=== PATIENT | female | born 1955 | race Caucasian/White ===

== ENCOUNTER → 2017-10-26 | Outpatient (CLI) | payer OTHER, SELFPAY | PROVIDERS: Visit Provider Nurse Practitioner Family | DX: Z79.899 Other long term (current) drug therapy (principal) | CPT/HCPCS: 80305 ==

== ENCOUNTER 2017-11-18 09:13 | Emergency (ER) | payer OTHER, SELFPAY ==
[2017-11-18 09:28] VITALS: BP 139/74; PULSE 79; RESP 20; TEMP 37.1; O2SAT 97; BMI 32.1
--- NOTE | 2017-11-18 10:10 | HMH.EDUTC ---
[facility] [place] Clinical Impression: Influenza B Disposition: Home, Self-Care Condition on Discharge: Good Instructions: Influenza Additional Instructions: * Too late to start tamiflu. Most effective when started within 48 hours of symptoms onset. * Lots of rest * Increase fluids, water, gatorade, powerade, pedialyte if /toddler/child * Monitor Temp. Tylenol every 4 hours as needed no more then 5 times a day or 4000mg in 24 hours and/or ibuprofen every 6 hours as needed no more then 3200mg in 24 hours (as long as your primary care doctor has told you that it is ok to take both) for fever/aches/pain. ER if fever no less than 101 despite tylenol and Ibuprofen * You (or your child) are contagious until no fever, aches, chills x 24 hours without medication for symptoms. * * Per hospital policy, Your throat swab was sent for culture. Those results are typically sent to your primary care. Be sure to follow up in 2-3 days if no improvement so they can review those results and treat if necessary. If you don't have primary care, I recommend you get one but in the mean time, you will have to return to a walk in clinic. Follow up IMMEDIATELY for new or worsening symptoms, improvement followed by suddenly feeling worse OR no noticeable improvement over the next 48-72 hours. 911 for difficulty breathing Referrals: Ciro De Jesus APRN [Primary Care Provider] - (IMMEDIATELY for new or worsening symptoms, improvement followed by suddenly feeling worse OR no noticeable improvement over the next 48-72 hours. 911 for difficulty breathing ) Time of Disposition: 10:24 Medical Decision Making Vital Signs: 11/18/17 09:28 Temperature 98.8 F Temperature Source Temporal Artery Scan Pulse Rate [Right] 79 Respiratory Rate 20 Blood Pressure [Right Arm] 139/74 Blood Pressure Mean [Right Arm] 95 Blood Pressure Source [Right Arm] Automatic Cuff Blood Pressure Position [Right Arm] Sitting 02 Sat by Pulse Oximetry 97 Oxygen Delivery Method Room Air Orders (Tests/Meds): Strep negative Flu A neg Flu B positive - Devyn Inquiry Pt receiving controlled substance: No [facility] [place] HPI - General Stated complaint: cough,congested,sore throat Time Seen by Provider: 11/18/17 10:00 Mode of Arrival: Ambulatory Source of Information: Patient Limitations: No Limitations Description of Symptoms (Recalled from Triage Doc. by RN): SORE THROAT, EAR ACHES, BODY ACHES X4 DAYS HEENT Symptoms (Recalled from RN notes): Yes Resp Symptoms (Recalled from RN notes): No Skin Symptoms (Recalled from RN notes): No MS Symptoms (Recalled from RN notes): No Functional Status (Recalled from RN notes): N - History of Present Illness Provider Complaint: c/o cough x3-4 days associated w/ nasal congestion. Bodyaches day 1. Resolved. Nausea day 2, resolved not I eat whatever I want . Son w/ same symptoms. Dx flu B. Sales And Marketing Director gave her zpack for symptoms but after 2-3 days, no improvement. - Related Data Home Medications Medication Instructions Recorded Confirmed aspirin 81 mg tablet,delayed 81 mg PO QDAY 11/11/17 release bisoprolol fumarate 10 mg tablet 10 mg PO QDAY 11/11/17 cholecalciferol (vitamin D3) 1,000 1,000 unit PO ONCE 11/11/17 unit capsule conjugated estrogens 0.625 mg 0.625 mg PO QDAY 11/11/17 tablet diazepam 5 mg tablet 5 mg PO TID 11/11/17 esomeprazole magnesium 40 mg 40 mg PO QDAY cap 11/11/17 capsule,delayed release isosorbide mononitrate ER 30 mg 30 mg PO QAM 11/11/17 tablet,extended release 24 hr levothyroxine 112 mcg capsule 112 mcg PO QDAY cap 11/11/17 lisinopril 5 mg tablet 5 mg PO QDAY 11/11/17 montelukast 10 mg tablet 10 mg PO QHS 11/11/17 simvastatin 20 mg tablet 20 mg PO QAM 11/11/17 atorvastatin 10 mg tablet 10 mg PO QDAY 11/15/17 Previous Rx's Medication Instructions Recorded azithromycin 1 gram oral packet 1 g PO QDAY #1 packet 11/16/17 Allergies Allergy/AdvReac Type Severity R
--- NOTE | 2017-11-18 10:17 | ED_ITS ---
[facility] Impression: Influenza B Disposition: Home, Self-Care Condition on Discharge: Good Instructions: Influenza Additional Instructions: * Too late to start tamiflu. Most effective when started within 48 hours of symptoms onset. * Lots of rest * Increase fluids, water, gatorade, powerade, pedialyte if infant/toddler/child * Monitor Temp. Tylenol every 4 hours as needed no more then 5 times a day or 4000mg in 24 hours and/or ibuprofen every 6 hours as needed no more then 3200mg in 24 hours (as long as your primary care doctor has told you that it is ok to take both) for fever/aches/pain. ER if fever no less than 101 despite tylenol and Ibuprofen * You (or your child) are contagious until no fever, aches, chills x 24 hours without medication for symptoms. * * Per hospital policy, Your throat swab was sent for culture. Those results are typically sent to your primary care. Be sure to follow up in 2-3 days if no improvement so they can review those results and treat if necessary. If you don' t have primary care, I recommend you get one but in the mean time, you will have to return to a walk in clinic. Follow up IMMEDIATELY for new or worsening symptoms, improvement followed by suddenly feeling worse OR no noticeable improvement over the next 48-72 hours. 911 for difficulty breathing Referrals: Ciro De Jesus APRN [Primary Care Provider] - (IMMEDIATELY for new or worsening symptoms, improvement followed by suddenly feeling worse OR no noticeable improvement over the next 48-72 hours. 911 for difficulty breathing * ) Time of Disposition: 10:24 Medical Decision Making Vital Signs: 11/18/17 09:28 Temperature 98.8 F Temperature Source Temporal Artery Scan Pulse Rate [Right] 79 Respiratory Rate 20 Blood Pressure [Right Arm] 139/74 Blood Pressure Mean [Right Arm] 95 Blood Pressure Source [Right Arm] Automatic Cuff Blood Pressure Position [Right Arm] Sitting 02 Sat by Pulse Oximetry 97 Oxygen Delivery Method Room Air Orders (Tests/Meds): Strep negative Flu A neg Flu B positive - Devyn Inquiry Pt receiving controlled substance: No [facility] [place] - General Stated complaint: cough,congested,sore throat Time Seen by Provider: 11/18/17 10:00 Mode of Arrival: Ambulatory Source of Information: Patient Limitations: No Limitations Description of Symptoms (Recalled from Triage Doc. by RN): SORE THROAT, EAR ACHES, BODY ACHES X4 DAYS HEENT Symptoms (Recalled from RN notes): Yes Resp Symptoms (Recalled from RN notes): No Skin Symptoms (Recalled from RN notes): No MS Symptoms (Recalled from RN notes): No Functional Status (Recalled from RN notes): N - History of Present Illness Provider Complaint: c/o cough x3-4 days associated w/ nasal congestion. Bodyaches day 1. Resolved. Nausea day 2, resolved not I eat whatever I want . Son w/ same symptoms. Dx flu B. 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 - Related Data Home Medications Medication Instructions Recorded Confirmed aspirin 81 mg tablet,delayed 81 mg PO QDAY 11/11/17 release bisoprolol fumarate 10 mg tablet 10 mg PO QDAY 11/11/17 cholecalciferol (vitamin D3) 1,000 1,000 unit PO ONCE 11/11/17 unit capsule conjugated estrogens 0.625 mg 0.625 mg PO QDAY 11/11/17 tablet diazepam 5 mg tablet 5 mg PO TID 11/11/17 esomeprazole magnesium 40 mg 40 mg PO QDAY cap
[2017-11-18 10:39] LABS: UTC Influenza A Antigen Negative (Negative); UTC Influenza B Antigen Positive (Negative); UTC Strep Screen (Rapid) Negative (Negative)
== END 2017-11-18 10:33 | disposition home or self-care (01) ==
PROVIDERS: Emergency Provider Nurse Practitioner Family; PCP Nurse Practitioner Family
DX: J10.1 Influenza due to other identified influenza virus with other respiratory manifestations (principal); J45.909 Unspecified asthma, uncomplicated; I10 Essential (primary) hypertension; E03.9 Hypothyroidism, unspecified; Z79.818 Long term (current) use of other agents affecting estrogen receptors and estrogen levels; Z79.899 Other long term (current) drug therapy; Z79.82 Long term (current) use of aspirin
CPT/HCPCS: 87804; 87880; 99202

== ENCOUNTER → 2017-12-07 09:30 | Outpatient (CLI) | payer OTHER, SELFPAY ==
[2017-12-07 09:33] LABS: Adenovirus F 40/41, stool Not Detected (NotDetected); Astrovirus Not Detected (NotDetected); Campylobacter Not Detected (NotDetected); Clostridium Difficile A/B, PCR Not Detected (NotDetected); Cryptosporidium Not Detected (NotDetected); Cyclospora Cayetanesis Not Detected (NotDetected); Entamoeba histolytica Not Detected (NotDetected); Enteroaggregative E coli Not Detected (NotDetected); Enteropathogenic E coli Not Detected (NotDetected); Enterotoxigenic E coli Not Detected (NotDetected); Giardia lamblia Not Detected (NotDetected); Norovirus Not Detected (NotDetected); Plesimonas Shigalloides, PCR Not Detected (NotDetected); Rotavirus A Not Detected (NotDetected); Salmonella, PCR Not Detected (NotDetected); Sapovirus Not Detected (NotDetected); Shiga-like toxin E coli Not Detected (NotDetected); Shigella Enterovasive E coli Not Detected (NotDetected); Vibrio Cholerae Not Detected (NotDetected); Vibrio, PCR Not Detected (NotDetected); Yersinia Entercolitica, PCR Not Detected (NotDetected)
== END ==
PROVIDERS: PCP Nurse Practitioner Family; Visit Provider Surgery
DX: R19.7 Diarrhea, unspecified (principal); R10.9 Unspecified abdominal pain
CPT/HCPCS: 87507

== ENCOUNTER → 2017-12-09 08:19 | Outpatient (CLI) | payer OTHER, SELFPAY ==
[2017-12-09 08:47] LABS: Blood Urea Nitrogen 14 mg/dL (7-18); Creatinine,Serum 0.67 mg/dL (0.55-1.02); Estimated Glomerular Filt Rate 89 ml/min (>60); GFR (African American) 108 ML/MIN (>60)
--- NOTE | 2017-12-09 08:50 | CT_ITS ---
CT abdomen pelvis w con CLINICAL INDICATION: Lower pelvic pain, diarrhea ORDERING PHYSICIAN: Ariel George MD PATIENT AGE: 62 years COMPARISON: None TECHNIQUE: Axial images obtained with sagittal and coronal reformats. PROCEDURE: Oral Contrast: Redicat IV Contrast: 75 mL's of Isovue-370 . FINDINGS: Lung bases are clear. Mild diffuse fatty liver. No focal liver lesion. Prior cholecystectomy with mild dilatation of the common hepatic duct which may be physiologic response from the previous cholecystectomy. The spleen, adrenal glands, and pancreas are unremarkable. 2 mm nonobstructing calculus is present in the lower pole the right kidney. There is mild prominence of the renal pelves bilaterally. No obstructing ureteral calculi evident. There is a small umbilical hernia containing fat with a tiny infra periumbilical hernia also containing fat. The fat within the umbilical hernia has a somewhat lobular contour. Prior hysterectomy. No evidence of appendicitis. There is no evidence of diverticulitis. No intestinal obstruction or free air. No pelvic mass or focal inflammatory change. No abnormal fluid collection within the pelvis. No acute bony anomalies or aortic aneurysm. IMPRESSION: 1. No acute intra-abdominal or pelvic findings. 2. Nonobstructing right nephrolithiasis. 3. Small umbilical and infraumbilical hernia containing fat.
--- NOTE | 2017-12-09 10:26 | HMH.ITSHM ---
ISOSORS MONO LEVOTHYROXINE LISINOPRIL ASPIRIN D3 MONTELUKAST BISOPROLOL PREMARIN NEXIUM
== END ==
PROVIDERS: PCP Nurse Practitioner Family; Visit Provider Surgery
DX: R10.30 Lower abdominal pain, unspecified (principal)
CPT/HCPCS: 36415; 74177; 82565; 84520; Q9967

== ENCOUNTER → 2017-12-23 15:20 | Outpatient (CLI) | payer OTHER, SELFPAY ==
[2017-12-23 19:22] LABS: Amphetamine/Metha Screen,Urine Negative ng/mL (<1000); Barbiturates Screen,Urine Negative ng/mL (<200); Benzodiazepines Screen,Urine Positive ng/mL (200); Cannabinoid Screen,Urine Negative ng/mL (<50); Cocaine Screen,Urine Negative ng/g (<300); Methadone Screen,Urine Negative ng/mL (<300); Opiate Screen,Urine Negative ng/mL (<300); Phencyclidine Screen,Urine Negative ng/mL (<25)
== END ==
PROVIDERS: Visit Provider Nurse Practitioner Family
DX: Z79.899 Other long term (current) drug therapy (principal)
CPT/HCPCS: 80305

== ENCOUNTER 2018-01-03 09:02 | Day surgery (SDC) | payer OTHER, SELFPAY ==
[2018-01-03 10:18] VITALS: BP 129/76; PULSE 73; RESP 18; TEMP 36.4; O2SAT 94; BMI 32.5
== END 2018-01-03 10:45 | disposition home or self-care (01) ==
LOC: OUTP 09:03
PROVIDERS: PCP Nurse Practitioner Family; Visit Provider Ophthalmology
PROC: (CPT 66821; principal; 2018-01-03 09:00)
DX: H26.492 Other secondary cataract, left eye (principal)
CPT/HCPCS: 66821

== ENCOUNTER → 2018-01-13 08:16 | Outpatient (CLI) | payer OTHER, SELFPAY | PROVIDERS: PCP Emergency Medicine; Visit Provider Internal Medicine Cardiovascular Disease | DX: R06.83 Snoring (principal); R53.83 Other fatigue; R06.00 Dyspnea, unspecified; R00.2 Palpitations | CPT/HCPCS: 93225; 93226 ==

== ENCOUNTER → 2018-01-17 10:34 | Outpatient (CLI) | payer OTHER, SELFPAY ==
--- NOTE | 2018-01-17 | CA_ITS ---
PROCEDURE: 2-D M-mode and color Doppler study INDICATIONS FOR THE TEST: Chest pain COPD+ Heart Murmur+ Tobacco Smoking Palpitations+ Fatigue+ Syncope Edema+ Hypertension+Diabetes Mellitus Rheumatic Fever SOB+WILKINSON+Obesity+Hyperlipidemia+ Family History HD Additional History cad, angina PATIENT INFORMATION HEIGHT: 66 WEIGHT: 171 GENDER: Female B/P: 112/59 2-D/M-MODE INTERPRETATION: 2-D MEASUREMENTS OBSERVED VALUES IN CMS Right Ventricular Dimension (RVDd) 1.5 Interventricular Septum (Thickness)(IVsd) 1.2 Left Ventricular Internal Dimensions(LVIDd) 4.1 Left Ventricular Posterior Wall (Thickness)(LVPWd) 0.9 Aortic Root 2.8 Aortic Cusp Separation 2.1 Left Atrial Dimensions (LAD) 3.6 2D 1. Left atrium is mildly enlarged, left ventricle is normal size, there is mild concentric left ventricular hypertrophy, visually estimated ejection fraction 55% with no obvious regional wall motion abnormality. 2. The right atrium and right ventricle are normal size and contractility. 3. The aortic valve is minimally thickened and fibrosed. 4. The mitral and tricuspid valve leaflets are minimally thickened. 5. The pulmonic valve is poorly visualized. 6. No significant pericardial effusion noted. DOPPLER INTERROGATION: Doppler interrogation of the aortic, mitral and tricuspid valvular presence of mild mitral and tricuspid regurgitation, tricuspid and jet velocity is insufficient for calculation of the right ventricular systolic pressure, grade 1 diastolic dysfunction seen with tissue Doppler evidence of raised left atrial pressure. CONCLUSION: 1. Mildly enlarged left atrium, normal left ventricular size, mild concentric left ventricular hypertrophy, visually estimated ejection fraction 55% with no obvious regional wall motion abnormality, grade 1 diastolic dysfunction seen with tissue Doppler evidence of raised left atrial pressure. 2. Mild mitral and tricuspid regurgitation 3. No significant pericardial effusion noted.
== END ==
PROVIDERS: PCP Emergency Medicine; Visit Provider Internal Medicine Cardiovascular Disease
DX: R06.02 Shortness of breath (principal); E78.4 Other hyperlipidemia; R53.83 Other fatigue; I10 Essential (primary) hypertension; I25.10 Atherosclerotic heart disease of native coronary artery without angina pectoris; R60.9 Edema, unspecified
CPT/HCPCS: 93306

== ENCOUNTER → 2018-02-02 09:21 | Outpatient (CLI) | payer OTHER, SELFPAY | PROVIDERS: PCP Nurse Practitioner Family; Visit Provider Internal Medicine Cardiovascular Disease | DX: R40.0 Somnolence (principal); G47.9 Sleep disorder, unspecified; R00.2 Palpitations; R00.1 Bradycardia, unspecified; R06.83 Snoring; I20.9 Angina pectoris, unspecified; I25.10 Atherosclerotic heart disease of native coronary artery without angina pectoris; R53.83 Other fatigue; R06.02 Shortness of breath; E78.4 Other hyperlipidemia; I10 Essential (primary) hypertension; R60.9 Edema, unspecified | CPT/HCPCS: 95806 ==

== ENCOUNTER → 2018-02-10 09:49 | Outpatient (CLI) | payer OTHER, SELFPAY ==
--- NOTE | 2018-02-10 09:52 | MM_ITS ---
MM Dig screening mamm BI w/CAD CAD Screening COMPARISON: Digital mammograms 01/27/2017 and 01/20/2016 INDICATION: There is no personal or family history of breast cancer. There is been previous biopsy right breast for benign disease. TECHNIQUE: Standard CC and MLO images were obtained. R2 CAD reviewed. FINDINGS: Scattered fibroglandular densities are seen throughout both breasts and the findings are bilateral and symmetrical. There are couple of benign-appearing calcifications in each breast and there is faint arterial calcification in each breast. There is no suspicious lesion and there are no suspicious microcalcifications. IMPRESSION: Fibrofatty parenchyma with no suspicious lesion seen BI-RADS Category: 2 Benign Finding(s) RECOMMENDED FOLLOW-UP: 1YR - 1 YEAR FOLLOW-UP (A letter has been sent to the patient regarding results of the study.)
== END ==
PROVIDERS: PCP Nurse Practitioner Family; Visit Provider Nurse Practitioner Family
DX: Z12.31 Encounter for screening mammogram for malignant neoplasm of breast (principal)
CPT/HCPCS: 77067

== ENCOUNTER → 2018-02-17 15:22 | Outpatient (CLI) | payer OTHER, SELFPAY ==
[2018-02-17 18:44] LABS: Amphetamine/Metha Screen,Urine Negative ng/mL (<1000); Barbiturates Screen,Urine Negative ng/mL (<200); Benzodiazepines Screen,Urine Positive ng/mL (200); Cannabinoid Screen,Urine Negative ng/mL (<50); Cocaine Screen,Urine Negative ng/g (<300); Methadone Screen,Urine Negative ng/mL (<300); Opiate Screen,Urine Negative ng/mL (<300); Phencyclidine Screen,Urine Negative ng/mL (<25)
== END ==
PROVIDERS: Visit Provider Nurse Practitioner Family
DX: Z79.899 Other long term (current) drug therapy (principal)
CPT/HCPCS: 80305

== ENCOUNTER → 2018-04-14 15:18 | Outpatient (CLI) | payer OTHER, SELFPAY ==
[2018-04-14 19:23] LABS: Amphetamine/Metha Screen,Urine Negative ng/mL (<1000); Barbiturates Screen,Urine Negative ng/mL (<200); Benzodiazepines Screen,Urine Positive ng/mL (200); Cannabinoid Screen,Urine Negative ng/mL (<50); Cocaine Screen,Urine Negative ng/g (<300); Methadone Screen,Urine Negative ng/mL (<300); Opiate Screen,Urine Negative ng/mL (<300); Phencyclidine Screen,Urine Negative ng/mL (<25)
== END ==
PROVIDERS: Visit Provider Nurse Practitioner Family
DX: Z79.899 Other long term (current) drug therapy (principal)
CPT/HCPCS: 80305

== ENCOUNTER → 2018-04-17 09:57 | Outpatient (CLI) | payer OTHER, SELFPAY ==
--- NOTE | 2018-04-17 09:57 | US_ITS ---
US Arterial Ankle Brachial Ind History: ITS.REASON: claudication, bilateral leg pain, rest pain, pain with exercise ORDERING PHYSICIAN: Sky Yeager MD PATIENT AGE: 63 years TECHNIQUE: Segmental pressures obtained of both right and left leg. These are compared to brachial blood pressure to yield index at each level sampled including summary JOE. The data sheets from the procedure are available in PACS FINDINGS Rest study only performed today No prior studies available for comparison. Blood pressures reported are in millimeters mercury. RIGHT LEG JOE = 1.1. RIGHT LEG TBI=.9 Brachial BP: 135 Thigh BP: 141 Calf BP: 145 Ankle PT: 149 Ankle DP : 138 Digit =127 LEFT LEG JOE = 1.1 LEFT LEG TBI= .9 Brachial BPD: 132 Thigh BP: 127 Calf BP: 129 Ankle PT:150 Ankle DP: 135 Digit = 120 Pulses and waveforms: Normal IMPRESSION: The ABIs as reported above are within normal limits. Waveforms and pulses are also unremarkable.
== END ==
PROVIDERS: PCP Nurse Practitioner Family; Visit Provider Internal Medicine Cardiovascular Disease
DX: M79.604 Pain in right leg (principal); M79.605 Pain in left leg; I73.9 Peripheral vascular disease, unspecified
CPT/HCPCS: 93922

== ENCOUNTER → 2018-05-12 14:37 | Outpatient (CLI) | payer OTHER, SELFPAY ==
[2018-05-12 17:10] LABS: Basophils % 0.6 % (0.1-2.0); Eosinophils # 0.2 K/mm3 (0.0-0.4); Eosinophils % 2.9 % (0.1-12.0); Hematocrit 42.4 % (37.0-47.0); Lymphocytes # 2.2 K/mm3 (0.7-4.5); Lymphocytes % 32.6 K/mm3 (10-50); Mean Corpuscular HGB Conc 33.1 g/dL (31.8-35.4); Mean Corpuscular Hemoglobin 30.8 pg (27.0-31.2); Mean Corpuscular Volume 93.1 fl (81-99); Mean Platelet Volume 8.6 fl (7.4-10.4); Monocytes # 0.3 K/mm3 (0.1-1.0); Monocytes % 5.1 % (1.7-9.3); Neutrophils # 3.9 K/mm3 (1.8-7.8); Neutrophils % 58.8 % (37.0-80.0); Platelet Count 227 K/mm3 (142-424); Red Blood Count 4.56 M/mm3 (4.20-5.40); Red Cell Distribution Width 13.5 % (11.5-17.5); White Blood Count 6.7 K/mm3 (4.8-10.8)
[2018-05-12 18:43] LABS: Alanine Aminotransferase 32 U/L (12-78); Albumin Level 3.6 gm/dL (3.4-5.0); Albumin/Globulin Ratio 1.2 (1.1-1.8); Alkaline Phosphatase 59 U/L (46-116); Anion Gap 10.5 mEq/L (5-15); Aspartate Amino Transferase 33 U/L (15-37); Bilirubin,Total 0.6 mg/dL (0.2-1.0); Blood Urea Nitrogen 13 mg/dL (7-18); Calcium 8.7 mg/dL (8.5-10.1); Carbon Dioxide 28 mmol/L (21.0-32.0); Chloride 103 mmol/L (98-107); Creatinine,Serum 0.59 mg/dL (0.55-1.02); Estimated Glomerular Filt Rate 103 ml/min (>60); GFR (African American) 125 ML/MIN (>60); Glucose 85 mg/dL (74-106); Potassium 3.5 mmoL/L (3.5-5.1); Sodium 138 mmol/L (136-145); Total Protein,Serum 6.6 gm/dL (6.4-8.2)
== END ==
PROVIDERS: Visit Provider Nurse Practitioner Family
DX: R25.2 Cramp and spasm (principal); F41.9 Anxiety disorder, unspecified
CPT/HCPCS: 80053; 85025

== ENCOUNTER → 2018-05-25 14:43 | Outpatient (CLI) | payer OTHER, SELFPAY ==
--- NOTE | 2018-05-25 14:44 | XR_ITS ---
XR foot wt bearing LT 3V HISTORY: ITS.REASON: soft tissue mass ORDERING PHYSICIAN: Radha Greenfield DPM PATIENT AGE: 63 years COMPARISON: Right foot same date FINDINGS: No fracture or dislocation. No lytic or blastic change. There is normal mineralization.. The joint spaces are well-preserved. No significant degenerative/arthritic changes. No erosive changes evident. The prominent spur of the calcaneus at insertion of plantar tendon. There is no abnormal soft tissue swelling noted. IMPRESSION: Negative, no acute finding
--- NOTE | 2018-05-25 14:44 | XR_ITS ---
XR foot wt bearing RT 3V HISTORY: ITS.REASON: soft tissue mass ORDERING PHYSICIAN: Radha Greenfield DPM PATIENT AGE: 63 years COMPARISON: Left foot same date FINDINGS: No fracture or dislocation. No lytic or blastic change. There is normal mineralization.. The joint spaces are well-preserved. No significant degenerative/arthritic changes. No erosive changes evident. There is a prominent spur of the calcaneus at insertion of plantar tendon. There Is no abnormal signal soft tissue swelling. IMPRESSION: Negative, no acute finding
== END ==
PROVIDERS: Visit Provider Podiatrist
DX: M19.071 Primary osteoarthritis, right ankle and foot (principal); M19.072 Primary osteoarthritis, left ankle and foot; M67.471 Ganglion, right ankle and foot; M67.472 Ganglion, left ankle and foot
CPT/HCPCS: 73630

== ENCOUNTER → 2018-06-08 14:36 | Outpatient (REF) | payer OTHER, SELFPAY ==
[2018-06-08 19:28] LABS: Amphetamine/Metha Screen,Urine Negative ng/mL (<1000); Barbiturates Screen,Urine Negative ng/mL (<200); Benzodiazepines Screen,Urine Positive ng/mL (<200); Cannabinoid Screen,Urine Negative ng/mL (<50); Cocaine Screen,Urine Negative ng/mL (<300); Methadone Screen,Urine Negative ng/mL (<300); Opiate Screen,Urine Negative ng/mL (<300); Phencyclidine Screen,Urine Negative ng/mL (<25)
== END ==
LOC: LAB 14:36
PROVIDERS: Visit Provider Nurse Practitioner Family
DX: Z79.899 Other long term (current) drug therapy (principal)
CPT/HCPCS: 80305

== ENCOUNTER → 2018-08-03 09:07 | Outpatient (REF) | payer OTHER, SELFPAY ==
[2018-08-03 14:19] LABS: Amphetamine/Metha Screen,Urine Negative ng/mL (<1000); Barbiturates Screen,Urine Negative ng/mL (<200); Benzodiazepines Screen,Urine Positive ng/mL (<200); Cannabinoid Screen,Urine Negative ng/mL (<50); Cocaine Screen,Urine Negative ng/mL (<300); Methadone Screen,Urine Negative ng/mL (<300); Opiate Screen,Urine Negative ng/mL (<300); Phencyclidine Screen,Urine Negative ng/mL (<25)
== END ==
LOC: LAB 09:07
PROVIDERS: Visit Provider Nurse Practitioner Family
DX: Z79.899 Other long term (current) drug therapy (principal)
CPT/HCPCS: 80305

== ENCOUNTER → 2018-08-31 13:29 | Outpatient (REF) | payer OTHER, SELFPAY ==
[2018-08-31 14:21] LABS: Basophils % 0.5 % (0.1-2.0); Eosinophils # 0.2 K/mm3 (0.0-0.4); Eosinophils % 2.9 % (0.1-12.0); Hematocrit 41.6 % (37.0-47.0); Hemoglobin 14.1 g/dL (12.2-16.2); Lymphocytes # 1.8 K/mm3 (0.7-4.5); Lymphocytes % 25.7 K/mm3 (10-50); Mean Corpuscular HGB Conc 33.9 g/dL (31.8-35.4); Mean Corpuscular Hemoglobin 31.9 pg (27.0-31.2); Mean Corpuscular Volume 94.3 fl (81-99); Mean Platelet Volume 8.7 fl (7.4-10.4); Monocytes # 0.3 K/mm3 (0.1-1.0); Monocytes % 4.9 % (1.7-9.3); Neutrophils # 4.6 K/mm3 (1.8-7.8); Neutrophils % 66.1 % (37.0-80.0); Platelet Count 215 K/mm3 (142-424); Red Cell Distribution Width 13.7 % (11.5-17.5)
[2018-08-31 15:06] LABS: Alanine Aminotransferase 28 U/L (12-78); Albumin Level 3.5 gm/dL (3.4-5.0); Albumin/Globulin Ratio 1.1 (1.1-1.8); Alkaline Phosphatase 71 U/L (46-116); Anion Gap 13.3 mEq/L (5-15); Aspartate Amino Transferase 22 U/L (15-37); Bilirubin,Total 0.5 mg/dL (0.2-1.0); Blood Urea Nitrogen 13 mg/dL (7-18); Carbon Dioxide 29 mmol/L (21.0-32.0); Chloride 103 mmol/L (98-107); Chol/HDL Ratio 2.5 (1-3.5); Cholesterol 161 mg/dL (140-200); Creatinine,Serum 0.69 mg/dL (0.55-1.02); Estimated Glomerular Filt Rate 86 ml/min (>60); GFR (African American) 104 ML/MIN (>60); Globulin 3.2 gm/dl (1.3-3.2); Glucose 111 mg/dL (74-106); HDL Cholesterol 64 mg/dL (29-89); LDL Cholesterol 77 mg/dL (0-130); Potassium 4.3 mmoL/L (3.5-5.1); Sodium 141 mmol/L (136-145); T4 (Thyroxine) 12.7 ug/dl (4.7-13.3); Thyroid Stimulating Hormone 3.73 uIU/ml (0.358-3.740); Total Protein,Serum 6.7 gm/dL (6.4-8.2); Triglycerides 99 mg/dL (30-200); VLDL Cholesterol 20 mg/dL (0-40)
[2018-08-31 15:31] LABS: Amphetamine/Metha Screen,Urine Negative ng/mL (<1000); Barbiturates Screen,Urine Negative ng/mL (<200); Benzodiazepines Screen,Urine Positive ng/mL (<200); Cannabinoid Screen,Urine Negative ng/mL (<50); Cocaine Screen,Urine Negative ng/mL (<300); Methadone Screen,Urine Negative ng/mL (<300); Opiate Screen,Urine Negative ng/mL (<300); Phencyclidine Screen,Urine Negative ng/mL (<25)
[2018-09-01 09:21] LABS: Hep A Ab, IgM Negative (Negative); Hepatitis B Core Antibody IgM Negative (Negative); Hepatitis B Surface Antigen Negative (Negative)
[2018-09-01 18:08] LABS: Hepatitis C Antibody <0.1 s/co ratio (0.0-0.9)
== END ==
LOC: LAB 13:29
PROVIDERS: PCP Nurse Practitioner Family; Visit Provider Nurse Practitioner Family
DX: E66.9 Obesity, unspecified (principal); Z20.2 Contact with and (suspected) exposure to infections with a predominantly sexual mode of transmission; Z79.899 Other long term (current) drug therapy; G62.9 Polyneuropathy, unspecified
CPT/HCPCS: 80053; 80061; 80074; 80305; 84436; 84443; 85025

== ENCOUNTER → 2018-09-11 12:51 | Outpatient (CLI) | payer OTHER, SELFPAY ==
[2018-09-11 20:08] LABS: Thyroid Stimulating Hormone 4.73 uIU/ml (0.358-3.740)
== END ==
PROVIDERS: Visit Provider Otolaryngology
DX: E03.9 Hypothyroidism, unspecified (principal)
CPT/HCPCS: 36415; 84439; 84443

== ENCOUNTER → 2018-09-14 08:36 | Outpatient (CLI) | payer OTHER, SELFPAY ==
--- NOTE | 2018-09-14 08:37 | FL_ITS ---
EXAM: Barium swallow/esophagram. INDICATION: ITS.REASON: swallowing difficulty ORDERING PHYSICIAN: Kristian Dumont MD PATIENT AGE: 63 years COMPARISON: None TECHNIQUE: In the upright position the patient was observed to swallow barium in both the AP and lateral view. The cervical esophagus was examined under fluoroscopy with images obtained. The patient was then placed prone in the right anterior oblique position and was observed to swallow barium with Valsalva technique . FLUOROSCOPY TIME: 52 seconds FINDINGS: There was no evidence of aspiration. There was normal peristalsis. No filling defects or mucosal abnormalities. No masses or strictures. There are mildly prominent anterior osteophytes at C5-C6 and C6-C7 which does not appear to significantly indent the posterior esophagus. Mid and distal esophagus have an unremarkable appearance. No evidence of hiatal hernia. IMPRESSION: Negative barium swallow.
== END ==
PROVIDERS: PCP Nurse Practitioner Family; Visit Provider Otolaryngology
DX: R13.10 Dysphagia, unspecified (principal)
CPT/HCPCS: 74220

== ENCOUNTER → 2018-09-21 15:19 | Outpatient (CLI) | payer OTHER, SELFPAY ==
[2018-09-21 18:17] LABS: Amphetamine/Metha Screen,Urine Negative ng/mL (<1000); Barbiturates Screen,Urine Negative ng/mL (<200); Benzodiazepines Screen,Urine Positive ng/mL (<200); Cannabinoid Screen,Urine Negative ng/mL (<50); Cocaine Screen,Urine Negative ng/mL (<300); Methadone Screen,Urine Negative ng/mL (<300); Opiate Screen,Urine Negative ng/mL (<300); Phencyclidine Screen,Urine Negative ng/mL (<25)
== END ==
PROVIDERS: Nurse Practitioner Family; Visit Provider Otolaryngology
DX: Z79.899 Other long term (current) drug therapy (principal)
CPT/HCPCS: 80305

== ENCOUNTER 2018-10-05 15:00 | Outpatient (RCR) | payer OTHER, SELFPAY ==
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
== END 2018-10-05 15:05 | disposition home or self-care (01) ==
LOC: PT 15:00
PROVIDERS: Visit Provider Nurse Practitioner Family
DX: M54.2 Cervicalgia (principal); G89.29 Other chronic pain
CPT/HCPCS: 97010; 97014; 97035; 97110; 97163; G0283

== ENCOUNTER → 2018-10-18 13:29 | Outpatient (CLI) | payer OTHER, SELFPAY ==
[2018-10-18 14:53] LABS: Amphetamine/Metha Screen,Urine Negative ng/mL (<1000); Barbiturates Screen,Urine Negative ng/mL (<200); Benzodiazepines Screen,Urine Negative ng/mL (<200); Cannabinoid Screen,Urine Negative ng/mL (<50); Cocaine Screen,Urine Negative ng/mL (<300); Methadone Screen,Urine Negative ng/mL (<300); Opiate Screen,Urine Negative ng/mL (<300); Phencyclidine Screen,Urine Negative ng/mL (<25)
[2018-10-25 09:18] LABS: Alprazolam Negative (Cutoff=100); Benzodiazepines Negative ng/mL (Cutoff=100); Clonazepam Negative (Cutoff=100); Flurazepam Negative (Cutoff=100); Lorazepam Negative (Cutoff=100); Midazolam Negative (Cutoff=100); Temazepam Negative (Cutoff=100); Triazolam Negative (Cutoff=100)
== END ==
PROVIDERS: Visit Provider Nurse Practitioner Family
DX: Z79.899 Other long term (current) drug therapy (principal)
CPT/HCPCS: 80305; 80346

== ENCOUNTER → 2018-10-19 09:20 | Outpatient (CLI) | payer OTHER, SELFPAY ==
--- NOTE | 2018-10-19 09:22 | XR_ITS ---
XR hand RT min 3V HISTORY: Numbness and tingling in the right hand ITS.REASON: Rt hand Carpal tunnel ORDERING PHYSICIAN: Malika Ralph MD PATIENT AGE: 63 years COMPARISON: None FINDINGS: There are mild osteoarthritic changes at the interphalangeal joint of the thumb with periarticular well-circumscribed areas of calcification. A small periarticular calcific densities present along the ulnar aspect of the PIP joint of the third finger. No acute fracture or dislocation. No bony erosive process. There are mild osteoarthritic changes of the third PIP and DIP joint. IMPRESSION: Mild osteoarthritis/chronic change, no acute finding
== END ==
PROVIDERS: PCP Nurse Practitioner Family; Visit Provider Orthopaedic Surgery
DX: M79.641 Pain in right hand (principal)
CPT/HCPCS: 73130

== ENCOUNTER 2018-10-19 10:21 | Outpatient (RCR) | payer OTHER, SELFPAY | END 2018-10-23 10:00 | disposition home or self-care (01) | LOC: OT 10:21 | PROVIDERS: Visit Provider Orthopaedic Surgery | DX: R20.0 Anesthesia of skin (principal); R20.2 Paresthesia of skin | CPT/HCPCS: 97763 ==

== ENCOUNTER → 2018-11-22 11:30 | Outpatient (CLI) | payer OTHER, SELFPAY ==
[2018-11-22 13:29] LABS: Basophils % 0.4 % (0.1-2.0); Eosinophils # 0.2 K/mm3 (0.0-0.4); Eosinophils % 3.3 % (0.1-12.0); Hematocrit 42.6 % (37.0-47.0); Hemoglobin 14.1 g/dL (12.2-16.2); Lymphocytes # 2.4 K/mm3 (0.7-4.5); Lymphocytes % 34.9 % (10-50); Mean Corpuscular HGB Conc 33.2 g/dL (31.8-35.4); Mean Corpuscular Hemoglobin 31.8 pg (27.0-31.2); Mean Corpuscular Volume 95.9 fl (81-99); Monocytes # 0.3 K/mm3 (0.1-1.0); Monocytes % 4.3 % (1.7-9.3); Neutrophils % 57.2 % (37.0-80.0); Platelet Count 205 K/mm3 (142-424); Red Blood Count 4.44 M/mm3 (4.20-5.40); Red Cell Distribution Width 13.8 % (11.5-17.5); White Blood Count 6.9 K/mm3 (4.8-10.8)
[2018-11-22 13:31] LABS: Anion Gap 14.9 mEq/L (5-15); Blood Urea Nitrogen 20 mg/dL (7-18); Calcium 8.8 mg/dL (8.5-10.1); Carbon Dioxide 29 mmol/L (21.0-32.0); Chloride 101 mmol/L (98-107); Creatinine,Serum 0.68 mg/dL (0.55-1.02); Estimated Glomerular Filt Rate 87 ml/min (>60); Free Thyroxine Index 3.8 ug/dL (5.93-13.13); GFR (African American) 106 ML/MIN (>60); Glucose 102 mg/dL (74-106); Potassium 3.9 mmoL/L (3.5-5.1); Sodium 141 mmol/L (136-145); Thyroid Stimulating Hormone 3.58 uIU/ml (0.358-3.740); Triiodothryronine (T3) Uptake 29 % (31-39)
== END ==
PROVIDERS: Visit Provider Nurse Practitioner Family
DX: I25.10 Atherosclerotic heart disease of native coronary artery without angina pectoris (principal); E78.49 Other hyperlipidemia; R06.02 Shortness of breath; I10 Essential (primary) hypertension; I95.9 Hypotension, unspecified; R00.1 Bradycardia, unspecified; R53.83 Other fatigue
CPT/HCPCS: 36415; 80048; 84436; 84443; 84479; 85025

== ENCOUNTER → 2018-12-11 09:32 | Outpatient (POV) | payer OTHER, SELFPAY | PROVIDERS: Visit Provider Specialist | DX: R20.0 Anesthesia of skin (principal); R20.2 Paresthesia of skin; M79.671 Pain in right foot; M79.672 Pain in left foot | CPT/HCPCS: 95886; 95908 ==

== ENCOUNTER → 2018-12-12 19:51 | Outpatient (CLI) | payer OTHER, SELFPAY | PROVIDERS: PCP Nurse Practitioner Family; Visit Provider Emergency Medicine | DX: G47.33 Obstructive sleep apnea (adult) (pediatric) (principal); I10 Essential (primary) hypertension; R40.0 Somnolence; R06.83 Snoring | CPT/HCPCS: 95810 ==

== ENCOUNTER → 2018-12-14 14:59 | Outpatient (CLI) | payer OTHER, SELFPAY ==
[2018-12-14 19:25] LABS: Amphetamine/Metha Screen,Urine Negative ng/mL (<1000); Barbiturates Screen,Urine Negative ng/mL (<200); Benzodiazepines Screen,Urine Positive ng/mL (<200); Cannabinoid Screen,Urine Negative ng/mL (<50); Cocaine Screen,Urine Negative ng/mL (<300); Methadone Screen,Urine Negative ng/mL (<300); Opiate Screen,Urine Negative ng/mL (<300); Phencyclidine Screen,Urine Negative ng/mL (<25)
== END ==
PROVIDERS: Visit Provider Nurse Practitioner Family
DX: F41.9 Anxiety disorder, unspecified (principal)
CPT/HCPCS: 80305

== ENCOUNTER → 2018-12-21 13:55 | Outpatient (CLI) | payer OTHER, SELFPAY ==
[2018-12-21 14:45] LABS: INR 1.06 (0.9-1.1); Prothrombin Time 10.9 seconds (9.4-11.8)
[2018-12-21 14:56] LABS: Basophils % 0.6 % (0.1-2.0); Eosinophils # 0.2 K/mm3 (0.0-0.4); Eosinophils % 3.4 % (0.1-12.0); Hemoglobin 14.9 g/dL (12.2-16.2); Lymphocytes # 2.4 K/mm3 (0.7-4.5); Lymphocytes % 36.5 % (10-50); Mean Corpuscular HGB Conc 38.3 g/dL (31.8-35.4); Mean Corpuscular Hemoglobin 36.3 pg (27.0-31.2); Mean Corpuscular Volume 94.7 fl (81-99); Mean Platelet Volume 7.6 fl (7.4-10.4); Monocytes # 0.2 K/mm3 (0.1-1.0); Monocytes % 3.8 % (1.7-9.3); Neutrophils # 3.6 K/mm3 (1.8-7.8); Neutrophils % 56.4 % (37.0-80.0); Platelet Count 205 K/mm3 (142-424); Red Blood Count 4.11 M/mm3 (4.20-5.40); Red Cell Distribution Width 14.1 % (11.5-17.5); White Blood Count 6.4 K/mm3 (4.8-10.8)
[2018-12-21 18:16] LABS: Anion Gap 13.1 mEq/L (5-15); Blood Urea Nitrogen 19 mg/dL (7-18); Calcium 9.2 mg/dL (8.5-10.1); Carbon Dioxide 29 mmol/L (21.0-32.0); Chloride 103 mmol/L (98-107); Creatinine,Serum 0.64 mg/dL (0.55-1.02); Estimated Glomerular Filt Rate 94 ml/min (>60); GFR (African American) 113 ML/MIN (>60); Glucose 87 mg/dL (74-106); Potassium 4.1 mmoL/L (3.5-5.1); Sodium 141 mmol/L (136-145)
== END ==
PROVIDERS: PCP Nurse Practitioner Family; Visit Provider Orthopaedic Surgery
DX: G56.01 Carpal tunnel syndrome, right upper limb (principal)
CPT/HCPCS: 36415; 80048; 85025; 85610

== ENCOUNTER → 2018-12-25 12:06 | Outpatient (CLI) | payer OTHER, SELFPAY ==
--- NOTE | 2018-12-25 12:11 | XR_ITS ---
XR chest 2V HISTORY: ITS.REASON: Cough ORDERING PHYSICIAN: Malika Ralph MD PATIENT AGE: 63 years COMPARISON: PA and lateral chest 11/10/2018 FINDINGS: The cardiomediastinal silhouette and pulmonary vascularity are within normal limits. The lungs are clear without infiltrates, suspicious nodules, or pleural effusions. No acute bony abnormalities. IMPRESSION: Negative chest, no acute finding
== END ==
PROVIDERS: PCP Emergency Medicine; Visit Provider Orthopaedic Surgery
DX: G56.01 Carpal tunnel syndrome, right upper limb (principal)
CPT/HCPCS: 71046

== ENCOUNTER → 2019-01-04 10:26 | Outpatient (CLI) | payer OTHER, SELFPAY ==
--- NOTE | 2019-01-04 10:29 | MR_ITS ---
MR lumbar spine wo con, MR 3-d myelogram/MRCP HISTORY: Low back pain X years. ITS.REASON: low back pain ORDERING PHYSICIAN: Ciro De Jesus PATIENT AGE: 63 years Comparison: X-RAY 04/20/17. MRI 03/13/11. TECHNIQUE: Standard multiplanar multiecho sequences are performed without contrast. 3-D MIP and myelographic images are also rendered and reviewed FINDINGS: There is normal alignment. The spinal cord ends at the T12 level. T12-L1, L1-L2, L2-L3, and L3-L4 have an unremarkable appearance. Minimal bulging disc is noted at L4-L5. Minimal bulging disc noted at L5-S1. No neural impingement. There is some mild facet hypertrophic change at L4-L5. No canal stenosis or disc herniation evident. There are type II endplate changes along the inferior aspect of L5. IMPRESSION: 1. No disc herniation or canal stenosis. 2. Minimal bulging disc at L4-L5 and L5-S1 with minimal facet hypertrophic change at L4-5
== END ==
PROVIDERS: PCP Nurse Practitioner Family; Visit Provider Nurse Practitioner Family
DX: M54.5 Low back pain (principal)
CPT/HCPCS: 72148; 76376

== ENCOUNTER → 2019-01-09 15:19 | Outpatient (CLI) | payer OTHER, SELFPAY | PROVIDERS: PCP Nurse Practitioner Family; Visit Provider Obstetrics & Gynecology | DX: Z12.31 Encounter for screening mammogram for malignant neoplasm of breast (principal) ==

== ENCOUNTER → 2019-02-08 13:37 | Outpatient (CLI) | payer OTHER, SELFPAY ==
[2019-02-08 18:04] LABS: Amphetamine/Metha Screen,Urine Negative ng/mL (<1000); Barbiturates Screen,Urine Negative ng/mL (<200); Benzodiazepines Screen,Urine Positive ng/mL (<200); Cannabinoid Screen,Urine Negative ng/mL (<50); Cocaine Screen,Urine Negative ng/mL (<300); Methadone Screen,Urine Negative ng/mL (<300); Opiate Screen,Urine Negative ng/mL (<300); Phencyclidine Screen,Urine Negative ng/mL (<25)
== END ==
PROVIDERS: Visit Provider Nurse Practitioner Family
DX: Z79.899 Other long term (current) drug therapy (principal)
CPT/HCPCS: 80305

== ENCOUNTER → 2019-03-02 14:38 | Outpatient (CLI) | payer OTHER, SELFPAY ==
--- NOTE | 2019-03-02 14:40 | XR_ITS ---
XR DEXA axial skeleton HISTORY: ITS.REASON: screening ORDERING PHYSICIAN: Ervin Hoffman MD PATIENT AGE: 63 years COMPARISON: 01/14/2015 FINDINGS: The BMD measured at the AP Spine L1-L4 is 1.299 g/cm squared with a T score of 1.0. This is considered Normal according to the World Health Organization criteria. Fracture risk is Low. Mean hip density has T score of 3.0. This is normal. The density has increased by 1.1% from the previous exam. Lumbar spine density has increased by 1.6%. IMPRESSION: Normal bone density with low fracture risk. Suggest follow-up exam in February 2021
--- NOTE | 2019-03-02 14:40 | MM_ITS ---
MM Dig screening mamm BI w/CAD ORDERING PHYSICIAN : Ervin Hoffman MD PATIENT AGE: 63 years GENDER: Female COMPARISON: February 2018; January digital bilateral mammogram studies INDICATION: ITS.Routine screening mammogram. Patient taking Premarin. Previous excisional biopsy right breast 2:30 position. Period. Family history. Noncontributory TECHNIQUE: Standard CC and MLO images were obtained. R2 CAD reviewed. FINDINGS: Low-density breast with minimal residual fibroglandular elements throughout most evident towards upper-outer quadrant.. Moderate fatty replacement bilaterally. No areas of significant concern no new findings in either breast. Bilateral follow-up in one year recommended. RIGHT BREAST: Stable mammogram No New findings of significant concern LEFT BREAST:No new findings of significant concern Minor ductal prominence retroareolar region again noted There are a few small scattered calcifications towards upper-outer quadrant left breast but these appear to be stable, benign features and can be followed. Stable intramammary lymph node deep axillary left breast IMPRESSION: Stable mammogram with no significant new findings. Bilateral follow-up in one year recommended. BI-RADS Category: 1 Negative RECOMMENDED FOLLOW-UP: 1YR 1 YEAR FOLLOW-UP (A letter has been sent to the patient regarding results of the study.)
== END ==
PROVIDERS: PCP Nurse Practitioner Family; Visit Provider Obstetrics & Gynecology
DX: Z12.31 Encounter for screening mammogram for malignant neoplasm of breast (principal); Z78.0 Asymptomatic menopausal state; Z13.820 Encounter for screening for osteoporosis
CPT/HCPCS: 77067; 77080

== ENCOUNTER 2019-03-08 13:00 | Outpatient (RCR) | payer OTHER, SELFPAY | END 2019-03-08 13:05 | disposition home or self-care (01) | LOC: OT 13:00 | PROVIDERS: Visit Provider Orthopaedic Surgery | DX: G56.01 Carpal tunnel syndrome, right upper limb (principal) | CPT/HCPCS: 97014; 97035; 97110; 97140; 97165; G0283 ==

== ENCOUNTER → 2019-03-15 14:01 | Outpatient (CLI) | payer OTHER, SELFPAY ==
[2019-03-15 17:33] LABS: Amphetamine/Metha Screen,Urine Negative ng/mL (<1000); Barbiturates Screen,Urine Negative ng/mL (<200); Benzodiazepines Screen,Urine Positive ng/mL (<200); Cannabinoid Screen,Urine Negative ng/mL (<50); Cocaine Screen,Urine Negative ng/mL (<300); Methadone Screen,Urine Negative ng/mL (<300); Opiate Screen,Urine Negative ng/mL (<300); Phencyclidine Screen,Urine Negative ng/mL (<25)
== END ==
PROVIDERS: Visit Provider Nurse Practitioner Family
DX: Z79.899 Other long term (current) drug therapy (principal)
CPT/HCPCS: 80305

== ENCOUNTER → 2019-03-22 09:25 | Outpatient (CLI) | payer OTHER, SELFPAY ==
--- NOTE | 2019-03-22 09:25 | FL_ITS ---
EXAM: Barium swallow/esophagram. INDICATION: ITS.REASON: diff swallowing ORDERING PHYSICIAN: Kristian Dumont MD PATIENT AGE: 63 years COMPARISON: None TECHNIQUE: In the upright position the patient was observed to swallow barium in both the AP and lateral view. The cervical esophagus was examined under fluoroscopy with images obtained. The patient was then placed prone in the right anterior oblique position and was observed to swallow barium with Valsalva technique . FLUOROSCOPY TIME: 40 seconds FINDINGS: There was no evidence of aspiration. There was normal peristalsis. No filling defects or mucosal abnormalities. No masses or strictures. No evidence of hiatal hernia. No esophageal deviation or external compression. IMPRESSION: Negative barium swallow.
== END ==
PROVIDERS: PCP Nurse Practitioner Family; Visit Provider Otolaryngology
DX: R13.10 Dysphagia, unspecified (principal)
CPT/HCPCS: 74220

== ENCOUNTER → 2019-05-09 17:01 | Outpatient (CLI) | payer OTHER, SELFPAY ==
[2019-05-09 18:20] LABS: Amphetamine/Metha Screen,Urine Negative ng/mL (<1000); Barbiturates Screen,Urine Negative ng/mL (<200); Benzodiazepines Screen,Urine Positive ng/mL (<200); Cannabinoid Screen,Urine Negative ng/mL (<50); Cocaine Screen,Urine Negative ng/mL (<300); Methadone Screen,Urine Negative ng/mL (<300); Opiate Screen,Urine Negative ng/mL (<300); Phencyclidine Screen,Urine Negative ng/mL (<25)
== END ==
LOC: LAB 17:02 → LAB.DROPOF 17:20
PROVIDERS: Visit Provider Nurse Practitioner Family
DX: Z79.899 Other long term (current) drug therapy (principal)
CPT/HCPCS: 80305

== ENCOUNTER → 2019-05-25 11:35 | Outpatient (CLI) | payer OTHER, SELFPAY ==
--- NOTE | 2019-05-25 11:55 | XR_ITS ---
XR chest 2V HISTORY: ITS.REASON: dyspnea ORDERING PHYSICIAN: Sky Yeager MD PATIENT AGE: 64 years COMPARISON: PA and lateral chest 11/10/2018 FINDINGS: The cardiomediastinal silhouette and pulmonary vascularity are within normal limits. The lungs are clear without infiltrates, suspicious nodules, or pleural effusions. No acute bony abnormalities. IMPRESSION: Negative chest, no acute finding
[2019-05-25 13:28] LABS: Anion Gap 10.8 mEq/L (5-15); Blood Urea Nitrogen 15 mg/dL (7-18); Carbon Dioxide 30 mmol/L (21.0-32.0); Chloride 105 mmol/L (98-107); Estimated Glomerular Filt Rate 101 ml/min (>60); GFR (African American) 122 ML/MIN (>60); Glucose 85 mg/dL (74-106); Potassium 3.8 mmoL/L (3.5-5.1); Sodium 142 mmol/L (136-145)
== END ==
PROVIDERS: PCP Nurse Practitioner Family; Visit Provider Internal Medicine Cardiovascular Disease
DX: R06.02 Shortness of breath (principal); E78.49 Other hyperlipidemia; I10 Essential (primary) hypertension; I25.10 Atherosclerotic heart disease of native coronary artery without angina pectoris
CPT/HCPCS: 36415; 71046; 80048; 83880

== ENCOUNTER → 2019-06-07 14:29 | Outpatient (CLI) | payer OTHER, SELFPAY ==
[2019-06-07 15:06] LABS: Amphetamine/Metha Screen,Urine Negative ng/mL (<1000); Barbiturates Screen,Urine Negative ng/mL (<200); Benzodiazepines Screen,Urine Positive ng/mL (<200); Cannabinoid Screen,Urine Negative ng/mL (<50); Cocaine Screen,Urine Negative ng/mL (<300); Methadone Screen,Urine Negative ng/mL (<300); Opiate Screen,Urine Negative ng/mL (<300); Phencyclidine Screen,Urine Negative ng/mL (<25)
== END ==
PROVIDERS: Visit Provider Nurse Practitioner Family
DX: Z79.899 Other long term (current) drug therapy (principal)
CPT/HCPCS: 80305

== ENCOUNTER → 2019-07-05 15:12 | Outpatient (CLI) | payer OTHER, SELFPAY ==
[2019-07-05 20:45] LABS: Amphetamine/Metha Screen,Urine Negative ng/mL (<1000); Barbiturates Screen,Urine Negative ng/mL (<200); Benzodiazepines Screen,Urine Negative ng/mL (<200); Cannabinoid Screen,Urine Negative ng/mL (<50); Cocaine Screen,Urine Negative ng/mL (<300); Methadone Screen,Urine Negative ng/mL (<300); Opiate Screen,Urine Negative ng/mL (<300); Phencyclidine Screen,Urine Negative ng/mL (<25)
== END ==
PROVIDERS: Visit Provider Nurse Practitioner Family
DX: Z79.899 Other long term (current) drug therapy (principal)
CPT/HCPCS: 80305

== ENCOUNTER → 2019-07-30 14:43 | Outpatient (CLI) | payer OTHER, SELFPAY ==
[2019-07-30 14:59] LABS: Basophils % 0.4 % (0.1-2.0); Eosinophils # 0.2 K/mm3 (0.0-0.4); Eosinophils % 2.2 % (0.1-12.0); Hematocrit 40.5 % (37.0-47.0); Hemoglobin 13.6 g/dL (12.2-16.2); Lymphocytes # 2.4 K/mm3 (0.7-4.5); Mean Corpuscular HGB Conc 33.4 g/dL (31.8-35.4); Mean Corpuscular Hemoglobin 30.5 pg (27.0-31.2); Mean Corpuscular Volume 91.3 fl (81-99); Mean Platelet Volume 7.1 fl (7.4-10.4); Monocytes # 0.3 K/mm3 (0.1-1.0); Monocytes % 4.8 % (1.7-9.3); Neutrophils # 3.8 K/mm3 (1.8-7.8); Neutrophils % 56.6 % (37.0-80.0); Platelet Count 247 K/mm3 (142-424); Red Blood Count 4.44 M/mm3 (4.20-5.40); Red Cell Distribution Width 13.5 % (11.5-17.5); White Blood Count 6.6 K/mm3 (4.8-10.8)
--- NOTE | 2019-07-30 15:01 | ECG_ITS ---
APPROVED REPORT Exam: Resting ECG HR:65 bpm ECG Measurements Heart Rate 65 AXES FL 162 P 13 QRSd 82 QRS -8 QT 426 T 7 QTc 443 <Conclusion> Normal sinus rhythm Moderate voltage criteria for LVH, may be normal variant Borderline ECG Electronically signed by : Harlan Mckeon, 07/31/2019 13:08:37
== END ==
PROVIDERS: Visit Provider Otolaryngology
DX: Z01.818 Encounter for other preprocedural examination (principal); J39.2 Other diseases of pharynx
CPT/HCPCS: 36415; 85025; 93005

== ENCOUNTER → 2019-09-28 17:13 | Outpatient (CLI) | payer OTHER, SELFPAY ==
[2019-09-28 18:21] LABS: Amphetamine/Metha Screen,Urine Negative ng/mL (<1000); Barbiturates Screen,Urine Negative ng/mL (<200); Benzodiazepines Screen,Urine Negative ng/mL (<200); Cannabinoid Screen,Urine Negative ng/mL (<50); Cocaine Screen,Urine Negative ng/mL (<300); Methadone Screen,Urine Negative ng/mL (<300); Opiate Screen,Urine Negative ng/mL (<300); Phencyclidine Screen,Urine Negative ng/mL (<25)
[2019-10-07 02:16] LABS: Alprazolam Negative (Cutoff=100); Benzodiazepines Negative ng/mL (Cutoff=100); Clonazepam Negative (Cutoff=100); Flurazepam Negative (Cutoff=100); Lorazepam Negative (Cutoff=100); Midazolam Negative (Cutoff=100); Temazepam Negative (Cutoff=100); Triazolam Negative (Cutoff=100)
== END ==
PROVIDERS: Visit Provider Nurse Practitioner Family
DX: Z79.899 Other long term (current) drug therapy (principal); F41.9 Anxiety disorder, unspecified
CPT/HCPCS: 80305; 80346

== ENCOUNTER → 2019-10-10 18:07 | Outpatient (CLI) | payer OTHER, SELFPAY ==
[2019-10-10 20:16] LABS: Amphetamine/Metha Screen,Urine Negative ng/mL (<1000); Barbiturates Screen,Urine Negative ng/mL (<200); Benzodiazepines Screen,Urine Positive ng/mL (<200); Cannabinoid Screen,Urine Negative ng/mL (<50); Cocaine Screen,Urine Negative ng/mL (<300); Methadone Screen,Urine Negative ng/mL (<300); Opiate Screen,Urine Negative ng/mL (<300); Phencyclidine Screen,Urine Negative ng/mL (<25)
== END ==
PROVIDERS: Visit Provider Nurse Practitioner Family
DX: Z79.899 Other long term (current) drug therapy (principal)
CPT/HCPCS: 80305

== ENCOUNTER → 2019-11-02 12:33 | Outpatient (CLI) | payer OTHER, SELFPAY ==
--- NOTE | 2019-11-02 12:39 | XR_ITS ---
PROCEDURE: XR HAND LT MIN 3V CLINICAL INDICATION: Hand/Finger pain COMPARISON: HANDL3 HAND-LT-3 VIEWS from 04/27/2013 [id number] XR hand RT min 3V from 10/19/2018 FINDINGS: Bone density and alignment appear normal. There is narrowed joint spaces at the 1st PIP joint of the 3rd digit with marginal spur and narrowing of the interphalangeal joint at the 1st digit and mild narrowing of the 1st MCP joint. There is moderate narrowing at the 1st carpal/metacarpal joint. There is a 2 millimeter round lucency with sclerotic margins involving the distal subchondral area of the ulna. There is no acute fracture. Soft tissues are unremarkable. IMPRESSION: No acute process. Areas of osteoarthritis as described somewhat worse at the 1st carpal/metacarpal joint. Dictated by: Agusto Vazquez 11/02/2019 13:03 Electronically signed by Agusto Vazquez in [place] 11/02/2019 13:03
== END ==
PROVIDERS: PCP Nurse Practitioner Family; Visit Provider Orthopaedic Surgery
DX: M79.642 Pain in left hand (principal)
CPT/HCPCS: 73130

== ENCOUNTER → 2019-12-20 13:36 | Outpatient (CLI) | payer OTHER, SELFPAY ==
[2019-12-21 08:35] LABS: Hep A Ab, IgM Negative (Negative); Hepatitis B Core Antibody IgM Negative (Negative); Hepatitis B Surface Antigen Negative (Negative)
[2019-12-21 10:51] LABS: Hepatitis C Antibody 0.1 s/co ratio (0.0-0.9)
== END ==
PROVIDERS: Visit Provider Nurse Practitioner Family
DX: Z20.5 Contact with and (suspected) exposure to viral hepatitis (principal)
CPT/HCPCS: 80074

== ENCOUNTER → 2020-02-26 08:58 | Outpatient (CLI) | payer OTHER, SELFPAY | PROVIDERS: PCP Nurse Practitioner Family; Visit Provider Obstetrics & Gynecology | DX: Z12.31 Encounter for screening mammogram for malignant neoplasm of breast (principal) ==

== ENCOUNTER 2020-03-02 13:29 | Emergency (ER) | payer OTHER, SELFPAY ==
[2020-03-02 13:44] VITALS: BP 134/80; PULSE 82; RESP 20; TEMP 36.8; O2SAT 100; BMI 32.1
--- NOTE | 2020-03-02 14:17 | HMH.EDUTC ---
[facility] Disposition Clinical Impression: Need for fxsingvqjv-fnhquaf-cuciovdqu (Tdap) vaccine Dog bite of right hand Qualifiers: Encounter type: initial encounter Qualified Code(s): S61.451A - Open bite of right hand, initial encounter Disposition: Home, Self-Care Condition on Discharge: Good Instructions: Tetanus, Diphtheria, Pertussis (Tdap) Vaccine, DI for Dog Bite Additional Instructions: Keep the wounds clean and dry. Follow up with your regular doctor. Take the antibiotics as directed and apply the topical antibiotics as directed. Make sure you stay in contact with the health department regarding the health of the dog. Watch the wound for signs of worsening infection, such as worsening redness, drainage, swelling, etc. GO TO THE ER FOR ANY WORSENING SYMPTOMS Prescriptions: Amoxicillin/Potassium Clav [Augmentin 875-125 Tablet] 1 tab PO Q12H 10 Days #20 tab Transmission Status: Received by [facility] Mupirocin [Bactroban 2% Ointment 22gm tube] 1 applicatio TP TID 7 Days #1 tube Transmission Status: Received by [facility] Referrals: Ciro De Jesus APRN [Primary Care Provider] - Time of Disposition: 14:23 Medical Decision Making - Medical Records Medical records reviewed: No: I reviewed the patient's medical records. - Devyn Inquiry Pt receiving controlled substance: No Vital Signs: 03/02/20 13:44 03/02/20 14:36 Temperature 98.3 F 98.3 F Temperature Source Oral Pulse Rate 82 Pulse Rate [Right Brachial] 82 Respiratory Rate 20 20 Blood Pressure 134/80 Blood Pressure [Right Arm] 134/80 Blood Pressure Mean [Right Arm] 98 Blood Pressure Source [Right Arm] Automatic Cuff Blood Pressure Position [Right Arm] Sitting 02 Sat by Pulse Oximetry 100 Oxygen Delivery Method Room Air Orders (Tests/Meds): ED MEDICATIONS Discontinued Medications Generic Name Dose Route Start Last Admin Trade Name Freq PRN Reason Stop Dose Admin Tetanus/Reduced Diphtheria/Acell Pertussis 0.5 ml 03/02/20 14:14 03/02/20 14:20 Adacel Tdap 0.5ml Syringe IM 03/02/20 14:15 0.5 ml .ONCE ONE Administration [facility] HPI - General Stated complaint: AO [id number] right thumb dog bite Time Seen by Provider: 03/02/20 14:18 Mode of Arrival: Ambulatory Source of Information: Patient Limitations: No Limitations Description of Symptoms (Recalled from Triage Doc. by RN): C/O DOG BITE TO THUMB HEENT Symptoms (Recalled from RN notes): No Resp Symptoms (Recalled from RN notes): No Skin Symptoms (Recalled from RN notes): Yes MS Symptoms (Recalled from RN notes): No Functional Status (Recalled from RN notes): WNL - History of Present Illness Provider Complaint: She states that yesterday her neighbor's small dog got out. The patient caught the dog to keep it safe from the road. When she caught the dog it bit her on her right hand. She has a small tooth penetration wound on her right thumb. There is also a superficial abrasion at that location. She is unsure when her last tetanus immunization was. - Related Data Home Medications Medication Instructions Recorded Confirmed conjugated estrogens 0.625 mg 0.625 mg PO DAILY 02/27/19 02/05/20 tablet Meloxicam 7.5 mg PO DAILY 08/15/19 02/05/20 beclomethasone dipropionate 80 INHALATION #11 g 09/28/19 02/05/20 mcg/actuation HFA breath activated aerosol levothyroxine 112 mcg tablet 112 mcg PO DAILY tab 02/05/20 02/05/20 losartan 50 mg-hydrochlorothiazide 1 tab PO DAILY tab 02/05/20 02/05/20 12.5 mg tablet omeprazole 40 mg capsule,delayed 40 mg PO DAILY cap 02/05/20 02/05/20 release Previous Rx's Medication Instructions Recorded atorvastatin 20 mg tablet 20 mg PO DAILY #90 tab 12/31/19 aspirin 81 mg tablet,delayed See Rx Instructions .ROUTE 01/07/20 release .COMPLEX #30 tab montelukast 10 mg tablet See Rx Instructions .ROUTE 01/28/20 .COMPLEX #90 tab fluticasone propionate 50 See Rx Instructions .ROUTE
[2020-03-02 14:36] VITALS: BP 134/80; PULSE 82; RESP 20; TEMP 36.8; O2SAT 100
== END 2020-03-02 14:45 | disposition home or self-care (01) ==
PROVIDERS: Emergency Provider Nurse Practitioner Family; PCP Nurse Practitioner Family
DX: S61.451A Open bite of right hand, initial encounter (principal); W54.0XXA Bitten by dog, initial encounter; Y92.89 Other specified places as the place of occurrence of the external cause; Z23 Encounter for immunization; Z79.899 Other long term (current) drug therapy; I10 Essential (primary) hypertension; E78.5 Hyperlipidemia, unspecified; F41.8 Other specified anxiety disorders; I25.10 Atherosclerotic heart disease of native coronary artery without angina pectoris; J44.9 Chronic obstructive pulmonary disease, unspecified; K21.9 Gastro-esophageal reflux disease without esophagitis; E03.9 Hypothyroidism, unspecified; Z88.1 Allergy status to other antibiotic agents; Z88.5 Allergy status to narcotic agent
CPT/HCPCS: 90471; 90715; 99201

== ENCOUNTER → 2020-03-03 10:17 | Outpatient (CLI) | payer OTHER, SELFPAY ==
--- NOTE | 2020-03-03 10:17 | MM_ITS ---
PROCEDURE: MM DIG SCREENING MAMM BI W/CAD Digital Breast Tomosynthesis Included CLINICAL INDICATION: screen There is no personal or family history of breast cancer. There has been a previous biopsy right breast for benign disease. COMPARISON: [facility] DIG MAMM-SCREEN [facility]ARY W/CAD from 01/27/2017 [facility] MM Dig screening mamm BI w/CAD from 02/10/2018 [facility] MM Dig screening mamm BI w/CAD from 03/02/2019 TECHNIQUE: Standard CC and MLO images and 3D Tomosynthesis was obtained. R2 CAD reviewed. FINDINGS: Moderate scattered fibroglandular densities are seen throughout both breasts. There are couple of benign-appearing microcalcifications left breast. There is a single benign-appearing calcification right breast there is no suspicious lesion in either breast and no suspicious microcalcifications. IMPRESSION: Fibrofatty parenchyma with no suspicious BI-RAD Category: 2 Benign Finding(s) FOLLOW-UP: 1YR 1 Year Follow-up (A letter has been sent to the patient regarding results of the study.) Dictated by: Dr. Francisco Guan MD 03/04/2020 11:[address] Francisco Guan MD in [place] 03/04/2020 11:35
== END ==
PROVIDERS: PCP Nurse Practitioner Family; Visit Provider Obstetrics & Gynecology
DX: Z12.31 Encounter for screening mammogram for malignant neoplasm of breast (principal)
CPT/HCPCS: 77063; 77067

== ENCOUNTER → 2020-04-23 15:23 | Outpatient (CLI) | payer MEDICARE, OTHER, SELFPAY ==
--- NOTE | 2020-04-23 15:29 | XR_ITS ---
PROCEDURE: XR CERVICAL SPINE 5V CLINICAL INDICATION: neck pain COMPARISON: CS5 CERVICAL SPINE 4 OR 5 VIEWS from 04/20/2017 FINDINGS: There is reversal of the cervical lordosis. There is 3 mm anterolisthesis of C3 on C4 and C4 on C5 with degenerative disc disease at C5-C6 and C6-C7 and C7-T1. there is mild foraminal narrowing on the right at C3-C4 and on the left at C4-C5 and C5-C6. Facet hypertrophic/arthritic changes are present from C2-C6. IMPRESSION: Reversal of cervical lordosis with cervical spondylosis with degenerative disc disease which may be slightly worse compared to 04/20/2017. Dictated by: Rolando Yuan MD 04/23/2020 17:22 Electronically signed by Rolando Yuan MD in [place] 04/23/2020 17:22
--- NOTE | 2020-04-23 15:29 | XR_ITS ---
PROCEDURE: XR LUMBAR SPINE 2-3V CLINICAL INDICATION: back pain COMPARISON: LS5 LUMBAR SPINE 5 VIEWS from 04/20/2017 FINDINGS: There is some straightening of the normal curvature at the thoracolumbar junction suggesting muscle spasm. Otherwise the lower lumbar spine shows normal curvature and alignment. All lumbar vertebrae appear intact and disc spaces are well maintained throughout. There are mild hypertrophic facet changes at the L4-5 and L5-S1 levels. The SI joints are normal. IMPRESSION: Possible mild muscle spasm along with hypertrophic facet changes lower lumbar spine Dictated by: Dr. Francisco Guan MD 04/24/2020 12:[address] Francisco Guan MD in [place] 04/24/2020 12:02
== END ==
PROVIDERS: PCP Nurse Practitioner Family; Visit Provider Nurse Practitioner Family
DX: M54.5 Low back pain (principal); M54.2 Cervicalgia
CPT/HCPCS: 72050; 72100

== ENCOUNTER → 2020-05-01 14:58 | Outpatient (CLI) | payer MEDICARE, OTHER, SELFPAY ==
--- NOTE | 2020-05-01 15:06 | MR_ITS ---
PROCEDURE: MR CERVICAL SPINE WO CON CLINICAL INDICATION: neck pain COMPARISON: No exams were available for comparison TECHNIQUE: Standard multiplanar multiecho sequences are performed without contrast. 3-D MIP and myelographic images are also rendered and reviewed FINDINGS: There is good alignment of the bony structures. There is loss of the normal midcervical lordosis. There is mild degenerative narrowing of the C5-C6 and they C6-C7 disc spaces. Spinal cord, midbrain, and the cerebellar tonsils are unremarkable. At the C2-3 disc space there is no significant spinal stenosis. At the C3-C4 disc space there is no significant spinal stenosis. At the C4-C5 disc space there is a focal paracentral disc protrusion without significant spinal stenosis. At the C5-C6 disc space there is a focal paracentral disc protrusion producing mild central canal stenosis. At the C6-7 disc space there is a focal paracentral disc protrusion producing mild central canal stenosis. At the C7-T1 disc space there is no significant spinal stenosis. The paracervical structures are unremarkable. IMPRESSION: Mild multilevel spinal stenosis as above. Dictated by: John Wright 05/01/2020 16:36 Electronically signed by John Wright in [place] 05/01/2020 16:36
== END ==
PROVIDERS: PCP Nurse Practitioner Family; Visit Provider Nurse Practitioner Family
DX: M50.30 Other cervical disc degeneration, unspecified cervical region (principal)
CPT/HCPCS: 72141; 76376

== ENCOUNTER 2020-05-09 07:46 | Emergency (ER) | payer MEDICARE, OTHER, SELFPAY ==
[2020-05-09 07:50] VITALS: BP 150/69; PULSE 87; RESP 16; TEMP 36.6; O2SAT 97; BMI 29.1
--- NOTE | 2020-05-09 08:01 | XR_ITS ---
PROCEDURE: XR CHEST 2V CLINICAL HISTORY: cough COMPARISON: CXR2 XR chest AP from 08/28/2018 CXR2V XR chest 2V from 11/10/2018 CXR2V XR chest 2V from 12/25/2018 FINDINGS: The cardiomediastinal silhouette and pulmonary vascularity are within normal limits. The lungs are clear without infiltrates, suspicious nodules, or pleural effusions. No acute bony abnormalities. IMPRESSION: No acute findings. Dictated by: Dr. Francisco Guan MD 05/09/2020 08:[address] Francisco Guan MD in [place] 05/09/2020 08:57
--- NOTE | 2020-05-09 08:07 | HMH.EDGENADL ---
ED Disposition Clinical Impression: Laryngitis Disposition: Home, Self-Care Condition on Discharge: Good Instructions: DI for Laryngitis Additional Instructions: Prednisone as prescribed. Follow-up with your primary care provider next week if not improved. Quarantine yourself until COVID-19 test result known. Prescriptions: predniSONE [Prednisone 20mg Tab] 20 mg PO BID #6 tab Transmission Status: [facility] by [facility] Referrals: Ciro De Jesus APRN [Primary Care Provider] - - Critical Care Critical Care Time: No Attestation: On , the high probability of a clinically significant, sudden or life threatening deterioration of the following system(s) required my full and direct attention, intervention and personal management. The time I documented below is in addition to time spent performing reported procedures but includes the following listed in this critical care notation. Medical Decision Making - Medical Records Medical records reviewed: Yes: I reviewed the patient's medical records. - Devyn Inquiry Pt receiving controlled substance: No Vital Signs: 05/09/20 07:50 05/09/20 08:30 05/09/20 08:35 Temperature 97.8 F 98.1 F Temperature Source Oral Oral Pulse Rate [Right Brachial] 87 80 75 Respiratory Rate 16 16 Blood Pressure [Right Arm] 150/69 H 126/69 123/69 Blood Pressure Mean [Right Arm] 96 88 87 Blood Pressure Source [Right Arm] Automatic Cuff Automatic Cuff Automatic Cuff Blood Pressure Position [Right Arm] Sitting Sitting Supine 02 Sat by Pulse Oximetry 97 95 96 Oxygen Delivery Method Room Air Room Air Room Air Orders (Tests/Meds): ORDERS Category Date Time Status Chest XR 2 view (NOT portable) [XR chest 2V] Stat Exams 05/09/20 08:01 Taken - Radiology Data #1 Image(s): Chest Image Reviewed: Yes I reviewed the patient's radiology image Preliminary Findings: Normal/NAD General Adult HPI - General Chief complaint: Upper Respiratory Infection Stated complaint: chest congestion Time Seen by Provider: 05/09/20 08:08 Mode of Arrival: Ambulatory Limitations: No Limitations Description of Symptoms (Recalled from ER Triage Doc. by RN): Pt advises she has had cough and congestion for the past two days and she went to the health dept and was tested for covid. Advises she will have her results back on Tuesday. Advises she doesn't really feel bad but is just nervous. - History of Present Illness HPI narrative: States she slept with the window open a couple of days ago and woke up with a hoarse voice which has persisted. Denies sore throat. She does have a cough. No fever. Says I am not sick . She says however, that she started taking Z-Sudeep that she had leftover from a prescription from her primary care provider. She is a non-smoker. She says she got a COVID 19 test at the [facility] department on , awaiting results. - Related Data Home Medications Medication Instructions Recorded Confirmed beclomethasone dipropionate 80 INHALATION #11 g 09/28/19 04/23/20 mcg/actuation HFA breath activated aerosol losartan 50 mg-hydrochlorothiazide 1 tab PO DAILY tab 02/05/20 04/23/20 12.5 mg tablet omeprazole 40 mg capsule,delayed 40 mg PO DAILY cap 02/05/20 04/23/20 release cetirizine 10 mg tablet 10 mg PO DAILY tab 03/27/20 04/23/20 montelukast 10 mg tablet 10 mg PO DAILY tab 03/27/20 04/23/20 Previous Rx's Medication Instructions Recorded atorvastatin 20 mg tablet 20 mg PO DAILY #90 tab 12/31/19 aspirin 81 mg tablet,delayed See Rx Instructions .ROUTE 01/07/20 release .COMPLEX #30 tab fluticasone propionate 50 See Rx Instructions .ROUTE 02/06/20 mcg/actuation nasal .COMPLEX #9.9 milliliter spray,suspension bisoprolol fumarate 5 mg tablet 5 mg PO DAILY #90 tab 03/11/20 esomeprazole magnesium 40 mg 40 mg PO DAILY #60 cap 03/27/20 capsule,delayed release conjugated estrogens 0.625 mg 0.625 mg PO DAILY #30 tab 04/08/20 tablet dicl
[2020-05-09 08:30] VITALS: BP 126/69; PULSE 80; O2SAT 95
[2020-05-09 08:35] VITALS: BP 123/69; PULSE 75; RESP 16; TEMP 36.7; O2SAT 96
[2020-05-09 08:36] VITALS: BP 123/69; PULSE 75; RESP 16; TEMP 36.7; O2SAT 16
== END 2020-05-09 08:38 | disposition home or self-care (01) ==
LOC: ER 08:34
PROVIDERS: Emergency Provider Emergency Medicine; PCP Nurse Practitioner Family
DX: J04.0 Acute laryngitis (principal); K21.9 Gastro-esophageal reflux disease without esophagitis; E78.5 Hyperlipidemia, unspecified; I10 Essential (primary) hypertension; J44.9 Chronic obstructive pulmonary disease, unspecified; I25.10 Atherosclerotic heart disease of native coronary artery without angina pectoris; F41.8 Other specified anxiety disorders; Z88.1 Allergy status to other antibiotic agents; Z88.5 Allergy status to narcotic agent; Z79.899 Other long term (current) drug therapy
CPT/HCPCS: 71046; 99282

== ENCOUNTER → 2020-07-25 07:04 | Outpatient (CLI) | payer MEDICARE, OTHER, SELFPAY ==
--- NOTE | 2020-07-25 | CA_ITS ---
APPROVED REPORT Exam: Pharmacologic Technologist: Cristal Howell, Ht: 5 ft 5 in Wt: 174 lbs BSA: 1.86 m2 HR: 72 bpm BP: 126/67 mmHg Rhythm: SINUS RHYTHM Medical History Medical History: HTN, Hyperlipidemia Medications: Omeprazole,,,,, Levothyroxine,,,,, Asa,,,,, Atorvastatin,,,,, Montelukast,,,,, MeLOXICAM,,,,, Losartan/HCTZ,,,,, Diclofenac,,,,, Prednisone,,,,, CitrIZINE,,,,, BisOPROL,,,,, Cardiac Risk Factors: HTN, Hyperlipidemia, FHX of CAD Stress Test Details Test: LEXISCAN HR Resting HR: 82 bpm Max Heart Rate (APMHR): 155 bpm Max HR Achieved: 111 bpm Target HR (85% APMHR): 131 bpm % of APMHR: 71 Recovery HR: 92 bpm BP Resting BP: 126.0/67.0 mmHg Max BP: 134.0/65.0 mmHg Recovery BP: 109.0/62.0 mmHg ECG Resting ECG: SINUS RHYTHM Clinical Exercise duration: 04:00 min Highest Stage Achieved: Stress ECG Conclusion LEXISCAN PROTOCOL COMPLETED. PATIENT C/O SOA DURING PEAK INFUSION. NO CHEST PAIN. POSITIVE FOR SOA DURING PEAK infusion. OCCASIONAL PVC. LESS THAN 1.5MM ST DEPRESSION. IMAGES TO FOLLOW Test Summary REST . . . . . . . Sitting REST 02:27 . . 82 . 126/ 67 . . Stage 1 . . . . . . . Myoview Injected Stage 1 01:00 . . 111 . . . . Stage 2 01:00 . . 103 . 134/ 65 . . Stage 3 01:00 . . 97 . 120/ 55 . . Stage 4 01:00 . . 96 . 113/ 59 . Stop exercise at 04:00 RECOVERY 01:00 . . 91 . 109/ 62 . . RECOVERY 02:00 . . 88 . 112/ 57 . . RECOVERY 03:00 . . 86 . 112/ 57 . . RECOVERY 03:41 . . 87 . 110/ 53 . . Electronically signed by : Sky Yeager, 07/25/2020 11:06:50
--- NOTE | 2020-07-25 07:04 | NM_ITS ---
APPROVED REPORT Exam: Nuclear Stress Test Indication: chest pain..short of breath..fatigue Patient Location: Outpatient Stress Tech: Precious Lynda [place] Tech:STEPHANIE Brownlee RT(R)(N) Ht: 5 ft 1 in Wt: 175 lbs Bra Size: large HR: 72 bpm BP: 126/67 mmHg BSA: 1.78 m2 BMI: 33.0 History: chest pain..short of breath..fatigue Procedure: Patient received a 0.4 mg of intravenous Lexiscan, resting heart rate 72 bpm, resting blood pressure 126/67 mmHg, with Lexiscan maximum heart rate achived was 92 bpm which is Less than 85 % of the maximum predicted heart rate and blood pressure was 109/62 mmHg. With Lexiscan, patient denied any complaint of chest pain. Electrocardiogram Resting electrocardiogram showed sinus rhythm, with Lexiscan there is less than 1.[address] segment depression noted from the baseline EKG. The EKG portion of the Lexiscan is nondiagnostic. Cardiac Stress and Resting SPECT Images: Cardiac Stress and Resting SPECT images were obtained using technetium 99m Myoview 30.9 mCi stress and 10.33 mCi at rest. Gated SPECT for analysis of segmental wall motion and calculation of the ejection fraction also done. Cardiac stress and rest SPECT images show mild defect in the anterior wall which is likely secondary to soft tissue attenuation, no reversible ischemia seen. Computer derived ejection fraction is over 65% with no regional wall motion abnormality, right ventricle is normal size and contractility. Conclusion: 1. The EKG portion of the Lexiscan Myoview is nondiagnostic. 2. No scintigraphic evidence of reversible ischemia seen, computer derived ejection fraction is over 65% with no regional wall motion abnormality, right ventricle is normal size and contractility. 3. Likely normal Lexiscan Myoview study. Electronically signed by : Sky Yeager, 07/25/2020 11:15:24
--- NOTE | 2020-07-25 08:24 | CA_ITS ---
APPROVED REPORT EXAM: Comprehensive 2D, Doppler, and color-flow Echocardiogram Camp Advisor: Pastora Moya RVT Ht: 5 ft 5 in Wt: 174lbs BSA: 1.86 BP: 125/66 mmHg Indications: CP,SOA,EDEMA,PALPS,HLD,HTN,CAD 2D Dimensions LVOT 2.20 cm (M/F) 1.5-2.5 M-Mode Dimensions RVDd 2.85 cm (0.9-2.6) LVDd 3.72 cm (3.5-5.7) LVDs 2.20 cm (3.5-5.7) IVSd 1.02 cm (0.6-1.1) PWd 1.14 cm (0.6-1.1) EF (Teich) 72.50% FS 40.90% EDV (Teich) 58.90 mL ESV (Teich) 16.20 mL LV Diastology E/A Ratio 0.72 Mitral Valve MV A Velocity 84.00 (40-130 cm/s) Left Ventricle Left atrium is mildly enlarged, left ventricle is normal size, mild concentric left ventricular hypertrophy, visually estimated ejection fraction 55% with no regional wall motion abnormality, grade 1 diastolic dysfunction seen without tissue Doppler evidence of raise left atrial pressure. Right Ventricle Right atrium and right ventricle are normal size and contractility. Aortic Valve Aortic valve is minimally thickened and fibrosed, there is no aortic stenosis or aortic insufficiency. Mitral Valve Mitral valve is grossly normal, there is mild mitral regurgitation. Tricuspid Valve Tricuspid valve grossly normal, there is mild tricuspid regurgitation. Tricuspid regurgitation jet velocity is inadequate for calculation of the right ventricular systolic pressure. Pulmonic Valve Pulmonic valve is poorly visualized. Great Vessels Aortic root is normal size. Pericardium No significant pericardial effusion noted. Conclusion 1. Mildly enlarged left atrium, normal left ventricular size, mild concentric left ventricular hypertrophy, visually estimated ejection fraction 55% with no regional wall motion abnormality, grade 1 diastolic dysfunction seen without tissue Doppler evidence of raise left atrial pressure. 2. Mild mitral and tricuspid regurgitation. 3. No significant pericardial effusion noted. Electronically signed by : Sky Yeager, 07/25/2020 14:26:54
--- NOTE | 2020-07-25 10:03 | HMH.ITSHM ---
Current Home Medications as stated by this patient Julisa Donnelly or b2b sales representative. [] gabapentin asa atorvastatin bisoprolol hctz levothyroxin laartan meloxican
== END ==
PROVIDERS: PCP Internal Medicine Adolescent Medicine; Visit Provider Urology
DX: E78.2 Mixed hyperlipidemia (principal); I10 Essential (primary) hypertension; I25.10 Atherosclerotic heart disease of native coronary artery without angina pectoris; R00.2 Palpitations; R06.02 Shortness of breath; R07.9 Chest pain, unspecified; R42 Dizziness and giddiness; R60.9 Edema, unspecified
CPT/HCPCS: 78452; 93017; 93306; A9502; J2785

== ENCOUNTER → 2020-08-26 10:51 | Outpatient (CLI) | payer MEDICARE, OTHER, SELFPAY ==
[2020-08-26 11:40] LABS: Basophils # 0.1 K/mm3 (0-0.2); Basophils % 0.6 % (0.1-2.0); Eosinophils # 0.4 K/mm3 (0.0-0.4); Eosinophils % 4.8 % (0.1-12.0); Hemoglobin 14.9 g/dL (12.2-16.2); Lymphocytes # 2.4 K/mm3 (0.7-4.5); Lymphocytes % 32.7 % (10-50); Mean Corpuscular HGB Conc 33.9 g/dL (31.8-35.4); Mean Corpuscular Hemoglobin 31.9 pg (27.0-31.2); Mean Platelet Volume 8.7 fl (7.4-10.4); Monocytes # 0.4 K/mm3 (0.1-1.0); Monocytes % 5.2 % (1.7-9.3); Neutrophils # 4.2 K/mm3 (1.8-7.8); Neutrophils % 56.7 % (37.0-80.0); Platelet Count 220 K/mm3 (142-424); Red Blood Count 4.69 M/mm3 (4.20-5.40); Red Cell Distribution Width 13.7 % (11.5-17.5); White Blood Count 7.4 K/mm3 (4.8-10.8)
[2020-08-26 12:36] LABS: Chloride 101 mmol/L (98-107); Sodium 139 mmol/L (136-145)
[2020-08-26 12:38] LABS: Blood Urea Nitrogen 19 mg/dl (7-17); Estimated Glomerular Filt Rate 84 ml/min (>60); GFR (African American) 102 ML/MIN (>60)
[2020-08-26 12:39] LABS: Alanine Aminotransferase 35 U/L (12-78); Albumin Level 4.1 g/dl (3.5-5.0); Albumin/Globulin Ratio 1.5 (1.1-1.8); Alkaline Phosphatase 53 U/L (38-126); Aspartate Amino Transferase 43 U/L (14-36); Bilirubin,Total 0.5 mg/dl (0.2-1.3); Calcium 9.2 mg/dl (8.4-10.2); Carbon Dioxide 29 mmol/L (22.0-30.0); Globulin 2.7 g/dL (1.3-3.2); Glucose 110 mg/dl (74-100); Total Protein,Serum 6.8 g/dl (6.3-8.2)
[2020-08-26 14:12] LABS: Coronavirus 19 IgG Antibody Negative (Negative); Coronavirus 19 IgM Antibody Negative (Negative)
== END ==
PROVIDERS: Visit Provider Otolaryngology
DX: Z01.818 Encounter for other preprocedural examination (principal); R13.10 Dysphagia, unspecified
CPT/HCPCS: 36415; 80053; 85025; 86328

== ENCOUNTER 2020-08-28 07:02 | Day surgery (SDC) | payer MEDICARE, OTHER, SELFPAY ==
[2020-08-26 14:35] VITALS: BMI 28.2
[2020-08-28] VITALS (9 sets, daily range): BP systolic 93–136; BP diastolic 52–75; PULSE 64–81; RESP 12–18; TEMP 35.8–36.6; O2SAT 91–97
--- NOTE | 2020-08-28 08:31 | P.PN_ITS ---
[facility] Anesthesia Checklist - Patient Identification Patient Identification: Arm Band, Verbal (Name & ) - Structural Data Admitted From: Home Planned Operative Procedure/s: Microlaryngoscopy and esophagoscopy Consent for Planned Operative Procedure(s) Verified: Yes Verified Documents: Surgical Consent, History and Physical - NPO Status Verified Time NPO: 23:30 - Chart Verification Results Verified: CBC, BMP - Additional verifications Anesthesia Reactions: No Hx Blood Transfusions: No Blood Transfusion Reaction: No - Airway Assessment C-Spine Mobility Assessed: Yes (MP 2, TMD 3) TMJ Mobility Assessed: Yes Dentition: Good Dentition - Neurological Assessment Level of Consciousness: Awake, Alert, Appropriate, Follows Commands Hx Seizures: No Numbness or tingling in extremities: No - Anesthesia Plan Anesthesia Risk discussed: Yes Anesthesia Plan: Verified ASA Class: III Anesthesia Type: General [facility] History I have reviewed the patient's past medical history: Yes Medical History: Reports:: Anxiety, Asthma, Cancer (thyroid), Chronic Obstructive Pulmonary Disease (COPD), Coronary Artery Disease, Depression, Gastroesophageal Reflux Disease(GERD), Hepatitis, Hyperlipidemia, Hypertension, Palpitations Denies:: Diabetes Mellitus Type 1, Diabetes Mellitus Type 2, Internal Pac emaker, Lung Disease, MRSA, Seizures *Have you ever received a pneumonia vaccine?: Yes *Have you received a flu vaccine this season?: Yes Other Medical History: Reports: Arthritis, Hypothyroidism, Sinus Problems, Thyroid Disease. Denies: Blood Transfusion Reaction Comment:: Chronic pain, obesity, YEMI, Hep C (treated) Anesthesia experience/problems:: No prior complications Laterality Cases: Right: Breast Biopsy, Carpal Tunnel Release, Bilateral: Other Other Surgeries: Yes: Cardiac Catheterization, Colonoscopy, Dilation and Curettage, Hysterectomy-Partial, Sinus Surgery, Other. No: Pacemaker Amputation: No Fractures: No - *Social History Last grade of school completed: 9th or 10th Smoking Status: Never smoker Alcohol Intake: never Alcohol Intake Frequency:: other Substance Use Type: denies use *Occupational Status:: unemployed, disabled Housing: house Household Members: spouse *Travel in the last 8 weeks: None - Psychiatric History Pschychiatric History:: Reports:: Anxiety, Depression Family Hx:: Cancer, Coronary Artery Disease, Hypertension
--- NOTE | 2020-08-28 10:31 | P.OP_ITS ---
Date of procedure: 08/28/20 Pre-op Diagnosis:: 1. Hoarseness 2. Right vocal cord polyp 3. Dysphagia 4. Cricopharyngeus muscle spasm Post-op Diagnosis:: same Procedure performed:: 1. Microlaryngoscopy with removal of right anterior vocal cord polyp 2. Esophagoscopy with dilatation Surgeon:: Kristian Dumont MD CUSTOMS EXAMINER:: Raghu Ortiz Anesthesia: GETA Estimated blood loss (mL): 1 Operative findings:: same Operative note:: With the patient under general anesthesia, maintained with an oral endotracheal tube, having been given 100 mg of clindamycin and 12 mg of Decadron the SlimLine, anterior commissure laryngoscope was used to examine the larynx. The left vocal cord was normal. There was a polyp on the anterior part of the right vocal cord. Using the dissecting cup forceps the polyp was removed in entirety. Bleeding was minimal and no more than 1 cc. And stopped with cottonoids soaked in epinephrine. The larynx was then thoroughly irrigated with saline. Using the 16 x 12 x 36 rigid esophagoscope, and multiple dilators, the cricopharyngeus cervical and thoracic portions of the esophagus were examined. There was a very tight cricopharyngeus muscle which was dilated with multiple dilators. There was no bleeding. The patient tolerated the procedure well and was sent to recovery in good general condition. Condition: stable Disposition: PACU Specimens:: 1 Complications:: none
--- NOTE | 2020-08-28 10:36 | P.PN_ITS ---
[facility] Anesthesia Record Part I Intake, IV Amount: 1,200 Estimated blood loss (mL): 0 Urine output (mL): 0 Blood Pressure: 100/55 SaO2: 95 Pulse Rate: 81 Respiratory Rate: 12 Temperature: 97.6 F Patient is:: Awake, Stable Stable to PACU at:: 10:35
--- NOTE | 2020-08-29 14:14 | P.PN_ITS ---
[facility] Anesthesia Record Part II Discharge Time: 11:05 Destination: [facility] PACU nurse assessment reviewed?: Yes Patient Condition:: Good Anesthesia Complications:: None Swallowing reflex intact?: Yes Cyanosis?: No Blood Pressure: 103/62 Pulse Rate: 72 Temperature: 97.8 F Mental Status: Alert & Oriented Pain level:: 0 Nausea and/or vomitting:: None Intake, IV Amount: 1,500
[2020-08-29 14:15] VITALS: BP 103/62; PULSE 72; TEMP 36.6
== END 2020-08-28 11:40 | disposition home or self-care (01) ==
LOC: OR 07:03
PROVIDERS: PCP Internal Medicine Adolescent Medicine; Visit Provider Otolaryngology
PROC: 0CJS8ZZ Inspection of Larynx, Via Natural or Artificial Opening Endoscopic (ICD-10-PCS; CPT 31578; principal; 2020-08-28 09:00)
DX: J38.1 Polyp of vocal cord and larynx (principal); J39.2 Other diseases of pharynx; J44.9 Chronic obstructive pulmonary disease, unspecified; I25.10 Atherosclerotic heart disease of native coronary artery without angina pectoris; I10 Essential (primary) hypertension; E78.5 Hyperlipidemia, unspecified; K21.9 Gastro-esophageal reflux disease without esophagitis; R00.2 Palpitations; Z85.850 Personal history of malignant neoplasm of thyroid; K75.9 Inflammatory liver disease, unspecified; F41.9 Anxiety disorder, unspecified; F32.9 Major depressive disorder, single episode, unspecified
CPT/HCPCS: 31578; 43220; 88305; 96374; J2405

== ENCOUNTER → 2020-10-10 14:22 | Outpatient (CLI) | payer MEDICARE, OTHER, SELFPAY ==
[2020-10-10 16:36] LABS: Blood Urea Nitrogen 20 mg/dl (7-17); Estimated Glomerular Filt Rate 84 ml/min (>60); GFR (African American) 102 ML/MIN (>60)
== END ==
PROVIDERS: Visit Provider Otolaryngology
DX: R13.10 Dysphagia, unspecified (principal)
CPT/HCPCS: 36415; 82565; 84520

== ENCOUNTER 2020-10-12 09:42 | Emergency (ER) | payer MEDICARE, OTHER, SELFPAY ==
[2020-10-12 10:05] VITALS: BP 144/72; PULSE 81; RESP 16; TEMP 37; O2SAT 97; BMI 34.2
--- NOTE | 2020-10-12 10:24 | HMH.EDUTC ---
[facility] Disposition Clinical Impression: Exposure to COVID-19 virus Disposition: Home, Self-Care Condition on Discharge: Good Instructions: Preventing the Spread of Coronavirus Discharge Instructions Additional Instructions: isolate until test results are known neg Referrals: Phill Michael MD [Primary Care Provider] - Time of Disposition: 10:28 Medical Decision Making - Devyn Inquiry Pt receiving controlled substance: No Vital Signs: 10/12/20 10:05 Temperature 98.6 F Temperature Source Oral Pulse Rate [Left Brachial] 81 Respiratory Rate 16 Blood Pressure [Left Arm] 144/72 H Blood Pressure Mean [Left Arm] 96 Blood Pressure Source [Left Arm] Automatic Cuff Blood Pressure Position [Left Arm] Sitting 02 Sat by Pulse Oximetry 97 Oxygen Delivery Method Room Air Orders (Tests/Meds): ORDERS Category Date Time Status Covid-19 Nasal PCR ([facility]) Routine Lab 10/12/20 09:50 Ordered [facility] HPI - General Chief complaint: Urgent [facility] Stated complaint: wants covid test Time Seen by Provider: 10/12/20 10:24 Mode of Arrival: Ambulatory Source of Information: Patient Limitations: No Limitations Description of Symptoms (Recalled from Triage Doc. by RN): PATIENT REQUESTING COVID TEST. DENIES EXPOSURE OR SYMPTOMS HEENT Symptoms (Recalled from RN notes): No Resp Symptoms (Recalled from RN notes): No Skin Symptoms (Recalled from RN notes): No MS Symptoms (Recalled from RN notes): No Functional Status (Recalled from RN notes): WNL - History of Present Illness Provider Complaint: 65 yr old female presnets for covid test. pt had a exposer but denies symptoms. - Related Data Home Medications Medication Instructions Recorded Confirmed beclomethasone dipropionate 80 1 puff INHALATION DAILY #11 g 09/28/19 10/09/20 mcg/actuation HFA breath activated aerosol losartan 50 mg-hydrochlorothiazide 1 tab PO DAILY tab 02/05/20 10/09/20 12.5 mg tablet escitalopram oxalate 10 mg tablet 10 mg PO DAILY tab 08/25/20 10/09/20 Aspirin [Low Dose Aspirin EC] 81 mg PO DAILY 08/26/20 10/09/20 Cetirizine HCl 10 mg PO DAILY 08/26/20 10/09/20 Diclofenac Sodium [Voltaren 2 g TOPICAL QID 08/26/20 10/09/20 Arthritis Pain] Esomeprazole Magnesium 40 mg PO DAILY 08/26/20 10/09/20 Fluticasone Propionate [Flovent 2 puff INHALATION BID 08/26/20 10/09/20 HFA] Levothyroxine Sodium [Synthroid 112 mcg PO DAILY 08/26/20 10/09/20 112mcg (0.112mg) tablet] Montelukast Sodium 10 mg PO DAILY 08/26/20 10/09/20 estradioL [Estradiol] 1 mg PO DAILY 08/26/20 10/09/20 gabapentin 300 mg capsule 100 mg PO BID cap 09/24/20 10/09/20 Previous Rx's Medication Instructions Recorded atorvastatin 20 mg tablet 20 mg PO DAILY #90 tab 12/31/19 bisoprolol fumarate 5 mg tablet 5 mg PO DAILY #90 tab 03/11/20 meloxicam 7.5 mg tablet See Rx Instructions .ROUTE 09/19/20 .COMPLEX #90 tablet Allergies Allergy/AdvReac Type Severity Reaction Status Date / Time cephalexin [From KEFLEX] Allergy Unknown Verified 10/09/20 14:26 morphine [MORPHINE] Allergy Unknown Verified 10/09/20 14:26 oxytetracycline Allergy Unknown Verified 10/09/20 14:26 [From TERRAMYCIN] - Worker's Comp Is this a Worker's Comp case?: No [facility] History - Hepatitis A Screen Drug use history?: No High risk sexual behaviors?: No History of sexually transmitted infection?: No Currently employed?: No Childcare worker?: No Do you have indoor plumbing?: Yes Do you have electricity?: Yes Attestation statement:: This patient has been screened for Hepatitis A risk factors. I have reviewed the patient's past medical history: Yes Medical History: Reports:: Anxiety, Asthma, Cancer, Chronic Obstructive Pulmonary Disease (COPD), Coronary Artery Disease, Depression, Gastroesophageal Reflux Disease(GERD), Hepatitis, Hyperlipidemia, Hypertension, Palpitations Denies:: Diabetes Mellitus Type 1, Diabetes Mellitus Type 2, Internal Pacemaker, Lung Disease, MRSA,
[2020-10-12 10:38] VITALS: BP 144/72; PULSE 81; RESP 16; TEMP 37; O2SAT 97
--- NOTE | 2020-10-12 21:07 | PC.NURSE ---
PATIENT NOTIFIED OF POSITIVE COVID RESULTS
== END 2020-10-12 10:45 | disposition home or self-care (01) ==
PROVIDERS: Emergency Provider Nurse Practitioner Family; PCP Internal Medicine Adolescent Medicine
DX: U07.1 COVID-19 (principal); I25.10 Atherosclerotic heart disease of native coronary artery without angina pectoris; F41.8 Other specified anxiety disorders; K21.9 Gastro-esophageal reflux disease without esophagitis; E78.5 Hyperlipidemia, unspecified; I10 Essential (primary) hypertension; E03.9 Hypothyroidism, unspecified; Z88.1 Allergy status to other antibiotic agents; Z88.5 Allergy status to narcotic agent
CPT/HCPCS: G0463; 99201; U0003

== ENCOUNTER → 2020-10-29 11:58 | Outpatient (CLI) | payer MEDICARE, OTHER, SELFPAY ==
--- NOTE | 2020-10-29 12:17 | CT_ITS ---
PROCEDURE: CT SOFT TISSUE NECK W CON CLINICAL HISTORY: THROAT BLOCKAGE Dysphagia, patient states polyps removed 09/2020, difficulty swallowing since COMPARISON: No exams were available for comparison TECHNIQUE: Oral Contrast: None IV Contrast: 75 ml Isovue 370 Axial images obtained with sagittal and coronal reformats. All CT scans at the facility use one or more dose reduction, viz: automated exposure control, ma/kV adjustment per patient size (including targeted exams where dose is matched to indication, i.e. head), or iterative reconstruction technique. FINDINGS: Scattered small nodes are present in the neck. No dominant adenopathy is apparent. No abnormal fluid collections. The visualized sinuses have an unremarkable appearance. The nasopharynx, oropharynx, and hypopharynx are unremarkable. The epiglottis and uvula unremarkable appearance. There is some calcification noted of the the vocal cords on both sides posteriorly. Lung apices are clear. IMPRESSION: There is some nonspecific calcification of the vocal cords bilaterally posteriorly. Otherwise unremarkable CT neck Dictated by: Rolando Yuan MD 11/02/2020 11:45 Rolando Yuan MD in [place] 11/02/2020 11:45
[2020-10-29 12:24] LABS: Blood Urea Nitrogen 16 mg/dl (7-17); Estimated Glomerular Filt Rate 84 ml/min (>60); GFR (African American) 102 ML/MIN (>60)
== END ==
PROVIDERS: PCP Internal Medicine Adolescent Medicine; Visit Provider Otolaryngology
DX: K22.2 Esophageal obstruction (principal); R13.10 Dysphagia, unspecified; R59.1 Generalized enlarged lymph nodes
CPT/HCPCS: 36415; 70491; 82565; 84520; Q9967

== ENCOUNTER → 2020-12-29 09:28 | Outpatient (CLI) | payer MEDICARE, OTHER, SELFPAY ==
[2020-12-29 10:37] LABS: Coronavirus 19 IgG Antibody Negative (Negative); Coronavirus 19 IgM Antibody Negative (Negative)
== END ==
PROVIDERS: Visit Provider Surgery
DX: Z01.812 Encounter for preprocedural laboratory examination (principal); Z20.822 Contact with and (suspected) exposure to COVID-19; Z12.11 Encounter for screening for malignant neoplasm of colon; Z86.010 Personal history of colon polyps
CPT/HCPCS: 36415; 86328

== ENCOUNTER 2020-12-30 06:31 | Day surgery (SDC) | payer MEDICARE, OTHER, SELFPAY ==
[2020-12-04 12:57] VITALS: BMI 32.2
[2020-12-30 07:12] VITALS: BP 127/77; PULSE 79; RESP 18; TEMP 36.2; O2SAT 97
[2020-12-30 07:31] VITALS: O2SAT 97
--- NOTE | 2020-12-30 08:03 | HMH.ANESCL ---
[facility] Anesthesia Checklist - Patient Identification Patient Identification: Arm Band - Structural Data Admitted From: Home Planned Operative Procedure/s: colonoscopy Consent for Planned Operative Procedure(s) Verified: Yes Verified Documents: Surgical Consent, History and Physical - NPO Status Verified Time NPO: 00:00 - Additional verifications Anesthesia Reactions: No Hx Blood Transfusions: No Blood Transfusion Reaction: No - Airway Assessment C-Spine Mobility Assessed: Yes (mp2) TMJ Mobility Assessed: Yes Dentition: Edentulous - Neurological Assessment Level of Consciousness: Awake, Alert - Anesthesia Plan Anesthesia Risk discussed: Yes Anesthesia Plan: Verified ASA Class: III Anesthesia Type: MAC [facility] History I have reviewed the patient's past medical history: Yes Medical History: Reports:: Anxiety, Asthma, Cancer, Chronic Obstructive Pulmonary Disease (COPD), Coronary Artery Disease, Depression, Gastroesophageal Reflux Disease(GERD), Hepatitis, Hyperlipidemia, Hypertension, Palpitations Denies:: Diabetes Mellitus Type 1, Diabetes Mellitus Type 2, Internal Pacemaker, Lung Disease, MRSA, Seizures *Have you ever received a pneumonia vaccine?: No *Have you received a flu vaccine this season?: Yes Other Medical History: Reports: Arthritis, Hypothyroidism, Sinus Problems, Thyroid Disease. Denies: Blood Transfusion Reaction Anesthesia experience/problems:: nac Laterality Cases: Right: Breast Biopsy, Carpal Tunnel Release, Bilateral: Other Other Surgeries: Yes: Cardiac Catheterization, Colonoscopy, Dilation and Curettage, Hysterectomy-Partial, Sinus Surgery, Other. No: Pacemaker Amputation: No Fractures: No - *Social History Last grade of school completed: 4th or less Smoking Status: Never smoker Alcohol Intake: never Alcohol Intake Frequency:: other Substance Use Type: denies use *Occupational Status:: other Housing: house Household Members: spouse *Travel in the last 8 weeks: None - Psychiatric History Pschychiatric History:: Reports:: Anxiety, Depression Family Hx:: Cancer, Coronary Artery Disease, Hypertension
[2020-12-30 08:38] VITALS: BP 89/53; PULSE 80; RESP 12; TEMP 36.6; O2SAT 95
--- NOTE | 2020-12-30 08:44 | HMH.SCOPE ---
- Procedure: Date: 12/30/20 Patient Date of :: 1955 Procedure Performed:: Total colonoscopy to ileocecal valve with polypectomy x2 by biopsy forceps Indications:: Patient returns for follow-up colonoscopy. Colonoscopy done on 07/11/18 revealed diverticulosis and 5 tubular adenomas and several biopsies which were lymphoid aggregate. Of note, the patient had a normal colonoscopy by Dr. Mondragon in 2014. She does state that she has a family history of polyps. Due to the fact that she had developed at least 5 adenomatous polyps within 3 years from previous normal colonoscopy I had recommended 2-year follow-up colonoscopy after her colonoscopy on 07/11/2018. Performing Provider:: Ariel George MD Referring Provider:: None Sedation:: MAC sedation Procedure:: Patient was taken to endoscopy procedure room. She was positioned in lateral decubitus position. Adequate intravenous sedation was achieved with anesthesia titration of propofol. Variable stiffness Olympus colonoscope was inserted via the anus. Was advanced to the cecum. Ileocecal valve and appendiceal orifice were identified. Colonic preparation was fair and there was fair visualization with thorough irrigation and suctioning as there was adherent liquid sticky stool to the colonic mucosal esquivel. There was a possible subtle diminutive polyp at the appendiceal orifice which was removed with cold biopsy forceps. Colonoscope was withdrawn through the colon with careful surveillance. In the distal transverse colon there appeared to be a tiny diminutive polyp removed in a piecemeal fashion using cold biopsy forceps. In the sigmoid colon there were rare diverticuli. Retroflexion within the rectum revealed no evidence of any pathologic internal hemorrhoids. Colonoscope was withdrawn. Findings:: Suboptimal fair bowel preparation Possible early tiny diminutive polyp x2 Sigmoid diverticulosis Recommendations:: Given the suboptimal preparation along with previous history of multiple adenomatous polyps recommend repeat colonoscopy in 2 years. Complications:: None immediately apparent Estimated blood obtained (mL): 2
[2020-12-30 08:48] VITALS: BP 105/55; PULSE 72; RESP 16; O2SAT 96
[2020-12-30 08:58] VITALS: BP 112/67; PULSE 75; RESP 16; O2SAT 95
[2020-12-30 09:08] VITALS: BP 114/65; PULSE 75; RESP 16; TEMP 36.6; O2SAT 98
== END 2020-12-30 09:20 | disposition home or self-care (01) ==
LOC: OUTP 06:34
PROVIDERS: PCP Internal Medicine Adolescent Medicine; Visit Provider Surgery
PROC: 0DJD8ZZ Inspection of Lower Intestinal Tract, Via Natural or Artificial Opening Endoscopic (ICD-10-PCS; CPT 45380; principal; 2020-12-30 08:00)
DX: Z12.11 Encounter for screening for malignant neoplasm of colon (principal); Z87.19 Personal history of other diseases of the digestive system; K57.30 Diverticulosis of large intestine without perforation or abscess without bleeding; K38.8 Other specified diseases of appendix; I25.10 Atherosclerotic heart disease of native coronary artery without angina pectoris; J44.9 Chronic obstructive pulmonary disease, unspecified; F41.9 Anxiety disorder, unspecified; F32.9 Major depressive disorder, single episode, unspecified; K21.9 Gastro-esophageal reflux disease without esophagitis; I10 Essential (primary) hypertension; E78.5 Hyperlipidemia, unspecified; Z85.9 Personal history of malignant neoplasm, unspecified
CPT/HCPCS: 45380; 88305

== ENCOUNTER → 2021-03-16 10:51 | Outpatient (CLI) | payer MEDICARE, OTHER, SELFPAY ==
[2021-03-16 11:15] LABS: Basophils % 0.4 % (0.1-2.0); Eosinophils # 0.3 K/mm3 (0.0-0.4); Eosinophils % 3.6 % (0.1-12.0); Hematocrit 43.8 % (37.0-47.0); Hemoglobin 15.3 g/dL (12.2-16.2); Lymphocytes # 2.3 K/mm3 (0.7-4.5); Lymphocytes % 30.8 % (10-50); Mean Corpuscular HGB Conc 34.9 g/dL (31.8-35.4); Mean Corpuscular Hemoglobin 32.1 pg (27.0-31.2); Mean Corpuscular Volume 91.8 fl (81-99); Mean Platelet Volume 8.4 fl (7.4-10.4); Monocytes # 0.4 K/mm3 (0.1-1.0); Monocytes % 5.1 % (1.7-9.3); Neutrophils # 4.5 K/mm3 (1.8-7.8); Neutrophils % 60.1 % (37.0-80.0); Platelet Count 216 K/mm3 (142-424); Red Blood Count 4.77 M/mm3 (4.20-5.40); Red Cell Distribution Width 13.5 % (11.5-17.5); White Blood Count 7.5 K/mm3 (4.8-10.8)
[2021-03-16 11:46] LABS: Chloride 102 mmol/L (98-107)
[2021-03-16 11:47] LABS: Potassium 4.2 mmoL/L (3.5-5.1); Sodium 139 mmol/L (136-145)
[2021-03-16 11:49] LABS: Alanine Aminotransferase 41 U/L (12-78); Alkaline Phosphatase 67 U/L (38-126); Aspartate Amino Transferase 46 U/L (14-36); Bilirubin,Total 0.6 mg/dl (0.2-1.3); Blood Urea Nitrogen 14 mg/dl (7-17); Estimated Glomerular Filt Rate 84 ml/min (>60); GFR (African American) 102 ML/MIN (>60)
[2021-03-16 11:50] LABS: Albumin Level 4.4 g/dl (3.5-5.0); Albumin/Globulin Ratio 1.8 (1.1-1.8); Anion Gap 12.2 mEq/L (5-15); Calcium 9.6 mg/dl (8.4-10.2); Carbon Dioxide 29 mmol/L (22.0-30.0); Cholesterol 178 mg/dl (140-200); Globulin 2.5 g/dL (1.3-3.2); Glucose 113 mg/dl (74-100); HDL Cholesterol 59 mg/dl (40-60); Total Protein,Serum 6.9 g/dl (6.3-8.2); Triglycerides 151 mg/dl (30-150); VLDL Cholesterol 30 mg/dL (0-40)
[2021-03-16 12:07] LABS: Direct LDL Cholesterol 88.84 mg/dL (100-129)
[2021-03-16 12:20] LABS: Thyroid Stimulating Hormone 5.48 uIU/mL (0.465-4.68)
== END ==
PROVIDERS: Visit Provider Internal Medicine Adolescent Medicine
DX: I10 Essential (primary) hypertension (principal); E03.9 Hypothyroidism, unspecified
CPT/HCPCS: 36415; 80053; 80061; 84443; 85025

== ENCOUNTER → 2021-06-22 09:00 | Outpatient (CLI) | payer MEDICARE, OTHER, SELFPAY ==
--- NOTE | 2021-06-22 09:07 | XR_ITS ---
PROCEDURE: XR FOOT WT BEARING RT 3V CLINICAL INDICATION: foot pain COMPARISON: CR [id number] XR foot wt bearing LT 3V from 05/25/2018 CR [id number] XR foot wt bearing RT 3V from 05/25/2018 FINDINGS: No acute fracture. Mild osteoarthritic changes are present at the tarsal metatarsal junction. There is mild chronic medial subluxation the 3rd metatarsal on the lateral cuneiform by proximally 3 mm. Calcaneal spur noted. No lytic or blastic change. IMPRESSION: Osteoarthritis tarsal metatarsal junction with mild chronic medial subluxation of the 3rd metatarsal. No change with no acute finding Dictated by: Rolando Yuan MD 06/22/2021 10:14 Rolando Yuan MD in [place] 06/22/2021 10:14
--- NOTE | 2021-06-22 09:07 | XR_ITS ---
PROCEDURE: XR FOOT WT BEARING LT 3V CLINICAL INDICATION: foot pain COMPARISON: CR [id number] XR foot wt bearing LT 3V from 05/25/2018 CR [id number] XR foot wt bearing RT 3V from 05/25/2018 FINDINGS: No fracture or dislocation. No lytic or blastic change. There is normal mineralization. Mild osteoarthritic changes at the tarsal metatarsal junction. Calcaneal spur. Other findings:None. IMPRESSION: Mild osteoarthritis tarsal metatarsal junction. No change with no acute finding Dictated by: Rolando Yuan MD 06/22/2021 10:15 Rolando Yuna MD in [place] 06/22/2021 10:15
== END ==
PROVIDERS: PCP Internal Medicine Adolescent Medicine; Visit Provider Podiatrist
DX: M79.672 Pain in left foot (principal); M79.671 Pain in right foot
CPT/HCPCS: 73630

== ENCOUNTER → 2021-06-30 10:58 | Outpatient (CLI) | payer MEDICARE, OTHER, SELFPAY ==
--- NOTE | 2021-06-30 | CA_ITS ---
APPROVED REPORT Exam: Exercise Treadmill Technologist: Tiffanie Garcia Ht: 5 ft 2 in Wt: 174 lbs BSA: 1.80 m2 HR: 70 bpm BP: 119/71 mmHg Indications: Chest pain Medical History Medications: Isosorbide,,,,, Aspirin,,,,, Gabapentin,,,,, Losartan,,,,, Escitalopram,,,,, HCTZ,,,,, Lipitor,,,,, Estradiol,,,,, Montelukast,,,,, MeLOXICAM,,,,, BisOPROLOL,,,,, Esomeprazole,,,,, Stress Test Details Test: Keyur HR Resting HR: 75 bpm Max Heart Rate (APMHR): 154 bpm Max HR Achieved: 155 bpm Target HR (85% APMHR): 130 bpm % of APMHR: 100 Recovery HR: 96 bpm BP Resting BP: 119.0/71.0 mmHg Max BP: 184.0/80.0 mmHg Recovery BP: 127.0/63.0 mmHg ECG Resting ECG: Normal sinus rhythm Clinical Exercise duration: 07:00 min Highest Stage Achieved: Exercise capacity: 10.1 METs Stress ECG Conclusion Patient exercised 7:00 on Keyur Protocol. Test stopped due to shortness of air, fatigue. Symptoms: Shortness of air, mild chest pressure Arrhythymias/Ectopy: Occasional PVC ST-T Changes: 1.[address] depression inferiorly and 1mm slightly upsloping ST depression laterally. Conclusion: EKG changes positive for ischemia. Myoview images reported separately. Test Summary RECOVERY 01:00 0.0 0.0 129 . . . Stop exercise at 07:00 REST . . . . . . . Standing REST 03:11 0.0 0.0 75 . 119/ 71 . . Stage 1 01:00 10.0 1.7 104 . . . . Stage 1 02:00 10.0 1.7 120 . . . . Stage 1 03:00 10.0 1.7 123 . 175/ 80 . . Stage 2 01:00 12.0 2.5 133 . . . . Stage 2 02:00 12.0 2.5 142 . 184/ 80 . . Stage 2 . . . . . . . Myoview Injected Stage 2 03:00 12.0 2.5 145 . 184/ 80 . . Stage 3 01:00 14.0 3.4 153 . . . Stop exercise at 07:00 RECOVERY 01:00 0.0 0.0 129 . . . . RECOVERY 02:00 0.0 0.0 103 . . . . RECOVERY 03:00 0.0 0.0 93 . 161/ 63 . . RECOVERY 04:00 0.0 0.0 91 . 161/ 63 . . RECOVERY 05:00 0.0 0.0 93 . 127/ 63 . . RECOVERY . . . . . . . chest pressure RECOVERY 05:35 0.0 0.0 93 . 127/ 63 . . Electronically signed by : Sky Yeager MD 06/30/2021 18:51:55
--- NOTE | 2021-06-30 10:58 | NM_ITS ---
APPROVED REPORT Exam: Nuclear Stress Test Indication: chest pain Patient Location: Outpatient Stress Tech: Tiffanie Garcia ME Tech:Cristel MaldonadoOSCART, RT (R)(N) Ht: 5 ft 1 in Wt: 175 lbs Bra Size: 36d HR: 70 bpm BP: 119/71 mmHg BSA: 1.78 m2 BMI: 33.0 Procedure: Patient exercised on Keyur protocol 7 minutes and sec, resting heart rate 70 bpm, resting blood pressure 119/71 mmHg, with exercise maximum heart rate achived was 155 bpm which is 101 % of the maximum predicted heart rate and blood pressure was 184/80 mmHg. Test was stopped due to SOA and Fatigue. Patient has Good exercise capacity, achieved 10.1 METs of workload on treadmill, the blood pressure response to exercise was Adequate. Electrocardiogram Resting electrocardiogram shows sinus rhythm, with exercise there is [address] segment depression noted from the baseline EKG more pronounced in the inferior leads. The EKG portion of the exercise Myoview is positive for ischemia. Cardiac Stress and Resting SPECT Images: Cardiac Stress and Resting SPECT images were obtained using technetium 99m Myoview 31.3 mCi stress and 10.55 mCi at rest. Gated SPECT for analysis of segmental wall motion and calculation of the ejection fraction also done. Prone images were also obtained. Cardiac stress and rest SPECT images show uniform myocardial activity without segmental perfusion abnormality, computer ejection fraction is over 65% with no regional wall motion abnormality, right ventricle is normal size and contractility. Conclusion: 1. The EKG portion of the exercise Myoview is positive for ischemia, patient has good exercise capacity achieved 10.1 METs of workload on treadmill, the blood pressure response to exercise was adequate, test was stopped due to shortness of breath and chest pressure. 2. No scintigraphic evidence of reversible ischemia seen, computer derived ejection fraction is over 65% with no regional wall motion abnormality, right ventricle is normal size and contractility. Electronically signed by : Sky Yeager MD 06/30/2021 19:15:39
--- NOTE | 2021-06-30 13:09 | HMH.ITSHM ---
Current Home Medications as stated by this patient Julisa Donnelly or guest services representative. []MONTELUKAST LOSARTAN LEVOTHYROXINE ISOSORBIDE HCTZ GABAPENTIN ESTRADIOL ESCITALOPRAM DICLOFENAC CETERIZINE BISOPROLOL ATORVASTATIN MELOXICAM FLOVENT ESOMEPRAZOLE ASA
== END ==
PROVIDERS: PCP Internal Medicine Adolescent Medicine; Visit Provider Nurse Practitioner Family
DX: E78.2 Mixed hyperlipidemia (principal); I10 Essential (primary) hypertension; R06.02 Shortness of breath; R07.9 Chest pain, unspecified; R60.9 Edema, unspecified
CPT/HCPCS: 78452; 93017; A9502

== ENCOUNTER → 2021-07-08 11:40 | Outpatient (CLI) | payer MEDICARE, OTHER, SELFPAY | PROVIDERS: Visit Provider Nurse Practitioner Family | DX: Z20.822 Contact with and (suspected) exposure to COVID-19 (principal) | CPT/HCPCS: U0003 ==

== ENCOUNTER 2021-07-13 23:33 | Emergency (ER) | payer MEDICARE, OTHER, SELFPAY ==
[2021-07-13 23:35] VITALS: BP 148/85; PULSE 82; RESP 16; TEMP 36.7; O2SAT 96; BMI 33.0
--- NOTE | 2021-07-13 23:57 | XR_ITS ---
PROCEDURE INFORMATION: Exam: XR Chest Exam date and time: 07/13/2021 11:57 PM Age: 66 years old Clinical indication: Patient HX: Cough and wheezing for over a week. TECHNIQUE: Imaging protocol: XR of the chest. Views: 2 views. COMPARISON: CR XR CHEST 2V 05/09/2020 7:58 AM FINDINGS: Lungs: Unremarkable. No consolidation. Pleural spaces: Unremarkable. No pleural effusion. No pneumothorax. Heart/Mediastinum: Unremarkable. No cardiomegaly. Bones/joints: Unremarkable. IMPRESSION: No acute findings.
[2021-07-14 00:03] LABS: Coronavirus 19, PCR Not Detected (NotDetected); Influenza A, PCR Not Detected (NotDetected); Influenza B, PCR Not Detected (NotDetected)
[2021-07-14 00:09] LABS: Basophils % 0.5 % (0.1-2.0); Eosinophils # 0.1 K/mm3 (0.0-0.4); Eosinophils % 0.8 % (0.1-12.0); Hematocrit 38.9 % (37.0-47.0); Hemoglobin 13.2 g/dL (12.2-16.2); Lymphocytes # 3.3 K/mm3 (0.7-4.5); Lymphocytes % 35.2 % (10-50); Mean Corpuscular Hemoglobin 31.7 pg (27.0-31.2); Mean Corpuscular Volume 93.4 fl (81-99); Mean Platelet Volume 8.8 fl (7.4-10.4); Monocytes # 0.6 K/mm3 (0.1-1.0); Neutrophils # 5.4 K/mm3 (1.8-7.8); Neutrophils % 57.6 % (37.0-80.0); Platelet Count 233 K/mm3 (142-424); Red Blood Count 4.17 M/mm3 (4.20-5.40); Red Cell Distribution Width 13.8 % (11.5-17.5); White Blood Count 9.4 K/mm3 (4.8-10.8)
[2021-07-14 00:16] LABS: Chloride 101 mmol/L (98-107); Potassium 3.4 mmoL/L (3.5-5.1); Sodium 140 mmol/L (136-145)
[2021-07-14 00:20] LABS: Alanine Aminotransferase 66 U/L (12-78); Albumin Level 3.9 g/dl (3.5-5.0); Albumin/Globulin Ratio 1.4 (1.1-1.8); Alkaline Phosphatase 80 U/L (38-126); Anion Gap 10.4 mEq/L (5-15); Aspartate Amino Transferase 45 U/L (14-36); Bilirubin,Total 0.2 mg/dl (0.2-1.3); Blood Urea Nitrogen 20 mg/dl (7-17); Calcium 9.1 mg/dl (8.4-10.2); Carbon Dioxide 32 mmol/L (22.0-30.0); Creatinine Clearance Estimated 69 mL/min (50-200); Estimated Glomerular Filt Rate 72 ml/min (>60); GFR (African American) 87 ML/MIN (>60); Globulin 2.7 g/dL (1.3-3.2); Glucose 107 mg/dl (74-100); Total Protein,Serum 6.6 g/dl (6.3-8.2)
[2021-07-14 00:25] LABS: C-Reactive Protein 0.7 mg/L (0-4)
[2021-07-14 00:46] LABS: Erythrocyte Sedimentation Rate 13 mm/hr (0-30)
[2021-07-14 01:09] LABS: Procalcitonin 0.064 ng/mL (0.0-2.0)
--- NOTE | 2021-07-14 01:11 | HMH.EDSOB ---
ED Disposition Clinical Impression: Asthma with exacerbation Qualifiers: Asthma severity: moderate Asthma persistence: unspecified Qualified Code(s): J45.901 - Unspecified asthma with (acute) exacerbation Disposition: Home, Self-Care Condition on Discharge: Good Instructions: DI for Shortness of Breath Additional Instructions: use meds and see pcp for follow up Referrals: Phill Michael MD [Primary Care Provider] - - Critical Care Critical Care Time: No Attestation: On 07/13/21, the high probability of a clinically significant, sudden or life threatening deterioration of the following system(s) required my full and direct attention, intervention and personal management. The time I documented below is in addition to time spent performing reported procedures but includes the following listed in this critical care notation. Medical Decision Making - Medical Records Medical records reviewed: Yes: I reviewed the patient's medical records. - Devyn Inquiry Pt receiving controlled substance: No Vital Signs: 07/13/21 23:35 Temperature 98.0 F Temperature Source Oral Pulse Rate [Right] 82 Respiratory Rate 16 Blood Pressure [Right Arm] 148/85 H Blood Pressure Mean [Right Arm] 106 02 Sat by Pulse Oximetry 96 - Lab Data Lab results reviewed: Yes: I reviewed the patient's lab results. Lab Results 07/13/21 23:45: SARS-CoV-2 (PCR) Not detected, Influenza A Untype (PCR) Not detected, Influenza Type B (PCR) Not detected 07/14/21 00:00: WBC 9.4, RBC 4.17 L, Hgb 13.2, Hct 38.9, MCV 93.4, MCH 31.7 H, MCHC 34.0, RDW 13.8, Plt Count 233, MPV 8.8, Neut % (Auto) 57.6, Lymph % (Auto) 35.2, Duval % (Auto) 6.0, Eos % (Auto) 0.8, Baso % (Auto) 0.5, Neut # (Auto) 5.4, Lymph # (Auto) 3.3, Duval # (Auto) 0.6, Eos # (Auto) 0.1, Baso # (Auto) 0.0, ESR 13 07/14/21 00:00: Sodium 140, Potassium 3.4 L, Chloride 101, Carbon Dioxide 32 H, Anion Gap 10.4, BUN 20 H, Creatinine 0.80, Estimated Creat Clear 69, Estimated GFR 72, Est GFR ( Amer) 87, Glucose 107 H, Calcium 9.1, Total Bilirubin 0.2, AST 45 H, ALT 66, Alkaline Phosphatase 80, C-Reactive Protein 0.7, Total Protein 6.6, Albumin 3.9, Globulin 2.7, Albumin/Globulin Ratio 1.4, Procalcitonin 0.064 Result diagrams: 07/14/21 00:00 07/14/21 00:00 Orders (Tests/Meds): ED MEDICATIONS Generic Name Dose Route Start Last Admin Trade Name Freq PRN Reason Stop Dose Admin Sodium Chloride 1,000 mls @ 999 mls/hr 07/13/21 23:45 07/14/21 00:08 Sod Chlor 0.9% 1000ml Bag IV 07/14/21 00:45 999 mls/hr .[id number] SANIA Administration Discontinued Medications Generic Name Dose Route Start Last Admin Trade Name Freq PRN Reason Stop Dose Admin Ketorolac Tromethamine 30 mg 07/13/21 23:59 07/14/21 00:11 Ketorolac 30mg/Ml Vial IV 07/14/21 00:00 Not Given ONCE ONE - Radiology Data #1 Image(s): Chest Image Reviewed: Yes I have reviewed radiologist's interpretation Preliminary Findings: Normal/NAD Medical Decision Narrative: stable exam and labs Resp/SOB HPI - General Chief Complaint: Shortness of Breath/Dyspnea Stated Complaint: congestion Time Seen by Provider: 07/14/21 00:00 Mode of Arrival: Ambulatory Source of Information: Patient, Medical Record Limitations: No Limitations Description of Symptoms (Recalled from ER Triage Doc. by RN): pt was seen by pcp on tuesday was given antibotics and steriods. pt has hx of asthma and has nebs at home but hasn't used. pt c/o worseing whheezing - History of Present Illness recent illness with wheezing - no tob - has been using meds as directed MD Complaint: shortness of breath Onset (ago): day(s) Context: recent illness Severity: moderate Known history of: asthma Associated symptoms: denies other symptoms Treatment prior to arrival: none - Related Data Home oxygen amount: none Home Medications Medication Instructions Recorded Confirmed escitalopram oxalate 10 mg tablet 10 mg PO DAILY tab 1
[2021-07-14 01:27] VITALS: BP 134/72; PULSE 80; RESP 16; TEMP 36.7; O2SAT 97
== END 2021-07-14 01:28 | disposition home or self-care (01) ==
PROVIDERS: Emergency Provider Emergency Medicine; PCP Internal Medicine Adolescent Medicine
DX: J45.901 Unspecified asthma with (acute) exacerbation (principal); Z20.822 Contact with and (suspected) exposure to COVID-19; I10 Essential (primary) hypertension; E78.5 Hyperlipidemia, unspecified; F41.8 Other specified anxiety disorders; K21.9 Gastro-esophageal reflux disease without esophagitis; J44.9 Chronic obstructive pulmonary disease, unspecified; E03.9 Hypothyroidism, unspecified; Z79.899 Other long term (current) drug therapy; Z88.5 Allergy status to narcotic agent
CPT/HCPCS: 71046; 80053; 84145; 85025; 85651; 86140; 96365; 99283; U0003

== ENCOUNTER → 2021-08-12 08:55 | Outpatient (CLI) | payer MEDICARE, OTHER, SELFPAY | PROVIDERS: PCP Internal Medicine Adolescent Medicine; Visit Provider Nurse Practitioner Family | DX: G47.30 Sleep apnea, unspecified (principal); G47.20 Circadian rhythm sleep disorder, unspecified type; R06.83 Snoring; I10 Essential (primary) hypertension; Z68.33 Body mass index [BMI] 33.0-33.9, adult | CPT/HCPCS: 95806 ==

== ENCOUNTER → 2021-08-26 18:00 | Outpatient (CLI) | payer MEDICARE, OTHER, SELFPAY | PROVIDERS: Visit Provider Nurse Practitioner Family | DX: Z20.822 Contact with and (suspected) exposure to COVID-19 (principal) | CPT/HCPCS: C9803; U0003; U0005 ==

== ENCOUNTER 2021-09-08 21:46 | Emergency (ER) | payer MEDICARE, OTHER, SELFPAY ==
[2021-09-08 21:48] VITALS: BP 129/65; PULSE 76; RESP 18; TEMP 36.6; O2SAT 98; BMI 33.0
--- NOTE | 2021-09-08 21:53 | HMH.EDUPEXT ---
ED Disposition Clinical Impression: Contusion of wrist, right Qualifiers: Encounter type: initial encounter Qualified Code(s): S60.211A - Contusion of right wrist, initial encounter Disposition: Home, Self-Care Condition on Discharge: Fair Instructions: Contusion, DI for Contusion Additional Instructions: Keep all follow-up appointments as scheduled. Return to the emergency department if you feel worse in any way. Keep the affected area elevated. You may take [id number] ibuprofen and/or Tylenol for the pain. Referrals: Phill Michael MD [Primary Care Provider] - - Critical Care Critical Care Time: No Attestation: On , the high probability of a clinically significant, sudden or life threatening deterioration of the following system(s) required my full and direct attention, intervention and personal management. The time I documented below is in addition to time spent performing reported procedures but includes the following listed in this critical care notation. Medical Decision Making - Medical Records Medical records reviewed: Yes: I reviewed the patient's medical records. - Deyvn Inquiry Pt receiving controlled substance: No Vital Signs: 09/08/21 21:48 Temperature 97.8 F Temperature Source Oral Pulse Rate [Apical] 76 Respiratory Rate 18 Blood Pressure [Right Arm] 129/65 Blood Pressure Mean [Right Arm] 86 Blood Pressure Source [Right Arm] Automatic Cuff Blood Pressure Position [Right Arm] Sitting 02 Sat by Pulse Oximetry 98 Oxygen Delivery Method Room Air - Radiology Data #1 Image(s): Wrist Image Reviewed: Yes I reviewed the patient's radiology image, Yes I have reviewed radiologist's interpretation Preliminary Findings: Normal/NAD (No acute fractures or dislocations seen) Medical Decision Narrative: The patient presents to the emergency department complaining of right-sided wrist pain after having mildly crushed it between a countertop and a window air conditioning unit. She was carrying this unit and it became too heavy for her. This happened at about 8:00 tonight. On physical examination there is no evidence for neurovascular defect. Radiographs of the wrists were reviewed by me and I do not see any dislocation and/or fractures. I feel that the patient can be safely discharged home. The patient already has a follow-up appointment with an orthopedist for chronic wrist issues. I advised the patient to keep that appointment and to take [id number] Tylenol for the pain as needed. Upper Extremity HPI - General Chief Complaint: Extremity Injury, Upper Stated Complaint: AO 09/08 2030 injured R wrist Time Seen by Provider: 09/08/21 21:53 Mode of Arrival: Ambulatory - History of Present Illness HPI narrative: The patient states that she was carrying a portable air conditioner unit when it became too heavy and the patient had to let it down but went a little too fast and mildly crushed her right wrist. Condition a did not fall onto the wrist. Patient states that she already has carpal tunnel syndrome in this wrist. Denies any other injuries. MD complaint: injury to: right, wrist - Related Data Home Medications Medication Instructions Recorded Confirmed escitalopram oxalate 10 mg tablet 10 mg PO DAILY tab 08/25/20 08/26/21 Esomeprazole Magnesium 40 mg PO DAILY 08/26/20 08/26/21 gabapentin 300 mg capsule 300 mg PO BID cap 09/24/20 08/26/21 Meloxicam See Rx Instructions .ROUTE .COMPLEX 12/23/20 08/26/21 levothyroxine 125 mcg tablet 125 mcg PO tab 03/26/21 08/26/21 atorvastatin 20 mg tablet 20 mg PO HS tab 06/09/21 08/26/21 cetirizine 10 mg tablet 10 mg PO DAILY tab 06/09/21 08/26/21 hydrochlorothiazide 12.5 mg capsule 12.5 mg PO DAILY cap 06/09/21 08/26/21 losartan 50 mg tablet 50 mg PO DAILY tab 06/09/21 08/26/21 Previous Rx's Medication Instructions Recorded bisoprolol fumarate 5 mg tablet 5 mg PO DAILY #90 tab 03/11/20 montelukast 10 mg tablet 10 mg PO DAILY
--- NOTE | 2021-09-08 21:56 | XR_ITS ---
PROCEDURE INFORMATION: Exam: XR Right Wrist Exam date and time: 09/08/2021 9:56 PM Age: 66 years old Clinical indication: Injury or trauma; Other: Injured right wrist pulling on portable air conditioning unit. ; Blunt trauma (contusions or hematomas); Prior surgery; Surgery date: 6+ months; Surgery type: Carpel tunnel TECHNIQUE: Imaging protocol: XR Right wrist. Views: 3 or more views. COMPARISON: CR [id number] XR hand RT min 3V 10/19/2018 9:28 AM FINDINGS: Bones/joints: There is moderate osteoarthritis of the right 1st carpometacarpal joint. Moderate osteoarthritis of the right 1st metacarpal phalangeal joint. There is severe osteoarthritis of the right 1st interphalangeal joint. No evidence of acute fracture. Osseous mineralization is normal. Soft tissues: Normal. 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 No evidence of acute fracture or overlying soft tissue swelling.
[2021-09-08 22:25] VITALS: BP 125/65; PULSE 78; RESP 14; TEMP 36.6; O2SAT 98
== END 2021-09-08 22:29 | disposition home or self-care (01) ==
PROVIDERS: Emergency Provider Emergency Medicine; PCP Internal Medicine Adolescent Medicine
DX: S60.211A Contusion of right wrist, initial encounter (principal); W23.0XXA Caught, crushed, jammed, or pinched between moving objects, initial encounter; Y92.019 Unspecified place in single-family (private) house as the place of occurrence of the external cause; J44.9 Chronic obstructive pulmonary disease, unspecified; I25.10 Atherosclerotic heart disease of native coronary artery without angina pectoris; E78.5 Hyperlipidemia, unspecified; E03.9 Hypothyroidism, unspecified; I10 Essential (primary) hypertension; K21.9 Gastro-esophageal reflux disease without esophagitis; F41.8 Other specified anxiety disorders
CPT/HCPCS: 73110; 99282

== ENCOUNTER 2021-09-11 14:15 | Outpatient (RCR) | payer MEDICARE, OTHER, SELFPAY | END 2021-09-11 15:00 | disposition home or self-care (01) | LOC: OT 14:15 | PROVIDERS: Visit Provider Orthopaedic Surgery | DX: M25.531 Pain in right wrist (principal) | CPT/HCPCS: 97763 ==

== ENCOUNTER 2021-09-15 13:36 | Outpatient (RCR) | payer MEDICARE, OTHER, SELFPAY ==
--- NOTE | 2021-09-15 14:28 | HMH.OTOPEV ---
OT Inpatient Evaluation Rehab OT Outpatient Eval Start: 09/15/21 14:05 Freq: Status: Active Protocol: Document 09/15/21 14:09 RADHA (Rec: 09/15/21 14:28 [id number] Electronically Signed By Олег Champagne OT 09/15/21 14:09 Outpatient Therapy Subjective History Subjective History Pt is a 66 year old female who reports to therapy for initial evaluation to right wrist. 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 However, last week she injured her wrist when trying to lift an air conditioner. She felt a pop in her wrist while lifting it and dropped the air conditioner. Since this she has had some swelling and stiffness in the wrist. Pt is right hand dominant. Pt has had Carpal Tunnel Release in the past, but symptoms have returned. Pt demonstrates with decreased AROM/Strength or right wrist. Pt's right corrugator operator helper strength is declined as well. Pt will continue to be seen weekly in order to address deficits. STG Community Relations Manager Strength R hand: 35 lbs LTG Community Relations Manager strength R hand: 40 lbs Chief Complaint Pain,Stiff,Weakness,Decreased Community Relations Manager Strength Symptom Type Ache,Throb,Sharp,Dull,Numbness ,Tingling Symptoms Relieved By Rest/Positioning Symptoms Aggravated By Physical Activity,Lifting Prior Functional Limitations None Current Functional Limitations Reaching,Lifting,Housework Symptom Description Intermittent,Activity Dependent Level of pain today (0-10) 3 Pain scale - at its best (0-10) 0 Pain scale - at its worst (0-10) 10 Wrist/Hand Eval Wrist Range of Motion Right Wrist Extension Active Range of Motion ( 30 degrees degrees) Wrist Flexion Active Range of Motion ( 52 degrees degrees) Wrist Radial Deviation Active Range of 20 degrees Motion (degrees) Wrist Ulnar Deviation Active Range of 26 degrees Motion (degrees) Wrist Manual Muscle Test
== END 2021-09-15 13:40 | disposition home or self-care (01) ==
LOC: OT 13:36
PROVIDERS: PCP Internal Medicine Adolescent Medicine; Visit Provider Specialist
DX: G56.01 Carpal tunnel syndrome, right upper limb (principal); Z86.69 Personal history of other diseases of the nervous system and sense organs
CPT/HCPCS: 97166

== ENCOUNTER → 2021-09-29 19:19 | Outpatient (CLI) | payer MEDICARE, OTHER, SELFPAY | PROVIDERS: Visit Provider Nurse Practitioner Family | DX: Z20.822 Contact with and (suspected) exposure to COVID-19 (principal) | CPT/HCPCS: C9803; U0003; U0005 ==

== ENCOUNTER → 2021-10-14 09:55 | Outpatient (CLI) | payer MEDICARE, OTHER, SELFPAY ==
[2021-10-14 10:24] LABS: Basophils # 0.1 K/mm3 (0-0.2); Basophils % 0.7 % (0.1-2.0); Eosinophils # 0.2 K/mm3 (0.0-0.4); Eosinophils % 2.8 % (0.1-12.0); Hematocrit 40.1 % (37.0-47.0); Hemoglobin 14.6 g/dL (12.2-16.2); Lymphocytes # 1.9 K/mm3 (0.7-4.5); Lymphocytes % 29.6 % (10-50); Mean Corpuscular HGB Conc 36.4 g/dL (31.8-35.4); Mean Corpuscular Hemoglobin 32.7 pg (27.0-31.2); Mean Platelet Volume 8.5 fl (7.4-10.4); Monocytes # 0.3 K/mm3 (0.1-1.0); Monocytes % 5.1 % (1.7-9.3); Neutrophils % 61.8 % (37.0-80.0); Platelet Count 210 K/mm3 (142-424); Red Blood Count 4.46 M/mm3 (4.20-5.40); Red Cell Distribution Width 13.5 % (11.5-17.5); White Blood Count 6.5 K/mm3 (4.8-10.8)
[2021-10-14 11:19] LABS: Alanine Aminotransferase 44 U/L (12-78); Albumin Level 3.9 g/dl (3.5-5.0); Albumin/Globulin Ratio 1.5 (1.1-1.8); Alkaline Phosphatase 62 U/L (38-126); Anion Gap 7.9 mEq/L (5-15); Aspartate Amino Transferase 53 U/L (14-36); Bilirubin,Total 0.7 mg/dl (0.2-1.3); Blood Urea Nitrogen 20 mg/dl (7-17); Calcium 8.7 mg/dl (8.4-10.2); Carbon Dioxide 29 mmol/L (22.0-30.0); Chloride 104 mmol/L (98-107); Cholesterol 151 mg/dl (140-200); Estimated Glomerular Filt Rate 100 ml/min (>60); GFR (African American) 121 ML/MIN (>60); Globulin 2.6 g/dL (1.3-3.2); Glucose 113 mg/dl (74-100); HDL Cholesterol 51 mg/dl (40-60); Potassium 3.9 mmoL/L (3.5-5.1); Sodium 137 mmol/L (136-145); Total Protein,Serum 6.5 g/dl (6.3-8.2); Triglycerides 105 mg/dl (30-150); VLDL Cholesterol 21 mg/dL (0-40)
[2021-10-14 11:30] LABS: Direct LDL Cholesterol 84.53 mg/dL (100-129)
[2021-10-14 11:39] LABS: Free Thyroxine Index 4.6 ug/dL (5.93-13.13); T4 (Thyroxine) 15.3 ug/dl (5.53-11.0); Triiodothryronine (T3) Uptake 30 % (23.5-40.5)
[2021-10-14 11:53] LABS: Thyroid Stimulating Hormone 0.71 uIU/mL (0.465-4.68)
[2021-10-14 12:09] LABS: Vitamin B12 231 pg/mL (239-931)
== END ==
PROVIDERS: Visit Provider Internal Medicine Adolescent Medicine
DX: Z00.00 Encounter for general adult medical examination without abnormal findings (principal); E03.9 Hypothyroidism, unspecified
CPT/HCPCS: 36415; 80053; 80061; 82607; 84436; 84443; 84479; 85025

== ENCOUNTER → 2021-11-12 08:32 | Outpatient (CLI) | payer MEDICARE, OTHER, SELFPAY ==
--- NOTE | 2021-11-12 08:43 | XR_ITS ---
FINAL REPORT CLINICAL HISTORY: BL hand/ wrist pain FINDINGS: RIGHT HAND FINDINGS: 4 views show no evidence of an acute, displaced fracture or dislocation. There is mild DIP and PIP joint space narrowing. There are moderately advanced hypertrophic changes at the first interphalangeal joint. There are mild hypertrophic changes at the basilar joint. There is normal mineralization. There is no bony erosion. The soft tissues are unremarkable. IMPRESSION: No acute bony abnormality. Reviewed, Interpreted and Dictated by Barrera Sethi MD Transcribed by Ebonie Galarza Authenticated by Barrera Sethi MD on 11/12/2021 11:57:04 AM [facility]
--- NOTE | 2021-11-12 08:43 | XR_ITS ---
FINAL REPORT CLINICAL HISTORY: BL hand/ wrist pain FINDINGS: LEFT HAND FINDINGS: 4 views show no evidence of an acute, displaced fracture or dislocation. There is mild DIP and PIP joint space narrowing. There are mild hypertrophic changes at the basilar joint. There is normal mineralization. There is no bony erosion. The soft tissues are unremarkable. IMPRESSION: No acute bony abnormality. Reviewed, Interpreted and Dictated by Barrera Sethi MD Transcribed by Ebonie Galarza Authenticated by Barrera Sethi MD on 11/12/2021 11:55:47 AM [facility]
== END ==
PROVIDERS: PCP Internal Medicine Adolescent Medicine; Visit Provider Orthopaedic Surgery
DX: M25.531 Pain in right wrist (principal); M25.532 Pain in left wrist; M79.641 Pain in right hand; M79.642 Pain in left hand
CPT/HCPCS: 73130

== ENCOUNTER → 2021-11-25 09:43 | Outpatient (CLI) | payer MEDICARE, OTHER, SELFPAY ==
[2021-11-25 10:30] VITALS: PULSE 65; PULSE 70
== END ==
PROVIDERS: PCP Internal Medicine Adolescent Medicine; Visit Provider Internal Medicine Pulmonary Disease
DX: R06.09 Other forms of dyspnea (principal)
CPT/HCPCS: 94060; 94640; 94726; 94729

== ENCOUNTER → 2021-12-17 10:39 | Outpatient (CLI) | payer MEDICARE, OTHER, SELFPAY ==
[2021-12-18 09:01] LABS: Covid-19 Nasal PCR Sendout Lex NOT DETECTED
== END ==
PROVIDERS: Visit Provider Nurse Practitioner
DX: Z20.822 Contact with and (suspected) exposure to COVID-19 (principal)
CPT/HCPCS: C9803; U0004; U0005

== ENCOUNTER → 2021-12-23 15:01 | Outpatient (CLI) | payer MEDICARE, OTHER, SELFPAY ==
[2021-12-23 16:15] LABS: Free T4 (Free Thyroxine) 1.62 ng/dl (0.78-2.19)
[2021-12-23 16:28] LABS: Thyroid Stimulating Hormone 1.61 uIU/mL (0.465-4.68)
== END ==
PROVIDERS: PCP Internal Medicine Adolescent Medicine; Visit Provider Student in an Organized Health Care Education/Training Program
DX: R13.10 Dysphagia, unspecified (principal)
CPT/HCPCS: 36415; 84439; 84443

== ENCOUNTER 2021-12-25 19:14 | Emergency (ER) | payer MEDICARE, OTHER, SELFPAY ==
[2021-12-25 19:15] VITALS: BP 141/53; PULSE 91; RESP 18; TEMP 36.8; O2SAT 97; BMI 32.5
--- NOTE | 2021-12-25 19:38 | HMH.EDUTC ---
[facility] [place] Disposition Clinical Impression: Sinusitis Qualifiers: Sinusitis location: unspecified location Chronicity: unspecified Qualified Code(s): J32.9 - Chronic sinusitis, unspecified Disposition: Home, Self-Care Condition on Discharge: Good Instructions: Sinusitis, DI for Sinusitis Additional Instructions: ? Start antibiotic today. Be sure to complete entire prescription even if feeling better ? Monitor temp. Tylenol every 4 hours as needed and / or ibuprofen every 6 hours as needed ( As long as your primary care physician has told you that it ok to take both. For fever/aches/pains ER if no less than 101 despite Tylenol or Motrin ? Humidifier/vaporizer or hot steamy shower ? Mucinex for your cough and congestion. Be sure to drink lots of water. *Start steroid today. Helps with inflammation therefore, cough and wheezing. Follow directions on the package. Reviewed side effects. Patient reports taking them before. Follow up IMMEDIATELY for new or worsening of symptoms OR no noticeable improvement over the next 48-72 hours. 911 immediately for any life threatening symptoms such as chest pain or difficulty breathing Prescriptions: methylPREDNISolone [Medrol 4mg tab] 4 mg PO DIRECTED #21 tab Transmission Status: Pending to [facility] Azithromycin [Z-Sudeep 250mg Tab] 250 mg PO DIRECTED #6 tab Transmission Status: Pending to [facility] Referrals: Phill Michael MD [Primary Care Provider] - As needed Time of Disposition: 20:04 Medical Decision Making - Devyn Inquiry Pt receiving controlled substance: No Devyn was queried for this patient: No Vital Signs: 12/25/21 19:15 Temperature 98.3 F Temperature Source Oral Pulse Rate [Right Brachial] 91 H Respiratory Rate 18 Blood Pressure [Right Arm] 141/53 H Blood Pressure Mean [Right Arm] 82 Blood Pressure Source [Right Arm] Automatic Cuff Blood Pressure Position [Right Arm] Sitting 02 Sat by Pulse Oximetry 97 Oxygen Delivery Method Room Air - Lab Data Lab Results 12/25/21 19:30: Strep Scn Rapid Clinic Negative Orders (Tests/Meds): ORDERS Category Date Time Status Full Resp Panel w/COVID ([facility]) Routine Lab 12/25/21 19:48 Received Strep Screen Confirmation Stat Micro 12/25/21 19:30 Received Medical Decision Narrative: Patient states that she has taken azithromycin and Medrol in the past without reactions or complications medication discussed with pharmacy [facility] [place] HPI - General Stated complaint: CONGESTION,THROAT Time Seen by Provider: 12/25/21 19:38 Mode of Arrival: Ambulatory Source of Information: Patient Limitations: No Limitations Description of Symptoms (Recalled from Triage Doc. by RN): PATIENT C/O COUGH AND CHEST CONGESTION X 1 WEEK HEENT Symptoms (Recalled from RN notes): No Resp Symptoms (Recalled from RN notes): Yes Skin Symptoms (Recalled from RN notes): No MS Symptoms (Recalled from RN notes): No Functional Status (Recalled from RN notes): WNL - History of Present Illness Provider Complaint: Patient states that she has been having cough, sinus pain and pressure for about 2-3 wks, chest congestion for about a week and pain in her right ear and sore throat States that it has continued to get worse States that today her ear was hurting worse so she came in to get checked States that at times she is having drainage in the back of her throat and at times she is coughing it up - Related Data Home Medications Medication Instructions Recorded Confirmed Esomeprazole Magnesium 40 mg PO DAILY 08/26/20 12/23/21 gabapentin 300 mg capsule 300 mg PO BID cap 09/24/20 12/23/21 Meloxicam See Rx Instructions .ROUTE .COMPLEX 12/23/20 12/23/21 levothyroxine 125 mcg tablet 125 mcg PO tab 03/26/21 12/23/21 cetirizine 10 mg tablet 10 mg PO DAILY tab 06/09/21 12/23/21 hydrochlorothiazide 12.5 mg capsule 12.5 mg PO DAILY cap 06/09/21 12/23/21 losartan 50 mg tablet 50 mg PO DAILY tab 06/09/21 12/23/21 bupropion HCl 150 mg
[2021-12-25 19:40] LABS: UTC Strep Screen (Rapid) Negative (Negative)
[2021-12-25 19:54] LABS: Adenovirus,PCR Not Detected (NotDetected); Bordetella Pertussis Not Detected (NotDetected); Chlamydophila Pneumoniae, PCR Not Detected (NotDetected); Coronavirus 19, PCR Not Detected (NotDetected); Coronavirus 229E Not Detected (NotDetected); Coronavirus NL63 Not Detected (NotDetected); Coronavirus OC43 Not Detected (NotDetected); Coronovirus HKU1,PCR Not Detected (NotDetected); Human Metapneumovirus Not Detected (NotDetected); Influenza A, PCR Not Detected (NotDetected); Influenza AH1, 2009 Not Detected (NotDetected); Influenza AH1, PCR Not Detected (NotDetected); Influenza AH3,PCR Not Detected (NotDetected); Influenza B, PCR Not Detected (NotDetected); Mycoplasma Pneumoniae, PCR Not Detected (NotDetected); Parainfluenza 1, PCR Not Detected (NotDetected); Parainfluenza 2, PCR Not Detected (NotDetected); Parainfluenza 3, PCR Not Detected (NotDetected); Parainfluenza 4, PCR Not Detected (NotDetected); Respiratory Syncytial Virus Not Detected (NotDetected)
[2021-12-25 20:00] VITALS: BP 141/53; PULSE 91; RESP 18; TEMP 36.8; O2SAT 97
[2021-12-25 21:51] LABS: Rhinovirus/Enterovirus Detected (NotDetected)
== END 2021-12-25 20:11 | disposition home or self-care (01) ==
LOC: UTC 20:12
PROVIDERS: Emergency Provider Nurse Practitioner; PCP Internal Medicine Adolescent Medicine
DX: J32.9 Chronic sinusitis, unspecified (principal)
CPT/HCPCS: 87581; 87632; 87798; 87880; 99203; C9803; G0463; U0003; U0005

== ENCOUNTER → 2022-03-17 13:08 | Outpatient (CLI) | payer MEDICARE, OTHER, SELFPAY ==
[2022-03-17 14:23] LABS: Basophils # 0.1 K/mm3 (0-0.2); Eosinophils # 0.2 K/mm3 (0.0-0.4); Eosinophils % 3.1 % (0.1-12.0); Hemoglobin 15.2 g/dL (12.2-16.2); Lymphocytes # 2.2 K/mm3 (0.7-4.5); Lymphocytes % 30.8 % (10-50); Mean Corpuscular HGB Conc 34.7 g/dL (31.8-35.4); Mean Corpuscular Hemoglobin 32.3 pg (27.0-31.2); Mean Corpuscular Volume 93.2 fl (81-99); Mean Platelet Volume 8.8 fl (7.4-10.4); Monocytes # 0.4 K/mm3 (0.1-1.0); Monocytes % 5.4 % (1.7-9.3); Neutrophils # 4.2 K/mm3 (1.8-7.8); Neutrophils % 59.6 % (37.0-80.0); Platelet Count 229 K/mm3 (142-424); Red Blood Count 4.72 M/mm3 (4.20-5.40); Red Cell Distribution Width 13.8 % (11.5-17.5); White Blood Count 7.1 K/mm3 (4.8-10.8)
[2022-03-17 15:00] LABS: Alanine Aminotransferase 40 U/L (12-78); Albumin/Globulin Ratio 1.7 (1.1-1.8); Alkaline Phosphatase 52 U/L (38-126); Amylase 59 U/L (30-110); Aspartate Amino Transferase 43 U/L (14-36); Bilirubin,Total 0.9 mg/dl (0.2-1.3); Blood Urea Nitrogen 23 mg/dl (7-17); Calcium 9.1 mg/dl (8.4-10.2); Carbon Dioxide 32 mmol/L (22.0-30.0); Chloride 100 mmol/L (98-107); Chol/HDL Ratio 2.9 (1-3.5); Cholesterol 159 mg/dl (140-200); Estimated Glomerular Filt Rate 84 ml/min (>60); GFR (African American) 101 ML/MIN (>60); Globulin 2.4 g/dL (1.3-3.2); Glucose 104 mg/dl (74-100); HDL Cholesterol 55 mg/dl (40-60); Lipase 63 U/L (23-300); Sodium 137 mmol/L (136-145); Total Protein,Serum 6.4 g/dl (6.3-8.2); Triglycerides 119 mg/dl (30-150); VLDL Cholesterol 24 mg/dL (0-40)
[2022-03-17 15:11] LABS: Direct LDL Cholesterol 76.52 mg/dL (100-129)
[2022-03-17 15:29] LABS: Thyroid Stimulating Hormone 1.59 uIU/mL (0.465-4.68)
[2022-03-17 15:48] LABS: Vitamin B12 436 pg/mL (239-931)
== END ==
PROVIDERS: Visit Provider Internal Medicine Adolescent Medicine
DX: R10.32 Left lower quadrant pain (principal); R19.04 Left lower quadrant abdominal swelling, mass and lump; E03.9 Hypothyroidism, unspecified; G60.9 Hereditary and idiopathic neuropathy, unspecified
CPT/HCPCS: 36415; 80053; 80061; 82150; 82607; 83690; 84443; 85025

== ENCOUNTER → 2022-03-30 07:35 | Outpatient (CLI) | payer MEDICARE, OTHER, SELFPAY ==
--- NOTE | 2022-03-30 07:38 | CT_ITS ---
FINAL REPORT TECHNIQUE: Thin section axial images were obtained through the abdomen after intravenous and oral contrast. Reconstruction images were obtained from the axial data. Exam was performed using dose reduction techniques. CLINICAL HISTORY: LT LOWER QUAD PAIN,ABD SWELLING FINDINGS: The lung bases are clear. The liver is enlarged with fatty infiltration and is nodular in contour. There is a small hypervascular lesion measuring 12 mm. The gallbladder is surgically absent. The spleen, adrenal glands, and pancreas are unremarkable. There is no hydronephrosis or solid renal mass. Abdominal GI tract is without acute abnormality. There is no abdominal lymphadenopathy or ascites. The appendix is not visualized. There are no secondary signs of appendicitis. The uterus is surgically absent. There is diverticulosis without diverticulitis. Additionally, there are several diverticula of the terminal ileum with no evidence of inflammation. There is no pelvic lymphadenopathy or ascites. No acute osseous abnormalities identified. IMPRESSION: 1. Fatty infiltrated liver with developing cirrhosis. 2. Small hypervascular liver lesion, could be a flash filling hemangioma, neoplasm not excluded. Consider liver protocol MRI. 3. Diverticulosis of the distal small bowel and colon. Reviewed, Interpreted and Dictated by Angelina Alex MD Transcribed by Tamiko Zeng Authenticated by Angelina Alex MD on 03/30/2022 10:44:42 AM [facility]
--- NOTE | 2022-03-30 13:14 | XR_ITS ---
FINAL REPORT CLINICAL HISTORY: pain COMPARISON: June 22, 2021 FINDINGS: RIGHT FOOT 3 weight-bearing views were obtained. There is no acute fracture or dislocation. There is mild degenerative disease of the midfoot which is unchanged. There is no soft tissue abnormality. IMPRESSION: Mild degenerative disease, unchanged. Reviewed, Interpreted and Dictated by Angelina Alex MD Transcribed by Tamiko Zeng Authenticated by Angelina Alex MD on 03/30/2022 01:54:01 PM [facility]
--- NOTE | 2022-03-30 13:14 | XR_ITS ---
FINAL REPORT CLINICAL HISTORY: PAIN COMPARISON: June 22, 2021 FINDINGS: LEFT FOOT 3 weight-bearing views were obtained. There is no acute fracture or dislocation. There is mild degenerative disease of the midfoot which is unchanged. There is no soft tissue abnormality. IMPRESSION: Mild degenerative disease, unchanged. Reviewed, Interpreted and Dictated by Angelina Alex MD Transcribed by Tamiko Zeng Authenticated by Angelina Alex MD on 03/30/2022 01:54:17 PM [facility][1]
== END ==
PROVIDERS: PCP Internal Medicine Adolescent Medicine; Referring Provider Podiatrist; Visit Provider Internal Medicine Adolescent Medicine
DX: M19.071 Primary osteoarthritis, right ankle and foot (principal); M19.072 Primary osteoarthritis, left ankle and foot; R10.32 Left lower quadrant pain; E03.9 Hypothyroidism, unspecified; G60.9 Hereditary and idiopathic neuropathy, unspecified; R19.04 Left lower quadrant abdominal swelling, mass and lump
CPT/HCPCS: 73630; 74177; Q9967

== ENCOUNTER 2022-06-03 11:53 | Emergency (ER) | payer MEDICARE, OTHER, SELFPAY ==
[2022-06-03 12:52] VITALS: BP 141/75; PULSE 101; RESP 18; TEMP 36.8; O2SAT 100; BMI 27.6
--- NOTE | 2022-06-03 13:53 | HMH.EDUTC ---
[facility] Clinical Impression: Viral syndrome, Encounter for laboratory testing for COVID-19 virus Disposition: Home, Self-Care Condition on Discharge: Good Instructions: DI for COVID-19 (Suspected or Confirmed ), Preventing the Spread of Coronavirus Discharge Instructions Additional Instructions: *Monitor Temp, Over the counter Motrin or Tylenol as directed/as needed Tylenol every 4 hours and Motrin every 6 hours (as long as your family doctor has told you that you can take it) for fever or pain. and straight to ER if unable to lower temp less than 101.0 after medication given *Warm salt water gargles may help to soothe the throat *Throat Lozenges *Warm fluids like tea with honey may help to soothe the throat *Sleep elevated *Humidifier/Vaporizer Follow up IMMEDIATELY for new or worsening symptoms or no Noticeable improvement over the next 48-72 hours. 911 for difficulty breathing or swallowing You were tested for today for COVID19 your test result should be back in the next 24-48 hours, you may check your results on the [facility] My Health portal Make sure to take your Vitamins Vit. C Vit D and Zinc if you can take them Referrals: Phill Michael MD [Primary Care Provider] - As needed Time of Disposition: 13:55 Medical Decision Making - Devyn Inquiry Pt receiving controlled substance: No Devyn was queried for this patient: No Vital Signs: 06/03/22 12:52 Temperature 98.2 F Temperature Source Oral Pulse Rate [Radial] 101 H Respiratory Rate 18 Blood Pressure [Right Arm] 141/75 H Blood Pressure Mean [Right Arm] 97 Blood Pressure Source [Right Arm] Automatic Cuff 02 Sat by Pulse Oximetry 100 Oxygen Delivery Method Room Air Orders (Tests/Meds): ORDERS Category Date Time Status Covid-19 Nasal PCR ([facility]) Routine Lab 06/03/22 12:48 Received [facility] [place]PI - General Stated complaint: body aches, h/a Time Seen by Provider: 06/03/22 13:53 Mode of Arrival: Ambulatory Source of Information: Patient Limitations: No Limitations Description of Symptoms (Recalled from Triage Doc. by RN): POSITIVE COVID TEST AT HOME, HEADACE AND CHEST CONGESTION HEENT Symptoms (Recalled from RN notes): Yes Resp Symptoms (Recalled from RN notes): Yes Skin Symptoms (Recalled from RN notes): No MS Symptoms (Recalled from RN notes): No Functional Status (Recalled from RN notes): N/A - History of Present Illness Provider Complaint: Patient states that she had a positive home test States that she has been having body aches and headaches and wanted to come in and get tested for COVID - Related Data Home Medications Medication Instructions Recorded Confirmed Esomeprazole Magnesium 40 mg PO DAILY 08/26/20 03/30/22 Meloxicam See Rx Instructions .ROUTE .COMPLEX 12/23/20 03/30/22 levothyroxine 125 mcg tablet 125 mcg PO tab 03/26/21 03/30/22 cetirizine 10 mg tablet 10 mg PO DAILY tab 06/09/21 03/30/22 hydrochlorothiazide 12.5 mg capsule 12.5 mg PO DAILY cap 06/09/21 03/30/22 losartan 50 mg tablet 50 mg PO DAILY tab 06/09/21 03/30/22 bupropion HCl 150 mg 24 hr tablet, 150 mg PO DAILY tab 12/23/21 03/30/22 extended release escitalopram oxalate 20 mg tablet 20 mg PO DAILY tab 01/18/22 03/30/22 gabapentin 300 mg capsule 300 mg PO QID cap 01/18/22 03/30/22 ipratropium 0.5 mg-albuterol 3 mg ml IH 03/30/22 03/30/22 (2.5 mg base)/3 mL nebulization soln Previous Rx's Medication Instructions Recorded bisoprolol fumarate 5 mg tablet 5 mg PO DAILY #90 tab 03/11/20 montelukast 10 mg tablet 10 mg PO DAILY #30 tab 03/09/21 diclofenac sodium 1 % topical gel 2 g TOPICAL QID #100 g 06/22/21 albuterol sulfate 90 mcg/actuation 1 inh INHALATION Q6H PRN 90 Days 07/06/21 aerosol inhaler #8.5 g aspirin 81 mg tablet,delayed See Rx Instructions .ROUTE 07/17/21 release .COMPLEX #90 tablet atorvastatin 20 mg tablet See Rx Instructions .ROUTE 12/10/21 .COMPLEX #90 tab estradiol 1 mg tablet 1 mg PO DAILY #90 tab 01/13/22 Al
[2022-06-03 14:03] VITALS: BP 141/75; PULSE 101; RESP 18; TEMP 36.8; O2SAT 100
== END 2022-06-03 14:05 | disposition home or self-care (01) ==
PROVIDERS: Emergency Provider Nurse Practitioner; PCP Internal Medicine Adolescent Medicine
DX: U07.1 COVID-19 (principal)
CPT/HCPCS: 99212; C9803; G0463; U0003; U0005

== ENCOUNTER 2022-08-04 12:59 | Emergency (ER) | payer MEDICARE, OTHER, SELFPAY ==
[2022-08-04 13:01] VITALS: BP 133/72; PULSE 72; RESP 18; TEMP 36.6; O2SAT 96; BMI 30.6
--- NOTE | 2022-08-04 13:24 | HMH.EDWNDL ---
Discharge Plan Disposition Patient Disposition: Home, Self-Care Condition: Good Chief Complaint: Wound/Laceration Prescriptions Prescriptions: No Action montelukast 10 mg tablet 10 mg PO DAILY Qty: 30 3RF diclofenac sodium [Voltaren Arthritis Pain] 1 % gel 2 g TOPICAL QID Qty: 100 2RF Rx Instructions: apply to single elbow, wrist or hand; for hand includes palm/fingers/back of hand ipratropium-albuterol 0.5 mg-3 mg(2.5 mg base)/3 mL solution for nebulization IH Label Comments: INHALE THE CONTENTS OF 1 VIAL VIA NEBULIZER FOUR TIMES DAILY NEEDED SHORTNESS OF BREATH AND wheezing gabapentin 300 mg capsule 300 mg PO QID Label Comments: TAKE ONE CAPSULE BY MOUTH THREE TIMES DAILY MAY CAUSE DROWSINESS levothyroxine 125 mcg tablet 125 mcg PO bupropion HCl 150 mg tablet extended release 24 hr 150 mg PO DAILY escitalopram oxalate 20 mg tablet 20 mg PO DAILY albuterol sulfate 90 mcg/actuation HFA aerosol inhaler 1 inh INHALATION Q6H PRN (Reason: shortness of breath or wheezing) 90 Days Qty: 8.5 3RF bisoprolol fumarate 5 mg tablet 5 mg PO DAILY Qty: 90 1RF atorvastatin 20 mg tablet See Rx Instructions .ROUTE .COMPLEX Qty: 90 3RF Dose Instruction: TAKE ONE TABLET BY MOUTH EVERY DAY Rx Instructions: TAKE ONE TABLET BY MOUTH EVERY DAY estradiol 1 mg tablet 1 mg PO DAILY Qty: 90 3RF aspirin 81 mg tablet,delayed release (DR/EC) See Rx Instructions .ROUTE .COMPLEX Qty: 90 3RF Dose Instruction: TAKE ONE TABLET BY MOUTH EVERY DAY Rx Instructions: TAKE ONE TABLET BY MOUTH EVERY DAY esomeprazole magnesium 40 MG capsule,delayed release(DR/EC) 40 mg PO DAILY meloxicam 7.5 MG tablet See Rx Instructions .Route .COMPLEX Rx Instructions: TAKE ONE TABLET BY MOUTH EVERY DAY hydrochlorothiazide 12.5 mg capsule 12.5 mg PO DAILY losartan 50 mg tablet 50 mg PO DAILY cetirizine 10 mg tablet 10 mg PO DAILY Referrals Follow up/Referrals: Phill Michael MD [Primary Care Provider] - See instructions Clinical Impressions Clinical Impression: Laceration Instructions Patient Instructions: DI for Laceration Repair Discharge ED Provider: Rafal Dumont Wound/Laceration [facility] General Chief Complaint: Wound/Laceration Stated Complaint: AO 08/04@home@1250 lac Rt pointer finger Time Seen by Provider: 08/04/22 13:25 Mode of Arrival: Ambulatory Limitations: No Limitations Description of Symptoms (Recalled from ER Triage Doc. 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 History of Present Illness HPI narrative: This is a 67-year-old female presented to the emergency department with a superficial laceration to the palmar aspect of the right index finger. Patient states that she accidentally cut it on a turkey gallagher. It was bleeding quite a bit when it happened which scared her and prompted her to come to the emergency department. At this time she is not having any active bleeding. Tetanus is up-to-date. No pain. Denies any other injuries. Related Data Home Medications Medication Instructions Recorded Confirmed esomeprazole magnesium 40 mg 40 mg PO DAILY GERD 08/26/20 06/29/22 capsule,delayed release meloxicam 7.5 mg tablet See Rx Instructions .Route 12/23/20 06/29/22 .COMPLEX Pain levothyroxine 125 mcg tablet 125 mcg PO 03/26/21 06/29/22 cetirizine 10 mg tablet 10 mg PO DAILY ALLERGIES 06/09/21 06/29/22 hydrochlorothiazide 12.5 mg capsule 12.5 mg PO DAILY BP 06/09/21 06/29/22 losartan 50 mg tablet 50 mg PO DAILY BP 06/09/21 06/29/22 bupropion HCl 150 mg 24 hr tablet, 150 mg PO DAILY 12/23/21 06/29/22 extended release escitalopram oxalate 20 mg tablet 20 mg PO DAILY 01/18/22 06/29/22 gabapentin 300 mg capsule 300 mg PO QID Pain 01/18/22 06/29/22 ipratropium 0.5 mg-albuterol 3 mg ml inhalation 03/30/22 06/29/22 (2.5 mg base)/3 mL nebulization so
[2022-08-04 13:39] VITALS: BP 117/64; PULSE 68; RESP 18; TEMP 36.6; O2SAT 97
== END 2022-08-04 13:46 | disposition home or self-care (01) ==
PROVIDERS: Emergency Provider Emergency Medicine; PCP Internal Medicine Adolescent Medicine
DX: S61.210A Laceration without foreign body of right index finger without damage to nail, initial encounter (principal); Y93.G9 Activity, other involving cooking and grilling; Z79.899 Other long term (current) drug therapy; K21.9 Gastro-esophageal reflux disease without esophagitis; Z88.1 Allergy status to other antibiotic agents; Z88.5 Allergy status to narcotic agent; J45.909 Unspecified asthma, uncomplicated; Z90.710 Acquired absence of both cervix and uterus; F41.9 Anxiety disorder, unspecified; E78.5 Hyperlipidemia, unspecified; I10 Essential (primary) hypertension; I25.10 Atherosclerotic heart disease of native coronary artery without angina pectoris
CPT/HCPCS: 99283

== ENCOUNTER 2022-09-13 20:53 | Emergency (ER) | payer MEDICARE, OTHER, SELFPAY ==
[2022-09-13 20:54] VITALS: BP 117/64; PULSE 71; RESP 16; TEMP 36.5; O2SAT 96; BMI 26.6
--- NOTE | 2022-09-13 21:48 | XR_ITS ---
PROCEDURE INFORMATION: Exam: XR Right Forearm Exam date and time: 09/13/2022 9:47 PM Age: 67 years old Clinical indication: Injury or trauma; Fall; Blunt trauma (contusions or hematomas); Arm, lower; Right TECHNIQUE: Imaging protocol: Radiologic exam of the Right forearm. Views: 2 views. COMPARISON: CR XR HAND RT MIN 3V 11/12/2021 8:50 AM FINDINGS: Bones/joints: Degenerative changes of the and and thumb. No acute fracture or dislocation. Soft tissues: Normal. IMPRESSION: No acute findings.
--- NOTE | 2022-09-13 23:01 | HMH.EDFALL ---
Discharge Plan Disposition Patient Disposition: Home, Self-Care Chief Complaint: Fall Prescriptions Prescriptions: No Action montelukast 10 mg tablet 10 mg PO DAILY Qty: 30 3RF diclofenac sodium [Voltaren Arthritis Pain] 1 % gel 2 g TOPICAL QID Qty: 100 2RF Rx Instructions: apply to single elbow, wrist or hand; for hand includes palm/fingers/back of hand ipratropium-albuterol 0.5 mg-3 mg(2.5 mg base)/3 mL solution for nebulization IH Label Comments: INHALE THE CONTENTS OF 1 VIAL VIA NEBULIZER FOUR TIMES DAILY NEEDED SHORTNESS OF BREATH AND wheezing gabapentin 300 mg capsule 300 mg PO QID Label Comments: TAKE ONE CAPSULE BY MOUTH THREE TIMES DAILY MAY CAUSE DROWSINESS levothyroxine 125 mcg tablet 125 mcg PO bupropion HCl 150 mg tablet extended release 24 hr 150 mg PO DAILY escitalopram oxalate 20 mg tablet 20 mg PO DAILY albuterol sulfate 90 mcg/actuation HFA aerosol inhaler 1 inh INHALATION Q6H PRN (Reason: shortness of breath or wheezing) 90 Days Qty: 8.5 3RF bisoprolol fumarate 5 mg tablet 5 mg PO DAILY Qty: 90 1RF atorvastatin 20 mg tablet See Rx Instructions .ROUTE .COMPLEX Qty: 90 3RF Dose Instruction: TAKE ONE TABLET BY MOUTH EVERY DAY Rx Instructions: TAKE ONE TABLET BY MOUTH EVERY DAY estradiol 1 mg tablet 1 mg PO DAILY Qty: 90 3RF aspirin 81 mg tablet,delayed release (DR/EC) See Rx Instructions .ROUTE .COMPLEX Qty: 90 3RF Dose Instruction: TAKE ONE TABLET BY MOUTH EVERY DAY Rx Instructions: TAKE ONE TABLET BY MOUTH EVERY DAY esomeprazole magnesium 40 MG capsule,delayed release(DR/EC) 40 mg PO DAILY meloxicam 7.5 MG tablet See Rx Instructions .Route .COMPLEX Rx Instructions: TAKE ONE TABLET BY MOUTH EVERY DAY hydrochlorothiazide 12.5 mg capsule 12.5 mg PO DAILY losartan 50 mg tablet 50 mg PO DAILY cetirizine 10 mg tablet 10 mg PO DAILY Referrals Follow up/Referrals: Ciro De Jesus APRN [Primary Care Provider] - See instructions Clinical Impressions Clinical Impression: Forearm contusion Instructions Patient Instructions: DI for Contusion Discharge ED Provider: Angus Ibarra Fall HPI General Chief Complaint: Fall Stated Complaint: [id number]@home fell injured R Elbow Time Seen by Provider: 09/13/22 23:17 Mode of Arrival: Ambulatory Source of Information: Patient Limitations: No Limitations Description of Symptoms (Recalled from ER Triage Doc. by RN): pt states fell over dog and rt forearm landed on deep freezer. pt c/o rt forearm pain History of Present Illness HPI Narrative: fall with rt forearm injury MD complaint: fall Onset (ago): hour(s) Fall from: standing Fall witnessed: yes, by family Place fall occurred: home Loss of consciousness: none Prolonged down time: no Symptoms prior to fall: none Context: tripped/slipped Location of injury - extremities: Right: forearm Severity: moderate Associated symptoms (after fall): denies Related Data Home Medications Medication Instructions Recorded Confirmed esomeprazole magnesium 40 mg 40 mg PO DAILY GERD 08/26/20 09/07/22 capsule,delayed release meloxicam 7.5 mg tablet See Rx Instructions .Route 12/23/20 09/07/22 .COMPLEX Pain levothyroxine 125 mcg tablet 125 mcg PO 03/26/21 09/07/22 cetirizine 10 mg tablet 10 mg PO DAILY ALLERGIES 06/09/21 09/07/22 hydrochlorothiazide 12.5 mg capsule 12.5 mg PO DAILY BP 06/09/21 09/07/22 losartan 50 mg tablet 50 mg PO DAILY BP 06/09/21 09/07/22 bupropion HCl 150 mg 24 hr tablet, 150 mg PO DAILY 12/23/21 09/07/22 extended release escitalopram oxalate 20 mg tablet 20 mg PO DAILY 01/18/22 09/07/22 gabapentin 300 mg capsule 300 mg PO QID Pain 01/18/22 09/07/22 ipratropium 0.5 mg-albuterol 3 mg ml inhalation 03/30/22 09/07/22 (2.5 mg base)/3 mL nebulization soln Previous Rx's Medication Instructions Recorded bisopro
--- NOTE | 2022-09-13 23:17 | PC.NURSE ---
Dr. Ibarra at
[2022-09-13 23:23] VITALS: BP 119/74; PULSE 70; RESP 16; TEMP 36.5; O2SAT 97
== END 2022-09-13 23:24 | disposition home or self-care (01) ==
PROVIDERS: Emergency Provider Emergency Medicine; PCP Nurse Practitioner Family
DX: S50.10XA Contusion of unspecified forearm, initial encounter (principal); W19.XXXA Unspecified fall, initial encounter; Z79.899 Other long term (current) drug therapy; Z88.1 Allergy status to other antibiotic agents; Z88.5 Allergy status to narcotic agent
CPT/HCPCS: 73090; 99283

== ENCOUNTER → 2022-10-18 10:44 | Outpatient (CLI) | payer MEDICARE, OTHER, SELFPAY ==
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
== END ==
PROVIDERS: PCP Nurse Practitioner Family; Visit Provider Physician Assistant
DX: E66.9 Obesity, unspecified (principal); E78.2 Mixed hyperlipidemia; G47.33 Obstructive sleep apnea (adult) (pediatric); I25.10 Atherosclerotic heart disease of native coronary artery without angina pectoris; R01.1 Cardiac murmur, unspecified; R06.02 Shortness of breath; Z68.32 Body mass index [BMI] 32.0-32.9, adult
CPT/HCPCS: 93306

== ENCOUNTER → 2023-02-01 10:49 | Outpatient (CLI) | payer MEDICARE, OTHER, SELFPAY ==
[2023-02-01 12:34] LABS: Free T4 (Free Thyroxine) 1.44 ng/dl (0.78-2.19)
[2023-02-01 12:50] LABS: Thyroid Stimulating Hormone 0.93 uIU/mL (0.465-4.68)
== END ==
PROVIDERS: PCP Nurse Practitioner Family; Visit Provider Student in an Organized Health Care Education/Training Program
DX: E03.9 Hypothyroidism, unspecified (principal); R60.9 Edema, unspecified
CPT/HCPCS: 36415; 84439; 84443

== ENCOUNTER 2023-06-15 10:52 | Emergency (ER) | payer OTHER, MEDICARE, SELFPAY ==
[2023-06-15 10:53] VITALS: BP 129/73; PULSE 100; RESP 18; TEMP 37.2; O2SAT 97; BMI 32.1
--- NOTE | 2023-06-15 11:06 | PC.NURSE ---
DR AMI AT BEDSIDE
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
[2023-06-15 11:25] VITALS: BP 129/73; PULSE 100; RESP 18; TEMP 37.2; O2SAT 97
== END 2023-06-15 11:30 | disposition home or self-care (01) ==
PROVIDERS: Emergency Provider Student in an Organized Health Care Education/Training Program; PCP Nurse Practitioner Family
DX: Z02.89 Encounter for other administrative examinations (principal); R01.1 Cardiac murmur, unspecified; E03.9 Hypothyroidism, unspecified; Z79.82 Long term (current) use of aspirin; V49.40XA Driver injured in collision with unspecified motor vehicles in traffic accident, initial encounter
CPT/HCPCS: 99282

== ENCOUNTER 2023-06-17 17:44 | Emergency (ER) | payer OTHER, MEDICARE, SELFPAY ==
[2023-06-17 17:45] VITALS: BP 123/56; PULSE 73; RESP 17; TEMP 36.7; O2SAT 98; BMI 34.0
[2023-06-17 17:50] VITALS: BP 128/58; PULSE 65; O2SAT 97
[2023-06-17 18:00] VITALS: BP 123/56; PULSE 69; O2SAT 97
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
--- NOTE | 2023-06-17 18:21 | ECG_ITS ---
APPROVED REPORT Exam: Resting ECG HR:65 bpm ECG Measurements Heart Rate 65 AXES ME 171 P 54 QRSd 78 QRS 11 QT 416 T 57 QTc 428 Conclusion SINUS RHYTHM NORMAL ECG UNCONFIRMED REPORT Electronically signed by : Phill Michael MD 06/18/2023 12:42:34
[2023-06-17 19:10] LABS: Troponin I < 0.01 ng/ml (0.00-0.034)
[2023-06-17 19:22] VITALS: BP 123/56; PULSE 72; RESP 16; TEMP 36.6; O2SAT 98
[2023-06-17 19:29] VITALS: BP 130/84; PULSE 81; RESP 20; TEMP 36.6; O2SAT 98
== END 2023-06-17 19:32 | disposition home or self-care (01) ==
PROVIDERS: Emergency Provider Emergency Medicine; PCP Nurse Practitioner Family
DX: G44.329 Chronic post-traumatic headache, not intractable (principal); M54.2 Cervicalgia; R07.2 Precordial pain; R01.1 Cardiac murmur, unspecified; E03.9 Hypothyroidism, unspecified; V49.40XA Driver injured in collision with unspecified motor vehicles in traffic accident, initial encounter
CPT/HCPCS: 70450; 71045; 72125; 84484; 93005; 99285

== ENCOUNTER 2023-07-15 16:16 | Outpatient (RCR) | payer OTHER, MEDICARE, SELFPAY | END 2023-07-15 16:20 | disposition home or self-care (01) | LOC: PT 16:16 | PROVIDERS: PCP Nurse Practitioner Family; Visit Provider Nurse Practitioner Family | DX: R51.9 Headache, unspecified (principal); M54.2 Cervicalgia; T14.90XA Injury, unspecified, initial encounter | CPT/HCPCS: 97010; 97140; 97163 ==

== ENCOUNTER 2023-07-18 11:49 | Outpatient (CLI) | payer MEDICARE, OTHER, SELFPAY ==
[2023-07-18 12:34] LABS: Blood Urea Nitrogen 27 mg/dl (7-17); Estimated Glomerular Filt Rate 71 ml/min (>60); GFR (African American) 86 ML/MIN (>60)
[2023-07-18 13:20] VITALS: BP 140/56; PULSE 72; RESP 18; O2SAT 97
[2023-07-18 14:30] VITALS: BP 139/74; PULSE 69; RESP 18; O2SAT 98
[2023-07-18 15:00] VITALS: BP 123/66; PULSE 74; RESP 18; O2SAT 97
[2023-07-18 15:05] VITALS: BP 133/62; PULSE 72; RESP 18; O2SAT 92
[2023-07-18 15:20] VITALS: BP 127/62; PULSE 54; RESP 18; O2SAT 98
[2023-07-18 15:35] VITALS: BP 122/61; PULSE 63; RESP 18; O2SAT 98
== END 2023-07-18 16:00 | disposition home or self-care (01) ==
LOC: RAD 11:50
PROVIDERS: PCP Nurse Practitioner Family; Visit Provider Internal Medicine
DX: I25.10 Atherosclerotic heart disease of native coronary artery without angina pectoris (principal); Z13.6 Encounter for screening for cardiovascular disorders
CPT/HCPCS: 36415; 75574; 82565; 84520; Q9967

== ENCOUNTER → 2023-08-10 14:14 | Outpatient (CLI) | payer MEDICARE, OTHER, SELFPAY ==
[2023-08-10 15:22] LABS: Anion Gap 11.4 mEq/L (5-15); Blood Urea Nitrogen 27 mg/dl (7-17); Calcium 9.1 mg/dl (8.4-10.2); Carbon Dioxide 29 mmol/L (22.0-30.0); Chloride 105 mmol/L (98-107); Estimated Glomerular Filt Rate 83 ml/min (>60); GFR (African American) 101 ML/MIN (>60); Glucose 100 mg/dl (74-100); Potassium 4.4 mmoL/L (3.5-5.1); Sodium 141 mmol/L (136-145)
== END ==
PROVIDERS: PCP Nurse Practitioner Family; Visit Provider Nurse Practitioner Family
DX: E78.5 Hyperlipidemia, unspecified (principal); I10 Essential (primary) hypertension; I25.10 Atherosclerotic heart disease of native coronary artery without angina pectoris; R06.00 Dyspnea, unspecified; R60.9 Edema, unspecified
CPT/HCPCS: 36415; 80048

== ENCOUNTER 2023-08-19 06:16 | Emergency (ER) | payer MEDICARE, OTHER, SELFPAY ==
[2023-08-19 06:17] VITALS: BP 116/58; PULSE 86; RESP 18; TEMP 36.6; O2SAT 96; BMI 33.5
--- NOTE | 2023-08-19 06:39 | HMH.EDGENADL ---
Discharge Plan Disposition Patient Disposition: Home, Self-Care Prescriptions Prescriptions: New nystatin 100,000 unit/mL suspension 5 ml PO QID 7 Days Qty: 140 0RF Rx Instructions: swish and swallow No Action diclofenac sodium [Voltaren Arthritis Pain] 1 % gel 2 g TOPICAL QID Qty: 100 2RF Rx Instructions: apply to single elbow, wrist or hand; for hand includes palm/fingers/back of hand ipratropium-albuterol 0.5 mg-3 mg(2.5 mg base)/3 mL solution for nebulization IH Patient Comments: INHALE THE CONTENTS OF 1 VIAL VIA NEBULIZER FOUR TIMES DAILY NEEDED SHORTNESS OF BREATH AND wheezing meloxicam 15 mg tablet 15 mg PO Patient Comments: TAKE ONE TABLET BY MOUTH EVERY DAY NEEDED diazepam 5 mg tablet 5 mg PO DAILY PRN Patient Comments: TAKE ONE TABLET BY MOUTH EVERY DAY NEEDED MAY CAUSE DROWSINESS gabapentin 300 mg capsule 300 mg PO QID Patient Comments: TAKE ONE CAPSULE BY MOUTH THREE TIMES DAILY MAY CAUSE DROWSINESS levothyroxine 125 mcg tablet 125 mcg PO escitalopram oxalate 20 mg tablet 20 mg PO DAILY albuterol sulfate 90 mcg/actuation HFA aerosol inhaler 1 inh INHALATION Q6H PRN (Reason: shortness of breath or wheezing) 90 Days Qty: 8.5 3RF atorvastatin 20 mg tablet See Rx Instructions .ROUTE .COMPLEX Qty: 90 3RF Dose Instruction: TAKE ONE TABLET BY MOUTH EVERY DAY Rx Instructions: TAKE ONE TABLET BY MOUTH EVERY DAY bisoprolol fumarate 5 mg tablet 5 mg PO DAILY Qty: 90 3RF losartan 50 mg tablet 50 mg PO DAILY Qty: 90 3RF furosemide [Lasix] 80 mg tablet 80 mg PO DAILY Qty: 30 11RF spironolactone 50 mg tablet 50 mg PO DAILY Qty: 30 11RF omeprazole 40 mg capsule,delayed release(DR/EC) 40 mg PO DAILY Patient Comments: TAKE ONE CAPSULE BY MOUTH EVERY DAY estradiol 1 mg tablet 1 mg PO DAILY Qty: 30 11RF aspirin 81 mg tablet,delayed release (DR/EC) See Rx Instructions .ROUTE .COMPLEX Qty: 90 3RF Dose Instruction: TAKE ONE TABLET BY MOUTH EVERY DAY Rx Instructions: TAKE ONE TABLET BY MOUTH EVERY DAY Referrals Follow up/Referrals: Ciro De Jesus APRN [Primary Care Provider] - See instructions Activity Restrictions/Add. Instructions Additional Instructions/Restrictions: Please take nystatin oral solution as prescribed for the next 7 days treatment of possible candidiasis. Please follow-up with your primary care provider. Please return to the emergency department if you develop any new or worsening symptoms or become concerned for your health. Clinical Impressions Clinical Impression: Lesion of oral mucosa Discharge ED Provider: Luis Herrera General Adult HPI General Chief complaint: PAIN Stated complaint: swollen throat Time Seen by Provider: 08/19/23 06:20 Mode of Arrival: Ambulatory Source of Information: Patient Limitations: No Limitations Description of Symptoms (Recalled from ER Triage Doc. by RN): Pt presents with complaints of a swollen/sore throat for 2 days. States she has white bumps on her throat, she tried nystatin and it isn't any better. Pt denies any SOA at this time History of Present Illness HPI narrative: 68-year-old female, history as reported below presents with 2 days of sore throat and white spots in the back of her throat. She denies any difficulty swallowing, denies difficulty breathing. Reports this is happened once before. She is concerned she of strep throat. Denies any chronic steroid use. Related Data Home Medications Medication Instructions Recorded Confirmed levothyroxine 125 mcg tablet 125 mcg PO 03/26/21 08/10/23 escitalopram oxalate 20 mg tablet 20 mg PO DAILY 01/18/22 08/16/23 gabapentin 300 mg capsule 300 mg PO QID Pain 01/18/22 08/16/23 ipratropium 0.5 mg-albuterol 3 mg ml inhalation 03/30/22 08/16/23 (2.5 mg base)/3 mL nebulization soln diazepam 5 mg tablet 5 mg PO DAILY PRN 1
[2023-08-19 06:40] LABS: Strep Scrn Group A (Rapid) Negative (Negative)
[2023-08-19 06:55] VITALS: BP 116/58; PULSE 86; RESP 18; TEMP 36.6; O2SAT 97
== END 2023-08-19 06:56 | disposition home or self-care (01) ==
PROVIDERS: Emergency Provider Emergency Medicine; PCP Nurse Practitioner Family
DX: K13.70 Unspecified lesions of oral mucosa (principal); R01.1 Cardiac murmur, unspecified; I11.9 Hypertensive heart disease without heart failure; E78.5 Hyperlipidemia, unspecified; E03.9 Hypothyroidism, unspecified; G62.9 Polyneuropathy, unspecified
CPT/HCPCS: 87430; 99283

== ENCOUNTER → 2023-09-12 13:16 | Outpatient (CLI) | payer MEDICARE, OTHER, SELFPAY ==
[2023-09-12 15:38] LABS: Anion Gap 13.8 mEq/L (5-15); Blood Urea Nitrogen 27 mg/dl (7-17); Calcium 8.8 mg/dl (8.4-10.2); Carbon Dioxide 29 mmol/L (22.0-30.0); Chloride 101 mmol/L (98-107); Estimated Glomerular Filt Rate 83 ml/min (>60); GFR (African American) 101 ML/MIN (>60); Glucose 184 mg/dl (74-100); Potassium 3.8 mmoL/L (3.5-5.1); Sodium 140 mmol/L (136-145)
== END ==
PROVIDERS: PCP Nurse Practitioner Family; Visit Provider Nurse Practitioner Family
DX: E78.5 Hyperlipidemia, unspecified (principal); I10 Essential (primary) hypertension; R53.83 Other fatigue; R60.9 Edema, unspecified
CPT/HCPCS: 36415; 80048

== ENCOUNTER 2023-09-28 13:39 | Emergency (ER) | payer MEDICARE, OTHER, SELFPAY ==
[2023-09-28 13:40] VITALS: BP 139/77; PULSE 74; RESP 18; TEMP 36.6; O2SAT 93; BMI 27.9
--- NOTE | 2023-09-28 14:15 | EXP.UTC ---
Discharge Plan Disposition Patient Disposition: Home, Self-Care Condition: Good Prescriptions Prescriptions: New azithromycin [Zithromax] 250 mg tablet 250 mg PO UD DOSE PK Qty: 6 0RF Rx Instructions: Take two (2) tablets today, then one (1) tablet days #2 thru #5 benzonatate [benzonatate] 100 mg capsule 100 mg PO TIDP PRN (Reason: Cough) Qty: 30 0RF methylprednisolone 4 mg Tablets,Dose Pack 4 mg PO DIRECTED Qty: 21 0RF No Action diclofenac sodium [Voltaren Arthritis Pain] 1 % gel 2 g TOPICAL QID Qty: 100 2RF Rx Instructions: apply to single elbow, wrist or hand; for hand includes palm/fingers/back of hand ipratropium-albuterol 0.5 mg-3 mg(2.5 mg base)/3 mL solution for nebulization IH Patient Comments: INHALE THE CONTENTS OF 1 VIAL VIA NEBULIZER FOUR TIMES DAILY NEEDED SHORTNESS OF BREATH AND wheezing meloxicam 15 mg tablet 15 mg PO Patient Comments: TAKE ONE TABLET BY MOUTH EVERY DAY NEEDED diazepam 5 mg tablet 5 mg PO DAILY PRN Patient Comments: TAKE ONE TABLET BY MOUTH EVERY DAY NEEDED MAY CAUSE DROWSINESS gabapentin 300 mg capsule 300 mg PO QID Patient Comments: TAKE ONE CAPSULE BY MOUTH THREE TIMES DAILY MAY CAUSE DROWSINESS levothyroxine 125 mcg tablet 125 mcg PO escitalopram oxalate 20 mg tablet 20 mg PO DAILY albuterol sulfate 90 mcg/actuation HFA aerosol inhaler 1 inh INHALATION Q6H PRN (Reason: shortness of breath or wheezing) 90 Days Qty: 8.5 3RF atorvastatin 20 mg tablet See Rx Instructions .ROUTE .COMPLEX Qty: 90 3RF Dose Instruction: TAKE ONE TABLET BY MOUTH EVERY DAY Rx Instructions: TAKE ONE TABLET BY MOUTH EVERY DAY bisoprolol fumarate 5 mg tablet 5 mg PO DAILY Qty: 90 3RF losartan 50 mg tablet 50 mg PO DAILY Qty: 90 3RF omeprazole 40 mg capsule,delayed release(DR/EC) 40 mg PO DAILY Patient Comments: TAKE ONE CAPSULE BY MOUTH EVERY DAY estradiol 1 mg tablet 1 mg PO DAILY Qty: 30 11RF aspirin 81 mg tablet,delayed release (DR/EC) See Rx Instructions .ROUTE .COMPLEX Qty: 90 3RF Dose Instruction: TAKE ONE TABLET BY MOUTH EVERY DAY Rx Instructions: TAKE ONE TABLET BY MOUTH EVERY DAY furosemide [Lasix] 80 mg tablet 80 mg PO DAILY Qty: 30 11RF spironolactone 50 mg tablet 50 mg PO DAILY Qty: 30 11RF nystatin 100,000 unit/mL suspension 5 ml PO QID 7 Days Qty: 140 0RF Rx Instructions: swish and swallow Referrals Follow up/Referrals: Ciro De Jesus APRN [Primary Care Provider] - See instructions Activity Restrictions/Add. Instructions Additional Instructions/Restrictions: Drink plenty of fluids. Take tylenol or ibuprofen for pain or fever. Take the medications as directed. Follow up with your regular doctor. GO TO THE ER FOR ANY WORSENING SYMPTOMS Don't start the oral steroids until tomorrow, since you had the shot here today. Clinical Impressions Clinical Impression: Sinusitis, Otitis media Instructions Patient Instructions: Sinusitis, DI for Sinusitis Discharge ED Provider: Uche Villalobos [facility] [place] H[place] General Stated complaint: pain in right ear, congestion Time Seen by Provider: 09/28/23 14:15 History of Present Illness Provider Complaint: She states that for the past 3 days she has had worsening left ear pain and sinus congestion. Related Data Home Medications Medication Instructions Recorded Confirmed levothyroxine 125 mcg tablet 125 mcg PO 03/26/21 09/12/23 escitalopram oxalate 20 mg tablet 20 mg PO DAILY 01/18/22 09/12/23 gabapentin 300 mg capsule 300 mg PO QID Pain 01/18/22 09/12/23 ipratropium 0.5 mg-albuterol 3 mg ml inhalation 03/30/22 09/12/23 (2.5 mg base)/3 mL nebulization soln diazepam 5 mg tablet 5 mg PO DAILY PRN 10/14/22 09/12/23 meloxicam 15 mg tablet 15 mg PO 02/01/23 09/12/23 omeprazole 40 mg capsule,delayed 40 mg PO DAILY 08/16
[2023-09-28 15:06] VITALS: BP 139/77; PULSE 74; RESP 18; TEMP 36.6; O2SAT 93
== END 2023-09-28 15:10 | disposition home or self-care (01) ==
PROVIDERS: Emergency Provider Nurse Practitioner Family; PCP Nurse Practitioner Family
DX: J01.90 Acute sinusitis, unspecified (principal); H66.93 Otitis media, unspecified, bilateral; R09.81 Nasal congestion; E78.5 Hyperlipidemia, unspecified; E03.9 Hypothyroidism, unspecified; I10 Essential (primary) hypertension
CPT/HCPCS: 96372; 99212; 99214; G0463

== ENCOUNTER 2023-10-03 13:53 | Emergency (ER) | payer MEDICARE, OTHER, SELFPAY ==
[2023-10-03 14:10] VITALS: BP 151/83; PULSE 63; RESP 18; TEMP 36.8; O2SAT 96; BMI 29.8
--- NOTE | 2023-10-03 14:27 | EXP.UTC ---
Discharge Plan Disposition Patient Disposition: Home, Self-Care Condition: Good Prescriptions Prescriptions: New amoxicillin [amoxicillin] 875 mg tablet 875 mg PO Q12H Qty: 20 0RF benzonatate [benzonatate] 100 mg capsule 100 mg PO TIDP PRN (Reason: Cough) Qty: 30 0RF methylprednisolone 4 mg Tablets,Dose Pack 4 mg PO DIRECTED Qty: 21 0RF No Action diclofenac sodium [Voltaren Arthritis Pain] 1 % gel 2 g TOPICAL QID Qty: 100 2RF Rx Instructions: apply to single elbow, wrist or hand; for hand includes palm/fingers/back of hand ipratropium-albuterol 0.5 mg-3 mg(2.5 mg base)/3 mL solution for nebulization IH Patient Comments: INHALE THE CONTENTS OF 1 VIAL VIA NEBULIZER FOUR TIMES DAILY NEEDED SHORTNESS OF BREATH AND wheezing meloxicam 15 mg tablet 15 mg PO Patient Comments: TAKE ONE TABLET BY MOUTH EVERY DAY NEEDED diazepam 5 mg tablet 5 mg PO DAILY PRN Patient Comments: TAKE ONE TABLET BY MOUTH EVERY DAY NEEDED MAY CAUSE DROWSINESS gabapentin 300 mg capsule 300 mg PO QID Patient Comments: TAKE ONE CAPSULE BY MOUTH THREE TIMES DAILY MAY CAUSE DROWSINESS levothyroxine 125 mcg tablet 125 mcg PO escitalopram oxalate 20 mg tablet 20 mg PO DAILY albuterol sulfate 90 mcg/actuation HFA aerosol inhaler 1 inh INHALATION Q6H PRN (Reason: shortness of breath or wheezing) 90 Days Qty: 8.5 3RF atorvastatin 20 mg tablet See Rx Instructions .ROUTE .COMPLEX Qty: 90 3RF Dose Instruction: TAKE ONE TABLET BY MOUTH EVERY DAY Rx Instructions: TAKE ONE TABLET BY MOUTH EVERY DAY bisoprolol fumarate 5 mg tablet 5 mg PO DAILY Qty: 90 3RF losartan 50 mg tablet 50 mg PO DAILY Qty: 90 3RF omeprazole 40 mg capsule,delayed release(DR/EC) 40 mg PO DAILY Patient Comments: TAKE ONE CAPSULE BY MOUTH EVERY DAY estradiol 1 mg tablet 1 mg PO DAILY Qty: 30 11RF aspirin 81 mg tablet,delayed release (DR/EC) See Rx Instructions .ROUTE .COMPLEX Qty: 90 3RF Dose Instruction: TAKE ONE TABLET BY MOUTH EVERY DAY Rx Instructions: TAKE ONE TABLET BY MOUTH EVERY DAY furosemide [Lasix] 80 mg tablet 80 mg PO DAILY Qty: 30 11RF spironolactone 50 mg tablet 50 mg PO DAILY Qty: 30 11RF nystatin 100,000 unit/mL suspension 5 ml PO QID 7 Days Qty: 140 0RF Rx Instructions: swish and swallow azithromycin [Zithromax] 250 mg tablet 250 mg PO UD DOSE PK Qty: 6 0RF Rx Instructions: Take two (2) tablets today, then one (1) tablet days #2 thru #5 benzonatate [benzonatate] 100 mg capsule 100 mg PO TIDP PRN (Reason: Cough) Qty: 30 0RF methylprednisolone 4 mg Tablets,Dose Pack 4 mg PO DIRECTED Qty: 21 0RF Referrals Follow up/Referrals: Ciro De Jesus APRN [Primary Care Provider] - See instructions Activity Restrictions/Add. Instructions Additional Instructions/Restrictions: Drink plenty of fluids. Take tylenol or ibuprofen for pain or fever. Take the medications as directed. Follow up with your regular doctor. GO TO THE ER FOR ANY WORSENING SYMPTOMS Clinical Impressions Clinical Impression: Acute bronchitis Instructions Patient Instructions: DI for Acute Bronchitis Discharge ED Provider: Uche Villalobos [facility] General Stated complaint: tightness in chest Time Seen by Provider: 10/03/23 14:27 History of Present Illness Provider Complaint: She states that she has had chest congestion and a productive cough for the past 5 days. Related Data Home Medications Medication Instructions Recorded Confirmed levothyroxine 125 mcg tablet 125 mcg PO 03/26/21 09/12/23 escitalopram oxalate 20 mg tablet 20 mg PO DAILY 01/18/22 09/12/23 gabapentin 300 mg capsule 300 mg PO QID Pain 01/18/22 09/12/23 ipratropium 0.5 mg-albuterol 3 mg ml inhalation 03/30/22 09/12/23 (2.5 mg base)/3 mL nebulization soln diazepam 5 mg tablet 5 m
[2023-10-03 15:11] VITALS: BP 151/83; PULSE 63; RESP 18; TEMP 36.8; O2SAT 96
== END 2023-10-03 15:11 | disposition home or self-care (01) ==
PROVIDERS: Emergency Provider Nurse Practitioner Family; PCP Nurse Practitioner Family
DX: J20.9 Acute bronchitis, unspecified (principal); R09.89 Other specified symptoms and signs involving the circulatory and respiratory systems; R05.9 Cough, unspecified; I10 Essential (primary) hypertension; E78.5 Hyperlipidemia, unspecified; E03.9 Hypothyroidism, unspecified
CPT/HCPCS: 87635; 99212; 99214; G0463

== ENCOUNTER 2023-10-30 18:54 | Emergency (ER) | payer MEDICARE, OTHER, SELFPAY ==
[2023-10-30 19:05] VITALS: BP 141/88; PULSE 79; RESP 19; TEMP 36.8; O2SAT 98; BMI 30.4
--- NOTE | 2023-10-30 19:16 | XR_ITS ---
PROCEDURE INFORMATION: Exam: XR Right Hand Exam date and time: 10/30/2023 7:26 PM Age: 68 years old Clinical indication: Pain; Finger(s); Right; Patient HX: Denies injury; Additional info: Spasm in index finger TECHNIQUE: Imaging protocol: Radiologic exam of the right hand. Views: 3 or more views. COMPARISON: CR XR HAND RT MIN 3V 11/12/2021 8:50 AM FINDINGS: Bones/joints: Advanced degenerative changes of the thumb IP joint and scaphotrapezium joint and [id number] degenerative changes of the 3rd DIP joint and MCP joint. No acute bone or joint abnormality. Soft tissues: Normal. IMPRESSION: Degenerative changes.
--- NOTE | 2023-10-30 19:45 | EXP.UTC ---
Discharge Plan Disposition Patient Disposition: Home, Self-Care Condition: Good Prescriptions Prescriptions: No Action diclofenac sodium [Voltaren Arthritis Pain] 1 % gel 2 g TOPICAL QID Qty: 100 2RF Rx Instructions: apply to single elbow, wrist or hand; for hand includes palm/fingers/back of hand ipratropium-albuterol 0.5 mg-3 mg(2.5 mg base)/3 mL solution for nebulization IH Patient Comments: INHALE THE CONTENTS OF 1 VIAL VIA NEBULIZER FOUR TIMES DAILY NEEDED SHORTNESS OF BREATH AND wheezing meloxicam 15 mg tablet 15 mg PO Patient Comments: TAKE ONE TABLET BY MOUTH EVERY DAY NEEDED diazepam 5 mg tablet 5 mg PO DAILY PRN Patient Comments: TAKE ONE TABLET BY MOUTH EVERY DAY NEEDED MAY CAUSE DROWSINESS famotidine 20 mg tablet 40 mg PO DAILY Qty: 60 4RF gabapentin 300 mg capsule 300 mg PO QID Patient Comments: TAKE ONE CAPSULE BY MOUTH THREE TIMES DAILY MAY CAUSE DROWSINESS levothyroxine 125 mcg tablet 125 mcg PO escitalopram oxalate 20 mg tablet 20 mg PO DAILY albuterol sulfate 90 mcg/actuation HFA aerosol inhaler 1 inh INHALATION Q6H PRN (Reason: shortness of breath or wheezing) 90 Days Qty: 8.5 3RF atorvastatin 20 mg tablet See Rx Instructions .ROUTE .COMPLEX Qty: 90 3RF Dose Instruction: TAKE ONE TABLET BY MOUTH EVERY DAY Rx Instructions: TAKE ONE TABLET BY MOUTH EVERY DAY bisoprolol fumarate 5 mg tablet 5 mg PO DAILY Qty: 90 3RF losartan 50 mg tablet 50 mg PO DAILY Qty: 90 3RF omeprazole 40 mg capsule,delayed release(DR/EC) 40 mg PO DAILY Patient Comments: TAKE ONE CAPSULE BY MOUTH EVERY DAY estradiol 1 mg tablet 1 mg PO DAILY Qty: 30 11RF aspirin 81 mg tablet,delayed release (DR/EC) See Rx Instructions .ROUTE .COMPLEX Qty: 90 3RF Dose Instruction: TAKE ONE TABLET BY MOUTH EVERY DAY Rx Instructions: TAKE ONE TABLET BY MOUTH EVERY DAY furosemide [Lasix] 80 mg tablet 80 mg PO DAILY Qty: 30 11RF spironolactone 50 mg tablet 50 mg PO DAILY Qty: 30 11RF nystatin 100,000 unit/mL suspension 5 ml PO QID 7 Days Qty: 140 0RF Rx Instructions: swish and swallow azithromycin [Zithromax] 250 mg tablet 250 mg PO UD DOSE PK Qty: 6 0RF Rx Instructions: Take two (2) tablets today, then one (1) tablet days #2 thru #5 benzonatate [benzonatate] 100 mg capsule 100 mg PO TIDP PRN (Reason: Cough) Qty: 30 0RF methylprednisolone 4 mg Tablets,Dose Pack 4 mg PO DIRECTED Qty: 21 0RF amoxicillin [amoxicillin] 875 mg tablet 875 mg PO Q12H Qty: 20 0RF benzonatate [benzonatate] 100 mg capsule 100 mg PO TIDP PRN (Reason: Cough) Qty: 30 0RF methylprednisolone 4 mg Tablets,Dose Pack 4 mg PO DIRECTED Qty: 21 0RF Referrals Follow up/Referrals: Ciro De Jesus APRN [Primary Care Provider] - See instructions Activity Restrictions/Add. Instructions Additional Instructions/Restrictions: Follow up with your Family Doctor Follow up with your Family Doctor immediately if it happens again Straight to ER if any life threatening symptoms Clinical Impressions Clinical Impression: Finger problem Discharge ED Provider: Eleni Castro [facility] [place] HPI General Stated complaint: RT hand drawing up Mode of Arrival: Ambulatory Source of Information: Patient Limitations: No Limitations Time Seen by Provider: 10/30/23 19:10 Description of Symptoms (Recalled from Triage Doc. by RN): PATIENT STATES SHE WAS PEELING POTATOES THIS EVENING AND HER HAND STARTED DRAWING UP HEENT Symptoms (Recalled from RN notes): No Resp Symptoms (Recalled from RN notes): No Skin Symptoms (Recalled from RN notes): No MS Symptoms (Recalled from RN notes): Yes Functional Status (Recalled from RN notes): WNL History of Present Illness Provider Complaint: Patient states that she was cutting up potatoes earlier making potato salad and she felt l
[2023-10-30 20:01] VITALS: BP 141/88; PULSE 79; RESP 19; TEMP 36.8; O2SAT 98
== END 2023-10-30 20:57 | disposition home or self-care (01) ==
PROVIDERS: Emergency Provider Physician Assistant; PCP Nurse Practitioner Family
DX: R25.2 Cramp and spasm (principal); I10 Essential (primary) hypertension; E78.5 Hyperlipidemia, unspecified; E03.9 Hypothyroidism, unspecified; K21.9 Gastro-esophageal reflux disease without esophagitis
CPT/HCPCS: 73130; 99212; 99214; G0463

== ENCOUNTER 2023-11-30 13:52 | Outpatient (CLI) | payer MEDICARE, OTHER, SELFPAY ==
--- NOTE | 2023-11-30 13:52 | US_ITS ---
FINAL REPORT CLINICAL HISTORY: hypothyroidism COMPARISON: None FINDINGS: THYROID ULTRASOUND: The right lobe of the thyroid gland has been surgically removed. The left lobe of the thyroid measures 3.3 x 1.3 x 1.3 cm in size. The left lobe of the thyroid gland is diffusely heterogeneous, but no focal nodules are identified. IMPRESSION: Right lobe thyroidectomy. Left lobe of the thyroid is diffusely heterogeneous but no focal nodules are identified. Reviewed, Interpreted and Dictated by Barrera Sethi MD Transcribed by Alicia Lora Authenticated and [facility]
== END 2023-11-30 23:59 ==
LOC: RAD 13:52
PROVIDERS: PCP Nurse Practitioner Family; Visit Provider Nurse Practitioner
DX: E03.9 Hypothyroidism, unspecified (principal)
CPT/HCPCS: 76536

== ENCOUNTER 2024-01-15 23:27 | Emergency (ER) | payer MEDICARE, OTHER, SELFPAY ==
[2024-01-15 23:28] VITALS: BP 171/94; PULSE 91; RESP 20; TEMP 36.6; O2SAT 95; BMI 34.0
--- NOTE | 2024-01-15 23:51 | XR_ITS ---
PROCEDURE INFORMATION: Exam: XR Chest Exam date and time: 01/16/2024 12:15 AM Age: 68 years old Clinical indication: Dyspnea; Additional info: Dyspnea on exertion, ble edema TECHNIQUE: Imaging protocol: Radiologic exam of the chest. Views: 1 view. COMPARISON: CR XR CHEST PORTABLE 06/17/2023 6:30 PM FINDINGS: Lungs: Unremarkable. No consolidation. Pleural spaces: Unremarkable. No pleural effusion. No pneumothorax. Heart/Mediastinum: Unremarkable. No cardiomegaly. Bones/joints: Unremarkable. IMPRESSION: Stable chest x-ray with no acute disease.
[2024-01-16 00:02] LABS: Basophils # 0.1 K/mm3 (0-0.2); Basophils % 1.3 % (0.1-2.0); Eosinophils # 0.4 K/mm3 (0.0-0.4); Eosinophils % 5.1 % (0.1-12.0); Hematocrit 43.4 % (37.0-47.0); Hemoglobin 14.7 g/dL (12.2-16.2); Lymphocytes # 2.6 K/mm3 (0.7-4.5); Lymphocytes % 35.9 % (10-50); Mean Corpuscular HGB Conc 33.8 g/dL (31.8-35.4); Mean Corpuscular Hemoglobin 32.3 pg (27.0-31.2); Mean Corpuscular Volume 95.6 fl (81-99); Mean Platelet Volume 8.7 fl (7.4-10.4); Monocytes # 0.4 K/mm3 (0.1-1.0); Monocytes % 5.9 % (1.7-9.3); Neutrophils # 3.7 K/mm3 (1.8-7.8); Neutrophils % 51.8 % (37.0-80.0); Platelet Count 189 K/mm3 (142-424); Red Blood Count 4.54 M/mm3 (4.20-5.40); Red Cell Distribution Width 13.9 % (11.5-17.5); White Blood Count 7.1 K/mm3 (4.8-10.8)
[2024-01-16 00:04] LABS: Chloride 109 mmol/L (98-107); Potassium 3.7 mmoL/L (3.5-5.1); Sodium 140 mmol/L (136-145)
[2024-01-16 00:07] LABS: Alanine Aminotransferase 43 U/L (12-78); Aspartate Amino Transferase 47 U/L (14-36); Blood Urea Nitrogen 20 mg/dl (7-17); Creatinine Clearance Estimated 69 mL/min (50-200); Estimated Glomerular Filt Rate 83 ml/min (>60); GFR (African American) 101 ML/MIN (>60)
[2024-01-16 00:08] LABS: Albumin Level 3.9 g/dl (3.5-5.0); Albumin/Globulin Ratio 1.4 (1.1-1.8); Alkaline Phosphatase 87 U/L (38-126); Anion Gap 4.7 mEq/L (5-15); Bilirubin,Total 0.5 mg/dl (0.2-1.3); Calcium 8.8 mg/dl (8.4-10.2); Carbon Dioxide 30 mmol/L (22.0-30.0); Globulin 2.7 g/dL (1.3-3.2); Glucose 118 mg/dl (74-100); Total Protein,Serum 6.6 g/dl (6.3-8.2)
[2024-01-16 00:16] LABS: NT Pro Brain Natriuretic Pep. 582 pg/mL (0-125)
--- NOTE | 2024-01-16 00:55 | HMH.EDGENADL ---
Discharge Plan Disposition Patient Disposition: Home, Self-Care Condition: Good Prescriptions Prescriptions: No Action diclofenac sodium [Voltaren Arthritis Pain] 1 % gel 2 g TOPICAL QID Qty: 100 2RF Rx Instructions: apply to single elbow, wrist or hand; for hand includes palm/fingers/back of hand ipratropium-albuterol 0.5 mg-3 mg(2.5 mg base)/3 mL solution for nebulization IH Patient Comments: INHALE THE CONTENTS OF 1 VIAL VIA NEBULIZER FOUR TIMES DAILY NEEDED SHORTNESS OF BREATH AND wheezing meloxicam 15 mg tablet 15 mg PO Patient Comments: TAKE ONE TABLET BY MOUTH EVERY DAY NEEDED diazepam 5 mg tablet 5 mg PO DAILY PRN Patient Comments: TAKE ONE TABLET BY MOUTH EVERY DAY NEEDED MAY CAUSE DROWSINESS famotidine 20 mg tablet 40 mg PO DAILY Qty: 60 4RF multivitamin with iron Tablet 1 tab PO DAILY Qty: 30 0RF gabapentin 300 mg capsule 300 mg PO QID Patient Comments: TAKE ONE CAPSULE BY MOUTH THREE TIMES DAILY MAY CAUSE DROWSINESS levothyroxine 125 mcg tablet 125 mcg PO escitalopram oxalate 20 mg tablet 20 mg PO DAILY albuterol sulfate 90 mcg/actuation HFA aerosol inhaler 1 inh INHALATION Q6H PRN (Reason: shortness of breath or wheezing) 90 Days Qty: 8.5 3RF atorvastatin 20 mg tablet See Rx Instructions .ROUTE .COMPLEX Qty: 90 3RF Dose Instruction: TAKE ONE TABLET BY MOUTH EVERY DAY Rx Instructions: TAKE ONE TABLET BY MOUTH EVERY DAY bisoprolol fumarate 5 mg tablet 5 mg PO DAILY Qty: 90 3RF losartan 50 mg tablet 50 mg PO DAILY Qty: 90 3RF omeprazole 40 mg capsule,delayed release(DR/EC) 40 mg PO DAILY Patient Comments: TAKE ONE CAPSULE BY MOUTH EVERY DAY estradiol 1 mg tablet 1 mg PO DAILY Qty: 30 11RF aspirin 81 mg tablet,delayed release (DR/EC) See Rx Instructions .ROUTE .COMPLEX Qty: 90 3RF Dose Instruction: TAKE ONE TABLET BY MOUTH EVERY DAY Rx Instructions: TAKE ONE TABLET BY MOUTH EVERY DAY furosemide [Lasix] 80 mg tablet 80 mg PO DAILY Qty: 30 11RF spironolactone 50 mg tablet 50 mg PO DAILY Qty: 30 11RF Referrals Follow up/Referrals: Ciro De Jesus APRN [Primary Care Provider] - See instructions Activity Restrictions/Add. Instructions Additional Instructions/Restrictions: You were evaluated in the emergency department today. It is important that you follow-up closely with your primary care provider and your area intelligence technician over the next 3 days. Continue taking her fluid pill at home as well as your other medications as prescribed. Keep your legs elevated to help reduce swelling. Return to the emergency department for any new or worsening symptoms. Clinical Impressions Clinical Impression: Bilateral leg edema, Dyspnea on exertion Instructions Patient Instructions: DI for Dependent Edema, DI for Shortness of Breath, DI for Peripheral Edema -- Bilateral Discharge ED Provider: Dasha Baig General Adult HPI General Chief complaint: Shortness of Breath/Dyspnea Stated complaint: swelling in both feet, SOA Time Seen by Provider: 01/15/24 23:38 Mode of Arrival: Ambulatory Source of Information: Patient and Relative Limitations: No Limitations Description of Symptoms (Recalled from ER Triage Doc. by RN): Patient reports increased swelling in her feet and increased shortness of breath for the last 2-3 days. Patient has 1+ bilateral pitting edema at triage with good dorsal pedal and posterior tibial pulses strong. Patient reports that she has not been taking her water pill for a while . History of Present Illness HPI narrative: This patient is a 68-year-old female with a history of chronic bilateral lower extremity edema, CAD, obesity, asthma, hypothyroidism, hypertension, hyperlipidemia, and GERD presenting to the emergency department for evaluation with concern for bilateral leg swelling. Patient states that her neighbor pointed out to her her that both of her feet were swollen, so she decided to come to the ED for evaluation. She notes that she has not been taking her water pill for a while, as she does not like taking it. She has that she is also been feeling dyspnea on exertion chronically, which is acutely worsened over the last 2 to 3 days. No fevers, chills, cough, chest pain, abdominal pain, vomiting, or other concerns. She has otherwise been well. Related Data Home Medications Medication Instructions Recorded Confirmed levothyroxine 125 mcg tablet 125 mcg PO 03/26/21 12/14/23 escitalopram oxalate 20 mg tablet 20 mg PO DAILY 01/18/22 12/14/23 gabapentin 300 mg capsule 300 mg PO QID Pain 01/18/22 12/14/23 ipratropium 0.5 mg-albuterol 3 mg ml inhalation 03/30/22 12/14/23 (2.5 mg base)/3 mL nebulization soln diazepam 5 mg tablet 5 mg PO DAILY PRN 10/14/22 12/14/23 meloxicam 15 mg tablet 15 mg PO 02/01/23 12/14/23 omeprazole 40 mg capsule,delayed 40 mg PO DAILY 08/16/23 12/14/23 release Previous Rx's Medication Instructions Recorded diclofenac sodium 1 % topical gel 2 g topical QID #100 grams 06/22/21 (Voltaren Arthritis Pain) albuterol sulfate 90 mcg/actuation 1 inh inhalation Q6H PRN shortness 07/06/21 aerosol inhaler of breath or wheezing 90 days #8.5 grams aspirin 81 mg tablet,delayed See Rx Instructions .Route 07/09/22 release .COMPLEX #90 tabs atorvastatin 20 mg tablet See Rx Instructions .Route 08/10/23 .COMPLEX #90 tabs bisoprolol fumarate 5 mg tablet 5 mg PO DAILY blood pressure #90 08/10/23 tabs losartan 50 mg tablet 50 mg PO DAILY BP #90 tabs 08/10/23 estradiol 1 mg tablet 1 mg PO DAILY #30 tabs 08/16/23 furosemide 80 mg tablet (Lasix) 80 mg PO DAILY #30 tabs 08/19/23 spironolactone 50 mg tablet 50 mg PO DAILY #30 tabs 08/19/23 famotidine 20 mg tablet 40 mg (2 x 20 mg) PO DAILY #60 tabs 10/12/23 multivitamin with iron 1 tab PO DAILY #30 tabs 12/14/23 Allergies Allergy/AdvReac Type Severity Reaction Status Date / Time cephalexin [From KEFLEX] Allergy Unknown Verified 12/14/23 13:18 morphine [MORPHINE] Allergy Unknown Verified 12/14/23 13:18 oxytetracycline Allergy Unknown Verified 12/14/23 13:18 [From TERRAMYCIN] [facility] Disclaimer: The information contained in this section may have been updated after the patient was seen, as this information can be updated by other users. Medical History Cardiac murmur, unspecified Chest pain Chronic GERD Dry ear canal Edema Headache Hyperlipidemia Hypertensive disorder Hypothyroidism Neuropathy Vasomotor symptoms due to menopause Surgical History History of carpal tunnel release History of hysterectomy Family History Other No significant family history Social History Smoking Status: Never smoker second hand exposure: No alcohol intake: never counseling provided: provider counseling substance use type: denies use current occupational status: other Travel in the last 8 weeks: None household members: spouse housing: house number of children: 2 current occupational exposures/hazards: No caffeine: No ROS Obtained: Yes All systems reviewed & no additional complaints except as documented Physical Exam General General appearance: alert, in no apparent distress and obese Head Head exam: atraumatic and normocephalic Eye Eye exam: Present normal appearance, PERRL and EOMI ENT ENT exam: Present normal exam, normal oropharynx, mucous membranes moist and normal external ear exam Neck Neck exam: Present normal inspection, full ROM and trachea midline; Absent tenderness Chest Chest inspection: Present normal inspection and symmetric chest wall rise; Absent tenderness Respiratory Respiratory exam: Present normal lung sounds bilaterally; Absent respiratory distress, wheezes, stridor or accessory muscle use Cardiovascular Cardiovascular exam: Present regular rate and normal rhythm Abdominal Exam Abdominal exam: Present soft; Absent distention, tenderness or guarding Extremities Exam Extremities exam: Present full ROM, normal capillary refill and edema (1+ bilateral pedal/pretibial edema); Absent tenderness, joint swelling or calf tenderness Back Exam Back exam: Present normal inspection and full ROM; Absent tenderness Neurological Exam Neurological exam: Present alert, oriented X3, CN II-XII intact and normal gait; Absent motor sensory deficit Psychiatric Psychiatric exam: Present normal affect and normal mood Skin Skin exam: Present warm and dry Medical Decision Making Medical Records Medical records reviewed: Yes I reviewed the patient's medical records. Devyn Inquiry Pt receiving controlled substance: No Vital Signs: 01/15/24 23:28 Temperature 97.8 F Temperature Source Oral Pulse Rate [Left Radial] 91 H Respiratory Rate 20 Blood Pressure [Right Arm] 171/94 H Blood Pressure Mean [Right Arm] 119 Blood Pressure Source [Right Arm] Automatic Cuff Blood Pressure Position [Right Arm] Supine 02 Sat by Pulse Oximetry 95 Oxygen Delivery Method Room Air Lab Data Lab results reviewed: Yes I reviewed the patient's lab results. Lab Results 01/15/24 23:40: WBC 7.1, RBC 4.54, Hgb 14.7, Hct 43.4, MCV 95.6, MCH 32.3 H, MCHC 33.8, RDW 13.9, Plt Count 189, MPV 8.7, Neut % (Auto) 51.8, Lymph % (Auto) 35.9, [place] % (Auto) 5.9, Eos % (Auto) 5.1, Baso % (Auto) 1.3, Neut # (Auto) 3.7, Lymph # (Auto) 2.6, [place] # (Auto) 0.4, Eos # (Auto) 0.4, Baso # (Auto) 0.1, Sodium 140, Potassium 3.7, Chloride 109 H, Carbon Dioxide 30, Anion Gap 4.7 L, BUN 20 H, Creatinine 0.70, Estimated Creat Clear 69, Estimated GFR 83, Est GFR ( Amer) 101, Glucose 118 H, Calcium 8.8, Total Bilirubin 0.5, AST 47 H, ALT 43, Alkaline Phosphatase 87, NT-Pro-B Natriuret Pep 582 H, Total Protein 6.6, Albumin 3.9, Globulin 2.7, Albumin/Globulin Ratio 1.4 01/15/24 23:40 01/15/24 23:40 Orders (Tests/Meds): ED MEDICATIONS Discontinued Medications Generic Name Dose Route Start Last Admin Trade Name Freq PRN Reason Stop Dose Admin Furosemide 80 mg 01/16/24 00:53 01/16/24 01:16 Furosemide 40mg/4ml Vial IV 01/16/24 00:54 80 mg ONCE ONE Administration ORDERS Category Date Time Status XR chest portable Stat Exams 01/15/24 23:51 Completed Brain Natriuretic Peptide Stat Lab 01/15/24 23:40 Completed Complete Blood Count Auto Diff Stat Lab 01/15/24 23:40 Completed Comprehensive Metabolic Panel Stat Lab 01/15/24 23:40 Completed ECG Data Tracing #1: I reviewed this ECG and interpreted as documented below: Normal sinus rhythm with a ventricular rate of [address] elevations concerning for ischemia. Normal intervals. ECG initial impression date: 01/16/24 ECG initial impression time: 01:11 Medical Decision Narrative: In summary, this patient is a 68-year-old female presenting to the Emergency Department for evaluation of progressively worsening bilateral lower extremity edema and dyspnea on exertion in the setting of medication noncompliance. She stopped taking her Lasix. Differential diagnoses considered include but are not limited to CHF exacerbation, dependent edema, pulmonary edema, pneumonia, dysrhythmia. Ruling out the most morbid conditions drove assessment. On exam, the patient is well-appearing. She is currently having no symptoms, though she does note the bilateral leg swelling. She only has dyspnea on exertion, which is chronic but has been progressively worsening. No chest pains noted. Vitals are normal on cardiac telemetry with no tachycardia or hypoxia. She has no increased work of breathing on exam. She has very mild pedal edema that is symmetric and bilateral. Workup included CBC, CMP, BNP, chest x-ray, and EKG. EKG obtained is reassuring. Labs demonstrated mildly elevated BNP without other acute concern. Kidney function is good. I independently interpreted x-ray prior to the radiologist read and noted no acute focal consolidation or significant pulmonary edema. Please see their read for final interpretation. On reassessment, the patient is resting, with normal vital signs on cardiac telemetry. I do feel that her symptoms are likely related to stopping her diuresis and medication noncompliance at home. I stressed the importance of compliance with medications. I also advised her to follow-up very closely with her primary care provider and area intelligence technician. She was given 80 mg of IV Lasix here in the emergency department. Given reassuring workup and exam, I do not feel that further inpatient evaluation is indicated at this time. Patient was given strict return precautions, instructions for close MOTOR VEHICLE REPRESENTATIVE follow-up, and she was discharged in stable condition after all questions were answered. Critical Care Critical Care Time Critical Care Time: No
--- NOTE | 2024-01-16 00:58 | ECG_ITS ---
APPROVED REPORT Exam: Resting ECG HR:75 bpm ECG Measurements Heart Rate 75 AXES MA 168 P 21 QRSd 76 QRS 7 QT 393 T 44 QTc 422 Conclusion SINUS RHYTHM Electronically signed by : ALEX SHERMAN, 01/16/2024 07:00:42
[2024-01-16] MEDS: FUROSEMIDE 40MG/4ML VIAL 80 MG IV (01:16)
[2024-01-16 01:47] VITALS: BP 145/81; PULSE 67; RESP 22; TEMP 36.7; O2SAT 95
== END 2024-01-16 01:49 | disposition home or self-care (01) ==
PROVIDERS: Emergency Provider Emergency Medicine; PCP Nurse Practitioner Family
DX: R06.02 Shortness of breath (principal); R22.41 Localized swelling, mass and lump, right lower limb; R22.42 Localized swelling, mass and lump, left lower limb; I25.10 Atherosclerotic heart disease of native coronary artery without angina pectoris; J45.909 Unspecified asthma, uncomplicated; E03.9 Hypothyroidism, unspecified; I10 Essential (primary) hypertension; E78.5 Hyperlipidemia, unspecified; K21.9 Gastro-esophageal reflux disease without esophagitis; R01.1 Cardiac murmur, unspecified; G62.9 Polyneuropathy, unspecified
CPT/HCPCS: 71045; 80053; 83880; 85025; 93005; 96374; 99285

== ENCOUNTER 2024-01-31 09:52 | Outpatient (CLI) | payer MEDICARE, OTHER, SELFPAY ==
--- NOTE | 2024-01-31 09:53 | CA_ITS ---
APPROVED REPORT EXAM: Comprehensive 2D, Doppler, and color-flow Echocardiogram Information Security: BOO Teixeira, RVS Ht: 5 ft 1 in Wt: 187lbs BSA: 1.84 BP: 141/67 mmHg Indications: SOB, Edema, Smoker, HTN, HLD, Aortic valve sclerosis. 2D Dimensions Left Atrium 3.79 cm LA Volume 57.40 mL LA Volume Index 30.50 mL/m2 (M/F) 16-34 M-Mode Dimensions RVDd 2.67 cm (0.9-2.6) LA Diam 4.37 cm (1.9-4.0) LVDd 4.50 cm (3.5-5.7) LVDs 2.67 cm (3.5-5.7) IVSd 0.99 cm (0.6-1.1) PWd 0.88 cm (0.6-1.1) EF (Teich) 71.50% EPSs 0.23 cm FS 40.70% EDV (Teich) 92.40 mL TAPSE 2.34 (<1.7) ESV (Teich) 26.30 mL LV Diastology E Decel Time 137 (160-240 msec) E/A Ratio 1.03 MED A' 9.40 cm/s LAT A' 9.20 cm/s Aortic Valve AMELIA Index 0.77 cm2/m2 AoV Peak Wu. 226.0 (50-130 cm/s) AO Peak GR. 20.40 mmHg AO Mean GR. 10.10 (<5 mmHg) AO VTI 42.2 (18-25 cm) AMELIA (VTI) 1.45 (2.5-4.5 cm2) Mitral Valve MV A Velocity 73.0 (40-130 cm/s) E/A Ratio 1.03 MV Mean Gr. 1.60 (<2mmHg) Pulmonary Valve PV Peak Velocity 87.0 (50-150 cm/s) Tricuspid Valve TR P. Velocity 251.00 cm/s RAP Estimate 10.00 mmHg RVSP 35.20 mmHg Left Ventricle The left ventricle is normal size. The left ventricular systolic function is normal. The left ventricular ejection fraction is within the normal range. There is increased LV wall thickness. There is normal LV segmental wall motion. The left ventricular diastolic function is normal. LVEF is 60%. Right Ventricle The right ventricle is normal size. The right ventricular systolic function is normal. Atria The left atrium size is normal. The right atrium size is normal. The interatrial septum is not well-visualized. Aortic Valve The aortic valve is mildly thickened. Aortic sclerosis is present, but no evidence of aortic stenosis. No aortic regurgitation is present. Mitral Valve The mitral valve is mildly thickened. No evidence of mitral valve stenosis. Trace mitral regurgitation. Tricuspid Valve The tricuspid valve leaflets are thin and pliable. Mild tricuspid regurgitation. RVSP is 25-30 mmHg. Pulmonic Valve The pulmonary valve is normal in structure. Trace pulmonic regurgitation. Great Vessels The aortic root is normal in size. The ascending aorta is normal in size. IVC is normal in size and collapses >50% with inspiration. Pericardium There is no pericardial effusion. Other Information Study Quality: Fair Conclusion Normal biventricular systolic function. Aortic sclerosis, without evidence of aortic stenosis. Mild TR. Electronically signed by : Stella Reynoso MD 02/05/2024 10:35:04
== END 2024-01-31 23:59 ==
LOC: RT 09:53
PROVIDERS: PCP Nurse Practitioner Family; Visit Provider Nurse Practitioner Family
DX: R06.09 Other forms of dyspnea (principal); E78.2 Mixed hyperlipidemia; I50.30 Unspecified diastolic (congestive) heart failure; I11.0 Hypertensive heart disease with heart failure
CPT/HCPCS: 93306

== ENCOUNTER 2024-02-02 09:12 | Outpatient (CLI) | payer MEDICARE, OTHER, SELFPAY ==
[2024-02-02 09:34] LABS: Basophils # 0.1 K/mm3 (0-0.2); Eosinophils # 0.2 K/mm3 (0.0-0.4); Hematocrit 45.3 % (37.0-47.0); Hemoglobin 15.2 g/dL (12.2-16.2); Lymphocytes # 1.7 K/mm3 (0.7-4.5); Lymphocytes % 27.6 % (10-50); Mean Corpuscular HGB Conc 33.6 g/dL (31.8-35.4); Mean Corpuscular Hemoglobin 32.7 pg (27.0-31.2); Mean Corpuscular Volume 97.2 fl (81-99); Mean Platelet Volume 8.3 fl (7.4-10.4); Monocytes # 0.4 K/mm3 (0.1-1.0); Monocytes % 6.7 % (1.7-9.3); Neutrophils # 3.8 K/mm3 (1.8-7.8); Neutrophils % 61.7 % (37.0-80.0); Platelet Count 193 K/mm3 (142-424); Red Blood Count 4.66 M/mm3 (4.20-5.40); Red Cell Distribution Width 13.8 % (11.5-17.5); White Blood Count 6.2 K/mm3 (4.8-10.8)
[2024-02-02 10:27] LABS: Alanine Aminotransferase 46 U/L (12-78); Albumin Level 4.2 g/dl (3.5-5.0); Alkaline Phosphatase 68 U/L (38-126); Anion Gap 8.6 mEq/L (5-15); Aspartate Amino Transferase 55 U/L (14-36); Bilirubin,Direct 0.3 mg/dl (0.0-0.4); Bilirubin,Indirect 0.6 mg/dL (0.0-0.9); Bilirubin,Total 0.9 mg/dl (0.2-1.3); Bilirubin,Unconjugated 0.6 mg/dL (0.0-1.1); Blood Urea Nitrogen 25 mg/dl (7-17); Calcium 9.1 mg/dl (8.4-10.2); Carbon Dioxide 34 mmol/L (22.0-30.0); Chloride 100 mmol/L (98-107); Chol/HDL Ratio 4.3 (1-3.5); Cholesterol 158 mg/dl (140-200); Estimated Glomerular Filt Rate 83 ml/min (>60); GFR (African American) 101 ML/MIN (>60); Glucose 142 mg/dl (74-100); HDL Cholesterol 37 mg/dl (40-60); Magnesium 2.2 mg/dl (1.6-2.3); Potassium 3.6 mmoL/L (3.5-5.1); Sodium 139 mmol/L (136-145); Total Protein,Serum 6.9 g/dl (6.3-8.2); Triglycerides 140 mg/dl (30-150); VLDL Cholesterol 28 mg/dL (0-40)
[2024-02-02 10:38] LABS: Direct LDL Cholesterol 88.48 mg/dL (100-129)
[2024-02-02 10:42] LABS: Free T4 (Free Thyroxine) 1.31 ng/dl (0.78-2.19)
[2024-02-02 10:58] LABS: Thyroid Stimulating Hormone 2.69 uIU/mL (0.465-4.68)
--- NOTE | 2024-02-02 14:02 | XR_ITS ---
FINAL REPORT CLINICAL HISTORY: Acute left foot pain COMPARISON: None FINDINGS: LEFT FOOT Three views of the left foot demonstrate no acute fracture or dislocation. There are mild degenerative changes of the mid and hindfoot. There is a mild calcaneal spur present. The soft tissues are unremarkable. IMPRESSION: No acute bony abnormality. Reviewed, Interpreted and Dictated by Sal Nicholson MD Transcribed by AARON Ambriz Authenticated and [facility]
== END 2024-02-02 23:59 ==
PROVIDERS: PCP Nurse Practitioner Family; Visit Provider Nurse Practitioner Family
DX: M79.672 Pain in left foot (principal); I11.9 Hypertensive heart disease without heart failure; I50.30 Unspecified diastolic (congestive) heart failure; R06.09 Other forms of dyspnea; E78.2 Mixed hyperlipidemia; E66.9 Obesity, unspecified; Z68.34 Body mass index [BMI] 34.0-34.9, adult
CPT/HCPCS: 36415; 73630; 80048; 80061; 80076; 83735; 84439; 84443; 85025

== ENCOUNTER 2024-03-09 13:00 | Outpatient (CLI) | payer MEDICARE, OTHER, SELFPAY ==
[2024-03-09 14:22] LABS: Anion Gap 7.6 mEq/L (5-15); Blood Urea Nitrogen 19 mg/dl (7-17); Calcium 8.8 mg/dl (8.4-10.2); Carbon Dioxide 32 mmol/L (22.0-30.0); Chloride 104 mmol/L (98-107); Estimated Glomerular Filt Rate 99 ml/min (>60); GFR (African American) 120 ML/MIN (>60); Glucose 216 mg/dl (74-100); Potassium 3.6 mmoL/L (3.5-5.1); Sodium 140 mmol/L (136-145)
[2024-03-09 14:32] LABS: NT Pro Brain Natriuretic Pep. 30.1 pg/mL (0-125)
== END 2024-03-09 23:59 | disposition home or self-care (01) ==
LOC: LAB 13:01
PROVIDERS: PCP Nurse Practitioner Family; Visit Provider Nurse Practitioner Family
DX: R60.9 Edema, unspecified (principal); R06.00 Dyspnea, unspecified
CPT/HCPCS: 36415; 80048; 83880

== ENCOUNTER 2024-03-15 13:04 | Outpatient (CLI) | payer MEDICARE, OTHER, SELFPAY ==
--- NOTE | 2024-03-15 | US_ITS ---
FINAL REPORT CLINICAL HISTORY: Left foot pain, obesity, HTN COMPARISON: None FINDINGS: ANKLE-BRACHIAL PRESSURE INDICES Pressure indices are as follows: RIGHT LOWER EXTREMITY: Ankle-brachial pressure index: 1.2 Comments: Normal LEFT LOWER EXTREMITY: Ankle-brachial pressure index: 1.2 Comments: Normal CONCLUSION: No evidence of significant obstructive peripheral vascular disease of the lower extremities Reviewed, Interpreted and Dictated by Ariel Page III, MD Transcribed by Alicia Lora Authenticated and [facility]
--- NOTE | 2024-03-15 | CA_ITS ---
FINAL REPORT TECHNIQUE: Color Doppler, duplex Doppler and compression sonography of the left lower extremity deep venous systems was performed. CLINICAL HISTORY: left foot pain , morbid obesity,HTN COMPARISON: None FINDINGS: There is no evidence of deep venous thrombosis from the level of the groin to the calf. The veins are patent and compressible. IMPRESSION: No evidence of deep venous thrombosis left lower extremity. Reviewed, Interpreted and Dictated by Ariel Page III, MD Transcribed by Alicia Lora Authenticated and [facility]
== END 2024-03-15 23:59 | disposition home or self-care (01) ==
LOC: RT 13:04
PROVIDERS: PCP Nurse Practitioner Family; Visit Provider Nurse Practitioner Family
DX: R60.0 Localized edema (principal); I73.9 Peripheral vascular disease, unspecified
CPT/HCPCS: 93923; 93971

== ENCOUNTER 2024-03-19 09:48 | Outpatient (CLI) | payer MEDICARE, OTHER, SELFPAY ==
[2024-03-19 10:48] LABS: Calcium 8.7 mg/dl (8.4-10.2); Carbon Dioxide 30 mmol/L (22.0-30.0); Glucose 220 mg/dl (74-100); Sodium 137 mmol/L (136-145)
[2024-03-19 10:49] LABS: Anion Gap 11.8 mEq/L (5-15); Blood Urea Nitrogen 19 mg/dl (7-17); Chloride 99 mmol/L (98-107); Estimated Glomerular Filt Rate 71 ml/min (>60); GFR (African American) 86 ML/MIN (>60); Potassium 3.8 mmoL/L (3.5-5.1)
== END 2024-03-19 23:59 | disposition home or self-care (01) ==
LOC: LAB 09:50
PROVIDERS: PCP Nurse Practitioner Family; Visit Provider Nurse Practitioner Family
DX: R06.09 Other forms of dyspnea (principal); I50.33 Acute on chronic diastolic (congestive) heart failure
CPT/HCPCS: 36415; 80048

== ENCOUNTER 2024-03-26 09:46 | Outpatient (CLI) | payer MEDICARE, OTHER, SELFPAY ==
[2024-03-26 10:58] LABS: Anion Gap 15.2 mEq/L (5-15); Blood Urea Nitrogen 20 mg/dl (7-17); Calcium 9.3 mg/dl (8.4-10.2); Carbon Dioxide 26 mmol/L (22.0-30.0); Chloride 99 mmol/L (98-107); Estimated Glomerular Filt Rate 83 ml/min (>60); GFR (African American) 101 ML/MIN (>60); Glucose 230 mg/dl (74-100); Potassium 4.2 mmoL/L (3.5-5.1); Sodium 136 mmol/L (136-145)
== END 2024-03-26 23:59 | disposition home or self-care (01) ==
LOC: LAB 09:47
PROVIDERS: PCP Nurse Practitioner Family; Visit Provider Nurse Practitioner Family
DX: I10 Essential (primary) hypertension (principal)
CPT/HCPCS: 36415; 80048

== ENCOUNTER 2024-04-23 12:09 | Outpatient (CLI) | payer MEDICARE, OTHER, SELFPAY ==
[2024-04-23 13:00] LABS: Anion Gap 11.8 mEq/L (5-15); Blood Urea Nitrogen 21 mg/dl (7-17); Calcium 8.2 mg/dl (8.4-10.2); Carbon Dioxide 30 mmol/L (22.0-30.0); Chloride 104 mmol/L (98-107); Estimated Glomerular Filt Rate 83 ml/min (>60); GFR (African American) 100 ML/MIN (>60); Glucose 121 mg/dl (74-100); Potassium 3.8 mmoL/L (3.5-5.1); Sodium 142 mmol/L (136-145)
== END 2024-04-23 23:59 | disposition home or self-care (01) ==
LOC: LAB 12:10
PROVIDERS: PCP Nurse Practitioner Family; Visit Provider Nurse Practitioner Family
DX: I50.33 Acute on chronic diastolic (congestive) heart failure (principal); E78.2 Mixed hyperlipidemia; R60.9 Edema, unspecified; I11.0 Hypertensive heart disease with heart failure
CPT/HCPCS: 36415; 80048

== ENCOUNTER 2024-04-26 11:42 | Day surgery (SDC) | payer MEDICARE, OTHER, SELFPAY ==
[2024-04-26 12:05] VITALS: BP 139/68; PULSE 85; RESP 18; TEMP 36.4; O2SAT 97; BMI 36.4
--- NOTE | 2024-04-26 13:30 | EXP.ANES.CKL ---
[facility] Disclaimer: The information contained in this section may have been updated after the patient was seen, as this information can be updated by other users. Medical History Dysphagia (HFpEF) heart failure with preserved ejection fraction Chronic GERD Dry ear canal Headache Hypothyroidism Cardiac murmur, unspecified Vasomotor symptoms due to menopause Neuropathy Chest pain Edema Hyperlipidemia Hypertensive disorder Surgical History History of carpal tunnel release History of hysterectomy Family History Son Cancer Leukemia Family/Other Cancer Colon Ca Other No significant family history Social History Smoking Status: Never smoker second hand exposure: No alcohol intake: never counseling provided: provider counseling substance use type: denies use current occupational status: other Travel in the last 8 weeks: None household members: spouse housing: house number of children: 2 current occupational exposures/hazards: No caffeine: Yes do you feel safe at home: Yes victim of physical abuse: No victim of emotional abuse: No victim of sexual abuse: No would you like helpful sources: No [facility] Anesthesia Checklist Patient Identification Patient Identification: Arm Band Structural Data Admitted From: Home Planned Operative Procedure/s: EGD Consent for Planned Operative Procedure(s) Verified: Yes Verified Documents: Surgical Consent and History and Physical NPO Status Verified Time NPO: 00:00 Additional verifications Anesthesia Reactions: No Hx Blood Transfusions: No Blood Transfusion Reaction: No Airway Assessment Mallampati Score:: Class II C-Spine Mobility Assessed: Yes TMJ Mobility Assessed: Yes Dentition: Edentulous Neurological Assessment Level of Consciousness: Awake, Alert and Appropriate Anesthesia Plan Anesthesia Risk discussed: Yes Anesthesia Plan: Verified ASA Class: III Anesthesia Type: MAC
[2024-04-26 13:42] VITALS: O2SAT 97
--- NOTE | 2024-04-26 13:53 | HMH.SCOPE ---
Procedure: Date: 04/26/24 Patient Date of :: 1955 Procedure Performed:: EGD and dilation Indications:: Dysphagia Performing Provider:: Oxana Omalley MD Referring Provider:: Eliza Omalley APRN Sedation:: Propofol Procedure:: The gastroscope was gently passed through the incisoral orifice into the oral cavity and under direct visualization the esophagus was intubated. The endoscope was passed down the esophagus, through the stomach, and into the duodenum. Color, texture, mucosa, and anatomy of the esophagus, stomach, and duodenum were carefully examined with the scope. Findings:: Oropharynx: normal Esophagus: normal EG Junction: Tight distal peptic stenosis noted, slightly larger than diameter of the EGD scope, treated with several passes of the 54F dilator Cardia: normal Fundus: normal Body: normal Antrum: normal Duodenal bulb: normal Duodenum (second and third portion): normal Impression: Distal peptic stricture, dilated Recommendations:: Will benefit from PPI therapy and repeat dilation in the future as clinically indicated. F/U GI Clinic. Complications:: None Estimated blood obtained (mL): 0 Colonoscopy Component Colonoscopy Component Was a colonoscopy performed during today's procedure?: No
[2024-04-26 13:55] VITALS: BP 103/66; PULSE 79; RESP 18; TEMP 36.4; O2SAT 94
[2024-04-26 14:05] VITALS: BP 108/63; PULSE 73; RESP 18; O2SAT 94
[2024-04-26 14:15] VITALS: BP 112/64; PULSE 84; RESP 18; O2SAT 95
[2024-04-26 14:25] VITALS: BP 127/68; PULSE 77; RESP 16; O2SAT 96
== END 2024-04-26 14:06 | disposition home or self-care (01) ==
PROVIDERS: PCP Nurse Practitioner Family; Visit Provider Internal Medicine Gastroenterology
PROC: 0DJ08ZZ Inspection of Upper Intestinal Tract, Via Natural or Artificial Opening Endoscopic (ICD-10-PCS; CPT 43235; principal; 2024-04-26 13:00)
DX: R13.10 Dysphagia, unspecified (principal); K31.2 Hourglass stricture and stenosis of stomach
CPT/HCPCS: 43248

== ENCOUNTER 2024-05-22 14:10 | Outpatient (CLI) | payer MEDICARE, OTHER, SELFPAY ==
[2024-05-22 15:25] LABS: Anion Gap 11.5 mEq/L (5-15); Blood Urea Nitrogen 26 mg/dl (7-17); Calcium 8.8 mg/dl (8.4-10.2); Carbon Dioxide 29 mmol/L (22.0-30.0); Chloride 103 mmol/L (98-107); Estimated Glomerular Filt Rate 83 ml/min (>60); GFR (African American) 100 ML/MIN (>60); Glucose 150 mg/dl (74-100); Potassium 3.5 mmoL/L (3.5-5.1); Sodium 140 mmol/L (136-145)
== END 2024-05-22 23:59 | disposition home or self-care (01) ==
LOC: LAB 14:11
PROVIDERS: PCP Nurse Practitioner Family; Visit Provider Nurse Practitioner Family
DX: I50.33 Acute on chronic diastolic (congestive) heart failure (principal); R06.09 Other forms of dyspnea; R60.0 Localized edema
CPT/HCPCS: 36415; 80048

== ENCOUNTER 2024-06-09 18:09 | Emergency (ER) | payer MEDICARE, OTHER, SELFPAY ==
[2024-06-09 18:25] VITALS: BP 125/70; PULSE 83; RESP 20; TEMP 36.7; O2SAT 96; BMI 35.5
--- NOTE | 2024-06-09 18:40 | ED_ITS ---
Discharge Plan Disposition Patient Disposition: Home, Self-Care Condition: Good Prescriptions Prescriptions: New hydrocortisone 0.5 % cream 1 applic topical BID PRN (Reason: skin irritation) Qty: 28.4 0RF Rx Instructions: apply to area as directed as needed No Action losartan 50 mg tablet 50 mg PO DAILY Patient Comments: TAKE ONE TABLET BY MOUTH EVERY DAY FOR BLOOD PRESSURE atorvastatin 20 mg tablet 20 mg PO DAILY bumetanide 2 mg tablet 2 mg PO DAILY Patient Comments: TAKE ONE TABLET BY MOUTH TWICE DAILY spironolactone 100 mg tablet 100 mg PO DAILY Patient Comments: TAKE ONE TABLET BY MOUTH EVERY DAY gabapentin 400 mg capsule 400 mg PO TID Patient Comments: TAKE ONE CAPSULE BY MOUTH THREE TIMES DAILY bisoprolol fumarate 5 mg tablet 5 mg PO DAILY estradiol 1 mg tablet 1 mg PO DAILY levothyroxine 125 mcg tablet 125 mcg PO DAILY Referrals Follow up/Referrals: Ciro De Jesus APRN [Primary Care Provider] - See instructions Activity Restrictions/Add. Instructions Additional Instructions/Restrictions: Over the counter Motrin if you can take it may help with pain and inflammation for bee sting Over the counter Benadryl may help with itching and irritation of bee sting Topical hydrocortisone may help with swelling and pain Ice packs diminish swelling May take several days for the swelling and itching to go down Follow up with your Family Doctor if no improvement or any worsening of symptoms Return if needed Straight to ER if any life threatening symptoms Clinical Impressions Clinical Impression: Wasp sting Qualifiers: Encounter type: initial encounter Injury intent: undetermined intent Qualified Code(s): T63.464A - Toxic effect of venom of wasps, undetermined, initial encounter Instructions Patient Instructions: DI for Insect Bites and Stings, Ibuprofen, Diphenhydramine Print Language Print Language: Macanese Discharge ED Provider: Julisa Castro [facility] [place] HPI General Stated complaint: Wasp sting Right hand Mode of Arrival: Ambulatory Source of Information: Patient Limitations: No Limitations Time Seen by Provider: 06/09/24 18:40 Description of Symptoms (Recalled from Triage Doc. by RN): PATIENT C/O WASP STING TO RIGHT HAND HEENT Symptoms (Recalled from RN notes): No Resp Symptoms (Recalled from RN notes): No Skin Symptoms (Recalled from RN notes): Yes MS Symptoms (Recalled from RN notes): No Functional Status (Recalled from RN notes): WNL History of Present Illness Provider Complaint: Patient states that she brought her son to the ED due to being stung several times with a wasp and she was getting a wasp from out of his shirt and it stung her on her right hand States that she is not allergic or anything but they told her she needed to get it looked at so she came in to get it checked Denies soa, denies known reaction to stings up to date on tetanus Related Data Home Medications ?Medication ?Instructions ?Recorded ?Confirmed atorvastatin 20 mg tablet 20 mg PO DAILY 06/09/24 06/09/24 bisoprolol fumarate 5 mg tablet 5 mg PO DAILY 06/09/24 06/09/24 bumetanide 2 mg tablet 2 mg PO DAILY 06/09/24 06/09/24 estradiol 1 mg tablet 1 mg PO DAILY 06/09/24 06/09/24 gabapentin 400 mg capsule 400 mg PO TID 06/09/24 06/09/24 levothyroxine 125 mcg tablet 125 mcg PO DAILY 06/09/24 06/09/24 losartan 50 mg tablet 50 mg PO DAILY 06/09/24 06/09/24 spironolactone 100 mg tablet 100 mg PO DAILY 06/09/24 06/09/24 Previous Rx's ?Medication ?Instructions ?Recorded hydrocortisone 0.5 % topical cream 1 applic topical BID PRN skin 06/09/24 irritation #28.4 grams Allergies Allergy/AdvReac Type Severity Reaction Status Date / Time cephalexin [From KEFLEX] Allergy Unknown Verified 05/22/24 13:46 morphine [MORPHINE] Allergy Unknown Verified 05/22/24 13:46 oxytetracycline Allergy Unknown Verified 05/22/24 13:46 [From TERRAMYCIN] Worker's Comp Is this a Worker's Comp case?: No [facility] Disclaimer: The information contained in this section may have been updated after the patient was seen, as this information can be updated by other users. Medical History Dysphagia (HFpEF) heart failure with preserved ejection fraction Chronic GERD Dry ear canal Headache Hypothyroidism Cardiac murmur, unspecified Vasomotor symptoms due to menopause Neuropathy Chest pain Edema Hyperlipidemia Hypertensive disorder Surgical History History of carpal tunnel release History of hysterectomy Family History Son Cancer Leukemia Family/Other Cancer Colon Ca Other No significant family history Social History Smoking Status: Never smoker second hand exposure: No alcohol intake: never counseling provided: provider counseling substance use type: denies use current occupational status: other Travel in the last 8 weeks: None household members: spouse housing: house number of children: 2 current occupational exposures/hazards: No caffeine: Yes do you feel safe at home: Yes victim of physical abuse: No victim of emotional abuse: No victim of sexual abuse: No would you like helpful sources: No ROS Obtained: Yes All systems reviewed & no additional complaints except as documented and Yes Systems reviewed as appropriate & no additional complaints except as documented Constitutional Constitutional: Reports system reviewed and no additional complaints, except as documented and Reports as per HPI ENT Ears, Nose, Mouth, and Throat: Reports system reviewed and no additional complaints, except as documented and Reports as per HPI Cardiovascular Cardiovascular: Reports system reviewed and no additional complaints, except as documented and Reports as per HPI Respiratory Respiratory: Reports system reviewed and no additional complaints, except as documented, Reports as per HPI and Denies shortness of breath Gastrointestinal Gastrointestingal: Reports system reviewed and no additional complaints, except as documented and as per HPI Musculoskeletal Musculoskeletal: Reports system reviewed and no additional complaints, except as documented and Reports as per HPI Integumentary/Breasts Skin/Breast: Reports system reviewed and no additional complaints, except as documented, Reports as per HPI and Reports other (bee sting to right hand between thumb and index finger) Neurologic Neurologic: Reports system reviewed and no additional complaints, except as documented and Reports as per HPI Endocrine Endocrine: Reports system reviewed and no additional complaints, except as documented and Reports as per HPI Physical Exam General General appearance: alert and in no apparent distress ENT ENT exam: Present normal exam, normal oropharynx and mucous membranes moist Expanded ENT Exam Nose exam: Absent sinus tenderness Mouth exam: Present normal external inspection and tongue normal; Absent drooling, lip swelling, tongue elevation or tongue swelling Throat exam: Present normal inspection Respiratory Respiratory exam: Present normal lung sounds bilaterally; Absent respiratory distress or wheezes Cardiovascular Cardiovascular exam: Present regular rate, normal rhythm and normal heart sounds Neurological Exam Neurological exam: Present alert, oriented X3 and normal gait Skin Skin exam: Present other (small red area noted on right hand on skin between thumb and index finger, no streaking noted appears like sting) Medical Decision Making Devyn Inquiry Pt receiving controlled substance: No Devyn was queried for this patient: No Vital Signs: 06/09/24 18:25 Temperature 98.1 F Temperature Source Oral Pulse Rate [Left Brachial] 83 Respiratory Rate 20 Blood Pressure [Left Arm] 125/70 Blood Pressure Mean [Left Arm] 88 Blood Pressure Source [Left Arm] Automatic Cuff Blood Pressure Position [Left Arm] Sitting 02 Sat by Pulse Oximetry 96 Oxygen Delivery Method Room Air Medical Decision Narrative: No worsening of swelling noted to bee sting, still denies soa, denies itching denies hx of allergic reaction to bee stings, patient will be dc'd home and given strict return precautions
[2024-06-09 19:24] VITALS: BP 125/70; PULSE 83; RESP 20; TEMP 36.7; O2SAT 96
== END 2024-06-09 19:26 | disposition home or self-care (01) ==
PROVIDERS: Emergency Provider Nurse Practitioner; PCP Nurse Practitioner Family
DX: T63.461A Toxic effect of venom of wasps, accidental (unintentional), initial encounter (principal)
CPT/HCPCS: 99212; 99214; G0463

== ENCOUNTER 2024-06-16 12:57 | Emergency (ER) | payer MEDICARE, OTHER, SELFPAY ==
[2024-06-16 13:10] VITALS: BP 113/56; PULSE 70; RESP 18; TEMP 36.8; O2SAT 96; BMI 36.6
--- NOTE | 2024-06-16 13:24 | XR_ITS ---
PROCEDURE INFORMATION: Exam: XR Right Foot Exam date and time: 06/16/2024 1:22 PM Age: 69 years old Clinical indication: Pain; Swelling, leg or foot; Right; Additional info: Pain and swelling TECHNIQUE: Imaging protocol: Radiologic exam of the right foot. Views: 3 or more views. COMPARISON: CR XR FOOT WT BEARING RT 3V 03/30/2022 1:17 PM FINDINGS: Bones/joints: There is no evidence of acute fracture.There is no evidence of malalignment or dislocation. Degenerative changes in the tarsometatarsal joints Soft tissues: Soft tissue swelling over the dorsum of the foot IMPRESSION: There is no evidence of acute fracture.There is no evidence of malalignment or dislocation.
--- NOTE | 2024-06-16 13:31 | ED_ITS ---
Discharge Plan Disposition Patient Disposition: Home, Self-Care Condition: Good Prescriptions Prescriptions: New prednisone 20 mg tablet 20 mg PO BID Qty: 10 0RF No Action losartan 50 mg tablet 50 mg PO DAILY Patient Comments: TAKE ONE TABLET BY MOUTH EVERY DAY FOR BLOOD PRESSURE hydrocortisone 0.5 % cream 1 applic TOPICAL BID Patient Comments: APPLY TOPICALLY TO THE AFFECTED AREA(S) TWICE DAILY NEEDED FOR SKIN irritation DIRECTED atorvastatin 20 mg tablet 20 mg PO DAILY Patient Comments: TAKE ONE TABLET BY MOUTH EVERY DAY bumetanide 2 mg tablet 2 mg PO DAILY Patient Comments: TAKE ONE TABLET BY MOUTH TWICE DAILY spironolactone 100 mg tablet 100 mg PO DAILY Patient Comments: TAKE ONE TABLET BY MOUTH EVERY DAY bisoprolol fumarate 5 mg tablet 5 mg PO DAILY Patient Comments: TAKE ONE TABLET BY MOUTH EVERY DAY estradiol 1 mg tablet 1 mg PO DAILY Patient Comments: TAKE ONE TABLET BY MOUTH EVERY DAY levothyroxine 125 mcg tablet 125 mcg PO DAILY Patient Comments: TAKE ONE TABLET BY MOUTH EVERY DAY gabapentin 300 mg capsule 300 mg PO DAILY Patient Comments: TAKE ONE CAPSULE BY MOUTH FOUR TIMES DAILY MAY CAUSE DROWSINESS diazepam 5 mg tablet 5 mg PO DAILY Patient Comments: TAKE ONE TABLET BY MOUTH TWICE DAILY NEEDED Rybelsus 3 mg tablet 3 mg PO DAILY Patient Comments: TAKE ONE TABLET BY MOUTH EVERY DAY Referrals Follow up/Referrals: Ciro De Jesus APRN [Primary Care Provider] - See instructions Activity Restrictions/Add. Instructions Additional Instructions/Restrictions: follow up with podiotry ice elevated if worsen return Clinical Impressions Clinical Impression: Acute arthritis Instructions Patient Instructions: DI for Arthritis Print Language Print Language: [place] Discharge ED Provider: Neal ([facility] [place] General Stated complaint: bone spurs on feet, swelling Mode of Arrival: Ambulatory Source of Information: Patient Limitations: No Limitations Time Seen by Provider: 06/16/24 13:31 Description of Symptoms (Recalled from Triage Doc. by RN): PATIENT C/O SWELLING TO BILATERAL FEET X 2-3 MONTHS HEENT Symptoms (Recalled from RN notes): No Resp Symptoms (Recalled from RN notes): No Skin Symptoms (Recalled from RN notes): No MS Symptoms (Recalled from RN notes): Yes Functional Status (Recalled from RN notes): WNL History of Present Illness Provider Complaint: 69 yr old female presents for nadine foot pain and swelling for 2-3 months. pt states rt worse. on fluid pills and they do not seem to help Related Data Home Medications ?Medication ?Instructions ?Recorded ?Confirmed atorvastatin 20 mg tablet 20 mg PO DAILY 06/16/24 06/16/24 bisoprolol fumarate 5 mg tablet 5 mg PO DAILY 06/16/24 06/16/24 bumetanide 2 mg tablet 2 mg PO DAILY 06/16/24 06/16/24 diazepam 5 mg tablet 5 mg PO DAILY 06/16/24 06/16/24 estradiol 1 mg tablet 1 mg PO DAILY 06/16/24 06/16/24 gabapentin 300 mg capsule 300 mg PO DAILY 06/16/24 06/16/24 hydrocortisone 0.5 % topical cream 1 applic topical BID 06/16/24 06/16/24 levothyroxine 125 mcg tablet 125 mcg PO DAILY 06/16/24 06/16/24 losartan 50 mg tablet 50 mg PO DAILY 06/16/24 06/16/24 semaglutide 3 mg tablet (Rybelsus) 3 mg PO DAILY 06/16/24 06/16/24 spironolactone 100 mg tablet 100 mg PO DAILY 06/16/24 06/16/24 Previous Rx's ?Medication ?Instructions ?Recorded prednisone 20 mg tablet 20 mg PO BID #10 tabs 06/16/24 Allergies Allergy/AdvReac Type Severity Reaction Status Date / Time cephalexin [From KEFLEX] Allergy Unknown Verified 06/12/24 14:18 morphine [MORPHINE] Allergy Unknown Verified 06/12/24 14:18 oxytetracycline Allergy Unknown Verified 06/12/24 14:18 [From TERRAMYCIN] Worker's Comp Is this a Worker's Comp case?: No [facility] Disclaimer: The information contained in this section may have been updated after the patient was seen, as this information can be updated by other users. Medical History , [employer]) Dysphagia (HFpEF) heart failure with preserved ejection fraction Chronic GERD Dry ear canal Headache Hypothyroidism Cardiac murmur, unspecified Vasomotor symptoms due to menopause Neuropathy Chest pain Edema Hyperlipidemia Hypertensive disorder Surgical History , [employer]) History of carpal tunnel release History of hysterectomy Family History Son Cancer Leukemia Family/Other Cancer Colon Ca Other No significant family history Social History , [employer]) Smoking Status: Never smoker second hand exposure: No alcohol intake: never counseling provided: provider counseling substance use type: denies use current occupational status: other Travel in the last 8 weeks: None household members: spouse housing: house number of children: 2 current occupational exposures/hazards: No caffeine: Yes do you feel safe at home: Yes victim of physical abuse: No victim of emotional abuse: No victim of sexual abuse: No would you like helpful sources: No ROS Obtained: Yes All systems reviewed & no additional complaints except as documented Constitutional Constitutional: Reports system reviewed and no additional complaints, except as documented Eyes Eyes: Reports system reviewed and no additional complaints, except as documented ENT Ears, Nose, Mouth, and Throat: Reports system reviewed and no additional complaints, except as documented Cardiovascular Cardiovascular: Reports system reviewed and no additional complaints, except as documented Respiratory Respiratory: Reports system reviewed and no additional complaints, except as documented Gastrointestinal Gastrointestingal: Reports system reviewed and no additional complaints, except as documented Musculoskeletal Musculoskeletal: Reports system reviewed and no additional complaints, except as documented, Reports as per HPI, Reports arthralgias, Reports joint swelling, Reports limited range of motion and Reports stiffness Integumentary/Breasts Skin/Breast: Reports system reviewed and no additional complaints, except as documented Neurologic Neurologic: Reports system reviewed and no additional complaints, except as documented Endocrine Endocrine: Reports system reviewed and no additional complaints, except as documented Hematologic/Lymphatic Henatologic/Lymphatic: Reports system reviewed and no additional complaints, except as documented Allergic/Immunologic Allergic/Immunologic: Reports system reviewed and no additional complaints, except as documented Physical Exam General General appearance: alert and in no apparent distress Head Head exam: atraumatic Eye Eye exam: Present normal appearance and PERRL ENT ENT exam: Present normal exam, normal oropharynx, mucous membranes moist and TM's normal bilaterally Respiratory Respiratory exam: Present normal lung sounds bilaterally Cardiovascular Cardiovascular exam: Present regular rate and normal rhythm Extremities Exam Extremities exam: Present tenderness, normal capillary refill and joint swelling Expanded Lower Extremity Exam Right: Top foot image: 2 1. swelling Neurological Exam Neurological exam: Present alert and oriented X3 Psychiatric Psychiatric exam: Present normal affect Skin Skin exam: Present warm, intact and normal color Medical Decision Making Medical Records Medical records reviewed: Yes I reviewed the patient's medical records. Devyn Inquiry Pt receiving controlled substance: No Devyn was queried for this patient: No Vital Signs: 06/16/24 13:10 Temperature 98.3 F Temperature Source Oral Pulse Rate [Left Brachial] 70 Respiratory Rate 18 Blood Pressure [Left Arm] 113/56 L Blood Pressure Mean [Left Arm] 75 Blood Pressure Source [Left Arm] Automatic Cuff Blood Pressure Position [Left Arm] Sitting 02 Sat by Pulse Oximetry 96 Oxygen Delivery Method Room Air Orders (Tests/Meds): ORDERS Category Date Time Status Foot XR right minimum 3 views [XR foot RT min 3V] Stat Exams 06/16/24 13:24 Ordered Radiology Data #1: Image(s): Foot/Toes Image Reviewed: Yes I reviewed the patient's radiology results Preliminary Findings: Normal/NAD
[2024-06-16 13:52] VITALS: BP 113/56; PULSE 70; RESP 18; TEMP 36.8; O2SAT 96
== END 2024-06-16 13:55 | disposition home or self-care (01) ==
PROVIDERS: Emergency Provider Nurse Practitioner Family; PCP Nurse Practitioner Family
DX: M79.671 Pain in right foot (principal); M79.672 Pain in left foot; R22.41 Localized swelling, mass and lump, right lower limb
CPT/HCPCS: 73630; 99212; 99214; G0463

== ENCOUNTER 2024-10-17 12:37 | Day surgery (SDC) | payer MEDICARE, OTHER, SELFPAY ==
[2024-10-16 12:49] VITALS: BMI 34.7
[2024-10-17] MEDS: LACTATED RINGERS 1000ML 1,000 ML 25 ML IV (13:14)
[2024-10-17 13:18] VITALS: BP 162/80; PULSE 70; RESP 18; TEMP 36.2; O2SAT 97
--- NOTE | 2024-10-17 13:23 | P.PNANES_ITS ---
[facility] Disclaimer: The information contained in this section may have been updated after the patient was seen, as this information can be updated by other users. Medical History Dysphagia (HFpEF) heart failure with preserved ejection fraction Chronic GERD Dry ear canal Headache Hypothyroidism Cardiac murmur, unspecified Vasomotor symptoms due to menopause Neuropathy Chest pain Edema Hyperlipidemia Hypertensive disorder Surgical History History of colonoscopy History of esophagogastroduodenoscopy (EGD) History of carpal tunnel release History of hysterectomy Family History Son Cancer Leukemia Family/Other Cancer Colon Ca Other No significant family history Social History (Updated 10/17/24 @ 13:04 by Rhoda Wagner RN) Smoking Status: Never smoker second hand exposure: No alcohol intake: never counseling provided: provider counseling substance use type: denies use current occupational status: other Travel in the last 8 weeks: None household members: spouse housing: house number of children: 2 current occupational exposures/hazards: No caffeine: Yes do you feel safe at home: Yes victim of physical abuse: No victim of emotional abuse: No victim of sexual abuse: No would you like helpful sources: No [facility] Anesthesia Checklist Patient Identification Patient Identification: Verbal (Name & ) Structural Data Admitted From: Home Planned Operative Procedure/s: egd Consent for Planned Operative Procedure(s) Verified: Yes NPO Status Verified Time NPO: 00:00 Additional verifications Anesthesia Reactions: No Hx Blood Transfusions: No Blood Transfusion Reaction: No Airway Assessment Mallampati Score:: Class II C-Spine Mobility Assessed: Yes TMJ Mobility Assessed: Yes Dentition: Edentulous Neurological Assessment Level of Consciousness: Awake, Alert and Appropriate Anesthesia Plan Anesthesia Risk discussed: Yes Anesthesia Plan: Verified ASA Class: III Anesthesia Type: MAC
--- NOTE | 2024-10-17 13:56 | P.HP_ITS ---
History of Present Illness *Admission Date: 10/17/24 *Reason for visit:: Reflux and dysphagia/choking *History of present illness: Mrs. Donnelly is a 69-year-old female who is here for diagnostic upper endoscopy secondary to reflux and dysphagia with swallowing difficulties and choking. The examination is deemed medically necessary for upper endoscopy. The patient has been seen, interviewed and examined prior to the procedure by both myself and the anesthesia provider. [facility] Disclaimer: The information contained in this section may have been updated after the patient was seen, as this information can be updated by other users. Medical History (Updated 10/17/24 @ 13:58 by Desmond Farah II, MD) Dysphagia (HFpEF) heart failure with preserved ejection fraction Chronic GERD Dry ear canal Headache Hypothyroidism Cardiac murmur, unspecified Vasomotor symptoms due to menopause Neuropathy Chest pain Edema Hyperlipidemia Hypertensive disorder Surgical History History of colonoscopy History of esophagogastroduodenoscopy (EGD) History of carpal tunnel release History of hysterectomy Family History Son Cancer Leukemia Family/Other Cancer Colon Ca Other No significant family history Social History (Updated 10/17/24 @ 13:04 by Rhoda Wagner RN) Smoking Status: Never smoker second hand exposure: No alcohol intake: never counseling provided: provider counseling substance use type: denies use current occupational status: other Travel in the last 8 weeks: None household members: spouse housing: house number of children: 2 current occupational exposures/hazards: No caffeine: No do you feel safe at home: Yes victim of physical abuse: No victim of emotional abuse: No victim of sexual abuse: No would you like helpful sources: No Other Medical History Have you received the Flu Vaccine for this season: No Have you received the Pneumonia Vaccine: No Review of Systems Review of Systems Review of systems (narrative): Negative *Cardiovascular Comments: Negative *Gastrointestinal Comments: Negative *Genitourinary Comments: Negative *Musculoskeletal Comments: Negative *Neurologic Comments: Negative Meds Home Medications and Allergies Home Medications ?Medication ?Instructions ?Recorded ?Confirmed ?Type bisoprolol fumarate 5 mg tablet 5 mg PO DAILY 06/16/24 10/17/24 History bumetanide 2 mg tablet 2 mg PO DAILY 06/16/24 10/17/24 History diazepam 5 mg tablet 5 mg PO DAILY 06/16/24 10/17/24 History gabapentin 300 mg capsule 300 mg PO DAILY 06/16/24 10/17/24 History hydrocortisone 0.5 % topical cream 1 applic topical BID 06/16/24 10/17/24 History levothyroxine 125 mcg tablet 125 mcg PO DAILY 06/16/24 10/17/24 History spironolactone 100 mg tablet 100 mg PO DAILY 06/16/24 10/17/24 History atorvastatin 20 mg tablet 20 mg PO DAILY #90 tabs 08/02/24 10/17/24 Rx estradiol 1 mg tablet See Rx Instructions .Route 08/02/24 10/17/24 Rx .COMPLEX #30 tabs losartan 50 mg tablet 50 mg PO DAILY #90 tabs 08/02/24 10/17/24 Rx aspirin 81 mg tablet 81 mg PO DAILY 10/16/24 10/17/24 History semaglutide 3 mg tablet (Rybelsus) 3 mg PO DAILY 10/17/24 10/17/24 History New Prescriptions to Start Prescriptions: Allergies Allergy/AdvReac Type Severity Reaction Status Date / Time cephalexin (From KEFLEX) Allergy Unknown Hives Verified 10/17/24 13:15 morphine (MORPHINE) Allergy Unknown Headache Verified 10/17/24 13:15 oxytetracycline (From Allergy Unknown Hives Verified 10/17/24 13:15 TERRAMYCIN) Exam Data for Last 24 hours Vital signs and Labs for Last 24 Hours: Temp Pulse Resp BP Pulse Ox O2 Del Method 97.2 F L 70 18 162/80 H 97 Room Air 10/17/24 13:18 10/17/24 13:18 10/17/24 13:18 10/17/24 13:18 10/17/24 13:18 10/17/24 13:18 I & O for Last 24 hours: Intake & Output 10/14/24 10/15/24 10/16/24 10/17/24 23:59 23:59 23:59 23:59 Weight 190 lb *Routine HEENT Exam Head: Present normocephalic Eye: Present EOMI and PERRL ENT: Present mucous membranes moist *Routine Neck Exam Neck: Present supple *Routine Respiratory Exam Respiratory: Present CTA bilaterally *Routine Cardiovascular Exam Cardiovascular: Present RRR *Routine Abdominal Exam Abdominal: Present soft and normoactive bowel sounds; Absent tenderness *Routine Rectal Exam Rectal:: deferred *Routine Genitalia Exam Genitalia:: deferred *Routine Extremities Exam Extremities: Absent cyanosis, clubbing or edema *Routine Skin Exam Skin: Present warm; Absent rash *Routine Neurological Exam Neurological: Present alert and oriented X3 Assessment and Plan *Assessment and plan (1) Dysphagia: Status: Acute Category: Medical Code(s): R13.10 - Dysphagia, unspecified (2) GERD (gastroesophageal reflux disease): Status: Acute Category: Medical Code(s): K21.9 - Gastro-esophageal reflux disease without esophagitis (3) Regurgitation of food: Status: Acute Category: Medical Code(s): R11.10 - Vomiting, unspecified (4) Bloating: Status: Acute Category: Medical Code(s): R14.0 - Abdominal distension (gaseous) Plan A/P: 1. Dysphagia and reflux is the preprocedural diagnosis. The patient will be anesthetized/sedated using MAC sedation. The patient has been seen and examined. Cardiac and lung assessment prior to the examination is stable. Proceed with planned diagnostic upper endoscopy
[2024-10-17 13:59] VITALS: O2SAT 98
--- NOTE | 2024-10-17 14:11 | HMH.PROCNOTE ---
[facility] Procedure Note Date: 10/17/24 Time: 14:24 Procedure Note:: Upper Endoscopy Procedure Report: Esophagogastroduodenoscopy with cold biopsies and TTS balloon dilation Endoscopost: Desmond Farah II, MD Referring Physician: SIRISHA Little Date of Procedure: October 17, 2024 Equipment: Olympus GIF 190 standard upper endoscope Sedation: MAC sedation Indications: Mrs. Donnelly is a 69-year-old female who has had longstanding GERD, heartburn and dysphagia. The patient did have an EGD with Oxana Omalley MD on April 26, 2024. The esophagus was dilated to 18 mm with a bougie dilator. There was apparent peptic stenosis noted. The patient did follow-up with SIRISHA Hickman. She has been on esomeprazole daily. She did see Olga GRIMM on 08/22. She reported ongoing symptoms of dysphagia with choking on both solid foods and some liquids. She does have intermittent hoarseness and globus sensation. She does report some epigastric discomfort and dyspepsia. She can get sick after eating. She does have some chronic constipation. Her last colonoscopy was in [address] Ariel George. She did have 2 adenomatous polyps removed at that time. Procedure: Prior to the procedure, a history and physical exam was performed, and patient's medications and allergies were reviewed. The risks, benefits and alternatives of the sedation and procedure were discussed with the patient. All questions were answered and informed consent was obtained. The patient was brought to the procedure room. Patient identification and proposed procedure were verified by the physician and the nurse. The patient was placed in a left lateral decubitus position and the scope was passed under direct vision. Throughout the procedure, the patient's blood pressure, pulse, and oxygen saturations were monitored continuously. The upper GI endoscopy was accomplished without difficulty. The patient tolerated the procedure well. Findings: The scope was passed directly into the upper esophagus and advanced to the third portion of the duodenum. The post bulbar duodenum and duodenal bulb were normal with normal mucosa and conniventes. The scope was withdrawn through a normal duodenal bulb and pylorus into the stomach. There was moderate to marked bile reflux with moderate linear reactive gastropathy of the antrum and body of the stomach. Biopsies were taken from the antrum. Upon retroflexion there was a very small sliding 1 to 2 cm hiatal hernia. The scope was then withdrawn into the esophagus. There was no evidence of reflux esophagitis or Nunez's. There was a serrated Z-line and biopsies were taken at the GE junction. There was also a distal fibrotic ring/Schatzki's ring that was an original diameter of 10 to 11 mm and this was dilated up to 20 mm with a TTS hydrostatic balloon. There were tertiary contractions and evidence of mild esophageal dysmotility. The entire esophagus was dilated to 20 mm. The remainder of the esophageal mucosa was normal. Impression: 1. Schatzki's ring status post dilation to 20 mm (from original diameter of 10 to 11 mm) 2. Nonerosive GERD with mild to moderate esophageal dysmotility and very small sliding 1 to 2 cm hiatal hernia 3. Bile reflux with moderate linear reactive gastropathy/chemical gastropathy of the antrum and body Plan: I will follow-up the biopsies. 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 We will discuss additional treatment options. I do feel that her bile reflux and symptoms of GERD and dyspepsia are related to and driven by lower intestinal gas pressure gradients/high gas pressure buildup resulting in backflow of bile and peptic fluid from the duodenum into the stomach (duodenal reflux). This gas production (carbon dioxide, hydrogen, methane, etc.) from the lower intestinal tract is the byproduct of colonic bacterial fermentation. This colonic fermentation occurs when there is more carbohydrate (dietary starches, sugars and high residue plant fiber) substrate that does not get digested (in the middle or small intestine) or occurs when there is colonic fecal buildup and colonic bacterial overgrowth. This indeed leads to bloating and the gas pressure buildup with gas pressure gradients that do drive backflow, reflux and dyspepsia.
[2024-10-17 14:25] VITALS: BP 100/62; PULSE 76; RESP 16; TEMP 36.3; O2SAT 93
[2024-10-17 14:35] VITALS: BP 93/54; PULSE 70; RESP 16; O2SAT 93
[2024-10-17 14:45] VITALS: BP 99/61; PULSE 72; RESP 16; O2SAT 94
[2024-10-17 14:52] VITALS: BP 120/67; PULSE 74; RESP 16; O2SAT 95
== END 2024-10-17 14:53 | disposition home or self-care (01) ==
PROVIDERS: PCP Nurse Practitioner Family; Visit Provider Internal Medicine Gastroenterology
PROC: 0DJ08ZZ Inspection of Upper Intestinal Tract, Via Natural or Artificial Opening Endoscopic (ICD-10-PCS; CPT 43235; principal; 2024-10-17 14:00)
DX: R13.10 Dysphagia, unspecified (principal); K21.9 Gastro-esophageal reflux disease without esophagitis; R11.10 Vomiting, unspecified; R14.0 Abdominal distension (gaseous); K22.2 Esophageal obstruction; K22.4 Dyskinesia of esophagus; K44.9 Diaphragmatic hernia without obstruction or gangrene; K31.9 Disease of stomach and duodenum, unspecified
CPT/HCPCS: 43239; 43249; 88305; 88342; C1726; J7120

== ENCOUNTER 2024-10-27 17:45 | Emergency (ER) | payer MEDICARE, OTHER, SELFPAY ==
--- NOTE | 2024-10-27 18:42 | XR_ITS ---
PROCEDURE INFORMATION: Exam: XR Left Foot Exam date and time: 10/27/2024 6:44 PM Age: 69 years old Clinical indication: Injury or trauma; Other: Heater fell onto left foot; Other: Pain; Additional info: Fall TECHNIQUE: Imaging protocol: Radiologic exam of the left foot. Views: 3 or more views. COMPARISON: CR XR FOOT LT MIN 3V 02/02/2024 2:03 PM FINDINGS: Bones/joints: No fracture. Normal alignment. Soft tissues: Normal. IMPRESSION: No acute findings.
[2024-10-27 18:50] VITALS: BP 162/75; PULSE 79; RESP 20; TEMP 37.1; O2SAT 96; BMI 39.6
--- NOTE | 2024-10-27 19:07 | EXP.UTC ---
Discharge Plan Disposition Patient Disposition: Home, Self-Care Condition: Good Prescriptions Prescriptions: No Action atorvastatin 20 mg tablet 20 mg PO DAILY Qty: 90 1RF Patient Comments: TAKE ONE TABLET BY MOUTH EVERY DAY losartan 50 mg tablet 50 mg PO DAILY Qty: 90 1RF Patient Comments: TAKE ONE TABLET BY MOUTH EVERY DAY FOR BLOOD PRESSURE estradiol 1 mg tablet See Rx Instructions .ROUTE .COMPLEX Qty: 30 11RF Dose Instruction: TAKE ONE TABLET BY MOUTH EVERY DAY Rx Instructions: TAKE ONE TABLET BY MOUTH EVERY DAY aspirin 81 mg Tablet 81 mg PO DAILY Rybelsus 3 mg tablet 3 mg PO DAILY Rx Instructions: TAKE ONE TABLET BY MOUTH EVERY DAY hydrocortisone 0.5 % cream 1 applic TOPICAL BID Patient Comments: APPLY TOPICALLY TO THE AFFECTED AREA(S) TWICE DAILY NEEDED FOR SKIN irritation DIRECTED bumetanide 2 mg tablet 2 mg PO DAILY Patient Comments: TAKE ONE TABLET BY MOUTH TWICE DAILY spironolactone 100 mg tablet 100 mg PO DAILY Patient Comments: TAKE ONE TABLET BY MOUTH EVERY DAY bisoprolol fumarate 5 mg tablet 5 mg PO DAILY Patient Comments: TAKE ONE TABLET BY MOUTH EVERY DAY levothyroxine 125 mcg tablet 125 mcg PO DAILY Patient Comments: TAKE ONE TABLET BY MOUTH EVERY DAY gabapentin 300 mg capsule 300 mg PO DAILY Patient Comments: TAKE ONE CAPSULE BY MOUTH FOUR TIMES DAILY MAY CAUSE DROWSINESS diazepam 5 mg tablet 5 mg PO DAILY Patient Comments: TAKE ONE TABLET BY MOUTH TWICE DAILY NEEDED Referrals Follow up/Referrals: Ciro De Jesus APRN [Primary Care Provider] - See instructions Activity Restrictions/Add. Instructions Additional Instructions/Restrictions: Elevate Rest Ice Tylenol Motrin as needed for pain Follow-up with Dr. Greenfield on Tuesday If worsens or no improvement return Keep walking boot in place until followed up with miguel Clinical Impressions Clinical Impression: Acute foot pain, Left foot pain Instructions Patient Instructions: DI for Foot Pain Print Language Print Language: Bulgarian Discharge ED Provider: Neal ([facility])Ciro [facility] [place], [place] HPI General Stated complaint: AO 10/27/24 1445 injury left great toe Mode of Arrival: Ambulatory Source of Information: Patient Limitations: No Limitations Time Seen by Provider: 10/27/24 19:07 Description of Symptoms (Recalled from Triage Doc. by RN): PATIENT C/O SWELLING AND BRUISING TO LEFT FOOT AFTER A HEATER FELL ON IT THIS EVENING HEENT Symptoms (Recalled from RN notes): No Resp Symptoms (Recalled from RN notes): No Skin Symptoms (Recalled from RN notes): No MS Symptoms (Recalled from RN notes): Yes Functional Status (Recalled from RN notes): WNL History of Present Illness Provider Complaint: 69-year-old female presents for swelling and bruising to the left foot after dropping a heater on this evening. Related Data Home Medications ?Medication ?Instructions ?Recorded ?Confirmed bisoprolol fumarate 5 mg tablet 5 mg PO DAILY 06/16/24 10/17/24 bumetanide 2 mg tablet 2 mg PO DAILY 06/16/24 10/17/24 diazepam 5 mg tablet 5 mg PO DAILY 06/16/24 10/17/24 gabapentin 300 mg capsule 300 mg PO DAILY 06/16/24 10/17/24 hydrocortisone 0.5 % topical cream 1 applic topical BID 06/16/24 10/17/24 levothyroxine 125 mcg tablet 125 mcg PO DAILY 06/16/24 10/17/24 spironolactone 100 mg tablet 100 mg PO DAILY 06/16/24 10/17/24 aspirin 81 mg tablet 81 mg PO DAILY 10/16/24 10/17/24 semaglutide 3 mg tablet (Rybelsus) 3 mg PO DAILY 10/17/24 10/17/24 Previous Rx's ?Medication ?Instructions ?Recorded atorvastatin 20 mg tablet 20 mg PO DAILY #90 tabs 08/02/24 estradiol 1 mg tablet See Rx Instructions .Route 08/02/24 .COMPLEX #30 tabs losartan 50 mg tablet 50 mg PO DAILY #90 tabs 08/02/24 Allergies Allergy/AdvReac Type Severity Reaction Status Date / Time cephalexin (From KEFLEX) Allergy Unknown Hives Verified 10/17/24 13:15 morphine (MORPHINE) Allergy Unknown Headache Verified 10/17/24 13:15 oxytetracycline (From Allergy Unknown Hives Verified 10/17/24 13:15 TERRAMYCIN) Worker's Comp Is this a Worker's Comp case?: No [facility] Disclaimer: The information contained in this section may have been updated after the patient was seen, as this information can be updated by other users. Medical History , SEMICONDUCTOR TECHNICIAN) Dysphagia (HFpEF) heart failure with preserved ejection fraction Chronic GERD Dry ear canal Headache Hypothyroidism Cardiac murmur, unspecified Vasomotor symptoms due to menopause Neuropathy Chest pain Edema Hyperlipidemia Hypertensive disorder Surgical History , SEMICONDUCTOR TECHNICIAN) History of colonoscopy History of esophagogastroduodenoscopy (EGD) History of carpal tunnel release History of hysterectomy Family History , SEMICONDUCTOR TECHNICIAN) No significant family history Cancer Son Family/Other Social History , SEMICONDUCTOR TECHNICIAN) Smoking Status: Never smoker second hand exposure: No alcohol intake: never counseling provided: provider counseling substance use type: denies use current occupational status: other Travel in the last 8 weeks: None household members: spouse housing: house number of children: 2 current occupational exposures/hazards: No caffeine: No do you feel safe at home: Yes victim of physical abuse: No victim of emotional abuse: No victim of sexual abuse: No would you like helpful sources: No Have you lived/traveled outside US in past 30 days?: No Contact w/someone who lives/traveled outside US past 30 days?: No Exposure to someone with infectious disease in past 14 days?: No Do you have a fever (greater than 100.4 F or 38 C)?: No Have you tested positive for COVID-19: No Exposed to someone with COVID-19 in past 14 days?: No Do you have a sore throat?: No Do you have a cough?: No Do you have any weakness?: No Do you have any diarrhea?: No Are you experiencing any unusual bleeding?: No Do you have any muscle aches/pain?: No Do you have any abdominal pain?: No Are you experiencing loss of taste or smell?: No ROS Obtained: Yes Systems reviewed as appropriate & no additional complaints except as documented Physical Exam General General appearance: alert and in no apparent distress Eye Eye exam: Present normal appearance ENT ENT exam: Present normal exam Respiratory Respiratory exam: Present normal lung sounds bilaterally Cardiovascular Cardiovascular exam: Present regular rate and normal rhythm Expanded Lower Extremity Exam Left: Top foot image: 1. Bruising and swelling Neurological Exam Neurological exam: Present alert and oriented X3 Skin Skin exam: Present warm and intact Medical Decision Making Medical Records Medical records reviewed: Yes I reviewed the patient's medical records. Screening: Per USPSTF and CDC recommendations, given the prevalence of disease in our region, it is our hospital?s policy to screen for HIV and viral Hepatitis for all patients aged 18 and over and those with ongoing risk factors. Devyn Inquiry Pt receiving controlled substance: No Devyn was queried for this patient: No Vital Signs: 10/27/24 18:50 Temperature 98.8 F Temperature Source Oral Pulse Rate [Left Brachial] 79 Respiratory Rate 20 Blood Pressure [Left Arm] 162/75 H Blood Pressure Mean [Left Arm] 104 Blood Pressure Source [Left Arm] Automatic Cuff Blood Pressure Position [Left Arm] Sitting 02 Sat by Pulse Oximetry 96 Oxygen Delivery Method Room Air Orders (Tests/Meds): ORDERS Category Date Time Status Foot XR left minimum 3 views [XR foot LT min 3V] Stat Exams 10/27/24 18:42 Taken Radiology Data #1: Image(s): Foot/Toes Image Reviewed: Yes I reviewed the patient's radiology results Preliminary Findings: No Fracture Seen (Will place in walking boot until officially read)
[2024-10-27 19:32] VITALS: BP 162/75; PULSE 79; RESP 20; TEMP 37.1; O2SAT 96
== END 2024-10-27 19:38 | disposition home or self-care (01) ==
PROVIDERS: Emergency Provider Nurse Practitioner Family; PCP Nurse Practitioner Family
DX: M79.672 Pain in left foot (principal)
CPT/HCPCS: 73630; 99213; G0381

== ENCOUNTER 2024-11-27 12:53 | Outpatient (CLI) | payer MEDICARE, OTHER, SELFPAY ==
--- NOTE | 2024-11-27 12:57 | XR_ITS ---
PROCEDURE INFORMATION: Exam: XR Left Foot Complete; Alignment Exam date and time: 11/27/2024 1:05 PM Age: 69 years old Clinical indication: Pain; Foot; Left; Additional info: Lt lateral hallux FX TECHNIQUE: Imaging protocol: Radiologic exam of the left foot. Views: 3 or more views. COMPARISON: CR XR FOOT LT MIN 3V 10/27/2024 6:44 PM FINDINGS: Bones/joints: Hindfoot-midfoot articulations normal. Metatarsals and phalanges without an acute process. Subtalar and tibiotalar joint normal. Mild degenerative changes at the first metatarsal phalangeal joint. Mild soft tissue swelling about the joint space medially. Metatarsal phalangeal angle of 28 degrees. Spur formation at the insertion of the plantar aponeurosis. Degenerative changes at the midfoot forefoot articulation most pronounced at the base of the 2nd, 3rd and 4th metatarsals. Soft tissues: See Bones/joints finding. IMPRESSION: 1. Mild degenerative changes at the first metatarsal phalangeal joint. Mild soft tissue swelling about the joint space medially. Moderate valgus deformity. 2. Spur formation at the insertion of the plantar aponeurosis.
== END 2024-11-27 23:59 | disposition home or self-care (01) ==
LOC: RAD 12:54
PROVIDERS: PCP Nurse Practitioner Family; Visit Provider Nurse Practitioner
DX: M79.672 Pain in left foot (principal); S99.922A Unspecified injury of left foot, initial encounter
CPT/HCPCS: 73630

== ENCOUNTER 2024-12-05 09:40 | Outpatient (CLI) | payer MEDICARE, OTHER, SELFPAY ==
[2024-12-05 10:40] VITALS: PULSE 73; PULSE 77
[2024-12-05] MEDS: ALBUTEROL 0.083% 2.5 MG/3 ML NEB IH (10:40)
== END 2024-12-05 23:59 | disposition home or self-care (01) ==
LOC: RT 09:44
PROVIDERS: PCP Nurse Practitioner Family; Visit Provider Physician Assistant
DX: R06.09 Other forms of dyspnea (principal)
CPT/HCPCS: 94060; 94640; 94726; 94729; J7613

== ENCOUNTER 2024-12-17 14:05 | Outpatient (CLI) | payer MEDICARE, OTHER, SELFPAY ==
[2024-12-17 15:57] LABS: Chloride 105 mmol/L (98-107); Potassium 4.2 mmoL/L (3.5-5.1); Sodium 140 mmol/L (136-145)
[2024-12-17 16:00] LABS: Anion Gap 12.2 mEq/L (5-15); Blood Urea Nitrogen 21 mg/dl (7-17); Carbon Dioxide 27 mmol/L (22.0-30.0); Estimated Glomerular Filt Rate 71 ml/min (>60); GFR (African American) 86 ML/MIN (>60)
[2024-12-17 16:01] LABS: Calcium 9.2 mg/dl (8.4-10.2); Glucose 87 mg/dl (74-100)
== END 2024-12-17 23:59 | disposition home or self-care (01) ==
LOC: LAB 14:07
PROVIDERS: PCP Nurse Practitioner Family; Visit Provider Physician Assistant
DX: R60.0 Localized edema (principal); R14.0 Abdominal distension (gaseous); R06.09 Other forms of dyspnea
CPT/HCPCS: 36415; 80048

== ENCOUNTER 2025-02-27 12:59 | Emergency (ER) | payer MEDICARE, OTHER, SELFPAY ==
--- NOTE | 2025-02-27 13:04 | ED_ITS ---
Discharge Plan Disposition Patient Disposition: Home, Self-Care Condition: Good Prescriptions Prescriptions: No Action fluticasone propion-salmeterol [Advair Diskus] 250-50 mcg/dose blister with device 1 inh inhalation BID 90 Days Qty: 180 3RF diclofenac sodium 1 % gel 4 g topical QID PRN (Reason: pain ) Qty: 100 2RF Rx Instructions: apply to single, ankle, foot; for foot includes sole/toes/top of foot dapagliflozin propanediol [Farxiga] 10 mg tablet 10 mg PO DAILY Qty: 30 2RF bumetanide 2 mg tablet 2 mg PO DAILY PRN bisoprolol fumarate 5 mg tablet 2.5 mg PO DAILY Qty: 30 5RF losartan 50 mg tablet 50 mg PO DAILY Qty: 90 1RF Patient Comments: TAKE ONE TABLET BY MOUTH EVERY DAY FOR BLOOD PRESSURE estradiol 1 mg tablet See Rx Instructions .ROUTE .COMPLEX Qty: 30 11RF Dose Instruction: TAKE ONE TABLET BY MOUTH EVERY DAY Rx Instructions: TAKE ONE TABLET BY MOUTH EVERY DAY atorvastatin 20 mg tablet 20 mg PO DAILY Qty: 90 1RF Patient Comments: TAKE ONE TABLET BY MOUTH EVERY DAY spironolactone 100 mg tablet 100 mg PO DAILY Qty: 90 1RF Patient Comments: TAKE ONE TABLET BY MOUTH EVERY DAY aspirin 81 mg Tablet 81 mg PO DAILY Rybelsus 3 mg tablet 3 mg PO DAILY Rx Instructions: TAKE ONE TABLET BY MOUTH EVERY DAY hydrocortisone 0.5 % cream 1 applic TOPICAL BID Patient Comments: APPLY TOPICALLY TO THE AFFECTED AREA(S) TWICE DAILY NEEDED FOR SKIN irritation DIRECTED levothyroxine 125 mcg tablet 125 mcg PO DAILY Patient Comments: TAKE ONE TABLET BY MOUTH EVERY DAY gabapentin 300 mg capsule 300 mg PO DAILY Patient Comments: TAKE ONE CAPSULE BY MOUTH FOUR TIMES DAILY MAY CAUSE DROWSINESS diazepam 5 mg tablet 5 mg PO DAILY Patient Comments: TAKE ONE TABLET BY MOUTH TWICE DAILY NEEDED Referrals Follow up/Referrals: Ciro De Jesus APRN [Primary Care Provider] - See instructions Activity Restrictions/Add. Instructions Additional Instructions/Restrictions: I recommend Tylenol alternating with Motrin and ice for symptomatic and supportive relief. If you have continued new or worsening signs or symptoms follow-up with Dr. Greenfield or return to the ER as needed. Clinical Impressions Clinical Impression: Contusion of foot, left Qualifiers: Encounter type: initial encounter Qualified Code(s): S90.32XA - Contusion of left foot, initial encounter Print Language Print Language: Vietnamese Discharge ED Provider: Juan Antonio Tovar HPI <AARON Lunsford - Last Filed: 02/27/25 14:34> General Chief Complaint: Extremity Injury, Lower Stated Complaint: AO 02/27 1245 left foot bruisng/swelling/pain Time Seen by Provider: 02/27/25 13:04 History of Present Illness HPI narrative: Patient presents for evaluation of left foot injury. Patient was moving a bed frame and accidentally dropped the bed frame across her left toes. She is able to bear weight and is neurovascularly intact distally with full range of motion but is very painful. She denies any other injury. Related Data Home Medications ?Medication ?Instructions ?Recorded ?Confirmed diazepam 5 mg tablet 5 mg PO DAILY 06/16/24 12/13/24 gabapentin 300 mg capsule 300 mg PO DAILY 06/16/24 12/13/24 hydrocortisone 0.5 % topical cream 1 applic topical BID 06/16/24 12/13/24 levothyroxine 125 mcg tablet 125 mcg PO DAILY 06/16/24 12/13/24 aspirin 81 mg tablet 81 mg PO DAILY 10/16/24 12/13/24 semaglutide 3 mg tablet (Rybelsus) 3 mg PO DAILY 10/17/24 12/13/24 bumetanide 2 mg tablet 2 mg PO DAILY PRN 12/10/24 12/13/24 Previous Rx's ?Medication ?Instructions ?Recorded estradiol 1 mg tablet See Rx Instructions .Route 08/02/24 .COMPLEX #30 tabs losartan 50 mg tablet 50 mg PO DAILY #90 tabs 08/02/24 diclofenac sodium 1 % topical gel 4 g topical QID PRN pain #100 11/27/24 grams bisoprolol fumarate 5 mg tablet 2.5 mg (1/2 x 5 mg) PO DAILY #30 12/10/24 tabs dapagliflozin propanediol 10 mg 10 mg PO DAILY #30 tabs 12/10/24 tablet (Farxiga) fluticasone 250 mcg-salmeterol 50 1 inh inhalation BID 90 days #180 12/13/24 mcg/dose blistr powdr for ea inhalation (Advair Diskus) atorvastatin 20 mg tablet 20 mg PO DAILY #90 tabs 01/30/25 spironolactone 100 mg tablet 100 mg PO DAILY #90 tabs 02/04/25 Allergies Allergy/AdvReac Type Severity Reaction Status Date / Time cephalexin (From KEFLEX) Allergy Unknown Hives Verified 12/13/24 14:25 morphine (MORPHINE) Allergy Unknown Headache Verified 12/13/24 14:25 oxytetracycline (From Allergy Unknown Hives Verified 12/13/24 14:25 TERRAMYCIN) [facility] <AARON Lunsford - Last Filed: 02/27/25 14:34> [facility] Disclaimer: The information contained in this section may have been updated after the patient was seen, as this information can be updated by other users. Medical History (Updated 02/27/25 @ 14:34 by AARON Lunsford) Asthma Dysphagia (HFpEF) heart failure with preserved ejection fraction Chronic GERD Dry ear canal Headache Hypothyroidism Cardiac murmur, unspecified Vasomotor symptoms due to menopause Neuropathy Chest pain Edema Hyperlipidemia Hypertensive disorder Surgical History History of colonoscopy History of esophagogastroduodenoscopy (EGD) History of carpal tunnel release History of hysterectomy Family History Son Cancer Leukemia Family/Other Cancer Colon Ca Other No significant family history Social History Smoking Status: Never smoker second hand exposure: No alcohol intake: never counseling provided: provider counseling substance use type: denies use current occupational status: other Travel in the last 8 weeks: None household members: spouse housing: house number of children: 2 current occupational exposures/hazards: No caffeine: No do you feel safe at home: Yes victim of physical abuse: No victim of emotional abuse: No victim of sexual abuse: No would you like helpful sources: No Have you lived/traveled outside [place] in past 30 days?: No Contact w/someone who lives/traveled outside US past 30 days?: No Exposure to someone with infectious disease in past 14 days?: No Do you have a fever (greater than 100.4 F or 38 C)?: No Have you tested positive for COVID-19: No Exposed to someone with COVID-19 in past 14 days?: No Do you have a sore throat?: No Do you have a cough?: No Do you have any weakness?: No Do you have any diarrhea?: No Are you experiencing any unusual bleeding?: No Do you have any muscle aches/pain?: No Do you have any abdominal pain?: No Are you experiencing loss of taste or smell?: No Other Medical History Have you received the Flu Vaccine for this season: No Have you received the Pneumonia Vaccine: No <AARON Lunsford - Last Filed: 02/27/25 14:34> ROS Obtained: Yes Systems reviewed as appropriate & no additional complaints except as documented Physical Exam <AARON Lunsford - Last Filed: 02/27/25 14:34> General General appearance: alert and in no apparent distress Respiratory Respiratory exam: Present normal lung sounds bilaterally Cardiovascular Cardiovascular exam: Present regular rate Neurological Exam Neurological exam: Present alert and oriented X3 HEART Score <AARON Lunsford - Last Filed: 02/27/25 14:34> HEART Score HEART Score assessment performed?: No Critical Care <AARON Lunsford - Last Filed: 02/27/25 14:34> Critical Care Time Critical Care Time: No Medical Decision Making <AARON Lunsford - Last Filed: 02/27/25 14:34> Devyn Inquiry Pt receiving controlled substance: No Vital Signs Vital Signs: 02/27/25 13:08 02/27/25 14:39 Temperature 98.4 F 98.1 F Temperature Source Oral Oral Pulse Rate 64 Pulse Rate [Right Radial] 71 Respiratory Rate 14 16 Blood Pressure 132/68 Blood Pressure [Right Arm] 140/75 Blood Pressure Mean [Right Arm] 96 Blood Pressure Source Automatic Cuff Blood Pressure Source [Right Arm] Automatic Cuff Blood Pressure Position Sitting Blood Pressure Position [Right Arm] Sitting 02 Sat by Pulse Oximetry 98 Oxygen Delivery Method Room Air Room Air Response Orders (Tests/Meds): ED MEDICATIONS Discontinued Medications Generic Name Dose Route Start Last Admin Trade Name Freq PRN Reason Stop Dose Admin Acetaminophen 1,000 mg 02/27/25 13:07 02/27/25 13:16 Acetaminophen 500mg Tab PO 02/27/25 13:08 1,000 mg ONCE ONE Administration Ibuprofen 800 mg 02/27/25 13:07 02/27/25 13:15 Ibuprofen 400 Mg Tablet PO 02/27/25 13:08 800 mg ONCE ONE Administration ORDERS Category Date Time Status Foot XR left minimum 3 views [XR foot LT min 3V] Stat Exams 02/27/25 13:07 Completed MDM Narrative Medical Decision Narrative: In summary patient is a 69-year-old female who presents to the emergency department for evaluation of left foot injury. Patient is hemodynamically stable upon arrival, febrile. Physical exam is remarkable for abrasion on the dorsum of the 2nd and 3rd toes with redness and swelling but no obvious ecchymosis or palpable bony deformity. Patient has full range of motion is neurovascularly intact.. Differential diagnosis includes contusion versus fracture. Initial workup will be conducted with film x-rays. Initial interventions include: Ibuprofen. Initial workup reviewed by me and my informal trepidation of her imaging shows no acute fracture prior to radiology read. Please see final read for formal interpretation.. Upon repeat evaluation patient reports improvement after initial intervention. Given this patient is appropriate discharge with symptomatic and supportive care with Tylenol and ibuprofen and close follow-up with her bark press operator if she has continued new or worsening signs or symptoms. <Juan Antonio Tovar MD - Last Filed: 02/28/25 07:24> Vital Signs Vital Signs: 02/27/25 13:08 02/27/25 14:39 Temperature 98.4 F 98.1 F Temperature Source Oral Oral Pulse Rate 64 Pulse Rate [Right Radial] 71 Respiratory Rate 14 16 Blood Pressure 132/68 Blood Pressure [Right Arm] 140/75 Blood Pressure Mean [Right Arm] 96 Blood Pressure Source Automatic Cuff Blood Pressure Source [Right Arm] Automatic Cuff Blood Pressure Position Sitting Blood Pressure Position [Right Arm] Sitting 02 Sat by Pulse Oximetry 98 Oxygen Delivery Method Room Air Room Air Response Orders (Tests/Meds): ED MEDICATIONS Discontinued Medications Generic Name Dose Route Start Last Admin Trade Name Freq PRN Reason Stop Dose Admin Acetaminophen 1,000 mg 02/27/25 13:07 02/27/25 13:16 Acetaminophen 500mg Tab PO 02/27/25 13:08 1,000 mg ONCE ONE Administration Ibuprofen 800 mg 02/27/25 13:07 02/27/25 13:15 Ibuprofen 400 Mg Tablet PO 02/27/25 13:08 800 mg ONCE ONE Administration ORDERS Category Date Time Status Foot XR left minimum 3 views [XR foot LT min 3V] Stat Exams 02/27/25 13:07 Completed MDM Narrative Medical Decision Narrative: In summary patient is a 69-year-old female who presents to the emergency departm ent for evaluation of left foot injury. Patient is hemodynamically stable upon arrival, febrile. Physical exam is remarkable for abrasion on the dorsum of the 2nd and 3rd toes with redness and swelling but no obvious ecchymosis or palpable bony deformity. Patient has full range of motion is neurovascularly intact.. Differential diagnosis includes contusion versus fracture. Initial workup will be conducted with film x-rays. Initial interventions include: Ibuprofen. Initial workup reviewed by me and my informal trepidation of her imaging shows no acute fracture prior to radiology read. Please see final read for formal interpretation.. Upon repeat evaluation patient reports improvement after initial intervention. Given this patient is appropriate discharge with symptomatic and supportive care with Tylenol and ibuprofen and close follow-up with her bark press operator if she has continued new or worsening signs or symptoms. I was consulted by the JEROD, and we discussed the complexity of the problems being addressed. I approved the treatment and management plan for this patient's care in the Emergency Department, thus performing a substantive portion of the medical decision making. Juan Antonio Tovar MD
--- NOTE | 2025-02-27 13:07 | XR_ITS ---
FINAL REPORT TECHNIQUE: Left foot 3 views CLINICAL HISTORY: Dropped a bed frame across toes COMPARISON: None FINDINGS: AP, oblique and lateral views of the left foot were obtained. There is no acute fracture or dislocation. Degenerative joint disease is present, most pronounced in the midfoot. Soft tissues are unremarkable. IMPRESSION: Degenerative change, with no acute osseous abnormality of the left foot. Reviewed, Interpreted and Dictated by Angelina Alex MD Transcribed by Alicia Lora Authenticated and [facility]
[2025-02-27 13:08] VITALS: BP 140/75; PULSE 71; RESP 14; TEMP 36.9; O2SAT 98; BMI 35.9
[2025-02-27] MEDS: IBUPROFEN 400 MG TABLET 800 MG PO (13:15)
[2025-02-27] MEDS: ACETAMINOPHEN 500MG TAB 1000 MG PO (13:16)
[2025-02-27 14:39] VITALS: BP 132/68; PULSE 64; RESP 16; TEMP 36.7; O2SAT 96
== END 2025-02-27 14:40 | disposition home or self-care (01) ==
PROVIDERS: Emergency Provider Emergency Medicine; PCP Nurse Practitioner Family
DX: S90.32XA Contusion of left foot, initial encounter (principal); W20.8XXA Other cause of strike by thrown, projected or falling object, initial encounter
CPT/HCPCS: 73630; 99283

== ENCOUNTER 2025-04-11 13:15 | Outpatient (CLI) | payer MEDICARE, OTHER, SELFPAY ==
--- NOTE | 2025-04-11 13:23 | XR_ITS ---
FINAL REPORT CLINICAL HISTORY: CHRONIC COUGH COMPARISON: 01/16/2024 FINDINGS: PA and lateral views of the chest were obtained. The cardiac and mediastinal silhouettes are within normal limits. The lungs are clear. There is no pleural effusion or pneumothorax. No acute osseous abnormality is identified. IMPRESSION: No radiographic evidence of acute cardiac or pulmonary disease. Reviewed, Interpreted and Dictated by Angelina Alex MD Transcribed by Alicia Lora Authenticated and [facility]
== END 2025-04-11 23:59 | disposition home or self-care (01) ==
LOC: RAD 13:16
PROVIDERS: PCP Nurse Practitioner Family; Visit Provider Nurse Practitioner Family
DX: R05.3 Chronic cough (principal)
CPT/HCPCS: 71046

== ENCOUNTER 2025-04-15 13:58 | Outpatient (CLI) | payer MEDICARE, OTHER, SELFPAY ==
--- OUTSIDE RECORDS SUMMARY | 2025-02-09 17:30 | XMS_ITS ---
Author Organization [facility] Address [address] [place] [address] Care Team Providers Care Customer Support Technician Name Role Phone Phill Michael Primary Care Provider Phill Michael Unavailable Unavailable Migration, Provider Unavailable Unavailable Allergies Allergen (clinical drug ingredient) Drug/Non Drug Allergy documented on EMR Reaction Allergy Type Onset Date Status KEFLEX (uncoded) Unknown Allergy Act jonathan morphine Morphine Unknown Drug Allergy Active REASON FOR VISIT [facility] To [facility] Conversion Encounter Medications Medication SIG (Take, Route, Frequency, Duration) Notes Start Date End Date Status hydroCHLOROthiazide 12.5 MG 1 tab(s) ora lly once a day for 30 day(s) Active Atorvastatin Calcium 20 MG 1 tab(s) oral ly once a day for 30 day(s) Active Levoxyl 125 MCG 1 tab(s) orally once a day for 30 day(s) Active Montelukast Sodium 10 MG 1 tab(s) orally once a day for 30 day(s) Active Escitalopram Oxalate 20 MG 1 tab(s) oral ly once a day for 30 day(s) Active Meloxicam 7.5 MG TAKE ONE TABLET BY M OUTH EVERY DAY for 90 Active Aspirin 81 MG 1 tab(s) orally once a day for 30 day(s) Active Gabapentin 300 MG 1 cap(s) orally 4 ti mes daily for 30 days 09/28/2022 Active Losartan Potassium 50 MG 1 tab(s) orally once a day for 30 days Active Bisoprolol Fumarate 5 MG 1 tab(s) orally once a day for 30 day(s) Active Encounters Encounter Location Date Provider Diagnosis [facility] [address] [place] [address] 02/09/2025 Provider Migration Plan Of Treatment Medication Medication Name Sig Start Date Stop Date Notes hydroCHLOROthiazide 12.5 MG 1 tab(s) ora lly once a day for 30 day(s) Montelukast Sodium 10 MG 1 tab(s) orally once a day for 30 day(s) Escitalopram Oxalate 20 MG 1 tab(s) oral ly once a day for 30 day(s) Meloxicam 7.5 MG TAKE ONE TABLET BY M OUTH EVERY DAY for 90 Gabapentin 300 MG 1 cap(s) orally 4 ti mes daily for 30 days 09/28/2022 Losartan Potassium 50 MG 1 tab(s) orally once a day for 30 days Bisoprolol Fumarate 5 MG 1 tab(s) orally once a day for 30 day(s) Progress Notes * AMADO JulisaDOB: (69 yo F)Acc No.[id number]:02/09/2025 Patient: Julisa MCCLURE Provider: Karie stallings Migration :1955 A ge:69 Y S ex:Female Date:02/09/2025 Address:[address] [place] [address] [place] , [address], [place], [id number] Pcp:Phill Michael Subjective: * Chief Complaints: * [facility] En[facility]. * Medical History: * Medications: T aking Aspirin 81 MG Tablet Delayed Release 1 tab(s) orally once a day , Taking Atorvastatin Calcium 20 MG Tablet 1 tab(s) orally once a day , Taking Levoxyl 125 MCG Tablet 1 tab(s) orally once a day * Allergies: M orphine: Side Effects, KEFLEX. Objective: * Vitals: Assessment: Plan: * Treatment: * * Electronic signature of Musa mendez Migration on 04/15/2025 at 02:03 PM EDT Sign off status: Pending * Provider: Karie stallings Migration Date: 0 02/09/2025 Generated for Khanh rollins/Pan/Sarah on: 0 04/15/2025 02:03 PM EDT
--- NOTE | 2025-04-15 | XR_ITS ---
FINAL REPORT CLINICAL HISTORY: PAIN..fall out of bed 2 days ago COMPARISON: None FINDINGS: RIGHT HAND Three views demonstrate no acute fracture or dislocation. The visualized joint spaces are normally aligned. There are moderate hypertrophic changes of the basilar joint, with moderately advanced degenerative change of the first interphalangeal joint. Dorsal soft tissue swelling is present. IMPRESSION: Degenerative change, with no acute bony abnormality. Reviewed, Interpreted and Dictated by Barrera Sethi MD Transcribed by Alicia Lora Authenticated and [facility]
--- OUTSIDE RECORDS SUMMARY | 2025-04-15 14:03 | XMS_ITS | Clinical Summary ---
Author Organization [facility] Address [address] [place] [address] Care Team Providers Care Table Worker Packager Name Role Phone Ciro De Jesus SENIOR USER EXPERIENCE ARCHITECT Primary Care Provider [phone] Family History Medical History Relation Name Comments Diabetes Other 1 Glaucoma Other 2 Other cancer Son Relation Name Status Comments Other 1 Other 2 Son Social History Tobacco Use Types Packs/Day Years Used Date Smoking Tobacco: Never Alcohol Use Standard Drinks/Week Comments No 0 (1 standard drink = 0.6 oz pur e alcohol) Comments Unknown Sex and Gender Information Value Date Recorded Sex Assigned at Not on file Legal Sex Female 7:45 PM EDT Gender Identity Not on file Sexual Orientation Not on file Last Filed Vital Signs Vital Sign Reading Time Taken Comments Blood Pressure 130/72 07/22/2020 9:04 AM EDT Pulse 73 07/12/2019 10:32 AM EDT Temperature 36.5 C (97.7 F) 07/12/2019 10:32 AM EDT Respiratory Rate 20 07/12/2019 10:3 2 AM EDT Oxygen Saturation - - Inhaled Oxygen Concentration - - Weight 79.8 kg (175 lb 14.8 oz) 07/22/2020 9:04 AM EDT Height 154.9 cm (5' 1 ) 07/22/2020 9:04 AM EDT Body Mass Index 33.24 07/22/2020 9:04 AM EDT Plan of Treatment Health Maintenance Due Date Last Done Comments [facility]-Bone Density Scan 1955 [facility]-Depression Screening 1955 [facility]-/Child/Adol SDOH Screenings 1955 [facility]- SDOH Screenings 1973 [facility]-Adult SDOH Screenings 1973 CT Colonography 2000 Colonoscopy 2000 FIT-DNA 2000 FIT 2000 FOBT 2000 Sigmoidoscopy 2000 [facility]-Colorectal Cancer Screening 2000 [facility]-Zoster Vaccines (1 of 2) 2005 [facility]-Pneumococcal Vaccine: 50+ Years (2 of 2 - PCV) 07/10/2021 07/10/2020 [id number]-32 Vaccine (3 - season) 2024 02/18/2021, 01/21/2021 [facility]-Influenza Vaccine (Season Ended) 2025 08/30/2021, 08/02/2019 [facility]-DTaP,Tdap,and Td Vaccines (4 - Td or Tdap) 03/02/2030 03/02/2020, 07/31/2018, 12/15/2014, Additional history exists [facility]-RSV Vaccine: 60+ Years or (1 - 1-dose 75+ series) 2030 HPV Vaccines Aged Out No longer eligi ble based on patient's age to complete this topic [facility]-HIB Vaccines Aged Out No longer e ligible based on patient's age to complete this topic [facility]-Hepatitis A Vaccines Aged Out No longer eligible based on patient's age to complete this topic [facility]-IPV Vaccines Aged Out No longer e ligible based on patient's age to complete this topic [facility]-Rotavirus Vaccines Aged Out No lo nger eligible based on patient's age to complete this topic Insurance [employer] [facility] MEDICAID MEDICARE Member Subscriber Plan / Payer (Ef fective 2020-Present) Name:Julisa Donnelly Member ID:[id number] Relation to Subscriber:Self Name:Julisa Dnonelly Subscriber ID:[id number] Payer ID:MEDICARE Group ID:Not on file Type:Medicare Address: [place] [phone] Care Teams Table Worker Packager Relationship Specialty Start Date End Date Ciro De Jesus APRN [address] [place] [address] PCP - General 03/20/21
--- OUTSIDE RECORDS SUMMARY | 2025-04-15 14:03 | XMS_ITS | Continuity of Care Document ---
Author Organization [facility] Address [address] [place] [id number] Care Team Providers Care Laborer Road Name Role Phone CIELO DE JESUS Primary Care Provider Assessment No assessment recorded. Plan of Treatment Reminders Order Date Submit Date Provider Last Modified By Organization Details Last Modified Time Details Appointments Follow Up 20 2024 02:20P M Cielo De Jesus APRN Not available Not available Not available Lab HbA1c (hemoglob in A1c), blood 2024 025 [facility], [address] [place] [address], [phone], 04/09/2025 18:39:55 Referral None recorded. Procedures None recorded. Surgeries None recorded. Imaging XR, chest, 2 view 2024 025 [facility] (X-Ray), [address] [place] [address] [address], [place], [address], 04/11/2025 14:57:36 home sleep study 2024 025 [facility] (Scheduling), [address] [address], [place] Garcia, [address], 04/09/2025 17:55:32 Medication Orders bisoprolo l fumarate 5 mg tablet 2024 025 [facility], [address] [address] [address], [place], [place], [id number], 04/09/2025 17:48:54 hydrochlo rothiazid e 12.5 mg capsule 2024 025 [facility], [address] [place] [address], [place], [id number], 04/09/2025 17:48:52 losartan 50 mg tablet 2024 025 [facility], [address] [place] [address] [place], [id number], 04/09/2025 17:48:53 omeprazol e 40 mg capsule,d elayed release 2024 025 [facility], [address] [place] [address], [place], [id number], 04/09/2025 17:48:50 atorvasta tin 20 mg tablet 2024 025 [facility], [address] [place] [address] [place], [id number], 04/09/2025 17:48:49 estradiol 1 mg tablet 2024 025 [facility], [address] [place] [address], [place], [id number], 04/09/2025 17:48:53 diazepam 5 mg tablet 2024 025 [facility], [address] [place] [address] [place], [id number], 04/09/2025 17:58:57 Lexapro 5 mg tablet 2024 025 [facility], [address] [place] [address] [place], [id number], 04/09/2025 17:58:56 albuterol sulfate HFA 90 mcg/actua tion aerosol inhaler 2024 025 [facility], [address] [place] [address], [id number], 04/09/2025 17:48:50 meloxicam 15 mg tablet 2024 025 [facility], [address] [place] [address], [id number], 04/09/2025 17:48:54 levothyro xine 125 mcg tablet 2024 025 [facility], [address] [place] [address], [id number], 04/09/2025 17:48:49 gabapenti n 300 mg capsule 2024 025 [facility], [address] [place] [address] [address] [facility], [place], [id number], 04/09/2025 17:51:52 Patient TargetsNo targets recorded. Patient InstructionsNo instructions recorded. Reason for Referral None Reported. Results Created Date Observation Date Name Description Value Unit Range Abnormal Flag Note LastModifiedBy Organization Detail LastModifiedTime 04/09/20 25 04/09/2025 HbA1c (hemo globi n A1c), blood HbA1C 5.3 % Not Available [address], [place], [address], 04/09/2025 17:33:41 04/11/20 25 04/11/2025 XR, chest , 2 view No observ ation record ed. [address], [place], [address], 04/12/2025 16:44:24 Result Notes None recorded. Problems Name Problem SNOMED Code Status Onset Date Resolution Date Notes Provider Name and Address Organization Details Recorded Time Chronic back pain 481104254 Active 2021 Cielo De Jesus APRN [address], [place], [address], [place] - [facility] 2 10:35:50 Hypertensive disorder 54707621 Active 2021 Cielo De Jesus BUZZLE BUFFER [address], [place], [address], [place] [facility] 2 10:36:04 Gastroesophage al reflux disease 748631764 Active 2021 Cielo De Jesus, BUZZLE BUFFER [address], [place], [address], [place] [facility] 2 10:35:52 Hypothyroidism 09192386 Active 2021 Cielo De Jesus APRN [address], [place], [address], [place] [facility] 2 10:36:07 Hormone replacement therapy Active 2021 Cielo De Jesus APRN [address], [place], [address], [place] [facility] 2 10:36:14 Asthma 987670505 Active 2021 Cielo De Jesus APRN [address], [place], [address], [place] [facility] 2 10:35:47 Anxiety 68645479 Active 2021 Cielo De Jesus APRN [address], [place], [address], [place] [facility] 2 10:35:45 Neuropathy 091273095 Active 2022 Cielo De Jesus APRN [address], [place], [address], [place] [facility] 3 12:12:49 Problem Notes None recorded. Procedures Surgical History Date Name Laterality Status Provider Name and Address Organization Details Recorded Time 08/21/20 Advance Care Planning completed Mae Low [place] - [facility] 08/21/2024 13:18:45 08/21/20 Functional Status Assessed completed Mae Low [place] [facility] 08/21/2024 13:18:45 Cholecystectomy, laparoscopic completed Diane Stears [place] - [facility] 08/09/2022 15:53:31 Hysterectomy completed Diane Stears [place] [facility] 08/09/2022 15:53:38 Tubal Ligation completed Diane Stears [place] [facility] 08/09/2022 15:53:43 Breast Biopsy completed Diane Stears [place] [facility] 08/09/2022 15:53:48 Imaging Results None recorded. Procedure Notes None recorded. Medical Equipment None Reported. Allergies Allergen ID Allergen Name Allergen Category Reaction Reaction Severity Criticality Documentation Date Start Date Code Code System Note Provider Name and Address Organization Details Recorded Time 203629 Keflex medicatio n Not available Not available Not available 08/09/202228224 7 Rx[facility] Diane Stears null, [place] - [facility] 2 15:46:17 752177 morphine medicatio n Not available Not available Not available 08/09/2022 7052 RxNorm Diane Stears null, [place] - [facility] 2 15:46:23 [id number] Terramyci n medicatio n Not available Not available Not available 08/09/202251151 4 RxNorm Diane Stears null, [place] - [facility] 2 15:46:53 Medications Name Sig Start Date Stop Date Status Note LastModified by Organization Details LastModified Time losartan 50 mg tablet TAKE ONE TABLET BY MOUTH EVERY DAY 2024 active Not Available Not Available Not Avai lable amoxicillin 500 mg capsule TAKE ONE CAPSULE BY MOUTH TWICE DAILY FOR 10 DAYS -- FINISH ALL MEDICINE -- 11/29 completed Not Available Not Available Not Available furosemide 40 mg tablet TAKE ONE TABLET BY MOUTH EVERY DAY 11/29 completed Not Available Not Available Not Available hydrocortis one 0.5 % topical cream APPLY TOPICALLY TO THE AFFECTED AREA(S) TWICE DAILY NEEDED FOR SKIN irritatio n DIRECTED active Not Available Not Available No t Available fluticasone 250 mcg-salmete rol 50 mcg/dose blistr powdr for inhalation INHALE 1 PUFF BY MOUTH TWICE DAILY --RINSE MOUTH AFTER USE-- active Not Available Not Available No t Available nystatin 100,000 unit/mL oral suspension SWISH AND swallow 1 TEASPOONF UL (5 ML) BY MOUTH FOUR TIMES DAILY FOR 7 DAYS 04/09 completed Not Available Not Available Not Available atorvastati n 20 mg tablet TAKE ONE TABLET BY MOUTH EVERY DAY 2024 active Not Available Not Available Not Avai lable ipratropium 0.5 mg-albutero l 3 mg (2.5 mg base)/3 mL nebulizatio n soln USE 3 ML IN NEBULIZER EVERY 8 HOURS active Not Available Not Available No t Available bumetanide 2 mg tablet TAKE ONE TABLET BY MOUTH TWICE DAILY active Not Available Not Available No t Available orlistat 120 mg capsule 11/29 completed Not Available Not Available Not Available azithromyci n 250 mg tablet TAKE 2 TABLETS BY MOUTH ON DAY 1, THEN TAKE 1 TABLET DAILY ON DAYS 2 THROUGH 5 04/09 completed Not Available Not Available Not Available amoxicillin 250 mg-potassiu m clavulanate 62.5 mg/5 mL oral suspension take 10 ML BY MOUTH EVERY TWELVE HOURS FOR 10 DAYS -- FINISH ALL MEDICINE -- --TAKE WITH FOOD-- 05/27 completed Not Available Not Available Not Available hydrocodone 5 mg-acetamin ophen 325 mg tablet TAKE ONE TABLET BY MOUTH TWICE DAILY FOR 2 DAYS 08/29 completed Not Available Not Available Not Available meloxicam 15 mg tablet Take 1 tablet every day by oral route as needed. 2024 active Not Available Not Available Not Avai lable prednisone 20 mg tablet TAKE ONE TABLET BY MOUTH TWICE DAILY FOR 5 DAYS --TAKE WITH FOOD-- 08/21 completed Not Available Not Available Not Available isosorbide mononitrate ER 30 mg tablet,exte nded release 24 hr TAKE ONE TABLET BY MOUTH EVERY DAY 08/09 completed Not Available Not Available Not Available spironolact one 100 mg tablet TAKE ONE TABLET BY MOUTH EVERY DAY active Not Available Not Available No t Available gabapentin 400 mg capsule TAKE ONE CAPSULE BY MOUTH THREE TIMES DAILY 06/11 completed Not Available Not Available Not Available omeprazole 40 mg capsule,del ayed release Take 1 capsule every day by oral route. 2024 active Not Available Not Available Not Avai lable aspirin 81 mg tablet,jean yed release TAKE ONE TABLET BY MOUTH EVERY DAY 2022 active Not Available Not Available Not Avai lable doxycycline monohydrate 100 mg tablet TAKE ONE TABLET BY MOUTH TWICE DAILY FOR 7 DAYS -- FINISH ALL MEDICINE -- 08/09 completed Not Available Not Available Not Available spironolact one 25 mg tablet TAKE ONE TABLET BY MOUTH EVERY DAY 11/29 completed Not Available Not Available Not Available bisoprolol fumarate 5 mg tablet TAKE ONE TABLET BY MOUTH EVERY DAY 2024 active Not Available Not Available Not Avai lable meloxicam 7.5 mg tablet TAKE ONE TABLET BY MOUTH EVERY DAY 09/06 completed Not Available Not Available Not Available amoxicillin 875 mg tablet TAKE ONE TABLET BY MOUTH TWICE DAILY FOR 7 DAYS -- FINISH ALL MEDICINE -- 08/09 completed Not Available Not Available Not Available potassium chloride ER 20 mEq tablet,exte nded release(par t/cryst) TAKE ONE TABLET BY MOUTH EVERY DAY active Not Available Not Available No t Available estradiol 1 mg tablet TAKE ONE TABLET BY MOUTH EVERY DAY 2024 active Not Available Not Available Not Avai lable furosemide 80 mg tablet TAKE ONE TABLET BY MOUTH EVERY DAY active Not Available Not Available No t Available benzonatate 100 mg capsule TAKE ONE CAPSULE BY MOUTH THREE TIMES DAILY NEEDED FOR cough 11/29 completed Not Available Not Available Not Available levothyroxi ne 125 mcg tablet TAKE ONE TABLET BY MOUTH EVERY DAY 2024 active Not Available Not Available Not Avai lable hydrochloro thiazide 12.5 mg capsule TAKE ONE CAPSULE BY MOUTH EVERY DAY 2024 active Not Available Not Available Not Avai lable gabapentin 300 mg capsule TAKE ONE CAPSULE BY MOUTH FOUR TIMES DAILY active Not Available Not Available No t Available budesonide 0.25 mg/2 mL suspension for nebulizatio n USE 2 ML IN NEBULIZER TWICE DAILY active Not Available Not Available No t Available montelukast 10 mg tablet TAKE ONE TABLET BY MOUTH EVERY DAY 09/06 completed Not Available Not Available Not Available methylpredn isolone 4 mg tablets in a dose pack TAKE ACCORDING TO PACKAGE INSTRUCTI ONS --TAKE WITH FOOD-- -- FINISH ALL MEDICINE -- 08/21 completed Not Available Not Available Not Available albuterol sulfate HFA 90 mcg/actuati on aerosol inhaler INHALE 1 PUFF BY MOUTH EVERY 6 HOURS NEEDED FOR SHORTNESS OF BREATH OR wheezing 2024 active Not Available Not Available Not Avai lable losartan 100 mg tablet TAKE ONE TABLET BY MOUTH EVERY DAY active Not Available Not Available No t Available spironolact one 50 mg tablet TAKE ONE TABLET BY MOUTH EVERY DAY 06/11 completed Not Available Not Available Not Available diazepam 5 mg tablet TAKE ONE TABLET BY MOUTH TWICE DAILY NEEDED active Not Available Not Available No t Available escitalopra m 10 mg tablet TAKE ONE TABLET BY MOUTH EVERY DAY 08/09 completed Not Available Not Available Not Available escitalopra m 20 mg tablet TAKE ONE TABLET BY MOUTH EVERY DAY 02/21 completed Not Available Not Available Not Available bupropion HCl XL 150 mg 24 hr tablet, extended release TAKE ONE TABLET BY MOUTH EVERY DAY 08/09 completed Not Available Not Available Not Available Lexapro 5 mg tablet Take 1 tablet every day by oral route at bedtime. 2024 active Not Available Not Available Not Avai lable diclofenac 1 % topical gel Apply 2 grams topically TO THE affected AREA FOUR TIMES DAILY active Not Available Not Available No t Available ClearLax 17 gram/dose oral powder 09/06 completed Not Available Not Available Not Available Certavite-A ntioxidant 18 mg-400 mcg tablet TAKE ONE TABLET BY MOUTH EVERY DAY active Not Available Not Available No t Available Creon 36,000 unit-114,00 0 unit-180,00 0 unit capsule,del ayed release TAKE ONE CAPSULE BY MOUTH UP TO FOUR TIMES DAILY take with meals and/or snacks active Not Available Not Available No t Available Breo Ellipta 100 mcg-25 mcg/dose powder for inhalation INHALE 1 PUFF BY MOUTH EVERY DAY 08/09 completed Not Available Not Available Not Available Farxiga 10 mg tablet TAKE ONE TABLET BY MOUTH EVERY DAY active Not Available Not Available No t Available guaifenesin ER 600 mg tablet, extended release 12 hr take 2 tablets BY MOUTH 2 TIMES A DAY active Not Available Not Available No t Available Jardiance 10 mg tablet TAKE ONE TABLET BY MOUTH EVERY DAY active Not Available Not Available No t Available Rybelsus 3 mg tablet TAKE ONE TABLET BY MOUTH EVERY DAY active Not Available Not Available No t Available Wegovy 0.25 mg/0.5 mL subcutaneou s pen injector Inject 0.25 mg every week by subcutane ous route. 04/09 completed Not Available Not Available Not Available Vitals Date Recorded Body height Provider Name an d Address Organization Details Last Updated DateTime 04/09/2025 153.67 cm Mae Low [place] - [facility] 0 04/09/2025 14:02:48 Date Recorded Heart rate Oxygen saturation Oxygen saturation in Arterial blood by Pulse oximetry Respiratory rate Body temperature Body mass index (BMI) Body weight Systolic blood pressure Diastolic blood pressure Provider Name and Address Organization Details Last Updated DateTime 86 /min 97 % 97 % 18 /min 98 [degF] 35.7 kg/m2 66083.1 8 g 118 mm[Hg] 68 mm[Hg] Diane Li [place] - [facility] 14:13:46 Social History Question Answer Notes LastModified by Organizat ion Details LastModified Time Tobacco Smoking Status Never Smoker Diane Li null, [place] - [facility] 08/09/2022 15:52:10 Do You Have An Advance Directive? No Information n ot available 08/09/2022 Are You Blind Or Do You Have Difficulty Seeing? No Information n ot available 08/09/2022 What Is Your Level Of Caffeine Consumption? Moderate Information not available 08/09/2022 In The 14 Days Before Symptom Onset, Have You Had Close Contact With A Laboratory-confirm ed COVID-19 While That Case Was Ill? No Information n ot available 08/29/2023 In The 14 Days Before Symptom Onset, Have You Had Close Contact With A Person Who Is Under Investigation For COVID-19 While That Person Was Ill? No Information not available 08/29/2023 Have You Been To An Area Known To Be High Risk For COVID-19? No Information not available 08/29/2023 Are You Deaf Or Do You Have Serious Difficulty Hearing? No Information not available 08/09/2022 What Type Of Diet Are You Following? REGULAR Information n ot available 08/09/2022 Have You Processed Blood Or Body Fluids From An Ebola Virus Disease Patient Without Appropriate PPE? No Information not available 08/29/2023 Do You Reside In Or Have You Traveled To An Area Where Ebola Virus Transmission Is Active? No Information not available 08/29/2023 What Is The Highest Grade Or Level Of School You Have Completed Or The Highest Degree You Have Received? [id number] Information not available 08/09/2022 Have There Been Any Changes To Your Family Or Social Situation? No Information no t available 08/09/2022 What Is The Fluoride Status Of Your Home? Unknown Information not available 08/09/2022 Have You Recently Or Are You Planning To Travel To An Area With Zika Virus? No Information not available 08/29/2023 Do You Have A Medical Power Of Sweet Dough Mixer? No Information not available 08/09/2022 What Was The Date Of Your Most Recent Tobacco Screening? 06/11/2024 Information not available 06/11/2024 How Many Children Do You Have? 2 Information not available 08/09/2022 What Is Your Relationship Status? Information not available 08/09/2022 Do You Have Smoke And Carbon Monoxide Detectors In Your Home? Yes Information not available 08/09/2022 Are You Passively Exposed To Smoke? Yes Information no t available 08/09/2022 Has Tobacco Cessation Counseling Been Provided? No Information not available 01/06/2023 Do You Have Difficulty Walking Or Climbing Stairs? No Information not available 08/09/2022 Sex: Female Functional Status Question Answer Note LastModified by Organizat ion Details LastModified Time Do you use any illicit or recreational drugs? No Information not available 08/09/2022 Do you or have you ever used any other forms of tobacco or nicotine? No Information not available 01/06/2023 What is your level of alcohol consumption? None Information not available 08/09/2022 Are you currently employed? No Information not available 08/09/2022 Do you have transportation difficulties? No Information not available 08/09/2022 Are you able to walk? YESWOREST Information not available 08/09/2022 Do you have difficulty doing errands alone? No Information not available 08/09/2022 Are you able to care for yourself? Yes Information not available 08/09/2022 Do you have difficulty dressing or bathing? No Information not available 08/09/2022 What is your exercise level? None Information not available 08/09/2022 Mental Status Question Answer Note LastModified by Organizat ion Details LastModified Time Do you feel stressed (tense, restless, nervous, or anxious, or unable to sleep at night)? [id number] Information not available 08/09/2022 Do you have difficulty concentrating, remembering or making decisions? No Information no t available 08/09/2022 Family History Relationship Description Onset Age of this Age Resolved Age Notes LastModified by Organization Details LastModified Time Father Heart disease bstears Not available 2021 15:51:27 Father Pulmonary emphysema bstears Not available 2021 15:51:43 Medical History No medical history recorded. Gynecological History Statement/Question Response Date of Last Colonoscopy Date of Last Mammogram Most Recent Bone Density Menses Monthly N Date of Last Pap Smear LMP Unknown Obstetrics History GPAL:G 0 P 0 0 0 0 Immunizations Vaccine Type Date Status Note Provider Nam e and Address Organization Details Recorded Time Tdap 3 completed Cielo De Jesus, BUZZLE BUFFER [address], [place], [address], [place] - [facility] 03/29/2023 14:30:35 Influenza, split virus, quadrivalent, preservative 3 completed Cielo De Jesus APRN [address], [place], [address], [place] - [facility] 08/29/2023 14:14:30 Influenza, high-dose, trivalent, PF 4 completed Mae casey [place] - [facility] 09/10/2024 16:09:21 COVID-19, mRNA, LNP-S, bivalent, PF, 50 mcg/0.5 mL or 25mcg/0.25 mL dose 2 completed Not Available [facility] 11/29/2023 13:59:51 Influenza, high-dose, quadrivalent, PF 2 completed Mae casey, [place] - [facility] 09/06/2022 15:05:23 Past Encounters Encounter ID Performer Location Encounter Start Date Encounter Closed Date Diagnosis/Indication Diagnosis SNOMED-CT Code Diagnosis ICD10 Code Diagnosis Note [id number] Cielo De Jesus APRN [facility] [address] [place] [address] 04/09/2025 13:07:58 04/09/2025 16:01:27 Neuropathy 256302310 G62.9 Pt compliant with plan of careKasper reviewedme dication compliance discussedL ast uds:01/08/25 Control substance agreement on file Gastroesop hageal reflux disease 085842773 K21.9 Hypertensive disorder 38 974560 I10 Chronic back pain 869672 002 G89.29 Hypothyroidism 93785498 E03.9 Asthma 644594158 J45.90 9 Hypercholesterolemia 136 12000 E78.00 Anxiety 37040632 F41.9 Pt compliant with plan of careKasper reviewed and appropriat emedicatio n compliance discussedC ontrol substance agreement on file Reactive d epression (situational) 34659561 F43.21 Hormone re placement therapy 215201253 Z79.890 needs appointmen t with deck engineer Chronic cough 42195786 R 05.3 Snoring 36990516 R06.83 Prediabetes 767928392 R7 3.03 Health Concerns Section Related Observation LastModified by Organization Detai ls LastModified Time None Recorded Concern Status LastModified by Organization Details LastModified Time None Recorded Payers Encounter Date Sequence Insurance Name Policy Number Policy Landon Covered Member ID Landon Member ID Guarantor Name 04/09/2025 1 [place] Julisa Liz Donnelly [id number] Julisa Donnelly 04/09/2025 2 [facility] (MEDICAID HMO) Julisa Cony [id number] SonyaAlka Donnelly Notes Date Note Type Note Provider Name and Address Organization Details Recorded Time 04/09/2025 text/html 69 yr old female presents for a follow up on neuropathy,anxiety , hypertension and other chronic illnesses.needs refills on all medspt states she feels tired all the time and states she snorespt states she was told by eye md she has started having dm in her eyespt states she is still coughingpt states anxiety med and neuropathy meds are working well Cielo De Jesus APRN [address], [place], [address], [place] - [facility] 04/09/2025 17:34:46 OBGyn Episode No OBEpisode recorded.
--- OUTSIDE RECORDS SUMMARY | 2025-04-15 14:03 | XMS_ITS | Data Portability ---
Author Organization [facility] Address [address] [place] [address] Care Team Providers Care Vice Principal Name Role Phone CIELO DE JESUS Primary Care Provider Assessment Encounter Date Assessment Date Assessment LastModified by Organization Details LastModified Time 08/21/2024 08/21/2024 Medicare Preventive Services Check List reviewed and printed for patient. [email or web address] Not available 08/21/2024 13:18:44 Plan of Treatment Reminders Order Date Submit Date Provider Last Modified By Organization Details Last Modified Time Details Appointments Follow Up 20 2024 02:20P M Cielo De Jesus APRN Not available Not available Not available Lab HbA1c (hemoglob in A1c), blood 2024 025 [facility], [address] [place] [address], [id number], 04/09/2025 18:39:55 drug screen, urine 2024 025 [facility], [address] [place] [address], [id number], 01/08/2025 14:47:28 drug screen, urine 2023 024 [facility], [address] [place] [address], [id number], 09/10/2024 14:58:45 Referral None recorded. Procedures None recorded. Surgeries None recorded. Imaging XR, chest, 2 view 2024 025 [facility] (X-Ray), [address], [place], [address], 04/11/2025 14:57:36 home sleep study 2024 025 [facility] (Scheduling), [address], [place], [address], 04/09/2025 17:55:32 Medication Orders bisoprolo l fumarate 5 mg tablet 2024 025 [facility], [address] [place] [address], [place], [id number], 04/09/2025 17:48:54 hydrochlo rothiazid e 12.5 mg capsule 2024 025 [facility], [address] [place] [address], [place], [id number], 04/09/2025 17:48:52 losartan 50 mg tablet 2024 025 [facility], [address] [place] [address], [place], [id number], 04/09/2025 17:48:53 omeprazol e 40 mg capsule,d elayed release 2024 025 [facility], [address] [place] [address], [place], [id number], 04/09/2025 17:48:50 atorvasta tin 20 mg tablet 2024 025 [facility], [address] [place] [address], [place], [id number], 04/09/2025 17:48:49 estradiol 1 mg tablet 2024 025 [facility], [address] [place] [address], [place], [id number], 04/09/2025 17:48:53 diazepam 5 mg tablet 2024 025 [facility], [address] [place] [address], [place], [id number], 04/09/2025 17:58:57 Lexapro 5 mg tablet 2024 025 [facility], [address] [place] [address], [place], [id number], 04/09/2025 17:58:56 albuterol sulfate HFA 90 mcg/actua tion aerosol inhaler 2024 025 [facility], [address] [place] [address], [place], [id number], 04/09/2025 17:48:50 meloxicam 15 mg tablet 2024 025 [facility], [address] [place] [address], [place], [id number], 04/09/2025 17:48:54 levothyro xine 125 mcg tablet 2024 025 [facility], [address] [place] [address], [place], [id number], 04/09/2025 17:48:49 gabapenti n 300 mg capsule 2024 025 [facility], [address] [place] [address] E Radha Parra [place], [id number], 04/09/2025 17:51:52 Lexapro 5 mg tablet 2024 025 [facility], [address] [place] [address] E Lazarus G-Radha Cohen [place], [id number], 02/22/2025 14:55:14 diazepam 5 mg tablet 2024 025 [facility], [address] [place] [address] E Radha Parra [place], [id number], 03/06/2025 15:54:17 Wegovy 0.25 mg/0.5 mL subcutane ous pen injector 2024 025 [facility], [address] [place] [address] E Radha Parra [place], [id number], 04/09/2025 14:41:03 Voltaren Arthritis Pain 1 % topical gel 2024 025 [facility], [address] [place] [address] E Radha Parra [place], [id number], 03/06/2025 15:54:16 diazepam 5 mg tablet 2024 025 [facility], [address] [place] [address] E Radha Parra [place], [id number], 04/10/2025 14:20:01 gabapenti n 300 mg capsule 2024 025 [facility], [address] [place] [address] E Radha Parra [place], [id number], 04/10/2025 14:19:59 diazepam 5 mg tablet 2023 024 [facility], [address] [place] [address] E Radha Parra [place], [id number], 12/11/2024 15:27:33 gabapenti n 300 mg capsule 2023 024 [facility], [address] [place] [address] E Radha Parra [place], [id number], 09/10/2024 15:25:21 Patient TargetsNo targets recorded. Patient Instructions Encounter Date Encounter Id Patient Instructions Last Modified By Organization Details Last Modified Time 08/21/2024 [id number] advance directives: care instructions efryman Not available 08/21/2024 14:50:32 learning about healthy weight efryman Not available 08/21/2024 14:50:32 body mass index: care instructions efryman Not available 08/21/2024 14:50:32 learning about depression efryman Not available 08/21/2024 14:50:32 preventing falls : care instructions efryman Not available 08/21/2024 14:50:32 medicare preventive services guide efryman Not available 08/21/2024 14:50:32 Reason for Referral None Reported. Results Created Date Observation Date Name Description Value Unit Range Abnormal Flag Note LastModifiedBy Organization Detail LastModifiedTime 09/10/20 24 09/10/2024 drug scree n, urine THC negati ve Not Available [address], [address], 09/10/2024 14:01:38 09/10/20 24 09/10/2024 drug scree n, urine TCA negati ve Not Available [address], [address], 09/10/2024 14:01:38 09/10/20 24 09/10/2024 drug scree n, urine BAR negati ve Not Available [address], [address], 09/10/2024 14:01:38 09/10/20 24 09/10/2024 drug scree n, urine BZO positi ve Not Available [address], [address], 09/10/2024 14:01:38 09/10/20 24 09/10/2024 drug scree n, urine MTD negati ve Not [place] [address] [place], [address], 09/10/2024 14:01:38 09/10/20 24 09/10/2024 drug scree n, urine AMP negati ve Not Available [address], [address], 09/10/2024 14:01:38 09/10/20 24 09/10/2024 drug scree n, urine MOP negati ve Not Available [address], [address], 09/10/2024 14:01:38 09/10/20 24 09/10/2024 drug scree n, urine OXY negati ve Not Available [address], [address], 09/10/2024 14:01:38 09/10/20 24 09/10/2024 drug scree n, urine MDMA negati ve Not Available [address], [address], 09/10/2024 14:01:38 09/10/20 24 09/10/2024 drug scree n, urine SULMA negati ve Not Available [address], [address], 09/10/2024 14:01:38 09/10/20 24 09/10/2024 drug scree n, urine PCP negati ve Not Available [address], [address], 09/10/2024 14:01:38 09/10/20 24 09/10/2024 drug scree n, urine MET negati ve Not Available [address], [address], 09/10/2024 14:01:38 01/09/20 25 01/08/2025 drug scree n, urine THC negati ve Not Available [address], [address], 01/08/2025 14:34:00 01/09/20 25 01/08/2025 drug scree n, urine TCA negati ve Not Available [address], [address], 01/08/2025 14:34:00 01/09/20 25 01/08/2025 drug scree n, urine BAR negati ve Not Available [address], [address], 01/08/2025 14:34:00 01/09/20 25 01/08/2025 drug scree n, urine BZO positi ve Not Available [address], [address], 01/08/2025 14:34:00 01/09/20 25 01/08/2025 drug scree n, urine MTD negati ve Not Available [address], [address], 01/08/2025 14:34:00 01/09/20 25 01/08/2025 drug scree n, urine AMP negati ve Not Available [address], [address], 01/08/2025 14:34:00 01/09/20 25 01/08/2025 drug scree n, urine MOP negati ve Not Available [address], [address], 01/08/2025 14:34:00 01/09/20 25 01/08/2025 drug scree n, urine OXY negati ve Not Available [address], [address], 01/08/2025 14:34:00 01/09/20 25 01/08/2025 drug scree n, urine MDMA negati ve Not Available [address], [address], 01/08/2025 14:34:00 01/09/20 25 01/08/2025 drug scree n, urine SULMA negati ve Not Available [address], [address], 01/08/2025 14:34:00 01/09/20 25 01/08/2025 drug scree n, urine PCP negati ve Not Available [address], [address], 01/08/2025 14:34:00 01/09/20 25 01/08/2025 drug scree n, urine MET negati ve Not Available [address], [address], 01/08/2025 14:34:00 04/09/20 25 04/09/2025 HbA1c (hemo globi n A1c), blood HbA1C 5.3 % Not Available [address], [address], 04/09/2025 17:33:41 10/27/20 24 10/27/2024 XR, foot, 3 or more view No observ ation record ed. bstears [facility] [address], [place], [address], 11/01/2024 09:09:14 11/27/19 11/27/2024 XR, foot, 3 or more view No observ ation record ed. bstears [facility] [address], [place], [address], 11/27/2024 14:01:11 02/28/20 25 02/27/2025 XR, foot, 3 or more view No observ ation [facility] [address], [place], [address], 03/01/2025 09:49:21 04/11/2004/11/2025 XR, chest , 2 view No observ ation record ed. [facility] [address], [place], [address], 04/12/2025 16:44:24 Result Notes None recorded. Problems Name Problem SNOMED Code Status Onset Date Resolution Date Notes Provider Name and Address Organization Details Recorded Time Chronic back pain 189732294 Active 2021 Cielo De Jesus, [employer] [address], [place], [address], [place] - [facility] 10:35:50 Hypertensive disorder 19735760 Active 2021 Cielo De Jesus, [employer] COUNSEL[employer] [address], [place], [address], [place] - [facility] 10:36:04 Gastroesophage al reflux disease 103569008 Active 2021 Cielo De Jesus, [employer] COUN[employer] [address], [place], [address], [place] [facility] 2 10:35:52 Hypothyroidism 84734927 Active 2021 Cielo De Jesus, [employer] COUN[employer] [address], [place], [address], [place] - [facility] 2 10:36:07 Hormone replacement therapy Active 2021 Cielo De Jesus [employer] [address], [place], [address], [place] [facility] 2 10:36:14 Asthma 193785328 Active 2021 Cielo De Jesus, [employer] COUNSEL[employer] [address], [place], [address], [place] [facility] 2 10:35:47 Anxiety 14852892 Active 2021 Cielo De Jesus, [employer] COUNSEL[employer] [address], [place], [address], [place] [facility] 2 10:35:45 Neuropathy 537179031 Active 2022 Cielo De Jesus, [employer] COUNSEL[employer] [address], [place], [address], [place] [facility] 3 12:12:49 Problem Notes None recorded. Procedures Surgical History Date Name Laterality Status Provider Name and Address Organization Details Recorded Time 08/21/20 Advance Care Planning completed Mae Pizanoler [place] - [facility] 08/21/2024 13:18:45 08/21/20 Functional Status Assessed completed Mae Maranda [place] - [facility] 08/21/2024 13:18:45 Cholecystectomy, laparoscopic [...] Name and Address Organization Details Recorded Time 053105 Keflex medicatio n Not available Not available Not available 08/09/202234059 7 RxNorm Diane Stears null, [place] - [facility] 15:46:17 668074 morphine medicatio n Not available Not available Not available 08/09/2022 7052 RxNorm Diane Stears null, [place] - [facility] 15:46:23 117014 Terramyci n medicatio n Not available Not available Not available 08/09/202235135 4 RxNorm Dianenaye Li null, [place] - [facility] 2 15:46:53 Medications [...] Not Available Vitals Date Recorded Body height Body mass index (BMI) Body weight Heart rate Oxygen saturation Oxygen saturation in Arterial blood by Pulse oximetry Respiratory rate Systolic blood pressure Diastolic blood pressure Provider Name and Address Organization Details Last Updated DateTime 153.67 cm 37.5 kg/m2 13288.5 1 g 78 /min 96 % 96 % 18 /min 118 mm[Hg] 80 mm[Hg] Mae Low [place] - [facility] 5 14:02:50 Date Recorded Body height Body mass index (BMI) Body weight Heart rate Oxygen saturation Oxygen saturation in Arterial blood by Pulse oximetry Respiratory rate Systolic blood pressure Diastolic blood pressure Provider Name and Address Organization Details Last Updated DateTime 5 153.67 cm 36.5 kg/m2 03748.2 5 g 89 /min 97 % 97 % 18 /min 114 mm[Hg] 64 mm[Hg] Mae EUGENE - [facility] 5 16:18:15 Date Recorded Body height Provider Name an d Address Organization Details Last Updated DateTime 04/09/2025 153.67 cm Mae EUGENE - [facility] 0 04/09/2025 14:02:48 Date Recorded Heart rate Oxygen saturation Oxygen saturation in Arterial blood by Pulse oximetry Respiratory rate Body temperature Body mass index (BMI) Body weight Systolic blood pressure Diastolic blood pressure Provider Name and Address Organization Details Last Updated DateTime 5 86 /min 97 % 97 % 18 /min 98 [degF] 35.7 kg/m2 73642.1 8 g 118 mm[Hg] 68 mm[Hg] Diane Li [place] - [facility] 5 14:13:46 Date Recorded Body height Body mass index (BMI) Body weight Body temperature Heart rate Oxygen saturation Oxygen saturation in Arterial blood by Pulse oximetry Respiratory rate Systolic blood pressure Diastolic blood pressure Provider Name and Address Organization Details Last Updated DateTime 4 153.67 cm 36.5 kg/m2 00041.5 5 g 97.1 [degF] 80 /min 97 % 97 % 18 /min 124 mm[Hg] 82 mm[Hg] Mae Low [facility] 4 13:25:41 Date Recorded Body height Body mass index (BMI) Body weight Body temperature Heart rate Oxygen saturation Oxygen saturation in Arterial blood by Pulse oximetry Respiratory rate Systolic blood pressure Diastolic blood pressure Provider Name and Address Organization Details Last Updated DateTime 4 153.67 cm 36.5 kg/m2 74982.9 5 g 97.9 [degF] 76 /min 97 % 97 % 18 /min 124 mm[Hg] 74 mm[Hg] Mae Low [facility] 4 13:56:36 Social History Question Answer Notes LastModified by Organizat ion Details LastModified Time Tobacco Smoking Status Never Smoker Diane Li [facility], [place] - [facility] 08/09/2022 15:52:10 Do You [...] Or The Highest Degree You Have Received? [id number] Information not available 08/09/2022 Have There Been Any Changes To Your Family Or Social Situation? No Information no t available 08/09/2022 What Is The Fluoride Status Of Your Home? Unknown Information not available 08/09/2022 Have You Recently Or Are You Planning To Travel To An Area With Zika Virus? No Information not available 08/29/2023 Do You Have A Medical Power Of Podiatric Surgeon? No Information not available 08/09/2022 What Was [...] anxious, or unable to sleep at night)? [id number] Information not available 08/09/2022 Do you have [...] Recorded Time Tdap 3 completed Cielo De Jesus APRN [address], [place], [address], [place] - [facility] 03/29/2023 14:30:35 Influenza, split virus, quadrivalent, preservative 3 completed Cielo De Jesus APRN [address], [place], [address], [place] - [facility] 08/29/2023 14:14:30 Influenza, high-dose, trivalent, PF 4 completed Mae casey, [place] - [facility] 09/10/2024 16:09:21 COVID-19, mRNA, LNP-S, bivalent, PF, 50 mcg/0.5 mL or 25mcg/0.25 mL dose 2 completed Not Available [facility] 11/29/2023 13:59:51 Influenza, high-dose, quadrivalent, PF 2 completed Mae Low [place], [place] - [facility] 09/06/2022 15:05:23 Past Encounters Encounter ID Performer Location Encounter Start Date Encounter Closed Date Diagnosis/Indication Diagnosis SNOMED-CT Code Diagnosis ICD10 Code Diagnosis Note [id number] Cielo De Jesus APRN [address] [address] 08/09/2022 15:07:58 08/09/2022 16:55:00 Influenza vaccine needed 5965754001 106 Z28.39 Anxiety 44966173 F41.9 will obtain medical records from pcp. [facility]. she needs to start lexapro to see if this helps anxiety/ Asthma 177471825 J45.90 9 Chronic back pain 733072 002 G89.29 Gastroesop hageal reflux disease 769672534 K21.9 Hormone re placement therapy 260675437 Z79.890 Hypertensive disorder 38 206478 I10 Hypothyroidism 97788380 E03.9 [id number] Cielo De Jesus APRN [address] [address] 09/06/2022 14:56:05 09/06/2022 16:14:50 Anxiety 02365268 F41.9 Pt compliant with plan of careKasper reviewedme dication compliance discussedL ast uds:Control substance agreement on file Chronic back pain 225241 002 G89.29 Asthma 244895458 J45.90 9 Gastroesop hageal reflux disease 809389379 K21.9 Hormone re placement therapy 905149835 Z79.890 needs appointmen t with cut file clerk Hypertensive disorder 38 870124 I10 Hypothyroidism 95627623 E03.9 Long-term drug therapy 264792543 Z79.899 Hypercholesterolemia 136 44622 E78.00 [id number] Cielo De Jesus [address] [address] 10/04/2022 14:10:18 10/04/2022 15:27:06 Anxiety 89587881 F41.9 Pt compliant with plan of careKasper reviewedme dication compliance discussedL ast uds:Control substance agreement on file Asthma 980333950 J45.90 9 Hypertensive disorder 38 728537 I10 Hypercholesterolemia 136 00633 E78.00 Hormone re placement therapy 365872457 Z79.890 needs appointmen t with cut file clerk Hypothyroidism 93102815 E03.9 Chronic back pain 613399 002 G89.29 [facility] Gastroesop hageal reflux disease 594557089 K21.9 [id number] Cielo De Jesus [address] [address] 11/02/2022 13:47:10 11/02/2022 14:58:33 Anxiety 24696363 F41.9 Pt compliant with plan of careKasper reviewedme dication compliance discussedL ast uds:Control substance agreement on file Chronic back pain 305802 002 G89.29 Asthma 195174432 J45.90 9 Hypertensive disorder 38 517704 I10 Hypercholesterolemia 136 57962 E78.00 Hormone re placement therapy 641229231 Z79.890 needs appointmen t with cut file clerk Hypothyroidism 05104835 E03.9 Gastroesop hageal reflux disease 982768052 K21.9 Long-term drug therapy 660468394 Z79.222 [id number] Cielo De Jesus [address] [address] 01/06/2023 08:57:30 01/06/2023 11:00:06 Anxiety 02946610 F41.9 Pt compliant with plan of careKasper reviewed and appropriat emedicatio n compliance discussedL ast uds:01/06/23 Control substance agreement on filewill hold on increasing med due to her not needing it for 2 days. discussed how to take her meds as needed. call if she noticed she is needing it more Hypothyroidism 87551869 E03.9 Hypertensive disorder 38 854421 I10 Chronic back pain 822468 002 G89.29 Long-term current use of benzodiazepine 8051487044 5064168 Z79.899 Exposure t o Hepatitis C virus 027449929 Z20.5 [id number] Cielo De Jesus [address] [address] 03/29/2023 11:54:25 03/29/2023 12:39:39 Anxiety 85427693 F41.9 Pt compliant with plan of careKasper reviewed and appropriat emedicatio n compliance discussedL ast uds: 3Control substance agreement on file Chronic back pain 903790 002 G89.29 Hypothyroidism 46676379 E03.9 Hypertensive disorder 38 492242 I10 Neuropathy 031242844 G62 .9 Long-term current use of benzodiazepine 3895321768 2087304 Z79.899 Impaired f asting glycemia 114903651 R73.01 Obesity 515068556 E66.9 Dog bite - wound 4336778 05 W54.0XXA pt had left and returned states she was bitten by a family members dog and needs a tetanus shot- states the dog is up to date on vaccinesst ates she has taken augmentin in the past and tolerated it well [id number] Cielo De Jesus [employer] [address] [address] 05/27/2023 13:27:54 05/27/2023 14:34:52 Neuropathy 365820893 G62.9 Anxiety 14236246 F41.9 Pt compliant with plan of careKasper reviewed and appropriat emedicatio n compliance discussedL ast uds: 3Control substance agreement on file Chronic back pain 853937 002 G89.29 Body mass index 30+ - obesity 675862881 Z68.34 Obesity 206554535 E66.9 [id number] Cielo De Jesus [address] [address] 06/17/2023 16:17:49 06/17/2023 16:52:17 Neck pain 04208835 M54.2 Low back pain 946565242 M54.50 do not take pain meds with other meds Injury of chest wall 659 [address] S29.9XXA [id number] Cielo De Jesus [address] [address] 07/05/2023 17:24:51 07/05/2023 18:09:02 Anxiety 49941154 F41.9 Pt compliant with plan of careKasper reviewed and appropriat emedicatio n compliance discussedL ast uds: 3Control substance agreement on file Neuropathy 908307671 G62 .9 Asthma 891552575 J45.90 9 Hypothyroidism 61062207 E03.9 Gastroesop hageal reflux disease 019174788 K21.9 Hypertensive disorder 38 773491 I10 Chronic back pain 539939 002 G89.29 Hypercholesterolemia 136 28525 E78.00 [id number] Cielo De Jesus[address] [address] 08/29/2023 13:15:16 08/29/2023 14:18:35 Neuropathy 195819482 G62.9 Anxiety 85192188 F41.9 Pt compliant with plan of careKasper reviewed and appropriat emedicatio n compliance discussedL ast uds:Control substance agreement on file Long-term current use of benzodiazepine 7730202706 0130758 Z79.899 Influenza vaccine needed 9205363152 106 Z23 pt aware high dose flu vaccine not available request normal flu vaccine Body mass index 30+ - obesity 043538970 Z68.34 bmi 35.2 [id number] Cielo Garrisonshaheenlewis [address] [address] 11/29/2023 13:50:05 11/29/2023 15:38:06 Neuropathy 965683697 G62.9 Anxiety 15165144 F41.9 Pt compliant with plan of careKasper reviewed and appropriat emedicatio n compliance discussedL ast uds: 4Control substance agreement on filetrial of increase for a short period Hypothyroidism 80041752 E03.9 Gastroesop hageal reflux disease 220716753 K21.9 Hypertensive disorder 38 266143 I10 Chronic back pain 044109 002 G89.29 [id number] Cielo De Jesus APRN [address] [address] 03/08/2024 15:10:30 03/08/2024 15:53:04 Anxiety 07995425 F41.9 Pt compliant with plan of careKasper reviewed and appropriat emedicatio n compliance discussedL ast uds: 4Control substance agreement on file Neuropathy 950106141 G62 .9 will increase mg of gabapentin to see if this helps with pain Edema of l ower extremity 827417925 R60.0 echo r/o chfvenous doppler to r/o dvt Intermitte nt claudication 99192616 I73.9 dominic to r/o increase in neuropathy is not blood flow issues [id number] Cielo De Jesus APRN [address] [address] 06/11/2024 13:57:04 06/11/2024 15:11:46 Neuropathy 785321659 G62.9 Anxiety 46537079 F41.9 Pt compliant with plan of careKasper reviewed and appropriat emedicatio n compliance discussedL ast uds:06/11/24 Control substance agreement on filewill increase to 2 tabs a day. Long-term current use of benzodiazepine 5531177040 5005105 Z79.702 [id number] Cielo De Jesus APRN [address] [address] 06/25/2024 13:51:23 06/25/2024 14:41:51 Body mass index 30+ - obesity 951105492 Z68.34 bmi 36.5discus sed med in great detail with pt- after finishing first month call for increase dosing. restart med. [id number] Cielo Garrisongab [address] [address] 07/02/2024 11:03:55 07/02/2024 11:55:50 COVID-19 114870155 U07.1 no sign of a bacterial infection. likely viral. viruses can take 7-14 days to run their course. nasal saline and bulb syringe to remove nasal drainage to help with congestion . monitor temp. Tylenol or Motrin as needed for pain or fever. encourage fluids, water, Gatorade, power aide, Pedialyte if infant/tod dler/child warm salt water gargles warm fluids sore throat lozenges sleep elevated humidifier /vaporizer follow up immediatel y for new or worsening symptoms or no noticeable improvemen t over the next 48-72 hours [id number] Cielo De Jesus [address] [address] 08/21/2024 13:07:27 08/21/2024 13:54:20 Adult health examination 815121576 Z00.00 Depression screening 171 402559 Z13.31 A depression screening was completed via a standardiz ed screening tool. 5 minutes were spent discussing depression screening results and risk factors. Examinatio n of blood pressure 519937189 Z01.30 Diet education 86656613 Z71.3 Counseling 990428687 Z71 .82 Exercise counseling . Patient encouraged to exercise 30 minutes 5 days a week. At [facility] ed risk for falls 615649704 Z91.81 STEADI FAST screening score of __0___. Advance care planning 71 9230971 Z71.89 Body mass index 30+ - obesity 348032356 Z68.36 bmi 36.5discus sed med in great detail with pt- after finishing first month call for increase dosing. restart med. Obesity 014344991 E66.9 [id number] Cielo Garrisongab [address] [address] 09/10/2024 13:16:56 09/10/2024 14:44:27 Neuropathy 592182910 G62.9 Pt compliant with plan of careKasper reviewedme dication compliance discussedL ast uds: 4Control substance agreement on file Anxiety 27258920 F41.9 Pt compliant with plan of careKasper reviewed and appropriat emedicatio n compliance discussedL ast uds: 4Control substance agreement on file Influenza vaccine needed 6002905161 106 Z23 pt aware high dose flu vaccine not available request normal flu vaccine Long-term drug therapy 989710401 Z79.162 [id number] Cielo De Jesus [address] [address] 01/08/2025 13:24:07 01/08/2025 14:57:26 Neuropathy 553346765 G62.9 Pt compliant with plan of careKasper reviewedme dication compliance discussedL ast uds:01/08/25 Control substance agreement on file Anxiety 32588443 F41.9 Pt compliant with plan of careKasper reviewed and appropriat emedicatio n compliance discussedC ontrol substance agreement on file Obesity 726754987 E66.9 Long-term drug therapy 185303890 Z79.899 Arthritis 3751933 M19.90 [id number] Cielo De Jesus [address] [address] 02/21/2025 15:49:17 02/21/2025 17:07:25 Anxiety 17096922 F41.9 Pt compliant with plan of careKasper reviewed and appropriat emedicatio n compliance discussedC ontrol substance agreement on fileadded extra pill at noon for 2 weeks Reactive d epression (situational) 19718615 F43.21 [id number] Cielo De Jesus [address] [address] 04/09/2025 13:07:58 04/09/2025 16:01:27 Neuropathy 105774843 G62.9 Pt compliant with plan of careKasper reviewedme dication compliance discussedL ast uds:01/08/25 Control substance agreement on file Gastroesop hageal reflux disease 139563052 K21.9 Hypertensive disorder 38 752673 I10 Chronic back pain 389625 002 G89.29 Hypothyroidism 65958259 E03.9 Asthma 451461966 J45.90 9 Hypercholesterolemia 136 49730 E78.00 Anxiety 80751387 F41.9 Pt compliant with plan of careDevyn reviewed and appropriat emedicatio n compliance discussedC ontrol substance agreement on file Reactive d epression (situational) 51473040 F43.21 Hormone re placement therapy 559815424 Z79.890 needs appointmen t with cut file clerk Chronic cough 55203675 R 05.3 Snoring 30267732 R06.83 Prediabetes 576990680 R7 3.03 Health Concerns Section Related Observation LastModified by Organization Detai ls LastModified Time None Recorded Concern Status LastModified by Organization Details LastModified Time None Recorded Advance Directives Directive N: Payers Insurance Date Sequence Insurance Name Policy Number Policy Landon Covered Member ID Landon Member ID Guarantor Name 04/07/2025 2 [facility] (MEDICAID HMO) Julisa Donnelly [id number] Julisa Donnelly 04/07/2025 [employer] NATIONAL - MEDICARE [facility] (MEDICARE) Julisa Donnelly [id number] Julisa Donnelly 04/07/2025 1 [place] Julisa Donnelly [id number] Julisa Donnelly 04/07/[address] [facility] INS[facility] Julisa Donnelly [id number] Julisa Donnelly 04/07/2025 [place] [facility] [place] [place] Julisa Donnelly [id number] Julisa Donnelly Notes Date Note Type Note Provider Name and Address Organization Details Recorded Time 08/21/2024 text/html Medicare Annual Wellness VisitReported bypatient.Diet and Nutrition:discussed portion control; discussed diet improvement Fracture Risk:no history of fractures; no recent explained fracture; no sudden unexplained fractures; no previous musculoskeletal injuries Physical Activity:good physical condition; discussed weightbearing activities; discussed exercise habits Depression Risk:feels sad, empty, or tearful;loss of interest in activities;sleep disturbances or insomnia;agitated;los s of energy;feelings of worthlessness or guilt;history of mood disorders;history of depression Orientation:no disorientation to time; no disorientation to date; no disorientation to place Concentration and Memory:no decreased concentrating ability; no memory lapses or loss; does not forget words Speech/Motor difficulties:no speech difficulties; no difficulty expressing formulated concepts; no difficulty with fine manipulative tasks; no difficulty writing/copying; no slowed reaction time; does not knock things over when trying to pick them up Hearing:no loss of hearing Vision:no vision problems Activities of Daily Living:able to bathe with limited or no assistance; able to contol urination and bowels; able to dress with limited or no assistance; able to feed self with limited or no assistance; able to get out of chair or bed with limited or no assistance; able to groom with limited or no assistance; able to toilet with limited or no assistance Instrumental Activities of Daily Living:able to do house work with limited or no assistance; able to grocery shop with limited or no assistance; able to manage medications with limited or no assistance; able to manage money with limited or no assistance; able to prepare meals with limited or no assistance; able to use the phone with limited or no assistance Falls Risk Assessment:no frequent falls while walking; no fall in the past year; no fall since last visit; no dizziness/vertigo Home Safety:no unsafe rachel hazzards; no unsafe stairs; no unsafe gas appliances; working smoke/CO detectors; use of seatbelts; good lighting in the home Current level of painNo pain: 0/10 69 yr old female presents for a medicare annual wellness. Shonnanneka De Jesus APRN [address], [place], [address], [facility] 08/21/2024 14:49:53 09/10/2024 text/html 69 yr old female presents for a follow up on neuropathy and anxiety. She needs some med refills. pt states she is caring for frail father. pt states anxiety and neuropathy well controlled on meds Cielo KANE De Jesus [address], [place], [address], [place] - [facility] 09/11/2024 09:26:12 01/08/2025 text/html 69 yr old female presents for a follow up on neuropathy and anxiety, needs refills on diazepam and gabapentin. pt states the gabapentin helps with her neuropathy. pt states he anxiety is well controlled on meds. pt states she is under alot of stress due to her father being ill.pt states she contiunes to gain wt and wants to try somethingpt states her arthritis in her hands is acting up Cielo De JesusKANE [address], [place], [address], [facility] - [facility] 01/08/2025 14:51:30 02/21/2025 text/html 69 yr old female presents for anxiety/depression related to her fathers 02/20. Cielo GarrisonKANE de guzman [address], [place], [address], [place] [facility] 02/21/2025 17:06:47 04/09/2025 text/html 69 yr old female presents for a follow up on neuropathy,anxiety, hypertension and other chronic illnesses.needs refills on all medspt states she feels tired all the time and states she snorespt states she was told by eye md she has started having dm in her eyespt states she is still coughingpt states anxiety med and neuropathy meds are working well Cielo PriceKANE saucedo [address], [place], [address], [place] - [facility] 04/09/2025 17:34:46 OBGyn Episode No OBEpisode recorded.
--- OUTSIDE RECORDS SUMMARY | 2025-04-15 14:04 | XMS_ITS | Continuity of Care Document ---
[facility] Address [address] [place] [address] Care Team Providers Care Bulk Sausage Casing Tier Off Name Role Phone CIELO DE JESUS Primary Care Provider [phone] Assessment No assessment recorded. Plan of Treatment Reminders Order Date Submit Date Provider Last Modified By Organization Details Last Modified Time Details Appointments Follow Up 2024 02:20P M Cielo De Jesus APRN Not available Not available Not available Lab None recorded. Referral None recorded. Procedures None recorded. Surgeries None recorded. Imaging None recorded. Medication Orders Lexapro 5 mg tablet 2024 025 [facility], [address] [place] [address] E [place]ha Parra [place], [id number], 02/22/2025 14:55:14 diazepam 5 mg tablet 2024 025 [facility], [address] [place] [address] E [place], [id number], 03/06/2025 15:54:17 Patient TargetsNo targets recorded. Patient InstructionsNo instructions recorded. Reason for Referral None Reported. Results Created Date Observation Date Name Description Value Unit Range Abnormal Flag Note LastModifiedBy Organization Detail LastModifiedTime 02/28/2002/27/2025 XR, foot, 3 or more view No observ ation record ed. [address], [place], [address], 03/01/2025 09:49:21 04/11/20 25 04/11/2025 XR, chest , 2 view No observ ation record ed. [facility] [address], [place], [address], 04/12/2025 16:44:24 Result Notes None recorded. Problems Name Problem SNOMED Code Status Onset Date Resolution Date Notes Provider Name and Address Organization Details Recorded Time Chronic back pain 636454164 Active 2021 Cielo De Jesus, MERCHANDISE COLLECTOR [address], [place], [address], [place] - [facility] 2 10:35:50 Hypertensive disorder 18623659 Active 2021 Cielo De Jesus, MERCHANDISE COLLECTOR [address], [place], [address], [place] [facility] 2 10:36:04 Gastroesophage al reflux disease 852045860 Active 2021 Cielo De Jesus, MERCHANDISE COLLECTOR [address], [place], [address], [place] [facility] 2 10:35:52 Hypothyroidism 69640293 Active 2021 Cielo De Jesus, MERCHANDISE COLLECTOR [address], [place], [address], [place] [facility] 2 10:36:07 Hormone replacement therapy Active 2021 Cielo De Jesus, MERCHANDISE COLLECTOR [address], [place], [address], [place] [facility] 2 10:36:14 Asthma 546974011 Active 2021 Cielo De Jesus, MERCHANDISE COLLECTOR [address], [place], [address], [place] [facility] 2 10:35:47 Anxiety 65795613 Active 2021 Cielo De Jesus, MERCHANDISE COLLECTOR [address], [place], [address], [place] [facility] 2 10:35:45 Neuropathy 578224116 Active 2022 Cielo De Jesus, MERCHANDISE COLLECTOR [address], [place], [address], [place] [facility] 3 12:12:49 [...] Name and Address Organization Details Recorded Time 945032 Keflex medicatio n Not available Not available Not available 08/09/202201705 7 Rx[facility] Diane Stears null, [place] - [facility] 2 15:46:17 825733 morphine medicatio n Not available Not available Not available 08/09/2022 7052 [facility] Diane Stears null, [place] - [facility] 2 15:46:23 172775 Terramyci n medicatio n Not available Not available Not available 08/09/202280962 4 Rx[facility] Diane Stears null, [place] - [...] Updated DateTime 5 153.67 cm 36.5 kg/m2 53825.2 5 g 89 /min 97 % 97 % 18 /min 114 mm[Hg] 64 mm[Hg] Mae Low [place] - [facility] 5 16:18:15 Social History Question Answer Notes LastModified by Organizat ion Details LastModified Time Tobacco Smoking Status Never Smoker Diane Guillermo [place], [place] - [facility] 08/09/2022 15:52:10 Do You [...] Or The Highest Degree You Have Received? II93233-4 Information not available 08/09/2022 Have There Been Any Changes To Your Family Or Social Situation? No Information no t available 08/09/2022 What Is The Fluoride Status Of Your Home? Unknown Information not available 08/09/2022 Have You Recently Or Are You Planning To Travel To An Area With Zika Virus? No Information not available 08/29/2023 Do You Have A Medical Power Of Strategic Consultant? No Information not available 08/09/2022 What Was [...] anxious, or unable to sleep at night)? CK67426-3 Information not available 08/09/2022 Do you have [...] Time Tdap 3 completed Cielo De Jesus, MERCHANDISE COLLECTOR [address], [place], [address], [place] [facility] 03/29/2023 14:30:35 Influenza, split virus, quadrivalent, preservative 3 completed Cielo De Jesus MERCHANDISE COLLECTOR [address], [place], [address], [place] [facility] 08/29/2023 14:14:30 Influenza, high-dose, trivalent, PF 4 completed Mae Low [place], [place] - [facility] 09/10/2024 16:09:21 COVID-19, mRNA, LNP-S, bivalent, PF, 50 mcg/0.5 mL or 25mcg/0.25 mL dose 2 completed Not Available [facility] 11/29/2023 13:59:51 Influenza, high-dose, quadrivalent, PF 2 completed Mae Low [place], [place] - [facility] 09/06/2022 15:05:23 Past Encounters Encounter ID Performer Location Encounter Start Date Encounter Closed Date Diagnosis/Indication Diagnosis SNOMED-CT Code Diagnosis ICD10 Code Diagnosis Note [id number] Cielo De Jesus, KANE [address] [address] 02/21/2025 15:49:17 02/21/2025 17:07:25 Anxiety 63706246 F41.9 Pt compliant with plan of careKaspjaimie reviewed and appropriat emedicatio n compliance discussedC ontrol substance agreement on fileadded extra pill at noon for 2 weeks Reactive d epression (situational) 88639521 F43.21 Health Concerns Section Related Observation LastModified by Organization Detai ls LastModified Time None Recorded Concern Status LastModified by Organization Details LastModified Time None Recorded Payers Encounter Date Sequence Insurance Name Policy Number Policy Landon Covered Member ID Landon Member ID Guarantor Name 02/21/2025 1 [place] Julisa Donnelly [id number] Julisa Rucker Cony 02/21/2025 2 [facility] Julisa Donnelly [id number] Julisa Donnelly Notes Date Note Type Note Provider Name and Address Organization Details Recorded Time 02/21/2025 text/html 69 yr old female presents for anxiety/depress ion related to her fathers 02/20. Cielo De Jesus, MERCHANDISE COLLECTOR [address], [place], [address], [place] [facility] 02/21/2025 17:06:47 OBGyn Episode No OBEpisode recorded.
--- OUTSIDE RECORDS SUMMARY | 2025-04-15 14:04 | XMS_ITS | Patient Health Record ---
Author Organization [facility] Address [address] [place] [address] Care Team Providers Care Crime Lab Analyst Name Role Phone Phill Michael Primary Care Provider Phill Michael Unavailable Unavailable Migration, Provider Unavailable Unavailable Allergies Allergen (clinical drug ingredient) Drug/Non Drug Allergy documented on EMR Reaction Allergy Type Onset Date Status KEFLEX (uncoded) Unknown Allergy Act jonathan morphine Morphine Unknown Drug Allergy Active Reason For Referral No Information Medications Medication SIG (Take, Route, Frequency, Duration) [...] once a day for 30 days Active Levoxyl 125 MCG 1 tab(s) orally once a day for 30 day(s) Active Montelukast Sodium 10 MG 1 tab(s) orally once a day for 30 day(s) Active Escitalopram Oxalate 20 MG 1 tab(s) oral ly once a day for 30 day(s) Active Bisoprolol Fumarate 5 MG 1 tab(s) orally once a day for 30 day(s) Active Immunizations Vaccine Route Administration Date Status Comme nts Pneumovax 23 IM Intramuscular 07/10/2020 Administered Fluzone High Dose IM Intramuscular 08/11/2020 Administered Social History Tobacco Use: Social History Observation Description Date Details (start date - stop date) Never Smoker NA - NA Smoking: Question Answer Notes Are you a: nonsmoker Problems Problem Type SNOMED Code ICD Code Onset Dates Problem Status W/U Status Risk Notes Problem 85349837 Anxiety (F41.9) Active confirmed Problem 43409505 Hypertension, essential (I10) Active confirmed Problem 72505876 Idiopathic peripheral neuropathy (G60.9) Active confirmed Problem 162627981 Hypothyroidism, acquired (E03.9) Active confirmed Problem 440801545 Neuropathy of right lower extremity (G57.91) Active confirmed Problem 80850300 Pulmonary emphysema, unspecified emphysema type (J43.9) Active confirmed Encounters Encounter Location Date Provider Diagnosis [facility] [address] [place] [address] 02/09/2025 Provider Migration Plan Of Treatment Pending Test Test Name Order Date Physical Therapy 11/18/2020 C-BASIC METABOLIC 11/10/2020 C-DRUG SCREEN 12 PANEL 11/10/2020 M-Vitamin B12 10/12/2021 M-Vitamin B12 03/17/2022 Insurance Providers Payer Name Payer Address Payer Phone Subscriber Number Group Number Insured Name Patient Relationship to Insured Coverage Start Date Coverage End Date [place] [place] [address] [id number] Julisa Otto Self - patient is the insured [facility] [address] [address] [place] [address] [id number] Julias Otto Self - patient is the insured Medical (General) History Medical History History ICD Code Normal pap smear April 2020 L heart cath 2016 with CAD not amenable to stenting Normal DEXA 2018 colonoscopy December 2020 wi th multiple adenomatous polyps, recommended repeat 2 years Surgical History Surgery Date(Month/Year) contacts both eye 2018 gallbladder removed hysteromy 1979 tubal polyp removed from vocal cords- has had multiple surgeries for this
== END 2025-04-15 23:59 | disposition home or self-care (01) ==
LOC: RAD 13:59
PROVIDERS: PCP Nurse Practitioner Family; Visit Provider Nurse Practitioner Family
DX: M19.041 Primary osteoarthritis, right hand (principal)
CPT/HCPCS: 73130

== ENCOUNTER → 2025-07-03 06:52 | Outpatient (CLI) | payer MEDICARE, OTHER, SELFPAY ==
--- OUTSIDE RECORDS SUMMARY | 2025-02-09 17:30 | XMS_ITS ---
Author Organization [facility] Address [address] [place] [address] Care Team Providers Care Latin Teacher Name Role Phone Phill Michael Primary Care Provider [phone] Phill Michael Unavailable Unavailable Migration, Provider Unavailable Unavailable Allergies Allergen (clinical drug ingredient) Drug/Non Drug Allergy documented on EMR Reaction Allergy Type Onset Date Status KEFLEX (uncoded) Unknown Allergy Act jonathan morphine Morphine Unknown Drug Allergy Active REASON FOR VISIT [facility] To [facility] Conversion Encounter Medications Medication SIG (Take, Route, [...] Active Encounters Encounter Location Date Provider Diagnosis [facility] [address] [place] [address] 02/09/2025 Provider Migration Plan Of Treatment Medication [...] Notes * AMADO JulisaDOB: (70 yo F)Acc No.[id number]:02/09/2025 Patient: Julisa MCCLURE Provider: Karie Fuentes :1955 A ge:69 Y S ex:Female Date:02/09/2025 Address:[address] [place] [address] [place] , [address], [place], [id number] Pcp:Phill Michael Subjective: * Chief Complaints: * [facility] Encounter. * Medical History: * Medications: [...] Electronic signature of Musa mendez Migration on 07/03/2025 at 06:55 AM EDT Sign off status: Pending * Provider: Karie stallings Migration Date: 0 02/09/2025 Generated for Khanh rollins/Pan/Amadoritting on: 0 07/03/2025 06:55 AM EDT
--- OUTSIDE RECORDS SUMMARY | 2025-07-03 06:55 | XMS_ITS | Patient Health Record ---
Author Organization [facility] Address [address] [place] [address] Care Team Providers Care Flight Test Shop Mechanic Name Role Phone Phill Michael Primary Care [...] once a day; Duration: 30 days Active Levoxyl 125 MCG 1 tab(s) orally once a day; Duration: 30 day(s) Active Montelukast Sodium 10 MG 1 tab(s) orally once a day; Duration: 30 day(s) Active Escitalopram Oxalate 20 MG 1 tab(s) oral ly once a day; Duration: 30 day(s) Active Bisoprolol Fumarate 5 MG 1 tab(s) orally once a day; Duration: 30 day(s) Active Immunizations Vaccine Route Administration [...] Problem Status W/U Status Risk Notes Problem Anxiety (01734270) Anxiety (F41.9) Active confi rmed Problem Essential hypertension (70449512) Hypertension, essential (I10) Active confirmed Problem Idiopathic peripheral neuropathy (83912113) Idiopathic peripheral neuropathy (G60.9) Active confirmed Problem Hypothyroidism (01836777) Hypothyroidism, acquired (E03.9) Active confirmed Problem Mononeuropathy of lower limb (713367283) Neuropathy of right lower extremity (G57.91) Active confirmed Problem Pulmonary emphysema (63623411) Pulmonary emphysema, unspecified emphysema type (J43.9) Active confirmed Encounters Encounter Location Date Provider Diagnosis [facility] [address] [facility] [address] [place] [address] 02/09/2025 Provider Migration Plan Of Treatment Pending Test Test Name Order Date Physical Therapy 11/18/2020 C-BASIC METABOLIC 11/10/2020 C-DRUG SCREEN 12 PANEL 11/10/2020 M-Vitamin B12 10/12/2021 M-Vitamin B12 03/17/2022 Insurance Providers Payer Name Payer Address Payer Phone Subscriber Number Group Number Insured Name Patient Relationship to Insured Coverage Start Date Coverage End Date [place] [address] [place] [address] [phone] [id number] Niraj wellerJulisa Self - patient is the insured [facility] [address] [address] [place] [address] [id number] Rafajose wellerJulisa Self - patient is the insured Medical (General) History Medical History History ICD Code Normal pap smear April 2020 L heart cath 2016 with CAD not amenable to stenting Normal DEXA 2018 colonoscopy December 2020 wi th multiple adenomatous polyps, recommended repeat 2 years Surgical History Surgery Date(Month/Year) contacts both eye 2017 gallbladder removed hysteromy 1979 tubal polyp removed from vocal cords- has had multiple surgeries for this
--- OUTSIDE RECORDS SUMMARY | 2025-07-03 06:55 | XMS_ITS | Clinical Summary ---
Author Organization [facility] Address [address] [place] [address] Care Team Providers Care Telephoner Name Role Phone Ciro De Jesus DEPARTMENT STORE SALESPERSON Primary Care Provider [phone] Family History Medical History Relation Name Comments [...] (2 of 2 - PCV) 07/10/2021 07/10/2020 [id number] Vaccine (3 - season) 2024 02/18/2021, 01/21/2021 [facility]-Influenza Vaccine (#1) 2025 08/30/2021, [facility]-DTaP,Tdap,and Td Vaccines (4 - Td or [...] age to complete this topic Insurance [employer] [facility] MEDICAID MEDICARE Member Subscriber Plan / Payer (Ef fective 2020-Present) Name:Julisa Donnelly Member ID:[id number] Relation to Subscriber:Self Name:Julisa Donnelly Subscriber ID:[id number] Payer ID:MEDICARE Group ID:Not on file Type:Medicare Address: [place] [phone] Care Teams Telephoner Relationship Specialty Start Date End Date Ciro De Jesus APRN [address] [place] [address] PCP - General 03/20/21
== END ==
LOC: SL 06:53
PROVIDERS: PCP Nurse Practitioner Family; Visit Provider Nurse Practitioner Family
DX: R06.83 Snoring (principal)
CPT/HCPCS: G0399

== ENCOUNTER 2025-07-18 22:21 | Emergency (ER) | payer MEDICARE, OTHER, SELFPAY ==
[2025-07-18 22:29] VITALS: BP 151/74; PULSE 81; RESP 18; TEMP 36.6; O2SAT 98; BMI 35.9
--- OUTSIDE RECORDS SUMMARY | 2025-07-18 22:30 | XMS_ITS | Clinical Summary ---
Author Organization [facility] Address [address] [place] [address] Care Team Providers Care Vat Cleaner Name Role Phone Ciro De Jesus SOURCING ANALYST Primary Care Provider [phone] Family History Medical History Relation Name Comments [...] [facility]-Bone Density Scan 1955 [facility]-Depression Screening 1955 [facility]-Infant/Child/Adol SDOH Screenings 1955 [facility]- SDOH Screenings 1973 [facility]-Adult SDOH Screenings 1973 CT Colonography 2000 Colonoscopy 2000 FIT-DNA 2000 FIT 2000 FOBT 2000 Sigmoidoscopy 2000 [facility]-Colorectal Cancer Screening 2000 [facility]-Zoster Vaccines (1 of 2) 2005 [facility]-Pneumococcal Vaccine: 50+ Years (2 of 2 - PCV) 07/10/2021 07/10/2020 [id number] Vaccine (3 - season) 2025 02/18/2021, 01/21/2021 [facility]-Influenza Vaccine (#1) 2025 08/30/2021, [...] age to complete this topic Insurance [employer] [facility] MEDICAID MEDICARE Member Subscriber Plan / Payer (Ef fective 2020-Present) Name:Julisa Donnelly Member ID:[id number] Relation to Subscriber:Self Name:Julisa Donnelly Subscriber ID:[id number] Payer ID:MEDICARE Group ID:Not on file Type:Medicare Address: [place] [id number] Care Teams Vat Cleaner Relationship Specialty Start Date End Date Ciro De Jesus APRN [address] [place] [address] PCP - General 03/20/21
--- NOTE | 2025-07-18 22:59 | HMH.EDGENADL ---
Discharge Plan Disposition Patient Disposition: Home, Self-Care Condition: Good Prescriptions Prescriptions: No Action diclofenac sodium 1 % gel 4 g topical QID PRN (Reason: pain ) Qty: 100 2RF Rx Instructions: apply to single, ankle, foot; for foot includes sole/toes/top of foot escitalopram oxalate 5 mg tablet 5 mg PO DAILY Patient Comments: TAKE ONE TABLET BY MOUTH AT BEDTIME azithromycin [Zithromax Z-Sudeep] 250 mg tablet See Rx Instructions PO .COMPLEX Qty: 6 0RF Rx Instructions: For 250 mg dose pack: take 500 mg today (day 1), then 250 mg for 4 days (days 2-5) PO bumetanide 2 mg tablet 2 mg PO DAILY PRN bisoprolol fumarate 5 mg tablet 2.5 mg PO DAILY Qty: 30 5RF losartan 100 mg tablet 100 mg PO DAILY Qty: 30 5RF guaifenesin [Mucinex] 1,200 mg tablet extended release 12hr 1,200 mg PO BID Qty: 20 0RF meloxicam 15 mg tablet 15 mg PO DAILY Patient Comments: TAKE 1 TABLET BY MOUTH ONCE A DAY NEEDED omeprazole 40 mg capsule,delayed release(DR/EC) 40 mg PO DAILY Patient Comments: TAKE 1 CAPSULE BY MOUTH ONCE A DAY hydrochlorothiazide 12.5 mg capsule 12.5 mg PO Patient Comments: TAKE 1 CAPSULE BY MOUTH ONCE A DAY albuterol sulfate 90 mcg/actuation HFA aerosol inhaler 1 inh inhalation Q6-8H PRN Patient Comments: INHALE 1 PUFF BY MOUTH EVERY 6 HOURS NEEDED FOR SHORTNESS OF BREATH OR WHEEZING estradiol 1 mg tablet See Rx Instructions .ROUTE .COMPLEX Qty: 30 11RF Dose Instruction: TAKE ONE TABLET BY MOUTH EVERY DAY Rx Instructions: TAKE ONE TABLET BY MOUTH EVERY DAY atorvastatin 20 mg tablet 20 mg PO DAILY Qty: 90 1RF Patient Comments: TAKE ONE TABLET BY MOUTH EVERY DAY spironolactone 100 mg tablet 100 mg PO DAILY Qty: 90 1RF Patient Comments: TAKE ONE TABLET BY MOUTH EVERY DAY dapagliflozin propanediol [Farxiga] 10 mg tablet 10 mg PO DAILY Qty: 30 2RF budesonide [Pulmicort] 0.25 mg/2 mL suspension for nebulization 0.25 mg inhalation BID Qty: 120 2RF ipratropium-albuterol 0.5 mg-3 mg(2.5 mg base)/3 mL solution for nebulization 3 ml inhalation Q8H 90 Days Qty: 540 3RF aspirin 81 mg Tablet 81 mg PO DAILY Rybelsus 3 mg tablet 3 mg PO DAILY Rx Instructions: TAKE ONE TABLET BY MOUTH EVERY DAY hydrocortisone 0.5 % cream 1 applic TOPICAL BID Patient Comments: APPLY TOPICALLY TO THE AFFECTED AREA(S) TWICE DAILY NEEDED FOR SKIN irritation DIRECTED levothyroxine 125 mcg tablet 125 mcg PO DAILY Patient Comments: TAKE ONE TABLET BY MOUTH EVERY DAY gabapentin 300 mg capsule 300 mg PO DAILY Patient Comments: TAKE ONE CAPSULE BY MOUTH FOUR TIMES DAILY MAY CAUSE DROWSINESS diazepam 5 mg tablet 5 mg PO DAILY Patient Comments: TAKE ONE TABLET BY MOUTH TWICE DAILY NEEDED Referrals Follow up/Referrals: Ciro De Jesus APRN [Primary Care Provider, Medical] - See instructions Activity Restrictions/Add. Instructions Additional Instructions/Restrictions: I think it is reasonable to follow up with ENT and your primary care doctor as you are currently planning to do. If you develop difficulty breathing or swallowing please return. Clinical Impressions Clinical Impression: Encounter for medical assessment Print Language Print Language: Chilean Discharge ED Provider: Jeromy Jovel General Adult HPI General Chief complaint: Skin/Abscess/Foreign Body Stated complaint: knot behind behind left ear Time Seen by Provider: 07/18/25 22:42 Mode of Arrival: Ambulatory Source of Information: Patient Description of Symptoms (Recalled from ER Triage Doc. by RN): Pt to ED with c/o knot below left ear that she states came up after eating yesterday. History of Present Illness HPI narrative: This is a 70-year-old female patient, with past medical history of hypothyroidism, hyperlipidemia, hypertension, and HFpEF, who is presenting to the emergency department today for evaluation of a knot in the left neck region. The patient states that she was eating food at a restaurant earlier this evening and she felt a knot inferior to her ear and right behind the mandible along her left neck. She states that she saw an EMT in the restaurant and asked them to look at her neck and they to could observe that there was a knot there. She states that the EMT asked her if she could breathe and if she had a sore throat and when she answered no the EMT recommended that she follow-up with her physician. She has now come here seeking evaluation. She tells me that this knot that she could feel before has resolved. She is not experiencing any pain. No difficulty with swallowing. No difficulty tolerating secretions. No difficulty with rotation of her neck. She has not had any recent viral symptoms and is not currently experiencing any viral symptoms. She denies all symptoms at this time. Related Data Home Medications ?Medication ?Instructions ?Recorded ?Confirmed diazepam 5 mg tablet 5 mg PO DAILY 06/16/24 07/18/25 gabapentin 300 mg capsule 300 mg PO DAILY 06/16/24 07/18/25 hydrocortisone 0.5 % topical cream 1 applic topical BID 06/16/24 07/18/25 levothyroxine 125 mcg tablet 125 mcg PO DAILY 06/16/24 07/18/25 aspirin 81 mg tablet 81 mg PO DAILY 10/16/24 07/18/25 semaglutide 3 mg tablet (Rybelsus) 3 mg PO DAILY 10/17/24 07/18/25 bumetanide 2 mg tablet 2 mg PO DAILY PRN 12/10/24 07/18/25 escitalopram oxalate 5 mg tablet 5 mg PO DAILY 04/04/25 07/18/25 albuterol sulfate 90 mcg/actuation 1 inh inhalation Q6-8H PRN 07/04/25 07/18/25 aerosol inhaler hydrochlorothiazide 12.5 mg capsule 12.5 mg PO 07/04/25 07/18/25 meloxicam 15 mg tablet 15 mg PO DAILY 07/04/25 07/18/25 omeprazole 40 mg capsule,delayed 40 mg PO DAILY 07/04/25 07/18/25 release Previous Rx's ?Medication ?Instructions ?Recorded estradiol 1 mg tablet See Rx Instructions .Route 08/02/24 .COMPLEX #30 tabs diclofenac sodium 1 % topical gel 4 g topical QID PRN pain #100 11/27/24 grams bisoprolol fumarate 5 mg tablet 2.5 mg (1/2 x 5 mg) PO DAILY #30 12/10/24 tabs atorvastatin 20 mg tablet 20 mg PO DAILY #90 tabs 01/30/25 spironolactone 100 mg tablet 100 mg PO DAILY #90 tabs 02/04/25 dapagliflozin propanediol 10 mg 10 mg PO DAILY #30 tabs 03/05/25 tablet (Farxiga) losartan 100 mg tablet 100 mg PO DAILY #30 tabs 03/11/25 guaifenesin 1,200 mg tablet, 1,200 mg PO BID #20 tabs 04/04/25 extended release 12 hr (Mucinex) budesonide 0.25 mg/2 mL suspension 0.25 mg (2 mL) inhalation BID #120 04/05/25 for nebulization (Pulmicort) mL ipratropium 0.5 mg-albuterol 3 mg 3 ml inhalation Q8H 3 months #540 04/05/25 (2.5 mg base)/3 mL nebulization mL soln azithromycin 250 mg tablet See Rx Instructions PO .COMPLEX #6 07/18/25 (Zithromax Z-Sudeep) tabs Allergies Allergy/AdvReac Type Severity Reaction Status Date / Time cephalexin (From KEFLEX) Allergy Unknown Hives Verified 07/18/25 17:02 morphine (MORPHINE) Allergy Unknown Headache Verified 07/18/25 17:02 oxytetracycline (From Allergy Unknown Hives Verified 07/18/25 17:02 TERRAMYCIN) [facility] Disclaimer: The information contained in this section may have been updated after the patient was seen, as this information can be updated by other users. Medical History Asthma Dysphagia (HFpEF) heart failure with preserved ejection fraction Chronic GERD Dry ear canal Headache Hypothyroidism Cardiac murmur, unspecified Vasomotor symptoms due to menopause Neuropathy Chest pain Edema Hyperlipidemia Hypertensive disorder Surgical History History of colonoscopy History of esophagogastroduodenoscopy (EGD) History of carpal tunnel release History of hysterectomy Family History Son Cancer Leukemia Family/Other Cancer Colon Ca Other No significant family history Social History Smoking Status: Never smoker second hand exposure: No alcohol intake: never counseling provided: provider counseling substance use type: denies use current occupational status: other Travel in the last 8 weeks?: None household members: spouse housing: house number of children: 2 current occupational exposures/hazards: No caffeine: No do you feel safe at home: Yes victim of physical abuse: No victim of emotional abuse: No victim of sexual abuse: No would you like helpful sources: No Have you lived/traveled outside US in past 30 days?: No Contact w/someone who lives/traveled outside US past 30 days?: No Exposure to someone with infectious disease in past 14 days?: No Do you have a fever (greater than 100.4 F or 38 C)?: No Have you tested positive for COVID-19?: No Exposed to someone with COVID-19 in past 14 days?: No Do you have a sore throat?: No Do you have a cough?: No Do you have any weakness?: No Do you have any diarrhea?: No Are you experiencing any unusual bleeding?: No Do you have any muscle aches/pain?: No Do you have any abdominal pain?: No Are you experiencing loss of taste or smell?: No Other Medical History Have you received the Flu Vaccine for this season: No Have you received the Pneumonia Vaccine: No ROS Obtained: Yes Systems reviewed as appropriate & no additional complaints except as documented Physical Exam General General appearance: other (See MDM) Respiratory Respiratory exam: Present other (See MDM) Cardiovascular Cardiovascular exam: Present other (See MDM) Neurological Exam Neurological exam: Present other (See MDM) Medical Decision Making Medical Records Medical records reviewed: Yes I reviewed the patient's medical records. Screening: Per USPSTF and CDC recommendations, given the prevalence of disease in our region, it is our hospital?s policy to screen for HIV and viral Hepatitis for all patients aged 18 and over and those with ongoing risk factors. Devyn Inquiry Pt receiving controlled substance: No Devyn was queried for this patient: No Vital Signs: 07/18/25 22:29 Temperature 97.9 F Temperature Source Oral Pulse Rate [Left Radial] 81 Respiratory Rate 18 Blood Pressure [Right Arm] 151/74 H Blood Pressure Mean [Right Arm] 99 Blood Pressure Source [Right Arm] Automatic Cuff Blood Pressure Position [Right Arm] Sitting 02 Sat by Pulse Oximetry 98 Oxygen Delivery Method Room Air Medical Decision Narrative: In summary, this is a 70-year-old female patient who is presenting to the emergency department today for evaluation of a knot that appeared on her left neck while eating earlier this evening. Comorbidities include a past medical history of hypertension, hyperlipidemia, hypothyroidism, and HFpEF. On initial evaluation of the patient they were resting comfortably in no acute distress and nontoxic in appearance. They are hemodynamically stable, saturating well room air, and are neurologically intact. On physical examination of the patient she is appropriately alert and interactive with a GCS of 15. Heart and lungs are clear to auscultation bilaterally. TMs are nonbulging and nonerythematous bilaterally. There is no abnormality of the external auditory canal. She has no tenderness along the angle or ramus of the mandible bilaterally. Inferior to the ear and posterior to the mandible where the patient is describing a knot, I do not appreciate any abnormalities or tenderness on palpation. There is no evidence of lymphadenopathy, no evidence of muscle spasm, no overlying erythema. On examination of her throat she has no asymmetric bulging of the tonsillar pillars. Uvula is midline. No soft palatal petechiae. Differential diagnosis includes muscle spasm, lymphadenopathy, and less likely sialoadenitis. Given that the patient cannot currently feel this knot and I cannot currently feel this knot and there is no other examination findings I do not feel that she necessitates any further workup today. She tells me that she has already reached out to schedule an appointment with ENT for other issues and that she plans to see her primary care physician this upcoming week. I have asked her to discuss this further with these physicians if her symptoms recur and if she develops any difficulty with tolerating secretions, breathing, or develops a sore throat that she should return to the emergency department. She acknowledges understanding. At this time all questions have and answered and all parties are agreeable with the decision to discharge home. Critical Care Critical Care Time Critical Care Time: No
[2025-07-18 23:15] VITALS: BP 132/68; PULSE 64; RESP 16; TEMP 36.6; O2SAT 100
== END 2025-07-18 23:15 | disposition home or self-care (01) ==
PROVIDERS: Emergency Provider Student in an Organized Health Care Education/Training Program; PCP Nurse Practitioner Family
DX: R22.1 Localized swelling, mass and lump, neck (principal)
CPT/HCPCS: 99282

== ENCOUNTER 2025-07-29 10:45 | Outpatient (CLI) | payer MEDICARE, OTHER, SELFPAY ==
--- OUTSIDE RECORDS SUMMARY | 2025-02-09 17:30 | XMS_ITS ---
Author Organization [facility] Address [address] [place] [address] Care Team Providers Care Computed Tomography Technologist Name Role Phone Phill Michael Primary Care Provider Phill Michael Unavailable Unavailable Migration, Provider Unavailable Unavailable Allergies Allergen (clinical drug ingredient) Drug/Non Drug Allergy documented on EMR Reaction Allergy Type Onset Date Status KEFLEX (uncoded) Unknown Allergy Act jonathan morphine Morphine Unknown Drug Allergy Active REASON FOR VISIT [facility] To [facility] Conversion Encounter Medications Medication SIG (Take, Route, Frequency, Duration) Notes Start Date End Date Status hydroCHLOROthiazide 12.5 MG 1 tab(s) ora lly once a day; Duration: 30 day(s) Active Atorvastatin Calcium 20 MG 1 tab(s) oral ly once a day; Duration: 30 day(s) Active Levoxyl 125 MCG 1 tab(s) orally once a day; Duration: 30 day(s) Active Montelukast Sodium 10 MG 1 tab(s) orally once a day; Duration: 30 day(s) Active Escitalopram Oxalate 20 MG 1 tab(s) oral ly once a day; Duration: 30 day(s) Active Meloxicam 7.5 MG TAKE ONE TABLET BY M OUTH EVERY DAY; Duration: 90 Active Aspirin 81 MG 1 tab(s) orally once a day; Duration: 30 day(s) Active Gabapentin 300 MG 1 cap(s) orally 4 ti mes daily; Duration: 30 days 09/28/2022 Active Losartan Potassium 50 MG 1 tab(s) orally once a day; Duration: 30 days Active Bisoprolol Fumarate 5 MG 1 tab(s) orally once a day; Duration: 30 day(s) Active Encounters Encounter Location Date Provider Diagnosis [facility] [address] [place] [address] 02/09/2025 Provider Migration Plan Of Treatment Medication Medication Name Sig Start Date Stop Date Notes hydroCHLOROthiazide 12.5 MG 1 tab(s) ora lly once a day; Duration: 30 day(s) Montelukast Sodium 10 MG 1 tab(s) orally once a day; Duration: 30 day(s) Escitalopram Oxalate 20 MG 1 tab(s) oral ly once a day; Duration: 30 day(s) Meloxicam 7.5 MG TAKE ONE TABLET BY M OUTH EVERY DAY; Duration: 90 Gabapentin 300 MG 1 cap(s) orally 4 ti mes daily; Duration: 30 days 09/28/2022 Losartan Potassium 50 MG 1 tab(s) orally once a day; Duration: 30 days Bisoprolol Fumarate 5 MG 1 tab(s) orally once a day; Duration: 30 day(s) Progress Notes * AMADO JulisaDOB: (70 yo F)Acc No.[id number]:02/09/2025 Patient: Julisa MCCLURE Provider: Karie Fuentes :1955 A ge:69 Y S ex:Female Date:02/09/2025 Address:[address] [place] [address] [place] , [address], [place], [id number] Pcp:Phill Michael Subjective: * Chief Complaints: * [facility] . [facility] Conversion Encounter. * Medical History: * [...] Electronic signature of Musa mendez Migration on 07/29/2025 at 10:50 AM EDT Sign off status: Pending * Provider: Karie Fuentes Date: 0 02/09/2025 Generated for Khanh rollins/Pan/Amadoritting on: 0 07/29/2025 10:50 AM EDT
--- OUTSIDE RECORDS SUMMARY | 2025-07-29 10:50 | XMS_ITS | Clinical Summary ---
Author Organization [facility] Address [address] [place] [address] Care Team Providers Care Datastage Architect Name Role Phone Ciro De Jesus LOCKER ATTENDANT Primary Care Provider [phone] Family History Medical History Relation Name Comments [...] (2 of 2 - PCV) 07/10/2021 07/10/2020 [id number] Vaccine (3 - season) 2025 02/18/2021, 01/21/2021 [...] age to complete this topic Insurance [employer] [facility] MEDICAID MEDICARE Member Subscriber Plan / Payer (Ef fective 2020-Present) Name:Julisa Donnelly Member ID:[id number] Relation to Subscriber:Self Name:Julisa Donnelly Subscriber ID:[id number] Payer ID:MEDICARE Group ID:Not on file Type:Medicare Address: [place] [phone] Care Teams Datastage Architect Relationship Specialty Start Date End Date Ciro De Jesus APRN [address] [place] [address] PCP - General 03/20/21
--- OUTSIDE RECORDS SUMMARY | 2025-07-29 10:51 | XMS_ITS | Patient Health Record ---
Author Organization [facility] Address [address] [place] [address] Care Team Providers Care Environmental Science Professor Name Role Phone Phill Michael Primary Care Provider [phone] Phill Michael Unavailable Unavailable Migration, Provider Unavailable [...] Vaccine Route Administration Date Status Comme nts Fluzone High Dose IM Intramuscular 08/11/2020 Administered Pneumovax 23 IM Intramuscular 07/10/2020 Administered Social History Tobacco Use: Social History Observation Description Date Details (start date - stop date) Never Smoker NA - NA Smoking: Question Answer Notes Are you a: nonsmoker Problems Problem Type SNOMED Code ICD Code Onset Dates Problem Status W/U Status Risk Notes Problem Anxiety (39437198) Anxiety (F41.9) Active confi rmed Problem Essential hypertension (47618505) Hypertension, essential (I10) Active confirmed Problem Idiopathic peripheral neuropathy (06836809) Idiopathic peripheral neuropathy (G60.9) Active confirmed Problem Hypothyroidism (60730792) Hypothyroidism, acquired (E03.9) Active confirmed Problem Mononeuropathy of lower limb (329069809) Neuropathy of right lower extremity (G57.91) Active confirmed Problem Pulmonary emphysema (63163311) Pulmonary emphysema, unspecified emphysema type (J43.9) Active confirmed Encounters Encounter Location Date Provider Diagnosis [facility] [address] [facility] [address] [place] [address] 02/09/2025 Provider Migration Plan Of Treatment Pending Test Test Name Order Date Physical Therapy 11/18/2020 C-BASIC METABOLIC 11/10/2020 C-DRUG SCREEN 12 PANEL 11/10/2020 M-Vitamin B12 10/12/2021 M-Vitamin B12 03/17/2022 Insurance Providers Payer Name Payer Address Payer Phone Subscriber Number Group Number Insured Name Patient Relationship to Insured Coverage Start Date Coverage End Date [place] [address] [place] [address] [id number] Niraj wellerJulisa Self - patient is the insured [facility] [address] [address] [place] [address] [id number] Rafajose wellerJulisa Self - patient is the [...]
[2025-07-29 11:13] LABS: Blood Urea Nitrogen 14 mg/dl (7-17); Creatinine,Serum 0.80 mg/dl (0.52-1.04); Estimated Glomerular Filt Rate 71 ml/min (>60); GFR (African American) 86 ML/MIN (>60)
== END 2025-07-29 23:59 | disposition home or self-care (01) ==
LOC: LAB 10:47
PROVIDERS: PCP Nurse Practitioner Family; Visit Provider Nurse Practitioner
DX: K11.20 Sialoadenitis, unspecified (principal)
CPT/HCPCS: 36415; 82565; 84520

== ENCOUNTER 2025-08-01 08:22 | Outpatient (CLI) | payer MEDICARE, OTHER, SELFPAY ==
--- NOTE | 2025-08-01 08:45 | CT_ITS ---
FINAL REPORT TECHNIQUE: Thin section axial CT images with coronal and sagittal reformats were performed through the neck. This study was performed with techniques to keep radiation doses as low as reasonably achievable (ALARA). Individualized dose reduction techniques using automated exposure control or adjustment of mA and/or kV according to the patient's size were employed. CLINICAL HISTORY: parotid swelling COMPARISON: 10/29/2020 FINDINGS: CT NECK WITH AND WITHOUT CONTRAST: The nasopharynx, oropharynx, epiglottis, and larynx are unremarkable. There are several small bilateral enhancing parietal nodules bilaterally, that may represent small intraparotid nodes. These are stable since the prior exam of 2019. Otherwise, the salivary glands are unremarkable. There are no findings to suggest sialoadenitis. No cervical adenopathy is noted. No acute osseous abnormalities are seen, and degenerative disc disease changes are similar to the prior exam. IMPRESSION: 1. Several small bilateral enhancing intraparietal nodules, that likely represent small intraparotid nodes, stable since the prior exam. No significant cervical adenopathy is noted. Reviewed, Interpreted and Dictated by Angelina Alex MD Transcribed by Alicia Lora [facility]henticated and [facility]
[2025-08-01] MEDS: IOPAMIDOL-370 (76%);100ML BOTTLE 75 ML IV (08:54)
[2025-08-01] MEDS: SODIUM CHLORIDE 0.9% 10ML SYR (RAD ONLY) 10 ML IV (08:54)
== END 2025-08-01 23:59 | disposition home or self-care (01) ==
LOC: RAD 08:22
PROVIDERS: PCP Nurse Practitioner Family; Visit Provider Nurse Practitioner
DX: K11.20 Sialoadenitis, unspecified (principal); R93.89 Abnormal findings on diagnostic imaging of other specified body structures
CPT/HCPCS: 70492; Q9967

== ENCOUNTER 2025-08-22 09:24 | Outpatient (RCR) | payer MEDICARE, OTHER, SELFPAY | END 2025-09-26 08:00 | disposition home or self-care (01) | LOC: PULREHAB 09:24 | PROVIDERS: Visit Provider Internal Medicine Pulmonary Disease | DX: R06.09 Other forms of dyspnea (principal); Z86.16 Personal history of COVID-19 | CPT/HCPCS: 94626 ==